=== PATIENT | male | born 1955 | race Caucasian/White ===

== ENCOUNTER 2016-07-21 07:51 | Emergency (ER) | payer MEDICARE, OTHER ==
[~2016-07-21] VITALS: Ht 175.3 cm; Wt 80.0 kg
[~2016-07-21 07:51] MED LIST: AMBI10TA PO; ATIV2INJ2 IV PUSH; ATOR20TA15 PO; BACL10TA PO; CIPR-9 PO; DEPA500T3 PO; DICL75TA PO; GLIM2TAB PO; IBUP800T23 PO; KEPP10002 PO; LEVE500 PO; LEVO100T5 PO; LYRI200C PO; METF1000 PO; TOPA25TA8 PO; ZITH250T PO
[2016-07-21] MEDS: LORazepam 2 MG/ML VIAL IV PUSH ONE (08:00)
[2016-07-21 08:03] VITALS: BP 183/89; PULSE 81; TEMP 98.6
--- NOTE | 2016-07-21 08:06 | PD ---
HPI Chief Complaint: seizure Time Seen by Provider: 07:59 Travel History International Travel<30 days: No Contact w/Intl Traveler<30days: No Traveled to known affect area: No History of Present Illness HPI 61-year-old male was brought in by EMS for seizure. Patient has history of seizure. Patient was admitted in May and patient was on Keppra and Depakote at that time. EMS reported patient is on Keppra and Topamax now. Patient is on Ativan as needed for seizure breakthrough. Patient had the seizure episode this morning. EMS was called. Patient was postictal. Patient was transported to ED for evaluation. Patient denies any headache. Patient denies any chest pain or shortness of breath. Patient denies abdominal pain. Patient denies any focal weakness or numbness of extremity. Patient also has history of diabetes, COPD, dyslipidemia, CHF, CAD, hypothyroidism. Patient's states the patient has been taking medications as directed. Patient's states that last breakthrough seizure was in May 2016. Patient has been seen a neurologist Dr. Ly. 10:04 AM. I spoke with patient's . Patient supposed to take Keppra 1000 mg 3 times a day however he has been taking it twice a day. Patient also supposed to take Topamax 25 mg 3 times a day. Patient has appointment with Dr. Ly, his neurologist tomorrow. PFSH Past Medical History Arthritis: Yes Asthma: Yes Heart Rhythm Problems: Yes Cardiac Catheterization: Yes (STENT PLACED ) Cardiovascular Problems: Yes (STENT PLACEMENT) Chest Pain: Yes Congestive Heart Failure: Yes COPD: Yes Cerebrovascular Accident: Yes (2005) Diabetes: Yes Diminished Hearing: No Gastrointestinal Disorders: Yes GERD: Yes Genitourinary: No Hypertension: Yes Musculoskeletal: Yes Neurologic: Yes Respiratory: Yes Myocardial Infarction: Yes (2004) Seizures: Yes Sleep Apnea: Yes Past Surgical History Cholecystectomy: Yes Other Surgery: Yes (KNEE, SHOULDER AND NECK ) Social History Alcohol Use: No Tobacco Use: No Substance Use: No Allergies-Medications (Allergen,Severity, Reaction): Coded Allergies: Levofloxacin (Verified Allergy, Severe, Anaphylaxis, 05/22/16) Nucynta (Verified Allergy, Intermediate, Nausea/Vomiting, 05/22/16) Reported Meds & Prescriptions Reported Meds & Active Scripts Active Ativan Inj (Lorazepam) 2 Mg/Ml Inj 1 Mg IV PUSH Q15M PRN Reported Topiramate 25 Mg Tab 25 Mg PO TID Aspirin 81 Mg Chew 81 Mg CHEW DAILY Omeprazole 20 Mg Tab 20 Mg PO DAILY Diclofenac Sodium DR (Diclofenac Sodium) 75 Mg Tabdr 75 Mg PO BID Baclofen 10 Mg Tab 10 Mg PO TID PRN Metformin (Metformin HCl) 1,000 Mg Tab 1,000 Mg PO BIDPC With meals Ambien (Zolpidem Tartrate) 10 Mg Tab 10 Mg PO HS PRN Lyrica (Pregabalin) 200 Mg Cap 200 Mg PO BID Levothyroxine (Levothyroxine Sodium) 100 Mcg Tab 175 Mcg PO DAILY Keppra (Levetiracetam) 1,000 Mg Tab 1,000 Mg PO BID Glimepiride 2 Mg Tab 2 Mg PO DAILY Take with breakfast or first main meal Atorvastatin (Atorvastatin Calcium) 20 Mg Tab 20 Mg PO DAILY 30 Days Review of Systems General / Constitutional: No: Fever Eyes: No: Visual changes HENT: No: Headaches Cardiovascular: No: Chest Pain or Discomfort Respiratory: No: Shortness of Breath Gastrointestinal: No: Abdominal Pain Genitourinary: No: Dysuria Musculoskeletal: No: Pain Skin: No Rash Neurologic: No: Weakness Psychiatric: No: Depression Endocrine: No: Polydipsia Hematologic/Lymphatic: No: Easy Bruising Physical Exam Narrative GENERAL: Well-nourished, well-developed patient. SKIN: Warm and dry. HEAD: Normocephalic. EYES: No scleral icterus. No injection or drainage. NECK: Supple, trachea midline. No JVD or lymphadenopathy. CARDIOVASCULAR: Regular rate and rhythm without murmurs, gallops, or rubs. RESPIRATORY: Breath sounds equal bilaterally. No accessory muscle use. GASTROINTESTINAL: Abdomen soft, non-tender, nondistended. MUSCULOSKELETAL: No cyanosis, or edema. BACK: Nontender without obvious deformity. No CVA tenderness. Neurologic exam: Patient's lethargic. Patient nonverbal at this point. Patient moves all extremities well. No obvious focal neurological deficit. Data Data Last Documented VS Vital Signs Date Time Temp Pulse Resp B/P Pulse Ox O2 Delivery O2 Flow Rate FiO2 07/21/16 09:31 64 12 122/75 95 Nasal Cannula 2 07/21/16 08:03 98.6 Orders Complete Blood Count With Diff (07/21/16 07:59) Comprehensive Metabolic Panel (07/21/16 07:59) Prothrombin Time / Inr (Pt) (07/21/16 07:59) Act Partial Throm Time (Ptt) (07/21/16 07:59) Iv Access Insert/Monitor (07/21/16 07:59) Ecg Monitoring (07/21/16 07:59) Oximetry (07/21/16 07:59) Lorazepam Inj (Ativan Inj) (07/21/16 08:00) Lorazepam Inj (Ativan Inj) (07/21/16 08:01) Thyroid Stimulating Hormone (07/21/16 08:06) Valproic Acid (Depakene) (07/21/16 08:09) Labs Laboratory Tests Test 07/21/16 08:05 White Blood Count 5.3 TH/MM3 Red Blood Count 4.48 MIL/MM3 Hemoglobin 13.2 GM/DL Hematocrit 39.8 % Mean Corpuscular Volume 88.8 FL Mean Corpuscular Hemoglobin 29.5 PG Mean Corpuscular Hemoglobin 33.2 % Concent Red Cell Distribution Width 14.1 % Platelet Count 149 TH/MM3 Mean Platelet Volume 9.5 FL Neutrophils (%) (Auto) 40.7 % Lymphocytes (%) (Auto) 49.2 % Monocytes (%) (Auto) 6.5 % Eosinophils (%) (Auto) 3.1 % Basophils (%) (Auto) 0.5 % Neutrophils # (Auto) 2.1 TH/MM3 Lymphocytes # (Auto) 2.6 TH/MM3 Monocytes # (Auto) 0.3 TH/MM3 Eosinophils # (Auto) 0.2 TH/MM3 Basophils # (Auto) 0.0 TH/MM3 CBC Comment DIFF FINAL Differential Comment Prothrombin Time 11.6 SEC Prothromb Time International 1.0 RATIO Ratio Activated Partial 25.2 SEC Thromboplast Time Sodium Level 141 MEQ/L Potassium Level 3.9 MEQ/L Chloride Level 107 MEQ/L Carbon Dioxide Level 26.4 MEQ/L Anion Gap 8 MEQ/L Blood Urea Nitrogen 12 MG/DL Creatinine 1.09 MG/DL Estimat Glomerular Filtration 69 ML/MIN Rate Random Glucose 175 MG/DL Calcium Level 8.9 MG/DL Total Bilirubin 0.7 MG/DL Aspartate Amino Transf 76 U/L (AST/SGOT) Alanine Aminotransferase 111 U/L (ALT/SGPT) Alkaline Phosphatase 78 U/L Total Protein 7.7 GM/DL Albumin 4.0 GM/DL MDM Medical Decision Making Medical Screen Exam Complete: Yes Emergency Medical Condition: Yes Interpretation(s) 9:44 AM. CBC within normal limit. CMP within normal limit. Differential Diagnosis Differential diagnosis including breakthrough seizure, electrolyte abnormality. Narrative Course 61-year-old male was brought in by EMS for seizure. History of seizure. Ativan 2 mg IV given. I spoke with Dr. Ly. Advised patient to take Keppra 1000 g 3 times a day. Advised patient to take Topamax 25 g 3 times a day. Advised patient to follow with him in the office tomorrow morning. Diagnosis Primary Impression: Breakthrough seizure Patient Instructions: General Instructions Additional Instructions: Advised patient to take Keppra and Topamax as directed. Follow-up with neurologist in a.m. Med/Other Pt SpecificInfo: Prescription(s) given, Existing Med Changed Scripts Topiramate 25 Mg Tab25 Mg PO TID #90 TAB Ref 0 Prov:Tyrone Mantilla MD 07/21/16 Levetiracetam (Keppra)1,000 Mg Tab1,000 Mg PO TID #90 TAB Ref 0 Prov:Tyrone Mantilla MD 07/21/16 Disposition: 01 DISCHARGE HOME Condition: Stable Tyrone Mantilla MD Jul 21, 2016 08:06
[2016-07-21 08:20] LABS: AUTOMATED NEUTROPHIL # 2.1 TH/MM3 (1.8-7.7); BASOPHIL % 0.5 % (0.0-2.0); EOSINOPHIL # 0.2 TH/MM3 (0-0.4); EOSINOPHIL % 3.1 % (0.0-4.0); HEMATOCRIT 39.8 % (39.0-51.0); HEMO FLAGS DIFF FINAL; LYMPH % 49.2 % (9.0-44.0); LYMPHOCYTE # 2.6 TH/MM3 (1.0-4.8); MEAN CELL VOLUME 88.8 FL (80.0-100.0); MEAN CORPUSCULAR HEMOGLOBIN 29.5 PG (27.0-34.0); MEAN CORPUSCULAR HGB CONC 33.2 % (32.0-36.0); MONO % 6.5 % (0.0-8.0); NEUT % 40.7 % (16.0-70.0); PLATELET COUNT 149 TH/MM3 (150-450); RED BLOOD COUNT 4.48 MIL/MM3 (4.50-5.90); RED CELL DISTRIBUTION WIDTH 14.1 % (11.6-17.2); WHITE BLOOD COUNT 5.3 TH/MM3 (4.0-11.0)
[2016-07-21 08:28] LABS: APTT (PATIENT) 25.2 SEC (24.3-30.1); PROTHROMBIN TIME - PATIENT 11.6 SEC (9.8-11.6)
[2016-07-21 08:35] LABS: ANION GAP 8 MEQ/L (5-15); AST (GOT) 76 U/L (15-37); BICARBONATE 26.4 MEQ/L (21.0-32.0); BLOOD UREA NITROGEN 12 MG/DL (7-18); CHLORIDE 107 MEQ/L (98-107); GLOMERULAR FILTRATION RATE 69 ML/MIN (>89); POTASSIUM 3.9 MEQ/L (3.5-5.1); SODIUM (NA) 141 MEQ/L (136-145)
[2016-07-21 08:38] LABS: ALKALINE PHOSPHATASE 78 U/L (45-117); ALT (GPT) 111 U/L (12-78); TOTAL BILIRUBIN ADULT 0.7 MG/DL (0.2-1.0)
[2016-07-21] MEDS ORDERED: TOPI1TAB97 PO ×2 (09:17→10:08)
[2016-07-21] MEDS ORDERED: OMEP20TA PO (09:17)
[2016-07-21] MEDS ORDERED: ASPI81CH CHEW (09:17)
[2016-07-21 09:31] VITALS: BP 122/75; PULSE 64; RESP 12; O2SAT 95
[2016-07-21] MEDS ORDERED: KEPP10002 PO (10:08)
[2016-07-21] MEDS: LORazepam 2 MG/ML VIAL ONE ×2 (11:15→11:18)
[2016-07-21 12:56] VITALS: BP 119/75; PULSE 69; RESP 16; TEMP 97.6; O2SAT 96
[2016-07-21 14:13] VITALS: O2SAT 96
--- NOTE | 2016-07-21 14:16 | EKG ---
Date Performed: 07/21/2016 Time Performed: 08:42:36 PTAGE: 61 years EKG: Sinus rhythm NORMAL ECG PREVIOUS TRACING : 05/22/2016 16.57 DOCTOR: Antoine Nolen Interpretating Date/Time 07/21/2016 14:13:21
== END 2016-07-21 13:40 | disposition home or self-care (01) ==
LOC: NEPC 07:51
DX: G40.89 Other seizures (principal); E11.9 Type 2 diabetes mellitus without complications; I10 Essential (primary) hypertension; I25.10 Atherosclerotic heart disease of native coronary artery without angina pectoris; E03.9 Hypothyroidism, unspecified; E78.5 Hyperlipidemia, unspecified; G47.30 Sleep apnea, unspecified; Z79.84 Long term (current) use of oral hypoglycemic drugs; Z86.79 Personal history of other diseases of the circulatory system; Z87.09 Personal history of other diseases of the respiratory system; Z87.39 Personal history of other diseases of the musculoskeletal system and connective tissue; Z86.73 Personal history of transient ischemic attack (TIA), and cerebral infarction without residual deficits; Z87.19 Personal history of other diseases of the digestive system; Z86.69 Personal history of other diseases of the nervous system and sense organs
CPT/HCPCS: 80053; 80164; 84443; 85025; 85610; 85730; 93005; 99284; J2060

== ENCOUNTER 2016-09-25 11:48 | Emergency (ER) | payer OTHER ==
[~2016-09-25 11:48] MED LIST changes: +ASPI81CH CHEW; -CIPR-9 PO; -DEPA500T3 PO; -IBUP800T23 PO; -LEVE500 PO; +OMEP20TA PO; -TOPA25TA8 PO; +TOPI1TAB97 PO; -ZITH250T PO
[2016-09-25 12:00] VITALS: BP 149/90; PULSE 72; RESP 20; TEMP 97.8; O2SAT 96
[2016-09-25] MEDS ORDERED: ACETAMINOPHEN/HYDROcodone 325 MG/10 MG TAB PO ONE (14:45)
[2016-09-25] MEDS ORDERED: DEXAMETHASONE SOD PHOS 20 MG/5 ML VIAL IV PUSH ONE (14:45)
--- NOTE | 2016-09-25 14:50 | PD ---
HPI Chief Complaint: Fall Time Seen by Provider: 14:34 Travel History International Travel<30 days: No Contact w/Intl Traveler<30days: No Traveled to known affect area: No History of Present Illness HPI 61-year-old male brought in by EMS status post fall this morning with reported hitting of head and LOC according to his . Patient has chronic low back pain with spinal stenosis currently being treated with hydrocodone 10 3 times a day as well as Invokana 100 mg twice a day which was started yesterday. His states he was walking with his legs gave out which is common for him, and he full forward hitting the anterior right forehead. She states she lost consciousness for several seconds. He has mild headache of 2/ 10. He has no obvious signs of trauma or laceration or abrasion. He has no other acute complaints, other than he has chronic back pain which is typical for him. Patient is allergic to levofloxacin and Nucynta. PFSH Past Medical History Hx Anticoagulant Therapy: No Arthritis: Yes Asthma: Yes Heart Rhythm Problems: Yes Cardiac Catheterization: Yes (STENT PLACED ) Cardiovascular Problems: Yes High Cholesterol: Yes Chest Pain: Yes Congestive Heart Failure: Yes (ECHO PERFORMED EARLIER THIS YEAR) COPD: Yes Cerebrovascular Accident: Yes Diabetes: Yes Patient Takes Glucophage: Yes (METFORMIN ) Diminished Hearing: No Gastrointestinal Disorders: Yes GERD: Yes Genitourinary: No Hypertension: Yes Musculoskeletal: Yes Neurologic: Yes Respiratory: Yes Myocardial Infarction: Yes Seizures: Yes Sleep Apnea: Yes Past Surgical History Cholecystectomy: Yes Coronary Stent: Yes Neurologic Surgery: Yes (insertion of ventricular neuro stimulator for seizure) Other Surgery: Yes (KNEE, SHOULDER AND NECK ) Social History Alcohol Use: No Tobacco Use: No Substance Use: No Allergies-Medications (Allergen,Severity, Reaction): Coded Allergies: Levofloxacin (Verified Allergy, Severe, Anaphylaxis, 09/25/16) Nucynta (Verified Allergy, Intermediate, Nausea/Vomiting, 09/25/16) Reported Meds & Prescriptions Reported Meds & Active Scripts Active Topiramate 25 Mg Tab 25 Mg PO TID Keppra (Levetiracetam) 1,000 Mg Tab 1,000 Mg PO TID Ativan Inj (Lorazepam) 2 Mg/Ml Inj 1 Mg IV PUSH Q15M PRN Reported Topiramate 25 Mg Tab 25 Mg PO TID Aspirin 81 Mg Chew 81 Mg CHEW DAILY Omeprazole 20 Mg Tab 20 Mg PO DAILY Diclofenac Sodium DR (Diclofenac Sodium) 75 Mg Tabdr 75 Mg PO BID Baclofen 10 Mg Tab 10 Mg PO TID PRN Metformin (Metformin HCl) 1,000 Mg Tab 1,000 Mg PO BIDPC With meals Ambien (Zolpidem Tartrate) 10 Mg Tab 10 Mg PO HS PRN Lyrica (Pregabalin) 200 Mg Cap 200 Mg PO BID Levothyroxine (Levothyroxine Sodium) 100 Mcg Tab 175 Mcg PO DAILY Keppra (Levetiracetam) 1,000 Mg Tab 1,000 Mg PO BID Glimepiride 2 Mg Tab 2 Mg PO DAILY Take with breakfast or first main meal Atorvastatin (Atorvastatin Calcium) 20 Mg Tab 20 Mg PO DAILY 30 Days Review of Systems Except as stated in HPI: all other systems reviewed are Neg General / Constitutional: No: Fever Eyes: No: Visual changes HENT: No: Headaches Cardiovascular: No: Chest Pain or Discomfort Respiratory: No: Shortness of Breath Gastrointestinal: No: Abdominal Pain Genitourinary: No: Dysuria Musculoskeletal: No: Pain Skin: No Rash Neurologic: No: Weakness Psychiatric: No: Depression Endocrine: No: Polydipsia Hematologic/Lymphatic: No: Easy Bruising Physical Exam Narrative GENERAL: Patient resting comfortably on the exam bed. SKIN: Warm and dry. Normal color. Normal turgor. No obvious signs of trauma. HEAD: Atraumatic. Normocephalic. Mild tenderness over the right forehead. No significant goose egg or bony tenderness. EYES: Pupils equal and round. No scleral icterus. No injection or drainage. ENT: No nasal bleeding or discharge. Mucous membranes pink and moist. No dental injury. Pharynx is clear. Airway is patent. NECK: Trachea midline. No bony tenderness. Range of motion is full and nontender. CARDIOVASCULAR: Regular rate and rhythm. RESPIRATORY: No accessory muscle use. Clear to auscultation. Breath sounds equal bilaterally. GASTROINTESTINAL: Abdomen soft, non-tender, nondistended. Hepatic and splenic margins not palpable. MUSCULOSKELETAL: Extremities without clubbing, cyanosis, or edema. No obvious deformities. Patient has normal plantar flexion and dorsiflexion bilaterally. Patient has 2+ patellar reflexes. No straight leg raise pain at this time. NEUROLOGICAL: Awake and alert. No obvious cranial nerve deficits. Motor grossly within normal limits. Five out of 5 muscle strength in the arms and legs. Normal speech. PSYCHIATRIC: Appropriate mood and affect; insight and judgment normal. Data Data Last Documented VS Vital Signs Date Time Temp Pulse Resp B/P Pulse Ox O2 Delivery O2 Flow Rate FiO2 09/25/16 13:25 96 Room Air 09/25/16 12:00 97.8 72 20 149/[address] Brain W/O Iv Contrast(Rout) (09/25/16 14:32) Acetamin-Hydrocod 325-10 Mg ([place] 10-32 (09/25/16 14:45) Dexamethasone Inj (Decadron Inj) (09/25/16 14:45) MDM Medical Decision Making Medical Screen Exam Complete: Yes Emergency Medical Condition: Yes Medical Record Reviewed: Yes Differential Diagnosis Fall. Chronic back pain. Spinal stenosis. Lower extremity weakness. Head injury. Loss of consciousness. Narrative Course Patient is medically stable at time of exam. CT of the head is ordered. Patient is given his regular dose of Lortab 10/325 by mouth. Patient is given Decadron [address] the head is negative for acute process per radiologist. Patient states stable for discharge home and continuation of his current meds at home. Patient should call pain management for rescheduling of his injections. Patient is to continue physical therapy as previously. Patient follow with his primary care physician as needed. Diagnosis Primary Impression: Fall Qualified Code: W19.XXXA - Fall, initial encounter Additional Impression: Head injury, acute, with loss of consciousness Qualified Code: S06.9X1A - Head injury, acute, with loss of consciousness, with LOC of 30 min or less, initial encounter Referrals: Pain Management Primary Care Physician Patient Instructions: Fall Prevention (ED), General Instructions, Head Injury ( ED) Additional Instructions: Patient is given his regular dose of Lortab 10/325 by mouth. Patient is given Decadron [address] the head is negative for acute process per radiologist. Patient states stable for discharge home and continuation of his current meds at home. Patient should call pain management for rescheduling of his injections. Patient is to continue physical therapy as previously. Patient follow with his primary care physician as needed. Med/Other Pt SpecificInfo: No Change to Meds Disposition: DISCHARGE HOME Condition: Stable Raimundo Tanner Sep 25, 2016 14:50
--- NOTE | 2016-09-25 15:33 | RADRPT ---
EXAM DATE/TIME: 09/25/2016 15:15 [facility] COMPARISON: CT BRAIN W/O CONTRAST, May 22, 2016, 18:20. INDICATIONS : Fall with injury to right frontal head. RADIATION DOSE: 44.75 CTDIvol (mGy) MEDICAL HISTORY : Cardiovascular disease. Seizures. Hypertension.CVA. SURGICAL HISTORY : Fusion, cervical. Ventricular neurostimulator. ENCOUNTER: Initial ACUITY: 1 day PAIN SCALE: 7/10 LOCATION: Right frontal head. TECHNIQUE: Multiple contiguous axial images were obtained of the head. Using automated exposure control and adj ustment of the mA and/or kV according to patient size, radiation dose was kept as low as reasonably a chievable to obtain optimal diagnostic quality images. FINDINGS: CEREBRUM: The ventricles are normal for age. No evidence of midline shift, mass lesion, hemorrhage or acute in farction. No extra-axial fluid collections are seen. POSTERIOR FOSSA: The cerebellum and brainstem are intact. The 4th ventricle is midline. The cerebellopontine angle i s unremarkable. EXTRACRANIAL: The visualized portion of the orbits is intact. SKULL: The calvaria is intact. No evidence of skull fracture. CONCLUSION: Negative exam. Neo Frye MD on September 25, 2016 at 15:29 Board Certified Radiologist. This report was verified electronically.
--- NOTE | 2016-09-25 18:28 | EKG ---
Date Performed: 09/25/2016 Time Performed: 14:10:52 PTAGE: 61 years EKG: Sinus rhythm NONSPECIFIC T-WAVE ABNORMALITY BORDERLINE ECG NO SIGNIFICANT CHANGE FROM PRIOR ELECTROCARDIOGRAM. PREVIOUS TRACING : 07/21/2016 08.42 DOCTOR: Jovani Andre Interpretating Date/Time 09/25/2016 18:27:56
== END 2016-09-25 16:42 | disposition home or self-care (01) ==
LOC: NEPC 11:48
DX: S06.9X1A Unspecified intracranial injury with loss of consciousness of 30 minutes or less, initial encounter (principal); I10 Essential (primary) hypertension; W19.XXXA Unspecified fall, initial encounter; Y93.01 Activity, walking, marching and hiking
CPT/HCPCS: 70450; 93005; 96374; 99284; J1100

== ENCOUNTER 2016-12-10 04:32 | Emergency (ER) | payer OTHER ==
[~2016-12-10] VITALS: Ht 177.8 cm; Wt 85.0 kg
[2016-12-10 04:33] VITALS: BP 139/80; PULSE 74; RESP 16; TEMP 98.6; O2SAT 95
[2016-12-10] MEDS ORDERED: LORA-392 PO (04:54)
[2016-12-10] MEDS ORDERED: IBUP800T23 PO (04:54)
[2016-12-10] MEDS ORDERED: NITR0.4S SL (04:56)
[2016-12-10] MEDS ORDERED: MORPHINE SULFATE 4 MG/ML INJ IV PUSH ONE (05:15)
[2016-12-10] MEDS ORDERED: ONDANSETRON HCL 4 MG/2 ML VIAL IV PUSH ONE (05:15)
[2016-12-10] MEDS ORDERED: MORPHINE SULFATE 8 MG/ML INJ ONE (05:32)
--- NOTE | 2016-12-10 05:38 | PD ---
HPI Chief Complaint: Skin Problem Time Seen by Provider: 05:33 Travel History International Travel<30 days: No Contact w/Intl Traveler<30days: No Traveled to known affect area: No History of Present Illness HPI 61-year-old white male presents to emergency department for evaluation of a painful lump to his left shoulder over the past week. The patient states that he is concerned that this is an infection from shoulder. He has had a history of a skin infection to his chest in the past. This has required incision and drainage by his orthopedist. In addition he has had some subjective nausea without vomiting. Subjective fever and chills and general malaise. Patient has chronic weakness in his left arm from prior rotator cuff injury with failed surgery. PFSH Past Medical History Hx Anticoagulant Therapy: No Arthritis: Yes Asthma: Yes Heart Rhythm Problems: Yes Cardiac Catheterization: Yes (STENT PLACED ) Cardiovascular Problems: Yes High Cholesterol: Yes Chest Pain: Yes Congestive Heart Failure: Yes (ECHO PERFORMED EARLIER THIS YEAR) COPD: Yes Cerebrovascular Accident: Yes (CVA-LEFT SIDED WEAKNESS) Diabetes: Yes Patient Takes Glucophage: Yes Diminished Hearing: No Gastrointestinal Disorders: Yes GERD: Yes Genitourinary: No Hypertension: Yes Musculoskeletal: Yes Neurologic: Yes Respiratory: Yes Myocardial Infarction: Yes Seizures: Yes Sleep Apnea: Yes Past Surgical History Cholecystectomy: Yes Coronary Stent: Yes Neurologic Surgery: Yes (insertion of ventricular neuro stimulator for seizure) Other Surgery: Yes (KNEE, SHOULDER AND NECK ) Social History Alcohol Use: No Tobacco Use: No Substance Use: No Allergies-Medications (Allergen,Severity, Reaction): Coded Allergies: Levofloxacin (Verified Allergy, Severe, Anaphylaxis, 12/10/16) Nucynta (Verified Allergy, Intermediate, Nausea/Vomiting, 12/10/16) Blueberry (Verified Allergy, Mild, Rash, 12/10/16) Reported Meds & Prescriptions Reported Meds & Active Scripts Active Lortab (Hydrocodone-Acetaminophen) 5-325 Mg Tab 1 Tab PO Q6H PRN Keppra (Levetiracetam) 1,000 Mg Tab 1,000 Mg PO TID Reported Nitrostat SL (Nitroglycerin) 0.4 Mg Subl 0.4 Mg SL DIRECTED PRN 1 tablet under the tongue as needed for chest pain. Repeat every 5 minutes for a total of 3 DOSES or call 911 if NO relief. Ativan (Lorazepam) 0.5 Mg Tab 0.5 Mg PO BID Ibuprofen 800 Mg Tab 800 Mg PO TID PRN Topiramate 25 Mg Tab 25 Mg PO BID Aspirin 81 Mg Chew 81 Mg CHEW DAILY Omeprazole 20 Mg Tab 20 Mg PO DAILY Metformin (Metformin HCl) 1,000 Mg Tab 1,000 Mg PO BIDPC With meals Ambien (Zolpidem Tartrate) 10 Mg Tab 10 Mg PO HS PRN Lyrica (Pregabalin) 200 Mg Cap 200 Mg PO BID Levothyroxine (Levothyroxine Sodium) 100 Mcg Tab 175 Mcg PO DAILY Glimepiride 2 Mg Tab 2 Mg PO DAILY Take with breakfast or first main meal Atorvastatin (Atorvastatin Calcium) 20 Mg Tab 20 Mg PO DAILY 30 Days Review of Systems Except as stated in HPI: all other systems reviewed are Neg Physical Exam Narrative GENERAL: Well-developed, well-nourished in no apparent distress. Nontoxic appearing. HEAD: Normocephalic, atraumatic. EYES: Pupils equal round and reactive. Extraocular motions intact. No scleral icterus. No injection or drainage. ENT: Nose clear. Throat without erythema, tonsillar hypertrophy or exudate. Uvula midline. Airway patent. NECK: Trachea midline. Supple, nontender, moves head freely. No central bony tenderness or spasm. CARDIOVASCULAR: Regular rate and rhythm without murmurs, gallops, or rubs. RESPIRATORY: Clear to auscultation. Breath sounds equal bilaterally. No wheezes , rales, or rhonchi. GASTROINTESTINAL: Abdomen soft, non-tender, nondistended. No hepato-splenomegaly , or palpable masses. No guarding. EXTREMITIES: No clubbing, cyanosis, or edema. Tenderness to the anterior left shoulder. There is a 2 x 2 centimeter mobile tender soft tissue lesion area this is at the superior aspect of the incision line. 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 There is no erythema, warmth. The skin is intact. Right upper extremity as well as the lower extremities are without localizing bony tenderness or deformity. BACK: Nontender without deformity. No flank tenderness. NEUROLOGICAL: Awake, alert and oriented x 3 .Cranial nerves grossly intact. Motor and sensory grossly within normal limits. Normal speech. Data Data Last Documented VS Vital Signs Date Time Temp Pulse Resp B/P Pulse Ox O2 Delivery O2 Flow Rate FiO2 12/10/16 04:33 98.6 74 16 139/80 95 Room Air Orders Complete Blood Count With Diff (12/10/16 05:13) Comprehensive Metabolic Panel (12/10/16 05:13) C-Reactive Protein (Crp) (12/10/16 05:13) Westergren Sedimentation Rate (12/10/16 05:13) Iv Access Insert/Monitor (12/10/16 05:13) Shoulder, Limited(2vws) (12/10/16 05:13) Ondansetron Inj (Zofran Inj) (12/10/16 05:15) Morphine Inj (Morphine Inj) (12/10/16 05:15) Morphine Inj (Morphine Inj) (12/10/16 05:32) Labs Laboratory Tests Test 12/10/16 05:27 White Blood Count 7.0 TH/MM3 Red Blood Count 4.80 MIL/MM3 Hemoglobin 14.2 GM/DL Hematocrit 42.6 % Mean Corpuscular Volume 88.7 FL Mean Corpuscular Hemoglobin 29.6 PG Mean Corpuscular Hemoglobin 33.4 % Concent Red Cell Distribution Width 14.3 % Platelet Count 170 TH/MM3 Mean Platelet Volume 9.2 FL Neutrophils (%) (Auto) 62.2 % Lymphocytes (%) (Auto) 30.8 % Monocytes (%) (Auto) 4.8 % Eosinophils (%) (Auto) 1.7 % Basophils (%) (Auto) 0.5 % Neutrophils # (Auto) 4.4 TH/MM3 Lymphocytes # (Auto) 2.2 TH/MM3 Monocytes # (Auto) 0.3 TH/MM3 Eosinophils # (Auto) 0.1 TH/MM3 Basophils # (Auto) 0.0 TH/MM3 CBC Comment DIFF FINAL Differential Comment Erythrocyte Sedimentation Rate 6 mm/hr Sodium Level 140 MEQ/L Potassium Level 3.8 MEQ/L Chloride Level 106 MEQ/L Carbon Dioxide Level 25.2 MEQ/L Anion Gap 9 MEQ/L Blood Urea Nitrogen 17 MG/DL Creatinine 0.88 MG/DL Estimat Glomerular Filtration 89 ML/MIN Rate Random Glucose 193 MG/DL Calcium Level 9.0 MG/DL Total Bilirubin 0.5 MG/DL Aspartate Amino Transf 36 U/L (AST/SGOT) Alanine Aminotransferase 78 U/L (ALT/SGPT) Alkaline Phosphatase 74 U/L C-Reactive Protein LESS THAN 0.29 MG/DL Total Protein 7.6 GM/DL Albumin 4.0 GM/DL MDM Medical Decision Making Medical Screen Exam Complete: Yes Emergency Medical Condition: Yes Medical Record Reviewed: Yes Interpretation(s) Laboratory Tests Test 12/10/16 05:27 White Blood Count 7.0 TH/MM3 Red Blood Count 4.80 MIL/MM3 Hemoglobin 14.2 GM/DL Hematocrit 42.6 % Mean Corpuscular Volume 88.7 FL Mean Corpuscular Hemoglobin 29.6 PG Mean Corpuscular Hemoglobin 33.4 % Concent Red Cell Distribution Width 14.3 % Platelet Count 170 TH/MM3 Mean Platelet Volume 9.2 FL Neutrophils (%) (Auto) 62.2 % Lymphocytes (%) (Auto) 30.8 % Monocytes (%) (Auto) 4.8 % Eosinophils (%) (Auto) 1.7 % Basophils (%) (Auto) 0.5 % Neutrophils # (Auto) 4.4 TH/MM3 Lymphocytes # (Auto) 2.2 TH/MM3 Monocytes # (Auto) 0.3 TH/MM3 Eosinophils # (Auto) 0.1 TH/MM3 Basophils # (Auto) 0.0 TH/MM3 CBC Comment DIFF FINAL Differential Comment Erythrocyte Sedimentation Rate 6 mm/hr Sodium Level 140 MEQ/L Potassium Level 3.8 MEQ/L Chloride Level 106 MEQ/L Carbon Dioxide Level 25.2 MEQ/L Anion Gap 9 MEQ/L Blood Urea Nitrogen 17 MG/DL Creatinine 0.88 MG/DL Estimat Glomerular Filtration 89 ML/MIN Rate Random Glucose 193 MG/DL Calcium Level 9.0 MG/DL Total Bilirubin 0.5 MG/DL Aspartate Amino Transf 36 U/L (AST/SGOT) Alanine Aminotransferase 78 U/L (ALT/SGPT) Alkaline Phosphatase 74 U/L C-Reactive Protein LESS THAN 0.29 MG/DL Total Protein 7.6 GM/DL Albumin 4.0 GM/DL Last 24 hours Impressions Shoulder X-Ray 12/10/16 0513 Signed Impressions: Service Date/Time: Saturday, December 10, 2016 05:37 - CONCLUSION: Left shoulder arthroplasty as above. Suspected loosening of the humeral component. No fracture. Thomas Hewitt MD Differential Diagnosis MDM: High Differential diagnoses: Abscess, folliculitis, cellulitis, lymphangitis, abrasion, contact dermatitis, hardware problem Narrative Course IV access is obtained. Patient's given 4 mg of Zofran IV and 4 mg of morphine IV. Routine laboratory testing several analysis including CBC, chemistry and left shoulder x-ray Patient's CBC, chemistry, sedimentation rate and CRP are negative. X-ray shows loosening of his hardware. I suspect this is the etiology of his pain. Patient is given a prescription for Lortab. He is advised to follow-up with his orthopedist. Family states that they have seen Dr. Warner in the past and they will call him in the morning. This is left shoulder pain, loosening hardware Diagnosis Primary Impression: Left shoulder pain Qualified Code: M25.512 - Acute pain of left shoulder Additional Impression: loosening hardware left shoulder Patient Instructions: General Instructions, Narcotic given in the ED Additional Instructions: Rest. Lortab for pain. Follow-up with your orthopedist in the next 3-7 days. Return to the ER if any problems. Med/Other Pt SpecificInfo: Prescription(s) given Scripts Hydrocodone-Acetaminophen (Lortab)5-325 Mg Tab1 Tab PO Q6H PRN (PAIN) #20 TAB Prov:Brian Flores MD 12/10/16 Disposition: 01 DISCHARGE HOME Condition: Stable Lino Esposito Dec 10, 2016 05:38
[2016-12-10 05:46] LABS: AUTOMATED NEUTROPHIL # 4.4 TH/MM3 (1.8-7.7); BASOPHIL % 0.5 % (0.0-2.0); EOSINOPHIL # 0.1 TH/MM3 (0-0.4); EOSINOPHIL % 1.7 % (0.0-4.0); HEMATOCRIT 42.6 % (39.0-51.0); HEMO FLAGS DIFF FINAL; LYMPH % 30.8 % (9.0-44.0); LYMPHOCYTE # 2.2 TH/MM3 (1.0-4.8); MEAN CELL VOLUME 88.7 FL (80.0-100.0); MEAN CORPUSCULAR HEMOGLOBIN 29.6 PG (27.0-34.0); MEAN CORPUSCULAR HGB CONC 33.4 % (32.0-36.0); MONO % 4.8 % (0.0-8.0); NEUT % 62.2 % (16.0-70.0); PLATELET COUNT 170 TH/MM3 (150-450); RED CELL DISTRIBUTION WIDTH 14.3 % (11.6-17.2)
--- NOTE | 2016-12-10 05:53 | RADRPT ---
EXAM DATE/TIME: 12/10/2016 05:37 [facility] COMPARISON: No previous studies available for comparison. INDICATIONS : Inflammation to left shoulder. MEDICAL HISTORY : Myocardial infarction. Stroke. Epilepsy. SURGICAL HISTORY : Left shoulder replacement. ENCOUNTER: Initial ACUITY: 1 day PAIN SCORE: 0/10 LOCATION: Left shoulder FINDINGS: Patient has a reversed configuration left glenohumeral joint arthroplasty. No dislocation. No fractur e demonstrated. There is lucency/bone resorption fairly diffusely around the humeral component. Radiographic appearance of the soft tissues within normal limits. CONCLUSION: Left shoulder arthroplasty as above. Suspected loosening of the humeral component. No fracture. Thomas Hewitt MD on December 10, 2016 at 5:49 Board Certified Radiologist. This report was verified electronically.
[2016-12-10 06:07] LABS: ALT (GPT) 78 U/L (12-78); ANION GAP 9 MEQ/L (5-15); AST (GOT) 36 U/L (15-37); BICARBONATE 25.2 MEQ/L (21.0-32.0); BLOOD UREA NITROGEN 17 MG/DL (7-18); CHLORIDE 106 MEQ/L (98-107); GLOMERULAR FILTRATION RATE 89 ML/MIN (>89); POTASSIUM 3.8 MEQ/L (3.5-5.1); SODIUM (NA) 140 MEQ/L (136-145)
[2016-12-10 06:09] LABS: ALKALINE PHOSPHATASE 74 U/L (45-117); TOTAL BILIRUBIN ADULT 0.5 MG/DL (0.2-1.0)
[2016-12-10] MEDS ORDERED: HYDR-3533 PO (06:49)
[2016-12-10 07:13] VITALS: BP 132/75
== END 2016-12-10 07:22 | disposition home or self-care (01) ==
LOC: NEPD 04:32
DX: M25.512 Pain in left shoulder (principal); E78.00 Pure hypercholesterolemia, unspecified; I50.9 Heart failure, unspecified; J44.9 Chronic obstructive pulmonary disease, unspecified; E11.9 Type 2 diabetes mellitus without complications; M13.80 Other specified arthritis, unspecified site; I69.954 Hemiplegia and hemiparesis following unspecified cerebrovascular disease affecting left non-dominant side; K21.9 Gastro-esophageal reflux disease without esophagitis; I10 Essential (primary) hypertension
CPT/HCPCS: 73030; 80053; 85025; 85652; 86140; 96374; 96375; 99284; J2270; J2405

== ENCOUNTER 2016-12-18 13:49 | Emergency (ER) | payer OTHER ==
[~2016-12-18] VITALS: Ht 177.8 cm; Wt 86.3 kg
[~2016-12-18 13:49] MED LIST changes: -ATIV2INJ2 IV PUSH; -BACL10TA PO; -DICL75TA PO; +HYDR-3533 PO; +IBUP800T23 PO; +LORA-392 PO; +NITR0.4S SL
[2016-12-18 13:56] VITALS: BP 140/83; PULSE 72; RESP 16; TEMP 98.1; O2SAT 98
[2016-12-18] MEDS ORDERED: SODIUM CHLOR 0.9% 1000 ML INJ 1,000 ML IV ONE (14:01)
[2016-12-18] MEDS ORDERED: SODIUM CHLORIDE 0.9% FLUSH 10 ML FLUSH IVF PRN (14:15)
[2016-12-18 14:26] LABS: AUTOMATED NEUTROPHIL # 3.1 TH/MM3 (1.8-7.7); BASOPHIL % 0.5 % (0.0-2.0); EOSINOPHIL # 0.1 TH/MM3 (0-0.4); EOSINOPHIL % 1.5 % (0.0-4.0); HEMATOCRIT 40.8 % (39.0-51.0); HEMO FLAGS DIFF FINAL; LYMPH % 34.2 % (9.0-44.0); LYMPHOCYTE # 1.8 TH/MM3 (1.0-4.8); MEAN CELL VOLUME 89.9 FL (80.0-100.0); MEAN CORPUSCULAR HEMOGLOBIN 29.7 PG (27.0-34.0); MEAN CORPUSCULAR HGB CONC 33.1 % (32.0-36.0); MONO % 5.3 % (0.0-8.0); NEUT % 58.5 % (16.0-70.0); PLATELET COUNT 130 TH/MM3 (150-450); RED BLOOD COUNT 4.54 MIL/MM3 (4.50-5.90); RED CELL DISTRIBUTION WIDTH 14.5 % (11.6-17.2); WHITE BLOOD COUNT 5.3 TH/MM3 (4.0-11.0)
--- NOTE | 2016-12-18 14:45 | PD ---
HPI Chief Complaint: Seizure Time Seen by Provider: 14:03 Travel History International Travel<30 days: No Contact w/Intl Traveler<30days: No Traveled to known affect area: No History of Present Illness HPI 61-year-old male presents after he had report of 2 seizures. He states that he has been taking his medications like he should for his seizure disorder. He states he has a neurologist but is not sure of their name. He confirms that he is on Topamax and Keppra for his seizures. He does not recall seizure episodes so history on this is limited. He states he did hit his head. He denies any specific other complaints other than pain to his left shoulder which he gets a lot. PFSH Past Medical History Hx Anticoagulant Therapy: No Arthritis: Yes Asthma: Yes Heart Rhythm Problems: Yes Cardiac Catheterization: Yes (STENT PLACED ) Cardiovascular Problems: Yes High Cholesterol: Yes Chest Pain: Yes Congestive Heart Failure: Yes (ECHO PERFORMED EARLIER THIS YEAR) COPD: Yes Cerebrovascular Accident: Yes (CVA-LEFT SIDED WEAKNESS) Diabetes: Yes Patient Takes Glucophage: Yes Diminished Hearing: No Gastrointestinal Disorders: Yes GERD: Yes Genitourinary: No Hypertension: Yes Musculoskeletal: Yes Neurologic: Yes Respiratory: Yes Myocardial Infarction: Yes Seizures: Yes Sleep Apnea: Yes Past Surgical History Cholecystectomy: Yes Coronary Stent: Yes Neurologic Surgery: Yes (insertion of ventricular neuro stimulator for seizure) Other Surgery: Yes (KNEE, SHOULDER AND NECK ) Social History Alcohol Use: No Tobacco Use: No Substance Use: No Allergies-Medications (Allergen,Severity, Reaction): Coded Allergies: Levofloxacin (Verified Allergy, Severe, Anaphylaxis, 12/10/16) Nucynta (Verified Allergy, Intermediate, Nausea/Vomiting, 12/10/16) Blueberry (Verified Allergy, Mild, Rash, 12/10/16) Reported Meds & Prescriptions Reported Meds & Active Scripts Active Topiramate 25 Mg Tab 25 Mg PO TID 30 Days Lortab (Hydrocodone-Acetaminophen) 5-325 Mg Tab 1 Tab PO Q6H PRN Keppra (Levetiracetam) 1,000 Mg Tab 1,000 Mg PO TID Reported Nitrostat SL (Nitroglycerin) 0.4 Mg Subl 0.4 Mg SL DIRECTED PRN 1 tablet under the tongue as needed for chest pain. Repeat every 5 minutes for a total of 3 DOSES or call 911 if NO relief. Ativan (Lorazepam) 0.5 Mg Tab 0.5 Mg PO BID Aspirin 81 Mg Chew 81 Mg CHEW DAILY Omeprazole 20 Mg Tab 20 Mg PO DAILY Metformin (Metformin HCl) 1,000 Mg Tab 1,000 Mg PO BIDPC With meals Ambien (Zolpidem Tartrate) 10 Mg Tab 10 Mg PO HS PRN Lyrica (Pregabalin) 200 Mg Cap 200 Mg PO BID Levothyroxine (Levothyroxine Sodium) 100 Mcg Tab 175 Mcg PO DAILY Glimepiride 2 Mg Tab 2 Mg PO DAILY Take with breakfast or first main meal Atorvastatin (Atorvastatin Calcium) 20 Mg Tab 20 Mg PO DAILY 30 Days Review of Systems Except as stated in HPI: all other systems reviewed are Neg Physical Exam Narrative GENERAL: Well-nourished, well-developed patient. SKIN: Warm and dry. HEAD: Normocephalic and atraumatic. EYES: No injection or drainage. Pupils equal ENT: No nasal drainage noted. NECK: Supple, trachea midline. No pain with range of motion CARDIOVASCULAR: Regular rate and rhythm RESPIRATORY: Breath sounds equal bilaterally. No accessory muscle use. GASTROINTESTINAL: Abdomen soft, non-tender, nondistended. NEUROLOGICAL: Awake and alert. Moves all extremities. Normal speech. Data Data Last Documented VS Vital Signs Date Time Temp Pulse Resp B/P Pulse Ox O2 Delivery O2 Flow Rate FiO2 12/18/16 13:56 98.1 72 16 140/83 98 Orders Electrocardiogram (12/18/16 13:58) Complete Blood Count With Diff (12/18/16 14:01) Alcohol (Ethanol) (12/18/16 14:01) Drug Screen, Random Urine (12/18/16 14:01) Electrocardiogram (12/18/16 ) Blood Glucose (12/18/16 14:01) Ecg Monitoring (12/18/16 14:01) Iv Access Insert/Monitor (12/18/16 14:01) Oximetry (12/18/16 14:01) Comprehensive Metabolic Panel (12/18/16 14:01) Sodium Chlor 0.9% 1000 Ml Inj (Ns 1000 M (12/18/16 14:01) Sodium Chloride 0.9% Flush (Ns Flush) (12/18/16 14:15) Urinalysis - C+S If Indicated (12/18/16 14:01) Topiramate (Topamax) (12/18/16 14:01) Levetiracetam (12/18/16 14:01) Shoulder, Complete (>2vws) (12/18/16 ) Ct Brain W/O Iv Contrast(Rout) (12/18/16 ) Labs Laboratory Tests Test 12/18/16 12/18/16 14:08 15:05 White Blood Count 5.3 TH/MM3 Red Blood Count 4.54 MIL/MM3 Hemoglobin 13.5 GM/DL Hematocrit 40.8 % Mean Corpuscular Volume 89.9 FL Mean Corpuscular Hemoglobin 29.7 PG Mean Corpuscular Hemoglobin 33.1 % Concent Red Cell Distribution Width 14.5 % Platelet Count 130 TH/MM3 Mean Platelet Volume 9.1 FL Neutrophils (%) (Auto) 58.5 % Lymphocytes (%) (Auto) 34.2 % Monocytes (%) (Auto) 5.3 % Eosinophils (%) (Auto) 1.5 % Basophils (%) (Auto) 0.5 % Neutrophils # (Auto) 3.1 TH/MM3 Lymphocytes # (Auto) 1.8 TH/MM3 Monocytes # (Auto) 0.3 TH/MM3 Eosinophils # (Auto) 0.1 TH/MM3 Basophils # (Auto) 0.0 TH/MM3 CBC Comment DIFF FINAL Differential Comment Sodium Level 139 MEQ/L Potassium Level 4.0 MEQ/L Chloride Level 105 MEQ/L Carbon Dioxide Level 21.5 MEQ/L Anion Gap 13 MEQ/L Blood Urea Nitrogen 14 MG/DL Creatinine 0.94 MG/DL Estimat Glomerular Filtration 82 ML/MIN Rate Random Glucose 371 MG/DL Calcium Level 9.0 MG/DL Total Bilirubin 0.5 MG/DL Aspartate Amino Transf 42 U/L (AST/SGOT) Alanine Aminotransferase 88 U/L (ALT/SGPT) Alkaline Phosphatase 76 U/L Total Protein 7.1 GM/DL Albumin 3.8 GM/DL Ethyl Alcohol Level LESS THAN 3 MG/DL Urine Color YELLOW Urine Turbidity CLEAR Urine pH 7.5 Urine Specific Omer 1.033 Urine Protein NEG mg/dL Urine Glucose (UA) 1000 mg/dL Urine Ketones NEG mg/dL Urine Occult Blood NEG Urine Nitrite NEG Urine Bilirubin NEG Urine Urobilinogen LESS THAN 2.0 MG/DL Urine Leukocyte Esterase NEG Urine RBC LESS THAN 1 /hpf Urine WBC 1 /hpf Microscopic Urinalysis Comment CULT NOT INDICATED Urine Opiates Screen NEG Urine Barbiturates Screen NEG Urine Amphetamines Screen NEG Urine Benzodiazepines Screen NEG Urine Cocaine Screen NEG Urine Cannabinoids Screen NEG MDM Medical Decision Making Medical Screen Exam Complete: Yes Emergency Medical Condition: Yes Medical Record Reviewed: Yes (past history confirmed) Interpretation(s) EKG shows NSR, no ST elevation or depression, and no arrhythmias. No significant T-wave inversions. CBC & BMP Diagram 12/18/16 14:08 Last [address] 12/18/16 0000 Signed Impressions: Service Date/Time: , December 18, 2016 14:41 - CONCLUSION: Normal examination. Brian Holt MD Differential Diagnosis Electrolyte abnormality, intracranial, subtherapeutic seizure level Narrative Course Will check blood work, urinalysis, left shoulder x-ray, CT brain and follow. Patient already received 2 mg of Ativan Patient seizure free here, his has arrived and states he takes Keppra thousand milligrams 3 times a day, Topamax 25 mg twice a day and 2 weeks ago they put him back on Ativan a half a milligram twice a day. His neurologist is Dr. Ly, will discuss with him Patient denies any new complaints, all questions answered. Patient knows that follow up is incumbent on them and to return to the emergency room immediately if new or worsening symptoms develop. Patient given strict return precautions, vitals reviewed and are normal, agrees to further workup as an outpatient. Physician Communication Physician Communication dr Ly states to increase Topamax to 3 times a day Diagnosis Primary Impression: Breakthrough seizure Patient Instructions: General Instructions Additional Instructions: Follow with Dr. Ly as scheduled on January 04, return as needed, take seizure medication as directed and increase Topamax to 3 times a day, Tylenol as needed for pain Med/Other Pt SpecificInfo: Prescription(s) given, Existing Med Changed ( increase topamax to three times a day) Scripts Topiramate 25 Mg Tab25 Mg PO TID 30 Days Ref 0 Prov:Shira Nicholas MD 12/18/16 Disposition: 01 DISCHARGE HOME Condition: Stable Shira Nicholas MD Dec 18, 2016 14:45
[2016-12-18 14:51] LABS: ANION GAP 13 MEQ/L (5-15); AST (GOT) 42 U/L (15-37); BICARBONATE 21.5 MEQ/L (21.0-32.0); BLOOD UREA NITROGEN 14 MG/DL (7-18); CHLORIDE 105 MEQ/L (98-107); GLOMERULAR FILTRATION RATE 82 ML/MIN (>89); SODIUM (NA) 139 MEQ/L (136-145)
--- NOTE | 2016-12-18 14:51 | RADRPT ---
EXAM DATE/TIME: 12/18/2016 14:41 [facility] COMPARISON: CT BRAIN W/O CONTRAST, September 25, 2016, 15:15. INDICATIONS : Seizures RADIATION DOSE: 38.73 CTDIvol (mGy) MEDICAL HISTORY : Hypertension. Diabetes mellitus type 1. SURGICAL HISTORY : Cholecystectomy. ventricular neuro stimulator ENCOUNTER: Initial ACUITY: 1 day PAIN SCALE: 0/10 LOCATION: cranial TECHNIQUE: Multiple contiguous axial images were obtained of the head. Using automated exposure control and adj ustment of the mA and/or kV according to patient size, radiation dose was kept as low as reasonably a chievable to obtain optimal diagnostic quality images. DICOM format image data is available electro nically for review and comparison. FINDINGS: CEREBRUM: The ventricles are normal for age. No evidence of midline shift, mass lesion, hemorrhage or acute in farction. No extra-axial fluid collections are seen. POSTERIOR FOSSA: The cerebellum and brainstem are intact. The 4th ventricle is midline. The cerebellopontine angle i s unremarkable. EXTRACRANIAL: The visualized portion of the orbits is intact. SKULL: The calvaria is intact. No evidence of skull fracture. CONCLUSION: Normal examination. Brian Holt MD on December 18, 2016 at 14:49 Board Certified Radiologist. This report was verified electronically.
[2016-12-18 14:53] LABS: ALT (GPT) 88 U/L (12-78)
[2016-12-18 14:54] LABS: ALKALINE PHOSPHATASE 76 U/L (45-117); TOTAL BILIRUBIN ADULT 0.5 MG/DL (0.2-1.0)
--- NOTE | 2016-12-18 15:43 | RADRPT ---
EXAM DATE/TIME: 12/18/2016 15:04 [facility] COMPARISON: No previous studies available for comparison. INDICATIONS : Trauma MEDICAL HISTORY : Hypertension. Diabetes mellitus type 1. SURGICAL HISTORY : Cholecystectomy. Ventricular neuro stimulator. Left shoulder arthroplasty ENCOUNTER: Initial ACUITY: 3 days PAIN SCORE: 10/10 LOCATION: Left Shoulder FINDINGS: Four view left shoulder demonstrates patient has had a left shoulder arthroplasty. No fracture is id entified. There is no complication. Joint is preserved. There is left-sided pacemaker or nerve sti mulator in place. Visualized ribs are intact. CONCLUSION: Left shoulder arthroplasty without complication. Brian Holt MD on December 18, 2016 at 15:39 Board Certified Radiologist. This report was verified electronically.
[2016-12-18 16:00] LABS: BLOOD, URINE NEG (NEG); GLUCOSE,URINE 1000 mg/dL (NEG); KETONE, URINE NEG (NEG); NITRITE,URINE NEG (NEG); PH, URINE 7.5 (5.0-8.5); URINE COLOR YELLOW (YELLW/STRAW)
[2016-12-18 16:05] LABS: COMMENT (UR) CULT NOT INDICATED; CULTURE IF INDICATED CULT NOT INDICATED
[2016-12-18 16:09] LABS: AMPHETAMINE, URINE NEG (NEG); BARBITURATES, URINE NEG (NEG); COCAINE, URINE NEG (NEG)
[2016-12-18] MEDS ORDERED: TOPI1TAB97 PO (16:25)
[2016-12-19] MEDS ORDERED: PERC5TAB12 PO (00:18)
--- NOTE | 2016-12-19 14:56 | EKG ---
Date Performed: 12/18/2016 Time Performed: 14:03:52 PTAGE: 61 years EKG: Sinus rhythm NORMAL ECG PREVIOUS TRACING : 09/25/2016 14.10 Compared to prior tracing no significant change DOCTOR: Xander Haas Interpretating Date/Time 12/19/2016 14:53:25
[2016-12-20 16:34] LABS: LEVETIRACETAM 24.9 mcg/mL (12.0 - 46.0)
--- NOTE | 2016-12-21 18:15 | EKG ---
Date Performed: 12/18/2016 Time Performed: 23:48:38 PTAGE: 61 years EKG: Sinus rhythm NONSPECIFIC T-WAVE ABNORMALITY BORDERLINE ECG PREVIOUS TRACING : 12/18/2016 14.03 Compared to prior tracing no significant change DOCTOR: Evan Estrada Interpretating Date/Time 12/21/2016 18:12:28
== END 2016-12-18 17:59 | disposition home or self-care (01) ==
LOC: NEPE 13:49
DX: G40.909 Epilepsy, unspecified, not intractable, without status epilepticus (principal); I10 Essential (primary) hypertension
CPT/HCPCS: 70450; 73030; 80053; 80177; 80201; 80307; 81001; 85025; 93005; 99285; J7030

== ENCOUNTER 2016-12-18 23:28 | Emergency (ER) | payer OTHER ==
[~2016-12-18] VITALS: Ht 177.8 cm; Wt 85.0 kg
[2016-12-18 23:42] VITALS: BP 138/86; PULSE 76; RESP 18; TEMP 98.1; O2SAT 97
--- NOTE | 2016-12-18 23:51 | PD ---
HPI Chief Complaint: Psychiatric Symptoms Time Seen by Provider: 23:46 Travel History International Travel<30 days: No Contact w/Intl Traveler<30days: No Traveled to known affect area: No History of Present Illness HPI 61-year-old male with history of diabetes, seizure disorder, hypertension, brought in under [employer] act after an intentional drug overdose. The patient took twenty 40mg Protonix as well as three 25 mg Benadryl in an attempt to go to sleep. Patient denies wanting to harm himself. 911 called by the patient's . Patient denies suicidal or homicidal ideation. He denies any other toxic ingestions. He denies alcohol or illicit drug use. PFSH Past Medical History Hx Anticoagulant Therapy: Yes (ASPIRIN ) Arthritis: Yes Asthma: Yes Heart Rhythm Problems: Yes Cardiac Catheterization: Yes (STENT PLACED ) Cardiovascular Problems: Yes High Cholesterol: Yes Chest Pain: Yes Congestive Heart Failure: Yes (ECHO PERFORMED EARLIER THIS YEAR) COPD: Yes Cerebrovascular Accident: Yes (CVA-LEFT SIDED WEAKNESS) Diabetes: Yes Patient Takes Glucophage: Yes Diminished Hearing: No Gastrointestinal Disorders: Yes GERD: Yes Genitourinary: No Hypertension: Yes Musculoskeletal: Yes Neurologic: Yes Respiratory: Yes Myocardial Infarction: Yes Seizures: Yes Sleep Apnea: Yes Influenza Vaccination: No Past Surgical History Cholecystectomy: Yes Coronary Stent: Yes Neurologic Surgery: Yes (insertion of ventricular neuro stimulator for seizure) Other Surgery: Yes (KNEE, SHOULDER AND NECK ) Social History Alcohol Use: No Tobacco Use: No Substance Use: No Allergies-Medications (Allergen,Severity, Reaction): Coded Allergies: Levofloxacin (Verified Allergy, Severe, Anaphylaxis, 12/18/16) Nucynta (Verified Allergy, Intermediate, Nausea/Vomiting, 12/18/16) Blueberry (Verified Allergy, Mild, Rash, 12/18/16) Reported Meds & Prescriptions Reported Meds & Active Scripts Active Topiramate 25 Mg Tab 25 Mg PO TID 30 Days Keppra (Levetiracetam) 1,000 Mg Tab 1,000 Mg PO TID Reported Percocet (Oxycodone-Acetaminophen) 5-325 mg Tab 1 Tab PO Q4H PRN Nitrostat SL (Nitroglycerin) 0.4 Mg Subl 0.4 Mg SL DIRECTED PRN 1 tablet under the tongue as needed for chest pain. Repeat every 5 minutes for a total of 3 DOSES or call 911 if NO relief. Ativan (Lorazepam) 0.5 Mg Tab 0.5 Mg PO BID Aspirin 81 Mg Chew 81 Mg CHEW DAILY Omeprazole 20 Mg Tab 20 Mg PO DAILY Metformin (Metformin HCl) 1,000 Mg Tab 1,000 Mg PO BIDPC With meals Ambien (Zolpidem Tartrate) 10 Mg Tab 10 Mg PO HS PRN Lyrica (Pregabalin) 200 Mg Cap 200 Mg PO BID Levothyroxine (Levothyroxine Sodium) 100 Mcg Tab 175 Mcg PO DAILY Glimepiride 2 Mg Tab 2 Mg PO DAILY Take with breakfast or first main meal Atorvastatin (Atorvastatin Calcium) 20 Mg Tab 20 Mg PO DAILY 30 Days Review of Systems Except as stated in HPI: all other systems reviewed are Neg Physical Exam Narrative GENERAL: Well-developed, well-nourished, comfortable, no apparent distress. SKIN: Focused skin assessment warm/dry. No rash. HEAD: Atraumatic. Normocephalic. EYES: Pupils equal and round. No scleral icterus. No injection or drainage. ENT: Mucous membranes pink and moist. NECK: Trachea midline. No JVD. CARDIOVASCULAR: Regular rate and rhythm. No murmur appreciated. RESPIRATORY: No accessory muscle use. Clear to auscultation. Breath sounds equal bilaterally. GASTROINTESTINAL: Abdomen soft, non-tender, nondistended. MUSCULOSKELETAL: No obvious deformities. No clubbing. No cyanosis. No edema. NEUROLOGICAL: Awake and alert. No obvious cranial nerve deficits. Motor grossly within normal limits. Normal speech. PSYCHIATRIC: Flat affect. Poor eye contact. Data Data Last Documented VS Vital Signs Date Time Temp Pulse Resp B/P Pulse Ox O2 Delivery O2 Flow Rate FiO2 12/18/16 23:42 98.1 76 18 138/86 97 Orders Complete Blood Count With Diff (12/18/16 23:47) Comprehensive Metabolic Panel (12/18/16 23:47) Psych Screen (12/18/16 23:47) Drug Screen, Random Urine (12/18/16 23:47) Alcohol (Ethanol) (12/18/16 23:47) Salicylates (Aspirin) (12/18/16 23:47) Tylenol (Acetaminophen) (12/18/16 23:47) Labs Laboratory Tests Test 12/18/16 23:50 White Blood Count 6.6 TH/MM3 Red Blood Count 4.89 MIL/MM3 Hemoglobin 14.5 GM/DL Hematocrit 44.5 % Mean Corpuscular Volume 90.8 FL Mean Corpuscular Hemoglobin 29.7 PG Mean Corpuscular Hemoglobin 32.7 % Concent Red Cell Distribution Width 14.3 % Platelet Count 137 TH/MM3 Mean Platelet Volume 8.8 FL Neutrophils (%) (Auto) 57.8 % Lymphocytes (%) (Auto) 35.9 % Monocytes (%) (Auto) 4.8 % Eosinophils (%) (Auto) 1.0 % Basophils (%) (Auto) 0.5 % Neutrophils # (Auto) 3.8 TH/MM3 Lymphocytes # (Auto) 2.4 TH/MM3 Monocytes # (Auto) 0.3 TH/MM3 Eosinophils # (Auto) 0.1 TH/MM3 Basophils # (Auto) 0.0 TH/MM3 CBC Comment DIFF FINAL Differential Comment Sodium Level 140 MEQ/L Potassium Level 3.9 MEQ/L Chloride Level 107 MEQ/L Carbon Dioxide Level 21.8 MEQ/L Anion Gap 11 MEQ/L Blood Urea Nitrogen 11 MG/DL Creatinine 1.00 MG/DL Estimat Glomerular Filtration 76 ML/MIN Rate Random Glucose 275 MG/DL Calcium Level 9.2 MG/DL Total Bilirubin 0.6 MG/DL Aspartate Amino Transf 50 U/L (AST/SGOT) Alanine Aminotransferase 104 U/L (ALT/SGPT) Alkaline Phosphatase 78 U/L Total Protein 7.8 GM/DL Albumin 4.2 GM/DL Salicylates Level LESS THAN 1.7 MG/DL Acetaminophen Level LESS THAN 2.0 MCG/ML Ethyl Alcohol Level LESS THAN 3 MG/DL MDM Medical Decision Making Medical Screen Exam Complete: Yes Emergency Medical Condition: Yes Interpretation(s) EKG: Sinus, rate 75, normal axis, normal intervals, nonspecific T-wave abnormality. Differential Diagnosis Intentional overdose, depression, suicidal ideation, metabolic abnormality Narrative Course Vital signs show heart rate 76, blood pressure 138/86, pulse ox 97% on room air , oral temp of 98.1F. CBC is unremarkable. CMP is remarkable for random glucose 275, AST 50, ALT 104 Tylenol, alcohol, and salicylate levels are negative. Poisoning show contacted by my nurse. Patient is medically cleared for psychiatric evaluation and disposition by them. Diagnosis Primary Impression: Overdose Qualified Code: T50.904A - Overdose, undetermined intent, initial encounter Gamal Travis MD Dec 18, 2016 23:51
[2016-12-19] MEDS ORDERED: PERC5TAB12 PO (00:18)
[2016-12-19 00:21] LABS: AUTOMATED NEUTROPHIL # 3.8 TH/MM3 (1.8-7.7); BASOPHIL % 0.5 % (0.0-2.0); EOSINOPHIL # 0.1 TH/MM3 (0-0.4); HEMATOCRIT 44.5 % (39.0-51.0); HEMO FLAGS DIFF FINAL; LYMPH % 35.9 % (9.0-44.0); LYMPHOCYTE # 2.4 TH/MM3 (1.0-4.8); MEAN CELL VOLUME 90.8 FL (80.0-100.0); MEAN CORPUSCULAR HEMOGLOBIN 29.7 PG (27.0-34.0); MEAN CORPUSCULAR HGB CONC 32.7 % (32.0-36.0); MONO % 4.8 % (0.0-8.0); NEUT % 57.8 % (16.0-70.0); PLATELET COUNT 137 TH/MM3 (150-450); RED BLOOD COUNT 4.89 MIL/MM3 (4.50-5.90); RED CELL DISTRIBUTION WIDTH 14.3 % (11.6-17.2); WHITE BLOOD COUNT 6.6 TH/MM3 (4.0-11.0)
[2016-12-19 00:35] LABS: ANION GAP 11 MEQ/L (5-15); AST (GOT) 50 U/L (15-37); BICARBONATE 21.8 MEQ/L (21.0-32.0); BLOOD UREA NITROGEN 11 MG/DL (7-18); CHLORIDE 107 MEQ/L (98-107); GLOMERULAR FILTRATION RATE 76 ML/MIN (>89); POTASSIUM 3.9 MEQ/L (3.5-5.1); SODIUM (NA) 140 MEQ/L (136-145)
[2016-12-19 00:36] LABS: ALT (GPT) 104 U/L (12-78)
[2016-12-19 00:38] LABS: ALKALINE PHOSPHATASE 78 U/L (45-117); TOTAL BILIRUBIN ADULT 0.6 MG/DL (0.2-1.0)
[2016-12-19 00:40] LABS: ACETAMINOPHEN LESS THAN 2.0 MCG/ML (10.0-30.0)
[2016-12-19 02:01] LABS: AMPHETAMINE, URINE NEG (NEG); BARBITURATES, URINE NEG (NEG); COCAINE, URINE NEG (NEG)
[2016-12-19 02:30] VITALS: BP 127/78; PULSE 66; RESP 16; O2SAT 98
[2016-12-19 05:54] VITALS: BP 137/81; PULSE 66; RESP 18; O2SAT 99
[2016-12-19 07:26] VITALS: BP 128/77; PULSE 75; RESP 20; O2SAT 97
--- NOTE | 2016-12-19 12:44 | PD.PSY.CON ---
Provisional Diagnosis Admission Date [place] I. Adjustment disorder with depressed mood [place] II. Deferred [place] III. Diabetes mellitus, seizures, history of strokes History of Present Illness Service Psychiatry Consult Requested By Primary Care Physician DO DANYA Delacruz The patient is a 61-year-old man, domicile with his in [place], unemployed, supported by [facility], without any previous psychiatric history, no previous suicidal attempts, no previous psychiatric hospitalizations, with history of diabetes, seizure disorder, hypertension, brought in under [email or web address] act after an intentional drug overdose. The patient took twenty 40 mg Protonix as well as three 25 mg Benadryl in an attempt to go to sleep. Patient denies wanting to harm himself. 911 called by the patient's . On psychiatric evaluation today patient says that he didn't take the medication what that was documented in the [place] act. He says that he took some medication in order to manipulate his after an argument. But, he never had any suicidal ideation or intent. At this moment the patient denies depressive symptoms, he denies anxiety, he denies psychosis. He denies suicidal and homicidal ideation, he denies visual and auditory hallucinations. Patient denies the use of alcohol and illicit drugs. Review of Systems Constitutional: DENIES: Diaphoretic episodes, Fatigue, Fever, Weight gain, Weight loss, Chills, Dizziness, Change in appetite, Night Sweats Endocrine: DENIES: Heat/cold intolerance, Polydipsia, Polyuria, Polyphagia Eyes: DENIES: Blurred vision, Diplopia, Eye inflammation, Eye pain, Vision loss , Photosensitivity, Double Vision Ears, nose, mouth, throat: DENIES: Tinnitus, Hearing loss, Vertigo, Nasal discharge, Oral lesions, Throat pain, Hoarseness, Ear Pain, Running Nose, Epistaxis, Sinus Pain, Toothache, Odynophagia Respiratory: DENIES: Apneas, Cough, Snoring, Wheezing, Hemoptysis, Sputum production, Shortness of breath Cardiovascular: DENIES: Chest pain, Palpitations, Syncope, Dyspnea on Exertion , PND, Lower Extremity Edema, Orthopnea, Claudication Gastrointestinal: DENIES: Abdominal pain, Black stools, Bloody stools, Constipation, Diarrhea, Nausea, Vomiting, Difficulty Swallowing, Anorexia Musculoskeletal: DENIES: Joint pain, Muscle aches, Stiffness, Joint Swelling, Back pain, Neck pain Integumentary: DENIES: Abnormal pigmentation, Nail changes, Pruritus, Rash Hematologic/lymphatic: DENIES: Bruising, Lymphadenopathy Immunologic/allergic: DENIES: Eczema, Urticaria Neurologic: DENIES: Abnormal gait, Headache, Localized weakness, Paresthesias, Seizures, Speech Problems, Tremor, Poor Balance Psychiatric: DENIES: Anxiety, Confusion, Mood changes, Depression, Hallucinations, Agitation, Suicidal Ideation, Homicidal Ideation, Delusions Past Family Social History Coded Allergies: Levofloxacin (Verified Allergy, Severe, Anaphylaxis, 12/18/16) Nucynta (Verified Allergy, Intermediate, Nausea/Vomiting, 12/18/16) Blueberry (Verified Allergy, Mild, Rash, 12/18/16) Active Scripts Topiramate 25 Mg Tab25 Mg PO TID 30 Days Ref 0 Prov:Shira Nicholas MD 12/18/16 Levetiracetam (Keppra)1,000 Mg Tab1,000 Mg PO TID #90 TAB Ref 0 Prov:Tyrone Mantilla MD 07/21/16 Reported Medications Oxycodone-Acetaminophen (Percocet)5-325 mg Tab1 Tab PO Q4H PRN (PAIN) Ref 0 12/19/16 Nitroglycerin SL (Nitrostat SL)0.4 Mg Subl0.4 Mg SL DIRECTED PRN (CHEST PAIN ) #100 TAB.SL Ref 0 1 tablet under the tongue as needed for chest pain. Repeat every 5 minutes for a total of 3 DOSES or call 911 if NO relief. 12/10/16 Lorazepam (Ativan)0.5 Mg Tab0.5 Mg PO BID Ref 0 12/10/16 Aspirin 81 Mg Chew81 Mg CHEW DAILY Ref 0 07/21/16 Omeprazole 20 Mg Tab20 Mg PO DAILY #30 TAB Ref 0 07/21/16 Metformin 1,000 Mg Tab1,000 Mg PO BIDPC #0 TAB Ref 0 With meals 05/22/16 Zolpidem (Ambien)10 Mg Tab10 Mg PO HS PRN (INSOMNIA) Ref 0 05/07/16 Pregabalin (Lyrica)200 Mg [id number] Mg PO BID #60 CAP Ref 0 05/07/16 Levothyroxine 100 Mcg [id number] Mcg PO DAILY #30 TAB Ref 0 05/07/16 Glimepiride 2 Mg Tab2 Mg PO DAILY #30 TAB Ref 0 Take with breakfast or first main meal 05/07/16 Atorvastatin 20 Mg Tab20 Mg PO DAILY 30 Days 03/28/16 Discontinued Reported Medications Ibuprofen 800 Mg [id number] Mg PO TID PRN (pain) Ref 0 12/10/16 Topiramate 25 Mg Tab25 Mg PO BID #60 TAB Ref 0 07/21/16 Discontinued Scripts Hydrocodone-Acetaminophen (Lortab)5-325 Mg Tab1 Tab PO Q6H PRN (PAIN) #20 TAB Prov:Brian Flores MD 12/10/16 Family History he denies family psychiatric history Social History Patient was born and raised in [place], he lives in [place] his , he is unemployed, on SSI, highest level of education is 11th grade Physical Exam Vital Signs Vital Signs Date Time Temp Pulse Resp B/P Pulse Ox O2 Delivery O2 Flow Rate FiO2 12/19/16 07:26 75 20 128/77 97 Room Air 12/18/16 23:42 98.1 Lab Results Labs Laboratory Tests Test 12/18/16 23:50 White Blood Count 6.6 TH/MM3 Red Blood Count 4.89 MIL/MM3 Hemoglobin 14.5 GM/DL Hematocrit 44.5 % Mean Corpuscular Volume 90.8 FL Mean Corpuscular Hemoglobin 29.7 PG Mean Corpuscular Hemoglobin 32.7 % Concent Red Cell Distribution Width 14.3 % Platelet Count 137 TH/MM3 Mean Platelet Volume 8.8 FL Neutrophils (%) (Auto) 57.8 % Lymphocytes (%) (Auto) 35.9 % Monocytes (%) (Auto) 4.8 % Eosinophils (%) (Auto) 1.0 % Basophils (%) (Auto) 0.5 % Neutrophils # (Auto) 3.8 TH/MM3 Lymphocytes # (Auto) 2.4 TH/MM3 Monocytes # (Auto) 0.3 TH/MM3 Eosinophils # (Auto) 0.1 TH/MM3 Basophils # (Auto) 0.0 TH/MM3 CBC Comment DIFF FINAL Differential Comment Sodium Level 140 MEQ/L Potassium Level 3.9 MEQ/L Chloride Level 107 MEQ/L Carbon Dioxide Level 21.8 MEQ/L Anion Gap 11 MEQ/L Blood Urea Nitrogen 11 MG/DL Creatinine 1.00 MG/DL Estimat Glomerular Filtration 76 ML/MIN Rate Random Glucose 275 MG/DL Calcium Level 9.2 MG/DL Total Bilirubin 0.6 MG/DL Aspartate Amino Transf 50 U/L (AST/SGOT) Alanine Aminotransferase 104 U/L (ALT/SGPT) Alkaline Phosphatase 78 U/L Total Protein 7.8 GM/DL Albumin 4.2 GM/DL Salicylates Level LESS THAN 1.7 MG/DL Acetaminophen Level LESS THAN 2.0 MCG/ML Ethyl Alcohol Level LESS THAN 3 MG/DL Mental Status Examination Appearance man, age appearing, calm and cooperative Speech: Unremarkable Orientation: x3 Memory: Unremarkable Thought Process: Logical Thought Content: Depersonal Hallucination Type: None Attention and Concentration: Good Suicidal Ideation: No Previous Suicide Attempts: No Homicidal Ideation: No Previous Homicide Attempts: No Insight: Good Affect: Good Mood: Appropriate Motor Activity: Normal gait Assessment & Plan Problem List: (1) Adjustment disorder with depressed mood Assessment & Plan: At the moment of this evaluation the patient denies depressive symptoms, denies anxiety, denies anam or psychosis. Patient denies suicidal and homicidal ideation, he denies visual and auditory hallucinations. He is calm, cooperative and pleasant. Recent overdose with medications situated related with frustration was done with manipulative intentions rather than suicidal. Patient does not meet criteria for psychotic admission at this moment. [employer] act will be lifted. ICD Code: F43.21 Assessment & Plan Estimated LOS: Taj Nash MD Dec 19, 2016 12:44
== END 2016-12-19 11:25 | disposition home or self-care (01) ==
LOC: NEPD 23:28
DX: T47.1X4A Poisoning by other antacids and anti-gastric-secretion drugs, undetermined, initial encounter (principal); Y92.009 Unspecified place in unspecified non-institutional (private) residence as the place of occurrence of the external cause
CPT/HCPCS: 80053; 80307; 85025; 99284

== ENCOUNTER 2017-01-09 11:24 | Emergency (ER) | payer OTHER ==
[~2017-01-09] VITALS: Ht 177.8 cm; Wt 82.0 kg
[~2017-01-09 11:24] MED LIST changes: -HYDR-3533 PO; -IBUP800T23 PO; +PERC5TAB12 PO
[2017-01-09 11:30] VITALS: BP 157/90; PULSE 71; RESP 18; TEMP 98; O2SAT 95
[2017-01-09] MEDS ORDERED: ACETAMINOPHEN 325 MG TAB PO ONE (11:45)
--- NOTE | 2017-01-09 11:46 | PD ---
HPI Chief Complaint: Seizure Time Seen by Provider: 11:38 Travel History International Travel<30 days: No Contact w/Intl Traveler<30days: No Traveled to known affect area: No History of Present Illness HPI 61- year old male brought to the ED by [facility] complaining of head pain. He rates his head pain as a 8/10 currently, and that it is a cramping pain. Per Nurse, the patient has focal seizures and had a seizure prior to arrival which was witnessed by the patient's family. The patient reports that he did hit his head during his seizure. He states he takes Keppra, with his last dose being this morning. En route the patient received Ativan. The patient is unsure of who his neurologist is. The patient reports he check his blood sugar last night and it was in the 400s, however, en route to the ED it was 228. He is also complaining of RUQ abdominal pain. He reports he had a cholecystectomy, but is unsure when. He denies any smoking, alcohol, or drugs recently, but reports he quit all of those things 4 years ago. PFSH Past Medical History Hx Anticoagulant Therapy: Yes (ASPIRIN ) Arthritis: Yes Asthma: Yes Heart Rhythm Problems: Yes Cardiac Catheterization: Yes (STENT PLACED ) Cardiovascular Problems: Yes (x2 stents, X3 RI) High Cholesterol: Yes Chest Pain: Yes Congestive Heart Failure: Yes (ECHO PERFORMED EARLIER THIS YEAR) COPD: Yes Cerebrovascular Accident: Yes Diabetes: Yes Diminished Hearing: No Gastrointestinal Disorders: Yes GERD: Yes Genitourinary: No Hypertension: Yes Musculoskeletal: Yes Neurologic: Yes Respiratory: Yes (COPD) Myocardial Infarction: Yes Seizures: Yes Sleep Apnea: Yes Past Surgical History Cholecystectomy: Yes Coronary Stent: Yes Neurologic Surgery: Yes (insertion of ventricular neuro stimulator for seizure) Other Surgery: Yes (KNEE, SHOULDER AND NECK ) Social History Alcohol Use: No Tobacco Use: No Substance Use: No Allergies-Medications (Allergen,Severity, Reaction): Coded Allergies: Levofloxacin (Verified Allergy, Severe, Anaphylaxis, 01/09/17) Nucynta (Verified Allergy, Intermediate, Nausea/Vomiting, 01/09/17) Blueberry (Verified Allergy, Mild, Rash, 01/09/17) Reported Meds & Prescriptions Reported Meds & Active Scripts Active Topiramate 25 Mg Tab 25 Mg PO TID 30 Days Keppra (Levetiracetam) 1,000 Mg Tab 1,000 Mg PO TID Reported Percocet (Oxycodone-Acetaminophen) 7.5-325 mg Tab 1 Tab PO Q12HR PRN Levothyroxine (Levothyroxine Sodium) 175 Mcg Tab 175 Mcg PO DAILY Nitrostat SL (Nitroglycerin) 0.4 Mg Subl 0.4 Mg SL DIRECTED PRN 1 tablet under the tongue as needed for chest pain. Repeat every 5 minutes for a total of 3 DOSES or call 911 if NO relief. Ativan (Lorazepam) 0.5 Mg Tab 0.5 Mg PO BID Aspirin 81 Mg Chew 81 Mg CHEW DAILY Omeprazole 20 Mg Tab 20 Mg PO DAILY Metformin (Metformin HCl) 1,000 Mg Tab 1,000 Mg PO BIDPC With meals Ambien (Zolpidem Tartrate) 10 Mg Tab 10 Mg PO HS PRN Lyrica (Pregabalin) 200 Mg Cap 200 Mg PO BID Glimepiride 2 Mg Tab 2 Mg PO DAILY Take with breakfast or first main meal Atorvastatin (Atorvastatin Calcium) 20 Mg Tab 20 Mg PO DAILY 30 Days Review of Systems General / Constitutional: No: Fever, Chills, Weight Gain, Weight Loss, Other Eyes: No: Diploplia, Blurred Vision, Photophobia, Drainage, Redness, Foreign Body Sensation, Pain, Tearing, Blind Spots, Visual changes, Blindness, Other HENT: Positive: Headaches, No: Vertigo, Lightheadedness, Sore Throat, Rhinitis , Rhinorrhea, Congestion, Nosebleed, Neck Stiffness, Neck Pain, Masses, Gingival Bleeding, Dental Difficulties, Ear Discharge, Earache, Other Cardiovascular: No: Chest Pain or Discomfort, Palpitations, Irregular Rhythm, Tachycardia, Diaphoresis, Syncope, Dyspnea on exertion, Varicosities, Edema, Cyanosis, Varicosities, Phlebitis, Claudication, Other Respiratory: No: Cough, Shortness of Breath, Wheezing, Sneezing, Orthopnea, Hemoptysis, Stridor, Night Sweats, Pleuritic Pain, Other Gastrointestinal: Positive: Abdominal Pain (RUQ ), No: Nausea, Vomiting, Diarrhea, Hematemesis, Hematochezia, Constipation, Changes in Bowel Habits, Indigestion, Dysphagia, Loss of Appetite, Other Genitourinary: No: Urgency, Frequency, Dysuria, Nocturia, Hematuria, Decreased Urinary Output, Oliguria, Hesitancy, Dribbling, Incontinence, Pelvic Pain, Flank Pain, Dyspareunia, Discharge, Dysmenorrhea, Menorrhagia, Metorrhagia, Vaginal Bleeding, Other Musculoskeletal: No: Myalgias, Arthralgias, Limited ROM, Weakness, Cramping, Edema, Pain, Atrophy, Other Skin: No Rash, No Itching, No Dryness, No Lumps, No Hives, No Change in Pigmentation, No Change in nails, No Alopecia, No Lesions, No Breast Lumps, No Breast Tenderness, No Breast Swelling, No Other Neurologic: No: Weakness, Dizziness, Syncope, Focal Abnormalities, Coordination Problem, Tremor, Ataxia, Headache, Change in Mentation, Slurred Speech, Paresthesia, Incontinence, Seizures, Sensory Disturbance, Other Psychiatric: No: Anxiety, Depression, Suicidal Ideations, Disorder of Thought, Mood Disorder, Substance Abuse, Homicidal Ideation, Other Endocrine: No: Heat Intolerance, Cold Intolerance, Polyuria, Polydipsia, Other Hematologic/Lymphatic: No: Easy Bruising, Lymph Node Enlargement, Other Physical Exam Narrative GENERAL: Post ictal SKIN: Mildly diaphoretic, warm. HEAD: Atraumatic. Normocephalic. EYES: Pupils equal and round. No scleral icterus. No injection or drainage. ENT: No nasal bleeding or discharge. Mucous membranes pink and moist. Tongue is midline. No uvula deviation. NECK: Trachea midline. No JVD. CARDIOVASCULAR: Regular rate and rhythm. RESPIRATORY: No accessory muscle use. Clear to auscultation. Breath sounds equal bilaterally. GASTROINTESTINAL: Tender to palpation in RUQ. Abdomen soft, nondistended. Hepatic and splenic margins not palpable. MUSCULOSKELETAL: Extremities without clubbing, cyanosis, or edema. No obvious deformities. Full range of motion of the upper and lower extremities bilaterally. No lumbar, thoracic, cervical spine tenderness to palpation. Some pain a producible with touch in the occipital scalp but no obvious bruise or deformity noted. NEUROLOGICAL: Awake and alert. No obvious cranial nerve deficits. Motor grossly within normal limits. Five out of 5 muscle strength in the arms and legs. Normal speech. PSYCHIATRIC: Appropriate mood and affect; insight and judgment normal. Data Data Last Documented VS Vital Signs Date Time Temp Pulse Resp B/P Pulse Ox O2 Delivery O2 Flow Rate FiO2 01/09/17 11:38 73 18 95 Room Air 01/09/17 11:30 98.0 157/90 Orders Complete Blood Count With Diff (01/09/17 11:34) Iv Access Insert/Monitor (01/09/17 11:34) Drug Screen, Random Urine (01/09/17 11:34) Levetiracetam (01/09/17 11:34) Ct Brain W/O Iv Contrast(Rout) (01/09/17 ) Ct Cerv Spine W/O Contrast (01/09/17 ) Comprehensive Metabolic Panel (01/09/17 11:36) Lipase (01/09/17 11:36) Electrocardiogram (01/09/17 ) Urinalysis - C+S If Indicated (01/09/17 11:43) Acetaminophen (Tylenol) (01/09/17 11:45) Alcohol (Ethanol) (01/09/17 11:36) Magnesium (Mg) (01/09/17 11:36) Morphine Inj (Morphine Inj) (01/09/17 12:15) Ondansetron Inj (Zofran Inj) (01/09/17 12:15) Topiramate (Topamax) (01/09/17 13:45) Labs Laboratory Tests Test 01/09/17 01/09/17 11:58 12:07 White Blood Count 5.5 TH/MM3 Red Blood Count 4.52 MIL/MM3 Hemoglobin 13.6 GM/DL Hematocrit 40.5 % Mean Corpuscular Volume 89.5 FL Mean Corpuscular Hemoglobin 30.0 PG Mean Corpuscular Hemoglobin 33.6 % Concent Red Cell Distribution Width 14.5 % Platelet Count 126 TH/MM3 Mean Platelet Volume 9.9 FL Neutrophils (%) (Auto) 58.9 % Lymphocytes (%) (Auto) 35.0 % Monocytes (%) (Auto) 5.0 % Eosinophils (%) (Auto) 0.6 % Basophils (%) (Auto) 0.5 % Neutrophils # (Auto) 3.3 TH/MM3 Lymphocytes # (Auto) 1.9 TH/MM3 Monocytes # (Auto) 0.3 TH/MM3 Eosinophils # (Auto) 0.0 TH/MM3 Basophils # (Auto) 0.0 TH/MM3 CBC Comment DIFF FINAL Differential Comment Sodium Level 137 MEQ/L Potassium Level 4.0 MEQ/L Chloride Level 105 MEQ/L Carbon Dioxide Level 23.9 MEQ/L Anion Gap 8 MEQ/L Blood Urea Nitrogen 12 MG/DL Creatinine 0.87 MG/DL Estimat Glomerular Filtration 90 ML/MIN Rate Random Glucose 277 MG/DL Calcium Level 8.4 MG/DL Magnesium Level 1.6 MG/DL Total Bilirubin 0.4 MG/DL Aspartate Amino Transf 31 U/L (AST/SGOT) Alanine Aminotransferase 59 U/L (ALT/SGPT) Alkaline Phosphatase 62 U/L Total Protein 6.6 GM/DL Albumin 3.4 GM/DL Lipase 259 U/L Ethyl Alcohol Level LESS THAN 3 MG/DL Urine Color YELLOW Urine Turbidity CLEAR Urine pH 5.5 Urine Specific [place] 1.030 Urine Protein NEG mg/dL Urine Glucose (UA) 1000 mg/dL Urine Ketones NEG mg/dL Urine Occult Blood NEG Urine Nitrite NEG Urine Bilirubin NEG Urine Urobilinogen 2.0 MG/DL Urine Leukocyte Esterase NEG Urine RBC 4 /hpf Urine WBC 2 /hpf Urine Bacteria OCC /hpf Urine Mucus FEW /lpf Microscopic Urinalysis Comment CULT NOT INDICATED Urine Opiates Screen NEG Urine Barbiturates Screen NEG Urine Amphetamines Screen NEG Urine Benzodiazepines Screen NEG Urine Cocaine Screen NEG Urine Cannabinoids Screen NEG MDM Medical Decision Making Medical Screen Exam Complete: Yes Emergency Medical Condition: Yes Medical Record Reviewed: Yes Interpretation(s) CBC & BMP Diagram 01/09/17 11:58 LFTs WNL UA negative tox negative Last Impressions Head CT 01/09/17 0000 Signed Impressions: Service Date/Time: Monday, January 09, 2017 12:14 - CONCLUSION: Negative exam. No change from prior. Ron Alvarez MD Cervical Spine CT 01/09/17 0000 Signed Impressions: Service Date/Time: Monday, January 09, 2017 12:14 - CONCLUSION: No acute bony injury. Thomas Lipscomb MD Differential Diagnosis Seizures vs headache vs chronic pain vs head injury vs breakthrough seizure Narrative Course 61-year-old male that presents to the ED for evaluation of possible seizure. Patient has a history of seizures. Patient apparently had a seizure at home where he hit his head. Patient had and possibly another seizure on the way here where he had a focal seizure. Patient was given Ativan by equipment maint tech. Labs and imaging were ordered. Patient here appears to be in acute distress. He does complain of head pain. Labs and imaging were ordered. Labs and imaging were essentially unremarkable. Case discussed in my attending who recommends consult with neurology on-call for the patient's neurologist as patient follows with Dr. Holland. Case was discussed with Dr. Ly over the phone who recommends that we check the levels and see if patient has any contributing factors. Otherwise he does not want to change his medications. Close follow- up outpatient. Case was discussed with Dr. Nicholas who spoke with the patient who is in agreement with plan. Close follow-up with PCP. See ED for any worsening symptoms. Diagnosis Primary Impression: Breakthrough seizure Patient Instructions: General Instructions, Narcotic given in the ED Additional Instructions: Take medications as prescribed by your doctor. Follow with Dr. Ly. See ED for worsening symptoms. Follow with PCP. Med/Other Pt SpecificInfo: Prescription(s) given Disposition: 01 DISCHARGE HOME Condition: Stable Mandeep Castillo Jan 09, 2017 11:46
[2017-01-09] MEDS ORDERED: LEVO175T2 PO (11:57)
[2017-01-09] MEDS ORDERED: PERC7.5T13 PO (11:57)
[2017-01-09 12:13] LABS: AUTOMATED NEUTROPHIL # 3.3 TH/MM3 (1.8-7.7); BASOPHIL % 0.5 % (0.0-2.0); EOSINOPHIL % 0.6 % (0.0-4.0); HEMATOCRIT 40.5 % (39.0-51.0); HEMO FLAGS DIFF FINAL; LYMPHOCYTE # 1.9 TH/MM3 (1.0-4.8); MEAN CELL VOLUME 89.5 FL (80.0-100.0); MEAN CORPUSCULAR HGB CONC 33.6 % (32.0-36.0); NEUT % 58.9 % (16.0-70.0); PLATELET COUNT 126 TH/MM3 (150-450); RED BLOOD COUNT 4.52 MIL/MM3 (4.50-5.90); RED CELL DISTRIBUTION WIDTH 14.5 % (11.6-17.2); WHITE BLOOD COUNT 5.5 TH/MM3 (4.0-11.0)
[2017-01-09] MEDS ORDERED: MORPHINE SULFATE 4 MG/ML INJ IV PUSH ONE (12:15)
[2017-01-09] MEDS ORDERED: ONDANSETRON HCL 4 MG/2 ML VIAL IV PUSH ONE (12:15)
[2017-01-09 12:17] LABS: BACTERIA, URINE OCC /hpf; BLOOD, URINE NEG (NEG); COMMENT (UR) CULT NOT INDICATED; CULTURE IF INDICATED CULT NOT INDICATED; GLUCOSE,URINE 1000 mg/dL (NEG); KETONE, URINE NEG (NEG); MUCUS URINE FEW /lpf (OCC); NITRITE,URINE NEG (NEG); PH, URINE 5.5 (5.0-8.5); URINE COLOR YELLOW (YELLW/STRAW)
[2017-01-09 12:48] LABS: ALT (GPT) 59 U/L (12-78)
--- NOTE | 2017-01-09 12:49 | RADRPT ---
EXAM DATE/TIME: 01/09/2017 12:14 [facility] COMPARISON: CT BRAIN W/O CONTRAST, December 18, 2016, 14:41. INDICATIONS : Seizure. Head pain. RADIATION DOSE: 38.53 CTDIvol (mGy) MEDICAL HISTORY : Seizures. Cardiovascular disease Hypertension.Diabetes SURGICAL HISTORY : Cholecystectomy. Cardiac stent placements ENCOUNTER: Initial ACUITY: 1 day PAIN SCALE: 3/10 LOCATION: cranial TECHNIQUE: Multiple contiguous axial images were obtained of the head. Using automated exposure control and adj ustment of the mA and/or kV according to patient size, radiation dose was kept as low as reasonably a chievable to obtain optimal diagnostic quality images. DICOM format image data is available electro nically for review and comparison. FINDINGS: CEREBRUM: The ventricles are normal for age. No evidence of midline shift, mass lesion, hemorrhage or acute in farction. No extra-axial fluid collections are seen. POSTERIOR FOSSA: The cerebellum and brainstem are intact. The 4th ventricle is midline. The cerebellopontine angle i s unremarkable. EXTRACRANIAL: The visualized portion of the orbits is intact. SKULL: The calvaria is intact. No evidence of skull fracture. CONCLUSION: Negative exam. No change from prior. Ron Alvarez MD on January 09, 2017 at 12:46 Board Certified Radiologist. This report was verified electronically.
[2017-01-09 12:50] LABS: ALKALINE PHOSPHATASE 62 U/L (45-117); TOTAL BILIRUBIN ADULT 0.4 MG/DL (0.2-1.0)
--- NOTE | 2017-01-09 12:54 | RADRPT ---
EXAM DATE/TIME: 01/09/2017 12:14 [facility] COMPARISON: No previous studies available for comparison. INDICATIONS : Seizure, neck pain. RADIATION DOSE: 23.79 CTDIvol (mGy) MEDICAL HISTORY : Seizures. Cardiovascular disease Chronic obstructive pulmonary disease.Hypertension SURGICAL HISTORY : Cholecystectomy. Cardiac stent placements ENCOUNTER: Initial ACUITY: 1 day PAIN SCALE: 3/10 LOCATION: neck TECHNIQUE: Volumetric scanning of the cervical spine was performed. Multiplanar reconstructions in the sagittal, coronal and oblique axial planes were performed. Using automated exposure control and adjustment o f the mA and/or kV according to patient size, radiation dose was kept as low as reasonably achievable to obtain optimal diagnostic quality images. DICOM format image data is available electronically f or review and comparison. FINDINGS: There is been extensive previous cervical fusion with posterior hardware fixation from C3-C7 bilatera lly. There is wide posterior decompression of the canal throughout the region of fusion with laminect omies. The alignment is satisfactory with slight reversal of normal cervical lordosis. No evidence of spondylolisthesis. There is no evidence of canal or foraminal compromise. There is no evidence of fr acture. No paraspinal hematoma is present. CONCLUSION: No acute bony injury. Thomas Lipscomb MD on January 09, 2017 at 12:50 Board Certified Radiologist. This report was verified electronically.
[2017-01-09 12:55] LABS: ANION GAP 8 MEQ/L (5-15); AST (GOT) 31 U/L (15-37); BICARBONATE 23.9 MEQ/L (21.0-32.0); BLOOD UREA NITROGEN 12 MG/DL (7-18); CHLORIDE 105 MEQ/L (98-107); GLOMERULAR FILTRATION RATE 90 ML/MIN (>89); MAGNESIUM 1.6 MG/DL (1.5-2.5); SODIUM (NA) 137 MEQ/L (136-145)
[2017-01-09 13:00] LABS: ALCOHOL LESS THAN 3 MG/DL (0-5)
--- NOTE | 2017-01-10 18:02 | EKG ---
Date Performed: 01/09/2017 Time Performed: 11:51:55 PTAGE: 61 years EKG: Sinus rhythm LOW QRS VOLTAGE IN PRECORDIAL LEADS POSSIBLE ANTERIOR MYOCARDIAL INFARCTION Loss of R waves in the a nterior precordium compared to prior Clinical correlation is strongly recommended BORDERLINE ECG WARN ING: DATA QUALITY MAY AFFECT INTERPRETATION PREVIOUS TRACING : 12/18/2016 23.48 DOCTOR: Oumar Williamson Interpretating Date/Time 01/10/2017 18:00:51
== END 2017-01-09 18:09 | disposition home or self-care (01) ==
LOC: NEPE 11:24
DX: R56.9 Unspecified convulsions (principal); R51 Headache; R10.11 Right upper quadrant pain; E11.9 Type 2 diabetes mellitus without complications; I10 Essential (primary) hypertension; J44.9 Chronic obstructive pulmonary disease, unspecified; I50.9 Heart failure, unspecified; K21.9 Gastro-esophageal reflux disease without esophagitis; Z86.73 Personal history of transient ischemic attack (TIA), and cerebral infarction without residual deficits
CPT/HCPCS: 70450; 72125; 80053; 80177; 80201; 80307; 81001; 83690; 83735; 85025; 93005; 96374; 96375; 99285; J2270; J2405

== ENCOUNTER 2017-02-11 03:04 | Inpatient (IN) | payer OTHER, MEDICARE ==
[2017-02-11] VITALS (7 sets, daily range): BP systolic 126–134; BP diastolic 62–87; PULSE 59–83; RESP 16–19; TEMP 96.3–97.9; O2SAT 95–97
[~2017-02-11] VITALS: Ht 177.8 cm; Wt 81.1 kg
[~2017-02-11 03:04] MED LIST changes: -LEVO100T5 PO; +LEVO175T2 PO; -PERC5TAB12 PO; +PERC7.5T13 PO
[2017-02-11] MEDS ORDERED: SODIUM CHLOR 0.9% 1000 ML INJ 1,000 ML IV SCH (03:53)
[2017-02-11] MEDS ORDERED: SODIUM CHLORIDE 0.9% FLUSH 5 ML FLUSH IV FLUSH PRN (04:00)
--- NOTE | 2017-02-11 04:23 | RADRPT ---
EXAM DATE/TIME: 02/11/2017 04:08 [facility] COMPARISON: CHEST SINGLE AP, May 23, 2016, 19:21. INDICATIONS : Shortness of breath. MEDICAL HISTORY : Myocardial infarction. Stroke. SURGICAL HISTORY : Pacemaker. Stent. ENCOUNTER: Initial ACUITY: 1 day PAIN SCORE: 0/10 LOCATION: Bilateral chest FINDINGS: A single view of the chest demonstrates cardiomegaly. Minimal basilar atelectasis. No effusion. No pn eumothorax. Previous left shoulder joint replacement. Fusion cervical spine. CONCLUSION: 1. Cardiomegaly with minimal basilar atelectasis. Lino Hooker MD on February 11, 2017 at 4:19 Board Certified Radiologist. This report was verified electronically.
[2017-02-11] MEDS ORDERED: IOHEXOL 350 MG/ML 10 ML VIAL (for RAD DIAG) IVCONTRAST ONE (05:46)
--- NOTE | 2017-02-11 05:56 | RADRPT ---
EXAM DATE/TIME: 02/11/2017 05:41 [facility] COMPARISON: CT BRAIN W/O CONTRAST, January 09, 2017, 12:14. INDICATIONS : Altered mental status. RADIATION DOSE: 52.56 CTDIvol (mGy) ; Tabletop CT Head MEDICAL HISTORY : Seizures. Myocardial infarction. Chronic obstructive pulmonary disease.Congestive heart failure. GERD . Diabetes. Hypertension. CVA. SURGICAL HISTORY : Cholecystectomy. Coronary stent. Ventricular neuro stimulator. ENCOUNTER: Initial ACUITY: 1 day PAIN SCALE: 0/10 LOCATION: cranial TECHNIQUE: Multiple contiguous axial images were obtained of the head. Using automated exposure control and adj ustment of the mA and/or kV according to patient size, radiation dose was kept as low as reasonably a chievable to obtain optimal diagnostic quality images. DICOM format image data is available electro nically for review and comparison. FINDINGS: CEREBRUM: The ventricles are normal for age. No evidence of midline shift, mass lesion, hemorrhage or acute in farction. No extra-axial fluid collections are seen. POSTERIOR FOSSA: The cerebellum and brainstem are intact. The 4th ventricle is midline. The cerebellopontine angle i s unremarkable. EXTRACRANIAL: The visualized portion of the orbits is intact. SKULL: The calvaria is intact. No evidence of skull fracture. CONCLUSION: Normal examination for a patient of this age. Lino Hooker MD on February 11, 2017 at 5:54 Board Certified Radiologist. This report was verified electronically.
--- NOTE | 2017-02-11 06:00 | RADRPT ---
EXAM DATE/TIME: 02/11/2017 05:45 [facility] COMPARISON: No previous studies available for comparison. INDICATIONS : Abdominal pain and general weakness. IV CONTRAST: 95 cc Omnipaque 350 (iohexol) IV ORAL CONTRAST: No oral contrast ingested. RADIATION DOSE: 14.60 CTDIvol (mGy) MEDICAL HISTORY : Chronic obstructive pulmonary disease. Seizures. Myocardial infarction.CVA. GERD. Diabetes. Hypertens ion. Congestive heart failure. SURGICAL HISTORY : Cholecystectomy. Coronary stent. Ventricular neuro stimulator. ENCOUNTER: Initial ACUITY: 1 day PAIN SCALE: 5/10 LOCATION: Bilateral abdomen TECHNIQUE: Volumetric scanning of the abdomen and pelvis was performed. Using automated exposure control and ad justment of the mA and/or kV according to patient size, radiation dose was kept as low as reasonably achievable to obtain optimal diagnostic quality images. DICOM format image data is available electro nically for review and comparison. FINDINGS: LOWER LUNGS: The visualized lower lungs are clear. LIVER: Homogeneous decreased density without lesion. There is no dilation of the biliary tree. Cholecystect parvez. SPLEEN: Normal size without lesion. PANCREAS: Within normal limits. KIDNEYS: Normal in size and shape. There is no mass, stone or hydronephrosis. ADRENAL GLANDS: Within normal limits. VASCULAR: There is no aortic aneurysm. BOWEL/MESENTERY: The stomach, small bowel, and colon demonstrate no acute abnormality. There is no free intraperitone al air or fluid. ABDOMINAL WALL: Within normal limits. RETROPERITONEUM: There is no lymphadenopathy. BLADDER: No wall thickening or mass. REPRODUCTIVE: Within normal limits. INGUINAL: There is no lymphadenopathy or hernia. MUSCULOSKELETAL: Within normal limits for patient age. CONCLUSION: 1. No acute findings on CT abdomen and pelvis. Mild prostatic enlargement. Fatty liver. Previous chol ecystectomy. Lino Hooker MD on February 11, 2017 at 5:55 Board Certified Radiologist. This report was verified electronically.
[2017-02-11 06:17] LABS: AUTOMATED NEUTROPHIL # 2.7 TH/MM3 (1.8-7.7); BASOPHIL % 0.6 % (0.0-2.0); EOSINOPHIL # 0.1 TH/MM3 (0-0.4); EOSINOPHIL % 1.8 % (0.0-4.0); HEMATOCRIT 38.8 % (39.0-51.0); HEMO FLAGS DIFF FINAL; LYMPH % 37.4 % (9.0-44.0); LYMPHOCYTE # 1.9 TH/MM3 (1.0-4.8); MEAN CELL VOLUME 90.3 FL (80.0-100.0); MEAN CORPUSCULAR HEMOGLOBIN 30.1 PG (27.0-34.0); MEAN CORPUSCULAR HGB CONC 33.3 % (32.0-36.0); MONO % 5.9 % (0.0-8.0); NEUT % 54.3 % (16.0-70.0); PLATELET COUNT 137 TH/MM3 (150-450); RED CELL DISTRIBUTION WIDTH 14.5 % (11.6-17.2)
[2017-02-11 06:24] LABS: APTT (PATIENT) 25.3 SEC (24.3-30.1); PROTHROMBIN TIME - PATIENT 11.6 SEC (9.8-11.6)
[2017-02-11 06:52] LABS: ACETAMINOPHEN LESS THAN 2.0 MCG/ML (10.0-30.0); ANION GAP 8 MEQ/L (5-15); BICARBONATE 23.2 MEQ/L (21.0-32.0); BLOOD UREA NITROGEN 15 MG/DL (7-18); CHLORIDE 112 MEQ/L (98-107); GLOMERULAR FILTRATION RATE 91 ML/MIN (>89); POTASSIUM 3.7 MEQ/L (3.5-5.1); SODIUM (NA) 143 MEQ/L (136-145)
[2017-02-11 06:53] LABS: ALCOHOL LESS THAN 3 MG/DL (0-5)
--- NOTE | 2017-02-11 07:46 | PD ---
HPI Chief Complaint: Altered Mental Status Time Seen by Provider: 03:53 Travel History International Travel<30 days: No Contact w/Intl Traveler<30days: No Traveled to known affect area: No History of Present Illness HPI The patient is a 61 year old male who presents to the [facility] emergency department with a history of seizure activity 3 this evening. Initially, the patient reports that at 2 AM he awoke and felt as if he would fall, however he denies feeling lightheaded. He reports that throughout the day yesterday he had generalized weakness. The patient reports that he does have a history of seizure disorder. He is followed by Dr. Ly. The patient reports that he recently had his Keppra increased to 1 g 3 times a day and Topamax 50 mg by mouth twice a day. He reports that he has been compliant with his medication regimen. He reports that in the past he has not tolerated well other antiepileptic medications including higher doses of these medications therefore he is reticent to any changes in his regimen. The patient incidentally on review of systems also reports having chest pain and shortness of breath that began this morning. He reports that he does have a history of coronary artery disease with 3 prior MIs and 2 stents placed previously. He denies taking aspirin on a regular basis. He reports that he occasionally takes a baby aspirin. He did not take it today. Family and review of systems, the patient reports that he's had a 2-3 month history of abdominal pain. The patient reports that the pain is in the lower quadrants of the abdomen worse on the right compared to the left. He reports that he has discussed this with his primary care physician, Dr. Sandy. He reports that he was instructed that he would be referred to a straddle bug operator for upper and lower endoscopy. On review of systems otherwise, the patient denies any recent known fevers, cough, congestion, neck pain,vomiting, diarrhea, urinary symptoms, or other neurologic symptoms. [facility] Past Medical History Narrative Medical The patient's past medical history is significant for coronary artery disease, history of cerebrovascular accident, history of COPD, hyperlipidemia, hypertension, chronic back pain, arthritis, diabetes mellitus. He is in PT 2 times a week for chronic back pain and gait disturbances. Hx Anticoagulant Therapy: Yes (ASPIRIN ) Arthritis: Yes Asthma: Yes Heart Rhythm Problems: Yes Cardiac Catheterization: Yes (STENT PLACED x2 2004) Cardiovascular Problems: Yes (x2 stents, X3 LA) High Cholesterol: Yes Chest Pain: Yes Congestive Heart Failure: Yes (ECHO 2016) COPD: Yes Cerebrovascular Accident: Yes Diabetes: Yes Patient Takes Glucophage: Yes Diminished Hearing: No Gastrointestinal Disorders: Yes GERD: Yes Genitourinary: No Hypertension: Yes Musculoskeletal: Yes Neurologic: Yes Respiratory: Yes (COPD) Myocardial Infarction: Yes Seizures: Yes Sleep Apnea: Yes Tetanus Vaccination: < 5 Years Influenza Vaccination: Yes Past Surgical History Narrative Surgical The patient's past surgical history is significant for cholecystectomy, cardiac cath with stent, insertion of ventricular neuro stimulator for seizure, multiple orthopedic surgeries Cholecystectomy: Yes Coronary Stent: Yes Neurologic Surgery: Yes (insertion of ventricular neuro stimulator for seizure) Other Surgery: Yes (KNEE, SHOULDER AND NECK ) Social History Alcohol Use: No Tobacco Use: No (quit 2 years ago) Substance Use: No Allergies-Medications (Allergen,Severity, Reaction): Coded Allergies: levofloxacin (Unverified Allergy, Severe, Anaphylaxis, 01/13/17) tapentadol (Unverified Allergy, Intermediate, Nausea/Vomiting, 01/13/17) blueberry (Unverified Allergy, Mild, Rash, 01/13/17) Reported Meds & Prescriptions Reported Meds & Active Scripts Active Topiramate 25 Mg Tab 25 Mg PO TID 30 Days Keppra (Levetiracetam) 1,000 Mg Tab 1,000 Mg PO TID Reported Percocet (Oxycodone-Acetaminophen) 7.5-325 mg Tab 1 Tab PO Q12HR PRN Levothyroxine (Levothyroxine Sodium) 175 Mcg Tab 175 Mcg PO DAILY Nitrostat SL (Nitroglycerin) 0.4 Mg Subl 0.4 Mg SL DIRECTED PRN 1 tablet under the tongue as needed for chest pain. Repeat every 5 minutes for a total of 3 DOSES or call 911 if NO relief. Ativan (Lorazepam) 0.5 Mg Tab 0.5 Mg PO BID Aspirin 81 Mg Chew 81 Mg CHEW DAILY Omeprazole 20 Mg Tab 20 Mg PO DAILY Metformin (Metformin HCl) 1,000 Mg Tab 1,000 Mg PO BIDPC With meals Ambien (Zolpidem Tartrate) 10 Mg Tab 10 Mg PO HS PRN Lyrica (Pregabalin) 200 Mg Cap 200 Mg PO BID Glimepiride 2 Mg Tab 2 Mg PO DAILY Take with breakfast or first main meal Atorvastatin (Atorvastatin Calcium) 20 Mg Tab 20 Mg PO DAILY 30 Days Review of Systems Except as stated in HPI: all other systems reviewed are Neg General / Constitutional: No: Fever Eyes: No: Visual changes HENT: No: Headaches Cardiovascular: Positive: Chest Pain or Discomfort, Dyspnea on exertion Respiratory: Positive: Shortness of Breath Gastrointestinal: Positive: Abdominal Pain, No: Nausea, Vomiting, Diarrhea, Changes in Bowel Habits Genitourinary: No: Dysuria Musculoskeletal: No: Pain Skin: No Rash Neurologic: Positive: Weakness (generalized weakness), Change in Mentation, Seizures, No: Focal Abnormalities, Slurred Speech, Sensory Disturbance Psychiatric: No: Depression Endocrine: No: Polydipsia Hematologic/Lymphatic: No: Easy Bruising Physical Exam Narrative General: The patient is a well-developed well-nourished male in no acute distress. Head and Neck exam: Head is normocephalic atraumatic. Eyes: EOMI, pupils are equal round and reactive to light. Nose: Midline septum with pink mucous membranes Mouth: Dentition unremarkable. Moist mucus membranes. Posterior oropharynx is not erythematous. No tonsillar hypertrophy. Uvula midline. Airway patent. Neck: No palpable lymphadenopathy. No nuchal rigidity. No thyromegaly. Cardiovascular: Regular rate and rhythm without murmurs, gallops, or rubs. Lungs: Clear to auscultation bilaterally. No wheezes, rhonchi, or rales. Abdomen: Soft, with tenderness on palpation of bilateral lower quadrants of the abdomen worse on the right compared to the left. No point tenderness specifically over McBurney's point. Negative Rosas's sign. No guarding, rebound, or rigidity. Normal bowel sounds are audible. Extremities: No clubbing, cyanosis, or edema. 2+ pulses in all 4 extremities. No calf tenderness on palpation. Back: No spinous process tenderness to palpation. No costovertebral angle tenderness to palpation. Neurologic Exam: Grossly nonfocal. Skin Exam: No rash noted. Intact skin that is warm and dry. Data Data Last Documented VS Vital Signs Date Time Temp Pulse Resp B/P (MAP) Pulse Ox O2 Delivery O2 Flow Rate FiO2 02/11/17 07:34 73 18 126/70 (88) 97 Room Air 02/11/17 03:07 97.9 Orders Orders Electrocardiogram (02/11/17 03:53) Ammonia (02/11/17 03:53) Complete Blood Count With Diff (02/11/17 03:53) Comprehensive Metabolic Panel (02/11/17 03:53) Creatine Kinase (Cpk) (02/11/17 03:53) Prothrombin Time / Inr (Pt) (02/11/17 03:53) Act Partial Throm Time (Ptt) (02/11/17 03:53) Troponin I (02/11/17 03:53) Thyroid Stimulating Hormone (02/11/17 03:53) Urinalysis - C+S If Indicated (02/11/17 03:53) Chest, Single Ap (02/11/17 03:53) Ct Brain W/O Iv Contrast(Rout) (02/11/17 03:53) Blood Glucose (02/11/17 03:53) Ecg Monitoring (02/11/17 03:53) Iv Access Insert/Monitor (02/11/17 03:53) Oximetry (02/11/17 03:53) Sodium Chloride 0.9% Flush (Ns Flush) (02/11/17 04:00) Sodium Chlor 0.9% 1000 Ml Inj (Ns 1000 M (02/11/17 03:53) Drug Screen, Random Urine (02/11/17 03:53) Alcohol (Ethanol) (02/11/17 03:53) Tylenol (Acetaminophen) (02/11/17 03:53) Salicylates (Aspirin) (02/11/17 03:53) Ct Abd/Pel W Iv Contrast(Rout) (02/11/17 03:53) B-Type Natriuretic Peptide (02/11/17 03:53) Iohexol 350 Inj (Omnipaque 350 Inj) (02/11/17 05:46) Basic Metabolic Panel (Bmp) (02/11/17 05:49) Complete Blood Count With Diff (02/11/17 05:49) Coag Profile (02/11/17 05:49) Ammonia (02/11/17 05:49) B-Type Natriuretic Peptide (02/11/17 05:49) Troponin I (02/11/17 05:49) Alcohol (Ethanol) (02/11/17 05:49) Tylenol (Acetaminophen) (02/11/17 05:49) Salicylates (Aspirin) (02/11/17 05:49) Hepatic Functional Panel (02/11/17 07:52) Admit Order (Ed Use Only) (02/11/17 09:09) Labs Laboratory Tests Test 02/11/17 04:25 02/11/17 04:45 02/11/17 05:00 02/11/17 06:00 White Blood Count TH/MM3 5.0 TH/MM3 Red Blood Count MIL/MM3 4.30 MIL/MM3 Hemoglobin GM/DL 12.9 GM/DL Hematocrit % 38.8 % Mean Corpuscular Volume FL 90.3 FL Mean Corpuscular Hemoglobin PG 30.1 PG Mean Corpuscular Hemoglobin Concent % 33.3 % Red Cell Distribution Width % 14.5 % Platelet Count TH/MM3 137 TH/MM3 Mean Platelet Volume FL 8.5 FL Neutrophils (%) (Auto) % 54.3 % Lymphocytes (%) (Auto) % 37.4 % Monocytes (%) (Auto) % 5.9 % Eosinophils (%) (Auto) % 1.8 % Basophils (%) (Auto) % 0.6 % Neutrophils # (Auto) TH/MM3 2.7 TH/MM3 Lymphocytes # (Auto) TH/MM3 1.9 TH/MM3 Monocytes # (Auto) TH/MM3 0.3 TH/MM3 Eosinophils # (Auto) TH/MM3 0.1 TH/MM3 Basophils # (Auto) TH/MM3 0.0 TH/MM3 CBC Comment DIFF FINAL Differential Comment Prothrombin Time SEC 11.6 SEC Prothromb Time International Ratio RATIO 1.0 RATIO Activated Partial Thromboplast Time SEC 25.3 SEC Blood Urea Nitrogen MG/DL 15 MG/DL Creatinine MG/DL 0.86 MG/DL Random Glucose MG/DL 131 MG/DL Total Protein GM/DL Albumin GM/DL Calcium Level MG/DL 7.9 MG/DL Alkaline Phosphatase U/L Aspartate Amino Transf (AST/SGOT) U/L Alanine Aminotransferase (ALT/SGPT) U/L Total Bilirubin MG/DL Sodium Level MEQ/L 143 MEQ/L Potassium Level MEQ/L 3.7 MEQ/L Chloride Level MEQ/L 112 MEQ/L Carbon Dioxide Level MEQ/L 23.2 MEQ/L Anion Gap MEQ/L 8 MEQ/L Estimat Glomerular Filtration Rate ML/MIN 91 ML/MIN Total Creatine Kinase U/L Troponin I NG/ML LESS THAN 0.02 NG/ML B-Type Natriuretic Peptide PG/ML 11 PG/ML Thyroid Stimulating Hormone 3rd Gen uIU/ML Acetaminophen Level MCG/ML LESS THAN 2.0 MCG/ML Ethyl Alcohol Level MG/DL LESS THAN 3 MG/DL Salicylates Level MG/DL LESS THAN 1.7 MG/DL Ammonia MCMOL/L 36 MCMOL/L Test 02/11/17 08:13 Total Bilirubin 0.3 MG/DL Direct Bilirubin 0.1 MG/DL Indirect Bilirubin 0.2 MG/DL Aspartate Amino Transf (AST/SGOT) 33 U/L Alanine Aminotransferase (ALT/SGPT) 62 U/L Alkaline Phosphatase 62 U/L Total Protein 6.5 GM/DL Albumin 3.5 GM/DL [facility] Medical Decision Making Medical Screen Exam Complete: Yes Emergency Medical Condition: Yes Medical Record Reviewed: Yes Interpretation(s) Last Impressions Head CT 02/11/17352 Signed Impressions: Service Date/Time: Saturday, February 11, 2017 05:41 - CONCLUSION: Normal examination for a patient of this age. Lino Hooker MD Chest X-Ray 02/11/17352 Signed Impressions: Service Date/Time: Saturday, February 11, 2017 04:08 - CONCLUSION: 1. Cardiomegaly with minimal basilar atelectasis. Lino Hooker MD Abdomen/Pelvis CT 02/11/17352 Signed Impressions: Service Date/Time: Saturday, February 11, 2017 05:45 - CONCLUSION: 1. No acute findings on CT abdomen and pelvis. Mild prostatic enlargement. Fatty liver. Previous cholecystectomy. Lino Hooker MD Differential Diagnosis Medication noncompliance, versus electrolyte abnormality, versus lowered seizure threshold related to intracranial abnormality Narrative Course During the course of the patients emergency department visit, the patients history, examination, and differential diagnosis were reviewed with the patient. The patient had IV access obtained and blood work sent for analysis. The patient was placed on a cardiac cath tech with oximetry and blood pressure monitoring. An ECG was done on arrival. The patient's ECG reveals sinus rhythm heart rate of 76, no acute ST segment changes. The patient was initially provided normal saline 1 L IV fluid bolus, aspirin 162 mg by mouth 1. I did listen 1 inch to the chest wall. The patients laboratory studies were reviewed and remarkable for a white count of 5, hemoglobin 12.9, platelets 137 with a normal differential, basic metabolic profile is remarkable for chloride of 112, glucose 131, calcium 7.9, troponin less than 0.02, ammonia level XXXVI, LFTs within normal limits, BNP is 11, PT PTT within normal limits, acetaminophen less than 2, alcohol less than 3 , salicylate less than 1.7 Radiology studies were reviewed and remarkable for a chest x-ray that shows cardiomegaly with minimal basilar atelectasis, CT scan of the abdomen and pelvis shows no acute findings, mild prostatic enlargement, fatty liver, previous cholecystectomy. CT scan of the brain shows no acute abnormality. The patients results were discussed with the patient, including the plan of care. I explained that further testing and/ or monitoring is indicated based on the patients history, examination, and/ or laboratory findings. Therefore, I recommended admission for additional evaluation. The patient expressed understanding and was agreeable with this plan. The patient was admitted to the hospital in stable condition and [facility] Physician Communication Physician Communication The patient's case was discussed with Dr. Stoll who did agree to admit the patient for further evaluation and treatment at this time. Diagnosis Primary Impression: Altered mental status Qualified Codes: R41.82 - Altered mental status, unspecified Additional Impressions: Recurrent seizures Chest pain, rule out acute myocardial infarction Keira Samaniego MD Feb 11, 2017 07:46
[2017-02-11] MEDS ORDERED: NITROGLYCERIN 2% OINT 1 GM PACKET TOPICAL ONE (09:15)
[2017-02-11] MEDS ORDERED: LORazepam 2 MG/ML VIAL IV PRN (09:15)
[2017-02-11] MEDS ORDERED: ZOLPIDEM TARTRATE 10 MG TAB PO PRN (09:15)
[2017-02-11] MEDS ORDERED: ASPIRIN 81 MG CHEW TAB CHEW ONE (09:15)
[2017-02-11] MEDS ORDERED: SODIUM CHLORIDE 0.9% FLUSH 10 ML FLUSH IV FLUSH PRN (09:15)
[2017-02-11] MEDS ORDERED: NITROGLYCERIN 0.4 MG SL 25 TABS/BTL SL PRN (09:15)
[2017-02-11 09:24] LABS: INDIRECT BILIRUBIN 0.2 MG/DL (0.0-0.8); TOTAL BILIRUBIN ADULT 0.3 MG/DL (0.2-1.0)
[2017-02-11] MEDS: TOPIRAMATE 25 MG TAB PO SCH ×2 (14:23→17:39)
[2017-02-11] MEDS: levETIRAcetam 500 MG TAB PO SCH ×2 (14:23→17:39)
[2017-02-11] MEDS ORDERED: ACETAMINOPHEN/HYDROcodone 325 MG/5 MG TAB PO PRN (16:15)
[2017-02-11] MEDS: oxyCODONE/ACETAMINOPHEN 7.5 MG/325 MG TAB PO PRN (17:39)
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
[2017-02-11] MEDS: LORazepam 0.5 MG TAB PO SCH (21:00)
[2017-02-11] MEDS: PREGABALIN 100 MG CAP PO SCH (21:13)
[2017-02-11] MEDS: SODIUM CHLORIDE 0.9% FLUSH 10 ML FLUSH IV FLUSH SCH (21:14)
--- NOTE | 2017-02-11 21:16 | EKG ---
Date Performed: 02/11/2017 Time Performed: 03:31:04 PTAGE: 61 years EKG: Sinus rhythm NORMAL ECG Compared to prior tracing no significant change DOCTOR: Zeynep Terrell Interpretating Date/Time 02/11/2017 21:16:16
[2017-02-12] VITALS: BP 108/71; PULSE 65; RESP 16; TEMP 97.3; O2SAT 97
[2017-02-12 04:00] VITALS: BP 121/69; PULSE 57; RESP 15; TEMP 96.7; O2SAT 95
[2017-02-12] MEDS: oxyCODONE/ACETAMINOPHEN 7.5 MG/325 MG TAB PO PRN ×2 (04:25→09:28)
[2017-02-12 05:07] LABS: AUTOMATED NEUTROPHIL # 3.2 TH/MM3 (1.8-7.7); BASOPHIL % 0.4 % (0.0-2.0); EOSINOPHIL # 0.1 TH/MM3 (0-0.4); EOSINOPHIL % 1.2 % (0.0-4.0); HEMATOCRIT 40.2 % (39.0-51.0); HEMO FLAGS DIFF FINAL; LYMPH % 36.3 % (9.0-44.0); MEAN CELL VOLUME 90.2 FL (80.0-100.0); MEAN CORPUSCULAR HGB CONC 33.3 % (32.0-36.0); MONO % 4.2 % (0.0-8.0); NEUT % 57.9 % (16.0-70.0); PLATELET COUNT 130 TH/MM3 (150-450); RED BLOOD COUNT 4.45 MIL/MM3 (4.50-5.90); RED CELL DISTRIBUTION WIDTH 14.6 % (11.6-17.2); WHITE BLOOD COUNT 5.6 TH/MM3 (4.0-11.0)
[2017-02-12 05:26] LABS: ALKALINE PHOSPHATASE 66 U/L (45-117); ALT (GPT) 66 U/L (12-78); ANION GAP 5 MEQ/L (5-15); AST (GOT) 41 U/L (15-37); BICARBONATE 25.6 MEQ/L (21.0-32.0); BLOOD UREA NITROGEN 11 MG/DL (7-18); CHLORIDE 110 MEQ/L (98-107); GLOMERULAR FILTRATION RATE 98 ML/MIN (>89); POTASSIUM 4.1 MEQ/L (3.5-5.1); SODIUM (NA) 141 MEQ/L (136-145); TOTAL BILIRUBIN ADULT 0.5 MG/DL (0.2-1.0)
[2017-02-12] MEDS ORDERED: LEVOTHYROXINE SODIUM 100 MCG TAB PO SCH (06:00)
[2017-02-12] MEDS ORDERED: LEVOTHYROXINE SODIUM 75 MCG TAB PO SCH (06:00)
[2017-02-12] MEDS: TOPIRAMATE 25 MG TAB PO SCH ×2 (07:51→13:19)
[2017-02-12] MEDS: PREGABALIN 100 MG CAP PO SCH (07:51)
[2017-02-12] MEDS: levETIRAcetam 500 MG TAB PO SCH ×2 (07:51→13:19)
[2017-02-12] MEDS: LORazepam 0.5 MG TAB PO SCH (07:51)
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
[2017-02-12] MEDS ORDERED: ASPIRIN 81 MG CHEW TAB CHEW SCH (09:00)
[2017-02-12] MEDS: SODIUM CHLORIDE 0.9% FLUSH 10 ML FLUSH IV FLUSH SCH (09:00)
[2017-02-12] MEDS ORDERED: PANTOPRAZOLE SOD 20 MG DELAYED RELEASE TAB PO SCH (09:00)
[2017-02-12] MEDS ORDERED: ATORVASTATIN 20 MG TAB PO SCH (09:00)
[2017-02-12 09:28] VITALS: BP 105/66; PULSE 56; RESP 16; TEMP 96.1; O2SAT 100
[2017-02-12 12:45] VITALS: BP 109/68; PULSE 57; RESP 16; TEMP 96.5; O2SAT 97
--- NOTE | 2017-02-12 13:21 | HHI.DCPOC ---
Discharge Care Plan Diagnosis: (1) Breakthrough seizure (2) Chronic back pain (3) DM (diabetes mellitus) (4) Hypothyroidism Goals to Promote Your Health * To prevent worsening of your condition and complications * To maintain your health at the optimal level Directions to Meet Your Goals Take your medications as prescribed Follow your dietary instruction Follow activity as directed Keep your appointments as scheduled Take your immunizations and boosters as scheduled If your symptoms worsen call your PCP, if no PCP go to Urgent Care Center or Emergency Room Smoking is Dangerous to Your Health. Avoid second hand smoke Call the 24-hour hour crisis hotline for domestic abuse at Terence Stoll MD Feb 12, 2017 13:21
== END 2017-02-12 14:35 | disposition home or self-care (01) | DRG 897 ==
LOC: NEPC 03:04 → NEDA 09:12 → HOCB 11:38
PROVIDERS: ADMIT Family Medicine; ATTEND Family Medicine
DX: F15.93 Other stimulant use, unspecified with withdrawal (principal); G40.919 Epilepsy, unspecified, intractable, without status epilepticus; I11.0 Hypertensive heart disease with heart failure; I50.9 Heart failure, unspecified; E11.9 Type 2 diabetes mellitus without complications; E78.5 Hyperlipidemia, unspecified; G89.29 Other chronic pain; I25.2 Old myocardial infarction; I25.10 Atherosclerotic heart disease of native coronary artery without angina pectoris; Z95.5 Presence of coronary angioplasty implant and graft; Z86.73 Personal history of transient ischemic attack (TIA), and cerebral infarction without residual deficits; M54.9 Dorsalgia, unspecified; M19.90 Unspecified osteoarthritis, unspecified site; E78.00 Pure hypercholesterolemia, unspecified; K21.9 Gastro-esophageal reflux disease without esophagitis; G47.30 Sleep apnea, unspecified; E03.9 Hypothyroidism, unspecified
CPT/HCPCS: 70450; 71010; 74177; 80048; 80053; 80076; 80307; 82140; 82550; 82948; 83880; 84443; 84484; 85025; 85610; 85730; 93005; 96360; J7030; Q9967

== ENCOUNTER 2017-03-26 14:28 | Observation (INO) | payer MEDICARE, OTHER ==
[~2017-03-26] VITALS: Ht 177.8 cm; Wt 84.0 kg
[2017-03-26] VITALS (9 sets, daily range): BP systolic 112–141; BP diastolic 67–76; PULSE 60–73; RESP 14–18; TEMP 98–98.3; O2SAT 94–97
[2017-03-26] MEDS ORDERED: SODIUM CHLORIDE 0.9% FLUSH 10 ML FLUSH IVF PRN (15:00)
[2017-03-26] MEDS ORDERED: ASPIRIN 81 MG CHEW TAB CHEW ONE (15:00)
[2017-03-26 15:10] LABS: AUTOMATED NEUTROPHIL # 3.4 TH/MM3 (1.8-7.7); BASOPHIL % 0.7 % (0.0-2.0); EOSINOPHIL # 0.2 TH/MM3 (0-0.4); EOSINOPHIL % 2.6 % (0.0-4.0); HEMATOCRIT 41.4 % (39.0-51.0); HEMOGLOBIN 13.7 GM/DL (13.0-17.0); LYMPH % 31.6 % (9.0-44.0); LYMPHOCYTE # 1.9 TH/MM3 (1.0-4.8); MEAN CELL VOLUME 91.6 FL (80.0-100.0); MEAN CORPUSCULAR HEMOGLOBIN 30.3 PG (27.0-34.0); MEAN CORPUSCULAR HGB CONC 33.1 % (32.0-36.0); MEAN PLATELET VOLUME 9.6 FL (7.0-11.0); MONO % 6.6 % (0.0-8.0); MONOCYTE # 0.4 TH/MM3 (0-0.9); NEUT % 58.5 % (16.0-70.0); PLATELET COUNT 175 TH/MM3 (150-450); RED BLOOD COUNT 4.52 MIL/MM3 (4.50-5.90); RED CELL DISTRIBUTION WIDTH 14.3 % (11.6-17.2); WHITE BLOOD COUNT 5.9 TH/MM3 (4.0-11.0)
[2017-03-26 15:35] LABS: BICARBONATE 22.5 MEQ/L (21.0-32.0); BLOOD UREA NITROGEN 11 MG/DL (7-18); CHLORIDE 109 MEQ/L (98-107); CREATININE 0.88 MG/DL (0.60-1.30); GLOMERULAR FILTRATION RATE 89 ML/MIN (>89); GLUCOSE,RANDOM 238 MG/DL (74-106); MAGNESIUM 1.8 MG/DL (1.5-2.5); SODIUM (NA) 141 MEQ/L (136-145); TROPONIN I LESS THAN 0.02 NG/ML (0.02-0.05)
[2017-03-26 15:50] LABS: PROTHROMBIN TIME - PATIENT 11.1 SEC (9.8-11.6)
--- NOTE | 2017-03-26 15:52 | PD ---
HPI Chief Complaint: Chest Pain Time Seen by Provider: 14:47 Travel History International Travel<30 days: No Contact w/Intl Traveler<30days: No Traveled to known affect area: No History of Present Illness HPI This is a 61-year-old male with a history of seizure disorder, presents today with complaints of chest tightness and pressure. The patient states it comes and goes. He does have a history of coronary artery disease. He states his last workup was greater than one year ago. He denies any nausea or diaphoresis. He does report shortness of breath associated with the discomfort. There is no reported fevers, chills. There are no other complaints time my examination. PFSH Past Medical History Hx Anticoagulant Therapy: Yes (ASPIRIN ) Arthritis: Yes Asthma: Yes Anxiety: No Depression: Yes Heart Rhythm Problems: Yes Cancer: No Cardiac Catheterization: Yes (STENT PLACED x2 2004) Cardiovascular Problems: Yes High Cholesterol: Yes Chest Pain: Yes Congestive Heart Failure: Yes (ECHO 2015) COPD: Yes Cerebrovascular Accident: Yes (2004) Diabetes: Yes Patient Takes Glucophage: Yes Diminished Hearing: No Gastrointestinal Disorders: Yes GERD: Yes Genitourinary: No Hypertension: Yes Musculoskeletal: Yes Neurologic: Yes Psychiatric: Yes (depression) Respiratory: Yes (COPD) Myocardial Infarction: Yes Seizures: Yes Sleep Apnea: Yes Past Surgical History Cholecystectomy: Yes Coronary Stent: Yes Neurologic Surgery: Yes (insertion of ventricular neuro stimulator for seizure) Other Surgery: Yes (KNEE, SHOULDER AND NECK ) Social History Alcohol Use: No Tobacco Use: No (quit 2 years ago) Substance Use: No Allergies-Medications (Allergen,Severity, Reaction): Coded Allergies: levofloxacin (Unverified Allergy, Severe, Anaphylaxis, 03/26/17) tapentadol (Unverified Allergy, Intermediate, Nausea/Vomiting, 03/26/17) blueberry (Unverified Allergy, Mild, Rash, 03/26/17) Reported Meds & Prescriptions Reported Meds & Active Scripts Active Topiramate 25 Mg Tab 25 Mg PO TID 30 Days Keppra (Levetiracetam) 1,000 Mg Tab 1,000 Mg PO TID Reported Percocet (Oxycodone-Acetaminophen) 7.5-325 mg Tab 1 Tab PO Q12HR PRN Levothyroxine (Levothyroxine Sodium) 175 Mcg Tab 175 Mcg PO DAILY Nitrostat SL (Nitroglycerin) 0.4 Mg Subl 0.4 Mg SL DIRECTED PRN 1 tablet under the tongue as needed for chest pain. Repeat every 5 minutes for a total of 3 DOSES or call 911 if NO relief. Ativan (Lorazepam) 0.5 Mg Tab 0.5 Mg PO BID Aspirin 81 Mg Chew 81 Mg CHEW DAILY Omeprazole 20 Mg Tab 20 Mg PO DAILY Metformin (Metformin HCl) 1,000 Mg Tab 1,000 Mg PO BIDPC With meals Ambien (Zolpidem Tartrate) 10 Mg Tab 10 Mg PO HS PRN Lyrica (Pregabalin) 200 Mg Cap 200 Mg PO BID Glimepiride 2 Mg Tab 2 Mg PO DAILY Take with breakfast or first main meal Atorvastatin (Atorvastatin Calcium) 20 Mg Tab 20 Mg PO DAILY 30 Days Review of Systems Except as stated in HPI: all other systems reviewed are Neg General / Constitutional: No: Fever, Chills HENT: Positive: Headaches (mild. Patient had a myelogram 2 days ago and feels is related to that.), No: Neck Pain Cardiovascular: Positive: Chest Pain or Discomfort, No: Palpitations, Irregular Rhythm Respiratory: Positive: Shortness of Breath, No: Cough Gastrointestinal: No: Nausea (with chest pain), Vomiting, Abdominal Pain Musculoskeletal: No: Weakness, Pain Neurologic: Positive: Headache (mild), No: Weakness, Dizziness, Incontinence, Sensory Disturbance Physical Exam Narrative GENERAL: Well-nourished, well-developed patient, in no acute rest her distress. SKIN: Focused skin assessment warm/dry. HEAD: Normocephalic/atraumatic. EYES: No scleral icterus. No injection or drainage. NECK: Supple, trachea midline. No JVD or lymphadenopathy. CARDIOVASCULAR: Regular rate and rhythm without murmurs, gallops, or rubs. RESPIRATORY: Breath sounds equal bilaterally. No accessory muscle use. GASTROINTESTINAL: Abdomen soft, non-tender, nondistended. MUSCULOSKELETAL: No cyanosis, or edema. NEUROLOGICAL: Awake and alert. Cranial nerves II through XII intact. Motor grossly within normal limits. Five out of 5 muscle strength in all muscle groups. Normal speech. Data Data Last Documented VS Vital Signs Date Time Temp Pulse Resp B/P (MAP) Pulse Ox O2 Delivery O2 Flow Rate FiO2 03/26/17 17:44 63 18 112/67 (82) 94 Room Air 03/26/17 14:32 98.0 Orders Orders Electrocardiogram (03/26/17 14:47) Basic Metabolic Panel (Bmp) (03/26/17 14:47) Ckmb (Isoenzyme) Profile (03/26/17 14:47) Complete Blood Count With Diff (03/26/17 14:47) Magnesium (Mg) (03/26/17 14:47) Prothrombin Time / Inr (Pt) (03/26/17 14:47) Act Partial Throm Time (Ptt) (03/26/17 14:47) Troponin I (03/26/17 14:47) Chest, Single Ap (03/26/17 14:47) Ecg Monitoring (03/26/17 14:47) Bilateral Bp Monitoring (03/26/17 14:47) Iv Access Insert/Monitor (03/26/17 14:47) Oximetry (03/26/17 14:47) Oxygen Administration (03/26/17 14:47) Sodium Chloride 0.9% Flush (Ns Flush) (03/26/17 15:00) Aspirin Chew (Aspirin Chew) (03/26/17 15:00) Diet 1999 Ada Cons Carb (03/26/17 Dinner) Place In Observation (03/26/17 17:57) Activity Bed Rest With Brp (03/26/17 17:57) Vital Signs (Adult) Q4H (03/26/17 17:57) Cardiac Rhythm .As Directed (03/26/17 17:57) Notify Dr: Other .PRN (03/26/17 17:57) Notify Dr. Parameters (03/26/17 17:57) Resp Oxygen Nasal Cannula (03/26/17 ) Diet Npo (03/26/17 Breakfast) Ckmb (Isoenzyme) Profile (03/26/17 17:57) Ckmb (Isoenzyme) Profile (03/26/17 20:57) Troponin I (03/26/17 17:57) Troponin I (03/26/17 20:57) Electrocardiogram (03/26/17 17:57) Electrocardiogram (03/26/17 20:57) ^ Obtain (03/26/17 17:57) Sodium Chloride 0.9% Flush (Ns Flush) (03/26/17 18:00) Sodium Chloride 0.9% Flush (Ns Flush) (03/26/17 21:00) Full Stack Net Developer / Telemetry [email or web address] (03/26/17 17:57) Admit Order (Ed Use Only) (03/26/17 17:57) Labs Laboratory Tests Test 03/26/17 14:55 White Blood Count 5.9 TH/MM3 Red Blood Count 4.52 MIL/MM3 Hemoglobin 13.7 GM/DL Hematocrit 41.4 % Mean Corpuscular Volume 91.6 FL Mean Corpuscular Hemoglobin 30.3 PG Mean Corpuscular Hemoglobin Concent 33.1 % Red Cell Distribution Width 14.3 % Platelet Count 175 TH/MM3 Mean Platelet Volume 9.6 FL Neutrophils (%) (Auto) 58.5 % Lymphocytes (%) (Auto) 31.6 % Monocytes (%) (Auto) 6.6 % Eosinophils (%) (Auto) 2.6 % Basophils (%) (Auto) 0.7 % Neutrophils # (Auto) 3.4 TH/MM3 Lymphocytes # (Auto) 1.9 TH/MM3 Monocytes # (Auto) 0.4 TH/MM3 Eosinophils # (Auto) 0.2 TH/MM3 Basophils # (Auto) 0.0 TH/MM3 CBC Comment DIFF FINAL Differential Comment Prothrombin Time 11.1 SEC Prothromb Time International Ratio 1.0 RATIO Activated Partial Thromboplast Time 21.9 SEC Blood Urea Nitrogen 11 MG/DL Creatinine 0.88 MG/DL Random Glucose 238 MG/DL Calcium Level 9.0 MG/DL Magnesium Level 1.8 MG/DL Sodium Level 141 MEQ/L Potassium Level 5.0 MEQ/L Chloride Level 109 MEQ/L Carbon Dioxide Level 22.5 MEQ/L Anion Gap 10 MEQ/L Estimat Glomerular Filtration Rate 89 ML/MIN Total Creatine Kinase 89 U/L Troponin I LESS THAN 0.02 NG/ML MDM Medical Decision Making Medical Screen Exam Complete: Yes Emergency Medical Condition: Yes Differential Diagnosis ACS versus muscle skeletal pain versus bronchitis Narrative Course 61-year-old male presents with complaints of chest pain intermittent. The patient has history of coronary artery disease. He states he took his nitroglycerin previously. He reports his pain is nearly gone. He did not take an aspirin and was given aspirin here. Cardiac enzymes are within normal limits. EKG shows no acute process. Given his history, he'll be admitted to the chest pain center for rule out protocol. Diagnosis Primary Impression: Chest pain Additional Impressions: DM (diabetes mellitus) COPD (chronic obstructive pulmonary disease) seizure disorder Admitting Information Admitting Physician Requests: Observation Adams Earl MD Mar 26, 2017 15:52
--- NOTE | 2017-03-26 16:12 | RADRPT ---
EXAM DATE/TIME: 03/26/2017 15:11 [facility] COMPARISON: CHEST SINGLE AP, February 11, 2017, 4:08. INDICATIONS : Chest pain. MEDICAL HISTORY : Chronic obstructive pulmonary disease. Seizures. Myocardial infarction.CVA. GERD. Diabetes. Hypertens ion. Congestive heart failure. SURGICAL HISTORY : Cholecystectomy. Coronary stent. Ventricular neuro stimulator. ENCOUNTER: Initial ACUITY: 1 day PAIN SCORE: 8/10 LOCATION: Bilateral chest FINDINGS: The heart is normal in size. The lungs are clear. There is a spinal stimulator in place. The exam is stable compared to previous. CONCLUSION: 1. No acute cardiopulmonary findings. Issac Melo MD on March 26, 2017 at 16:09 Board Certified Radiologist. This report was verified electronically.
[2017-03-26] MEDS ORDERED: SODIUM CHLORIDE 0.9% FLUSH 10 ML FLUSH IV FLUSH PRN (18:00)
[2017-03-26 19:37] LABS: TROPONIN I LESS THAN 0.02 NG/ML (0.02-0.05)
[2017-03-26] MEDS: SODIUM CHLORIDE 0.9% FLUSH 10 ML FLUSH IV FLUSH SCH (21:08)
[2017-03-26 21:59] LABS: TROPONIN I LESS THAN 0.02 NG/ML (0.02-0.05)
--- NOTE | 2017-03-26 23:02 | EKG ---
Date Performed: 03/26/2017 Time Performed: 18:48:03 PTAGE: 61 years EKG: Sinus rhythm NONSPECIFIC T-WAVE ABNORMALITY BORDERLINE ECG PREVIOUS TRACING : 03/26/2017 15.15 Compared to prior tracing no significant change DOCTOR: Mike Espinal Interpretating Date/Time 03/26/2017 23:01:47
--- NOTE | 2017-03-26 23:20 | EKG ---
Date Performed: 03/26/2017 Time Performed: 15:15:08 PTAGE: 61 years EKG: Sinus rhythm NONSPECIFIC T-WAVE ABNORMALITY BORDERLINE ECG PREVIOUS TRACING : 02/11/2017 03.31 Compared to prior tracing no significant change DOCTOR: Mike Espinal Interpretating Date/Time 03/26/2017 23:18:41
[2017-03-27] VITALS (7 sets, daily range): BP systolic 109–130; BP diastolic 62–77; PULSE 62–73; RESP 18–24; TEMP 97.6–98.3; O2SAT 92–98
[2017-03-27] MEDS ORDERED: LORazepam 0.5 MG TAB PO PRN (08:45)
[2017-03-27] MEDS: levETIRAcetam 500 MG TAB PO SCH ×2 (09:00→15:03)
[2017-03-27] MEDS ORDERED: LEVOTHYROXINE SODIUM 150 MCG TAB PO SCH (09:00)
[2017-03-27] MEDS ORDERED: ASPIRIN 81 MG CHEW TAB PO ONE (09:00)
[2017-03-27] MEDS: SODIUM CHLORIDE 0.9% FLUSH 10 ML FLUSH IV FLUSH SCH (09:00)
[2017-03-27] MEDS: TOPIRAMATE 25 MG TAB PO SCH ×2 (09:00→15:03)
[2017-03-27] MEDS ORDERED: ATORVASTATIN 20 MG TAB PO SCH (09:00)
[2017-03-27] MEDS ORDERED: PREGABALIN 100 MG CAP PO SCH (09:00)
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
[2017-03-27] MEDS ORDERED: GLIMEPIRIDE 2 MG TAB PO SCH (10:00)
[2017-03-27] MEDS ORDERED: REGADENOSON INJ 0.4 MG/5 ML SYR ONE (13:31)
--- NOTE | 2017-03-27 14:38 | RADRPT ---
EXAM DATE/TIME: 03/27/2017 12:44 [facility] COMPARISON: No previous studies available for comparison. INDICATIONS : Chest pain with dyspnea. Angina. DOSE: 27.3 mCi Tc99m Myoview at stress. 8.5 mCi Tc99m Myoview at rest. 0.4 mg Lexiscan STRESS SYMPTOMS: Weird feeling. EJECTION FRACTION: 68% MEDICAL HISTORY : Myocardial infarction. Chronic obstructive pulmonary disease. Hypertension. Stroke. SURGICAL HISTORY : Cholecystectomy. ENCOUNTER: Initial ACUITY: 1 day PAIN SCALE: 5/10 LOCATION: chest TECHNIQUE: The patient underwent pharmacologic stress with infusion of prescribed dose. Continuous ECG tracing was monitored during stress. Gated SPECT imaging was performed after stress and conventional SPECT i maging was performed at rest. The examination was performed on a SPECT/CT scanner, both attenuation and non-corrected datasets were reviewed. FINDINGS: DISTRIBUTION: The maximum perfused segment at stress is in the septal wall. The scans are performed with the patie nt's arm down and there is differential attenuation due to the left humerus between the stress and re st study; this is appropriately compensated for by the attenuation correction from the CT. PERFUSION STUDY: The pattern of perfusion at stress is within normal limits with regional variations in perfusion with in 25%. No evidence of redistribution. GATED STUDY: There is intact wall motion and thickening without hypokinetic or dyskinetic segments. CONCLUSION: 1. No evidence of stress-induced ischemia. 2. Intact wall motion with 60% ejection fraction. RISK CATEGORY: Low (<1% Annual Mortality Rate) Clyde Knox MD on March 27, 2017 at 14:35 Board Certified Radiologist. This report was verified electronically.
--- NOTE | 2017-03-27 14:55 | HHI.DS ---
Discharge Summary Admission Date Mar 26, 2017 at 18:01 Admitting Diagnosis chest pain, hx of seizure disorder, diabetes mellitus CBC/BMP: 03/26/17 1455 03/26/17 1455 Significant Findings Laboratory Tests Test 03/26/17 14:55 03/26/17 18:45 03/26/17 21:00 Activated Partial Thromboplast Time 21.9 SEC (24.3-30.1) Random Glucose 238 MG/DL (74-106) Chloride Level 109 MEQ/L (98-107) Troponin I LESS THAN 0.02 NG/ML LESS THAN 0.02 NG/ML LESS THAN 0.02 NG/ML Pt Condition on Discharge: Good Discharge Disposition: Discharge Home Discharge Instructions DIET: Follow Instructions for: As Tolerated, No Restrictions, Heart Healthy Diet Activities you can perform: Regular-No Restrictions Abebe Gonzalez MD Mar 27, 2017 14:55
--- NOTE | 2017-03-28 12:53 | EKG ---
Date Performed: 03/26/2017 Time Performed: 21:29:33 PTAGE: 61 years EKG: Sinus rhythm NONSPECIFIC T-WAVE ABNORMALITY BORDERLINE ECG NO CHANGE PREVIOUS TRACING : 03/26/2017 18.48 DOCTOR: Oumar Williamson Interpretating Date/Time 03/28/2017 12:52:22
--- NOTE | 2017-03-28 15:36 | TR ---
Date Performed: 03/27/2017 Time Performed: 13:31:47 DOCTOR: Oumar Williamson DRUG LIST: CLINICAL HISTORY: REASON FOR TEST: REASON FOR ENDING: OBSERVATION: CONCLUSION: Lexiscan stress test was performed under standard four minute protocol. Radionuclide was injected one minute prior to ending the test. No electrocardiographic abormalities were present to suggest ischemia. Nuclear imaging and interpretation are pending. COMMENTS:
== END 2017-03-27 15:52 | disposition home or self-care (01) ==
LOC: NEPE 14:28 → NEDA 18:01 → NEPHCDU 19:43
PROVIDERS: ADMIT Internal Medicine Cardiovascular Disease; ATTEND Internal Medicine Cardiovascular Disease
DX: R07.9 Chest pain, unspecified (principal); G40.909 Epilepsy, unspecified, not intractable, without status epilepticus; I25.10 Atherosclerotic heart disease of native coronary artery without angina pectoris; M19.90 Unspecified osteoarthritis, unspecified site; E78.00 Pure hypercholesterolemia, unspecified; I50.9 Heart failure, unspecified; I11.0 Hypertensive heart disease with heart failure; J44.9 Chronic obstructive pulmonary disease, unspecified; Z86.73 Personal history of transient ischemic attack (TIA), and cerebral infarction without residual deficits; E11.9 Type 2 diabetes mellitus without complications; K21.9 Gastro-esophageal reflux disease without esophagitis; F32.9 Major depressive disorder, single episode, unspecified; I21.9 Acute myocardial infarction, unspecified; G47.30 Sleep apnea, unspecified; Z79.899 Other long term (current) drug therapy; Z79.84 Long term (current) use of oral hypoglycemic drugs; Z87.891 Personal history of nicotine dependence; R94.31 Abnormal electrocardiogram [ECG] [EKG]
CPT/HCPCS: 71010; 78452; 80048; 82550; 82552; 82948; 83735; 84484; 85025; 85610; 85730; 93005; 93017; 99285; A9502; G0378; J2785

== ENCOUNTER 2017-06-09 14:33 | Emergency (ER) | payer OTHER ==
[~2017-06-09 14:33] MED LIST changes: +ASPI-516 CHEW; -ASPI81CH CHEW; -OMEP20TA PO; +OMEP20TA93 PO; -TOPI1TAB97 PO; +TOPI25TA7 PO
[2017-06-09 14:34] VITALS: BP 152/80; PULSE 88; RESP 18; TEMP 97.7; O2SAT 98
--- NOTE | 2017-06-09 16:03 | RADRPT ---
EXAM DATE/TIME: 06/09/2017 15:42 [facility] COMPARISON: No previous studies available for comparison. INDICATIONS : Short of breath. MEDICAL HISTORY : Myocardial infarction. Stroke. Chronic obstructive pulmonary disease. hypertension SURGICAL HISTORY : Cholecystectomy. defibrillator ENCOUNTER: Initial ACUITY: 1 day PAIN SCORE: 2/10 LOCATION: Bilateral chest FINDINGS: PA and lateral views of the chest demonstrate the lungs to be symmetrically aerated without evidence of mass, infiltrate or effusion. The cardiomediastinal contours are unremarkable. Osseous structure s are intact. The patient is status post left shoulder arthroplasty. CONCLUSION: No acute disease. Neo Frye MD on June 09, 2017 at 15:59 Board Certified Radiologist. This report was verified electronically.
[2017-06-09 16:25] LABS: BASOPHIL % 0.4 % (0.0-2.0); HEMATOCRIT 41.5 % (39.0-51.0); HEMOGLOBIN 13.6 GM/DL (13.0-17.0); LYMPH % 19.2 % (9.0-44.0); LYMPHOCYTE # 1.5 TH/MM3 (1.0-4.8); MEAN CELL VOLUME 90.7 FL (80.0-100.0); MEAN CORPUSCULAR HEMOGLOBIN 29.8 PG (27.0-34.0); MEAN CORPUSCULAR HGB CONC 32.9 % (32.0-36.0); MEAN PLATELET VOLUME 10.2 FL (7.0-11.0); MONO % 5.3 % (0.0-8.0); MONOCYTE # 0.4 TH/MM3 (0-0.9); NEUT % 75.1 % (16.0-70.0); PLATELET COUNT 139 TH/MM3 (150-450); RED BLOOD COUNT 4.57 MIL/MM3 (4.50-5.90); RED CELL DISTRIBUTION WIDTH 14.3 % (11.6-17.2); WHITE BLOOD COUNT 8.1 TH/MM3 (4.0-11.0)
[2017-06-09 16:58] LABS: ALKALINE PHOSPHATASE 84 U/L (45-117); ALT (GPT) 99 U/L (12-78); AST (GOT) 80 U/L (15-37); BICARBONATE 18.3 MEQ/L (21.0-32.0); BLOOD UREA NITROGEN 11 MG/DL (7-18); CALCIUM 9.3 MG/DL (8.5-10.1); CHLORIDE 104 MEQ/L (98-107); CREATININE 1.15 MG/DL (0.60-1.30); GLOMERULAR FILTRATION RATE 65 ML/MIN (>89); GLUCOSE,RANDOM 336 MG/DL (74-106); MAGNESIUM 1.7 MG/DL (1.5-2.5); SODIUM (NA) 137 MEQ/L (136-145); TOTAL BILIRUBIN ADULT 0.6 MG/DL (0.2-1.0); TOTAL PROTEIN 8.4 GM/DL (6.4-8.2); TROPONIN I LESS THAN 0.02 NG/ML (0.02-0.05)
--- NOTE | 2017-06-09 17:42 | PD ---
HPI Chief Complaint: Respiratory Symptoms Time Seen by Provider: 15:11 Travel History International Travel<30 days: No Contact w/Intl Traveler<30days: No Traveled to known affect area: No History of Present Illness HPI Patient is a 62-year-old male presented to the emergency department for evaluation of shortness of breath. Symptoms started at 1300. Patient states he took a Percocet 7.5 mg tablet prior to arrival. Patient sitting in triage drowsy, he is arousable and answers questions appropriately. He is presenting with his , he does not appear to be in any acute distress. He also reports epigastric abdominal pain that occurs when he eats, he denies any vomiting, fever or chills. Symptoms started suddenly. PFSH Past Medical History Hx Anticoagulant Therapy: Yes (ASPIRIN ) Arthritis: Yes Asthma: Yes Anxiety: No Depression: Yes Heart Rhythm Problems: Yes Cancer: No Cardiac Catheterization: Yes Cardiovascular Problems: Yes High Cholesterol: Yes Chest Pain: Yes Congestive Heart Failure: No COPD: Yes Cerebrovascular Accident: Yes (2004) Diabetes: Yes Diminished Hearing: No Gastrointestinal Disorders: Yes GERD: Yes Genitourinary: No Hypertension: Yes Musculoskeletal: Yes Neurologic: Yes Psychiatric: Yes (depression) Respiratory: Yes (COPD) Myocardial Infarction: Yes Seizures: Yes Sleep Apnea: Yes Past Surgical History Cholecystectomy: Yes Coronary Stent: Yes Neurologic Surgery: Yes (insertion of ventricular neuro stimulator for seizure) Other Surgery: Yes (KNEE, SHOULDER AND NECK ) Social History Alcohol Use: No Tobacco Use: No (quit 2 years ago) Substance Use: No Allergies-Medications (Allergen,Severity, Reaction): Coded Allergies: levofloxacin (Unverified Allergy, Severe, Anaphylaxis, 03/26/17) tapentadol (Unverified Allergy, Intermediate, Nausea/Vomiting, 03/26/17) blueberry (Unverified Allergy, Mild, Rash, 03/26/17) Reported Meds & Prescriptions Reported Meds & Active Scripts Active Topiramate 25 Mg Tab 25 Mg PO TID 30 Days Keppra (Levetiracetam) 1,000 Mg Tab 1,000 Mg PO TID Reported Percocet (Oxycodone-Acetaminophen) 7.5-325 mg Tab 1 Tab PO Q12HR PRN Levothyroxine (Levothyroxine Sodium) 175 Mcg Tab 175 Mcg PO DAILY Nitrostat SL (Nitroglycerin) 0.4 Mg Subl 0.4 Mg SL DIRECTED PRN 1 tablet under the tongue as needed for chest pain. Repeat every 5 minutes for a total of 3 DOSES or call 911 if NO relief. Ativan (Lorazepam) 0.5 Mg Tab 0.5 Mg PO BID Aspirin 81 Mg Chew 81 Mg CHEW DAILY Omeprazole 20 Mg Tab 20 Mg PO DAILY Metformin (Metformin HCl) 1,000 Mg Tab 1,000 Mg PO BIDPC With meals Ambien (Zolpidem Tartrate) 10 Mg Tab 10 Mg PO HS PRN Lyrica (Pregabalin) 200 Mg Cap 200 Mg PO BID Glimepiride 2 Mg Tab 2 Mg PO DAILY Take with breakfast or first main meal Atorvastatin (Atorvastatin Calcium) 20 Mg Tab 20 Mg PO DAILY 30 Days Review of Systems Except as stated in HPI: all other systems reviewed are Neg Respiratory: Positive: Shortness of Breath Gastrointestinal: Positive: Nausea, Vomiting, Abdominal Pain Physical Exam Narrative GENERAL: Well-developed, well-nourished, drowsy male. SKIN: Warm and dry. HEAD: Normocephalic. EYES: No scleral icterus. No injection or drainage. NECK: Supple, trachea midline. No JVD or lymphadenopathy. CARDIOVASCULAR: Regular rate RESPIRATORY: No accessory muscle use. Data Data Last Documented VS Vital Signs Date Time Temp Pulse Resp B/P (MAP) Pulse Ox O2 Delivery O2 Flow Rate FiO2 06/09/17 14:34 97.7 88 18 152/80 (104) 98 Orders Orders Complete Blood Count With Diff (06/09/17 15:15) Comprehensive Metabolic Panel (06/09/17 15:15) B-Type Natriuretic Peptide (06/09/17 15:15) Magnesium (Mg) (06/09/17 15:15) Ckmb (Isoenzyme) Profile (06/09/17 15:15) Troponin I (06/09/17 15:15) Chest, Pa & Lat (06/09/17 15:15) CKMB (06/09/17 15:45) CKMB% (06/09/17 15:45) Labs Laboratory Tests Test 06/09/17 15:45 White Blood Count 8.1 TH/MM3 Red Blood Count 4.57 MIL/MM3 Hemoglobin 13.6 GM/DL Hematocrit 41.5 % Mean Corpuscular Volume 90.7 FL Mean Corpuscular Hemoglobin 29.8 PG Mean Corpuscular Hemoglobin Concent 32.9 % Red Cell Distribution Width 14.3 % Platelet Count 139 TH/MM3 Mean Platelet Volume 10.2 FL Neutrophils (%) (Auto) 75.1 % Lymphocytes (%) (Auto) 19.2 % Monocytes (%) (Auto) 5.3 % Eosinophils (%) (Auto) 0.0 % Basophils (%) (Auto) 0.4 % Neutrophils # (Auto) 6.0 TH/MM3 Lymphocytes # (Auto) 1.5 TH/MM3 Monocytes # (Auto) 0.4 TH/MM3 Eosinophils # (Auto) 0.0 TH/MM3 Basophils # (Auto) 0.0 TH/MM3 CBC Comment DIFF FINAL Differential Comment Blood Urea Nitrogen 11 MG/DL Creatinine 1.15 MG/DL Random Glucose 336 MG/DL Total Protein 8.4 GM/DL Albumin 4.0 GM/DL Calcium Level 9.3 MG/DL Magnesium Level 1.7 MG/DL Alkaline Phosphatase 84 U/L Aspartate Amino Transf (AST/SGOT) 80 U/L Alanine Aminotransferase (ALT/SGPT) 99 U/L Total Bilirubin 0.6 MG/DL Sodium Level 137 MEQ/L Potassium Level 5.7 MEQ/L Chloride Level 104 MEQ/L Carbon Dioxide Level 18.3 MEQ/L Anion Gap 15 MEQ/L Estimat Glomerular Filtration Rate 65 ML/MIN Total Creatine Kinase 198 U/L Creatine Kinase MB 2.1 NG/ML Troponin I LESS THAN 0.02 NG/ML B-Type Natriuretic Peptide 29 PG/ML MDM Medical Decision Making Medical Screen Exam Complete: Yes Emergency Medical Condition: Yes Interpretation(s) Vital Signs Date Time Temp Pulse Resp B/P (MAP) Pulse Ox O2 Delivery O2 Flow Rate FiO2 06/09/17 14:34 97.7 88 18 152/80 (104) 98 Differential Diagnosis Bronchitis versus pneumonia versus medication side effects versus gastritis versus other Narrative Course Patient is a 62-year-old male that presented to emergency department for evaluation of shortness of breath and abdominal pain. Patient took Percocet prior to arrival, he is drowsy in triage. His vital signs are stable and he is well oxygenated on room air. Protocol initiated in triage. Patient presented to the triage desk after waiting in the emergency department for several hours, he was alert, ambulatory and reported feeling better. He stated that he wanted to home. Patient was encouraged to stay to be evaluated, he further decline treatment. Patient left AMA. AMA: The risks of leaving against medical advice without further evaluation treatment were discussed with the patient. These risks include cardiac dysfunction, cardiac dysrhythmia, possible heart attack, possible stroke or . The patient indicated understanding of these risks and appeared to have the capacity to make this decision. Diagnosis Primary Impression: Left against medical advice Naye Osorio Jun 09, 2017 17:42
== END 2017-06-09 17:42 | disposition left against medical advice (07) ==
LOC: NED 14:33
DX: R06.02 Shortness of breath (principal); J44.9 Chronic obstructive pulmonary disease, unspecified; I10 Essential (primary) hypertension; I25.2 Old myocardial infarction; E78.00 Pure hypercholesterolemia, unspecified; E11.9 Type 2 diabetes mellitus without complications; Z79.84 Long term (current) use of oral hypoglycemic drugs; Z79.899 Other long term (current) drug therapy; Z87.891 Personal history of nicotine dependence
CPT/HCPCS: 71046; 80053; 82550; 82552; 83735; 83880; 84484; 85025; 99283

== ENCOUNTER 2017-06-25 20:00 | Observation (INO) | payer OTHER ==
[~2017-06-25] VITALS: Ht 177.8 cm; Wt 85.0 kg
[2017-06-25 20:21] VITALS: BP 134/81; PULSE 73; RESP 16; TEMP 97.9; O2SAT 98
[2017-06-25] MEDS ORDERED: OMEP40CA2 PO (20:37)
[2017-06-25] MEDS ORDERED: ASPIRIN 81 MG CHEW TAB PO ONE (20:45)
[2017-06-25] MEDS ORDERED: ONDANSETRON HCL 4 MG/2 ML VIAL IV PUSH ONE (20:45)
[2017-06-25] MEDS ORDERED: PANTOPRAZOLE SODIUM 40 MG VIAL IV PUSH ONE (20:45)
[2017-06-25] MEDS ORDERED: SODIUM CHLORIDE 0.9% FLUSH 10 ML FLUSH IVF PRN (20:45)
[2017-06-25] MEDS ORDERED: NITROGLYCERIN 0.4 MG SL 25 TABS/BTL SL SCH (20:45)
[2017-06-25] MEDS ORDERED: MORPHINE SULFATE 2 MG/ML INJ IV PUSH ONE (20:45)
[2017-06-25] MEDS ORDERED: SODIUM CHLORID 0.9% 500 ML INJ 500 ML IV ONE (20:45)
[2017-06-25 21:00] VITALS: BP 133/72; PULSE 64; RESP 14; O2SAT 98
--- NOTE | 2017-06-25 21:01 | RADRPT ---
EXAM DATE/TIME: 06/25/2017 20:34 [facility] COMPARISON: CHEST PA & LAT, June 09, 2017, 15:42. INDICATIONS : Chest pain MEDICAL HISTORY : Myocardial infarction. Stroke. Chronic obstructive pulmonary disease. hypertension SURGICAL HISTORY : Coronary artery stent. Cholecystectomy. defibrillator ENCOUNTER: Initial ACUITY: 1 day PAIN SCORE: 5/10 LOCATION: Bilateral chest FINDINGS: A single view of the chest demonstrates the lungs to be symmetrically aerated without evidence of mas s, infiltrate or effusion. The cardiomediastinal contours are unremarkable. Osseous structures are intact. CONCLUSION: No evidence of acute cardiopulmonary disease. Thomas Hewitt MD on June 25, 2017 at 20:58 Board Certified Radiologist. This report was verified electronically.
--- NOTE | 2017-06-25 21:02 | PD ---
HPI Chief Complaint: Chest Pain Time Seen by Provider: 20:28 Travel History International Travel<30 days: No Contact w/Intl Traveler<30days: No Traveled to known affect area: No History of Present Illness HPI Patient is a 62-year-old male presenting to the emergency department for evaluation of chest pain. Patient states it started this morning suddenly and spontaneously lasted for approximately 2 hours and resolved on its own with rest. He states it started again suddenly approximately an hour and half prior to arrival, the pain is midsternal and radiates to the right upper quadrant of his abdomen. There is no correlation between food and the pain. He states he feels nauseated but denies any vomiting. He reports occasional shortness of breath, mild lightheadedness, cough, a dull headache. Patient reports a history of the same headaches. He states the pain is alleviated by Percocet which she takes 2-3 times a day anyway for his chronic pain. Symptoms are exacerbated with activity, he reports his pain as an 8 out of 10 and states it is shooting and aching. Patient's past medical history is significant for CVA, [place], coronary artery disease with stent placement, seizures, type 2 diabetes, COPD. states that he took a nitroglycerin at home prior to calling 911. Per E fax report patient was given 2 baby aspirin in route and a total of 3 sublingual nitroglycerin. Patient states that this did not alleviate his pain. PFSH Past Medical History Hx Anticoagulant Therapy: Yes (ASPIRIN ) Arthritis: Yes Asthma: Yes Depression: Yes Heart Rhythm Problems: Yes Cardiac Catheterization: Yes Cardiovascular Problems: Yes High Cholesterol: Yes Chest Pain: Yes COPD: Yes Cerebrovascular Accident: Yes (2004) Diabetes: Yes Patient Takes Glucophage: Yes Gastrointestinal Disorders: Yes GERD: Yes Hypertension: Yes Musculoskeletal: Yes Neurologic: Yes Psychiatric: Yes (depression) Respiratory: Yes (COPD) Myocardial Infarction: Yes Seizures: Yes Sleep Apnea: Yes Past Surgical History Cholecystectomy: Yes Coronary Stent: Yes Neurologic Surgery: Yes (insertion of ventricular neuro stimulator for seizure) Other Surgery: Yes (KNEE, SHOULDER AND NECK ) Family History Family Myocardial Infarction: Yes Social History Alcohol Use: No Tobacco Use: No (quit 2 years ago) Substance Use: No Allergies-Medications (Allergen,Severity, Reaction): Coded Allergies: levofloxacin (Unverified Allergy, Severe, Anaphylaxis, 06/25/17) tapentadol (Unverified Allergy, Intermediate, Nausea/Vomiting, 06/25/17) blueberry (Unverified Allergy, Mild, Rash, 06/25/17) Reported Meds & Prescriptions Reported Meds & Active Scripts Active Keppra (Levetiracetam) 1,000 Mg Tab 1,000 Mg PO TID Reported Omeprazole 40 Mg Cap 40 Mg PO DAILY Percocet (Oxycodone-Acetaminophen) 7.5-325 mg Tab 1 Tab PO Q12HR PRN Levothyroxine (Levothyroxine Sodium) 175 Mcg Tab 175 Mcg PO DAILY Nitrostat SL (Nitroglycerin) 0.4 Mg Subl 0.4 Mg SL DIRECTED PRN 1 tablet under the tongue as needed for chest pain. Repeat every 5 minutes for a total of 3 DOSES or call 911 if NO relief. Aspirin 81 Mg Chew 81 Mg CHEW DAILY Metformin (Metformin HCl) 1,000 Mg Tab 1,000 Mg PO BIDPC With meals Ambien (Zolpidem Tartrate) 10 Mg Tab 10 Mg PO HS PRN Lyrica (Pregabalin) 200 Mg Cap 200 Mg PO BID Glimepiride 2 Mg Tab 2 Mg PO DAILY Take with breakfast or first main meal Atorvastatin (Atorvastatin Calcium) 20 Mg Tab 20 Mg PO DAILY 30 Days Review of Systems Except as stated in HPI: all other systems reviewed are Neg HENT: Positive: Headaches Cardiovascular: Positive: Chest Pain or Discomfort Respiratory: Positive: Shortness of Breath Gastrointestinal: Positive: Nausea, No: Vomiting, Diarrhea Musculoskeletal: No: Myalgias Neurologic: No: Weakness, Dizziness, Syncope, Focal Abnormalities Physical Exam Narrative GENERAL: Well L, well-nourished, alert male. Resting comfortably in no acute distress. SKIN: Warm and dry. HEAD: Atraumatic. Normocephalic. EYES: Pupils equal and round. No scleral icterus. No injection or drainage. ENT: No nasal bleeding or discharge. Mucous membranes pink and moist. NECK: Trachea midline. No JVD. CARDIOVASCULAR: Regular rate and rhythm. RESPIRATORY: No accessory muscle use. Clear to auscultation. Breath sounds equal bilaterally. GASTROINTESTINAL: Abdomen soft, non-tender, nondistended. Hepatic and splenic margins not palpable. MUSCULOSKELETAL: Extremities without clubbing, cyanosis, or edema. No obvious deformities. NEUROLOGICAL: Awake and alert. No obvious cranial nerve deficits. Motor grossly within normal limits. Five out of 5 muscle strength in the arms and legs. Normal speech. PSYCHIATRIC: Appropriate mood and affect; insight and judgment normal. Data Data Last Documented VS Vital Signs Date Time Temp Pulse Resp B/P (MAP) Pulse Ox O2 Delivery O2 Flow Rate FiO2 06/25/17 20:27 16 97 Nasal Cannula 2.00 06/25/17 20:21 97.9 73 134/81 (98) Orders Orders Electrocardiogram (06/25/17 20:31) Ckmb (Isoenzyme) Profile (06/25/17 20:31) Complete Blood Count With Diff (06/25/17 20:31) Comprehensive Metabolic Panel (06/25/17 20:31) Magnesium (Mg) (06/25/17 20:31) Prothrombin Time / Inr (Pt) (06/25/17 20:31) Act Partial Throm Time (Ptt) (06/25/17 20:31) Troponin I (06/25/17 20:31) Lipase (06/25/17 20:31) Chest, Single Ap (06/25/17 20:31) Ecg Monitoring (06/25/17 20:31) Bilateral Bp Monitoring (06/25/17 20:31) Iv Access Insert/Monitor (06/25/17 20:31) Oximetry (06/25/17 20:31) Oxygen Administration (06/25/17 20:31) Aspirin Chew (Aspirin Chew) (06/25/17 20:45) Sodium Chloride 0.9% Flush (Ns Flush) (06/25/17 20:45) Sodium Chlorid 0.9% 500 Ml Inj (Ns 500 M (06/25/17 20:45) Morphine Inj (Morphine Inj) (06/25/17 20:45) Ondansetron Inj (Zofran Inj) (06/25/17 20:45) Pantoprazole Inj (Protonix Inj) (06/25/17 20:45) Admit Order (Ed Use Only) (06/25/17 21:40) Labs Laboratory Tests Test 06/25/17 20:40 White Blood Count 4.6 TH/MM3 Red Blood Count 3.65 MIL/MM3 Hemoglobin 10.8 GM/DL Hematocrit 32.4 % Mean Corpuscular Volume 88.9 FL Mean Corpuscular Hemoglobin 29.5 PG Mean Corpuscular Hemoglobin Concent 33.2 % Red Cell Distribution Width 14.2 % Platelet Count 101 TH/MM3 Mean Platelet Volume 9.6 FL Neutrophils (%) (Auto) 59.1 % Lymphocytes (%) (Auto) 31.1 % Monocytes (%) (Auto) 6.0 % Eosinophils (%) (Auto) 3.1 % Basophils (%) (Auto) 0.7 % Neutrophils # (Auto) 2.7 TH/MM3 Lymphocytes # (Auto) 1.4 TH/MM3 Monocytes # (Auto) 0.3 TH/MM3 Eosinophils # (Auto) 0.1 TH/MM3 Basophils # (Auto) 0.0 TH/MM3 CBC Comment DIFF FINAL Differential Comment Prothrombin Time 11.1 SEC Prothromb Time International Ratio 1.1 RATIO Activated Partial Thromboplast Time 20.2 SEC Blood Urea Nitrogen 6 MG/DL Creatinine 0.86 MG/DL Random Glucose 326 MG/DL Total Protein 7.3 GM/DL Albumin 3.7 GM/DL Calcium Level 9.0 MG/DL Magnesium Level 1.7 MG/DL Alkaline Phosphatase 90 U/L Aspartate Amino Transf (AST/SGOT) 97 U/L Alanine Aminotransferase (ALT/SGPT) 85 U/L Total Bilirubin 1.0 MG/DL Sodium Level 138 MEQ/L Potassium Level 4.1 MEQ/L Chloride Level 104 MEQ/L Carbon Dioxide Level 23.0 MEQ/L Anion Gap 11 MEQ/L Estimat Glomerular Filtration Rate 91 ML/MIN Total Creatine Kinase 74 U/L Troponin I LESS THAN 0.02 NG/ML Lipase 220 U/L MDM Medical Decision Making Medical Screen Exam Complete: Yes Emergency Medical Condition: Yes Medical Record Reviewed: Yes Interpretation(s) Last Impressions Chest X-Ray 06/25/172030 Signed Impressions: Service Date/Time: June 20:34 - CONCLUSION: No evidence of acute cardiopulmonary disease. Thomas Hewitt MD Laboratory Tests Test 06/25/17 20:40 White Blood Count 4.6 TH/MM3 Red Blood Count 3.65 MIL/MM3 Hemoglobin 10.8 GM/DL Hematocrit 32.4 % Mean Corpuscular Volume 88.9 FL Mean Corpuscular Hemoglobin 29.5 PG Mean Corpuscular Hemoglobin Concent 33.2 % Red Cell Distribution Width 14.2 % Platelet Count 101 TH/MM3 Mean Platelet Volume 9.6 FL Neutrophils (%) (Auto) 59.1 % Lymphocytes (%) (Auto) 31.1 % Monocytes (%) (Auto) 6.0 % Eosinophils (%) (Auto) 3.1 % Basophils (%) (Auto) 0.7 % Neutrophils # (Auto) 2.7 TH/MM3 Lymphocytes # (Auto) 1.4 TH/MM3 Monocytes # (Auto) 0.3 TH/MM3 Eosinophils # (Auto) 0.1 TH/MM3 Basophils # (Auto) 0.0 TH/MM3 CBC Comment DIFF FINAL Differential Comment Prothrombin Time 11.1 SEC Prothromb Time International Ratio 1.1 RATIO Activated Partial Thromboplast Time 20.2 SEC Blood Urea Nitrogen 6 MG/DL Creatinine 0.86 MG/DL Random Glucose 326 MG/DL Total Protein 7.3 GM/DL Albumin 3.7 GM/DL Calcium Level 9.0 MG/DL Magnesium Level 1.7 MG/DL Alkaline Phosphatase 90 U/L Aspartate Amino Transf (AST/SGOT) 97 U/L Alanine Aminotransferase (ALT/SGPT) 85 U/L Total Bilirubin 1.0 MG/DL Sodium Level 138 MEQ/L Potassium Level 4.1 MEQ/L Chloride Level 104 MEQ/L Carbon Dioxide Level 23.0 MEQ/L Anion Gap 11 MEQ/L Estimat Glomerular Filtration Rate 91 ML/MIN Total Creatine Kinase 74 U/L Troponin I LESS THAN 0.02 NG/ML Lipase 220 U/L Vital Signs Date Time Temp Pulse Resp B/P (MAP) Pulse Ox O2 Delivery O2 Flow Rate FiO2 06/25/17 20:27 16 97 Nasal Cannula 2.00 06/25/17 20:21 97.9 73 16 134/81 (98) 98 Differential Diagnosis ACS versus GERD versus NSTEMI versus metabolic abnormality versus COPD exacerbation versus other Narrative Course Patient is a 8-year-old male that presented to emergency for evaluation of chest pain. Patient's vital signs are stable, patient with unrelieved with nitroglycerin. Single dose of morphine was ordered. Labs and imaging ordered and pending. IV access established, patient placed on hospital monitor and continuous pulse oximetry. Chest x-ray shows no acute disease. CBC and chemistry are without acute findings. Cardiac enzymes are negative 1 set. Patient has mild transaminitis is stable when compared to prior. Lipase is 220 Due to patient's significant past medical history and presenting complaint he will be placed in the chest pain center for further observation. Admit orders place. Plan of care discussed with my attending physician. Diagnosis Primary Impression: Chest pain Qualified Codes: R07.9 - Chest pain, unspecified Admitting Information Admitting Physician Requests: Observation Condition: Stable Naye Osorio Jun 25, 2017 21:02
[2017-06-25 21:05] LABS: AUTOMATED NEUTROPHIL # 2.7 TH/MM3 (1.8-7.7); BASOPHIL % 0.7 % (0.0-2.0); EOSINOPHIL # 0.1 TH/MM3 (0-0.4); EOSINOPHIL % 3.1 % (0.0-4.0); HEMATOCRIT 32.4 % (39.0-51.0); HEMOGLOBIN 10.8 GM/DL (13.0-17.0); LYMPH % 31.1 % (9.0-44.0); LYMPHOCYTE # 1.4 TH/MM3 (1.0-4.8); MEAN CELL VOLUME 88.9 FL (80.0-100.0); MEAN CORPUSCULAR HEMOGLOBIN 29.5 PG (27.0-34.0); MEAN CORPUSCULAR HGB CONC 33.2 % (32.0-36.0); MEAN PLATELET VOLUME 9.6 FL (7.0-11.0); MONOCYTE # 0.3 TH/MM3 (0-0.9); NEUT % 59.1 % (16.0-70.0); PLATELET COUNT 101 TH/MM3 (150-450); RED BLOOD COUNT 3.65 MIL/MM3 (4.50-5.90); RED CELL DISTRIBUTION WIDTH 14.2 % (11.6-17.2); WHITE BLOOD COUNT 4.6 TH/MM3 (4.0-11.0)
[2017-06-25 21:11] LABS: ALT (GPT) 85 U/L (12-78)
[2017-06-25 21:21] LABS: INTERNATIONAL NORMALIZED RATIO 1.1 RATIO; PROTHROMBIN TIME - PATIENT 11.1 SEC (9.8-11.6)
[2017-06-25 21:30] VITALS: BP 146/71; PULSE 80; RESP 20; O2SAT 98
[2017-06-25 21:30] LABS: ALBUMIN 3.7 GM/DL (3.4-5.0); ALKALINE PHOSPHATASE 90 U/L (45-117); AST (GOT) 97 U/L (15-37); BLOOD UREA NITROGEN 6 MG/DL (7-18); CHLORIDE 104 MEQ/L (98-107); CREATININE 0.86 MG/DL (0.60-1.30); GLOMERULAR FILTRATION RATE 91 ML/MIN (>89); GLUCOSE,RANDOM 326 MG/DL (74-106); LIPASE 220 U/L (73-393); MAGNESIUM 1.7 MG/DL (1.5-2.5); SODIUM (NA) 138 MEQ/L (136-145); TOTAL PROTEIN 7.3 GM/DL (6.4-8.2); TROPONIN I LESS THAN 0.02 NG/ML (0.02-0.05)
[2017-06-25] MEDS ORDERED: MORPHINE SULFATE 4 MG/ML INJ IV PUSH PRN (21:45)
[2017-06-25] MEDS ORDERED: ONDANSETRON HCL 4 MG/2 ML VIAL IV PUSH PRN (21:45)
[2017-06-25] MEDS ORDERED: ACETAMINOPHEN 500 MG CPLT PO PRN (21:45)
[2017-06-25] MEDS ORDERED: SODIUM CHLORIDE 0.9% FLUSH 10 ML FLUSH IV FLUSH PRN (21:45)
[2017-06-25 22:00] VITALS: BP 116/68; PULSE 58; RESP 16; O2SAT 97; O2SAT 98
[2017-06-25 22:30] VITALS: BP 136/71; PULSE 58; RESP 16; O2SAT 95
[2017-06-26] VITALS (7 sets, daily range): BP systolic 120–141; BP diastolic 73–76; PULSE 62–67; RESP 17–20; TEMP 97.1–98; O2SAT 95–98
[2017-06-26 01:46] LABS: TROPONIN I LESS THAN 0.02 NG/ML (0.02-0.05)
[2017-06-26 04:43] LABS: TROPONIN I LESS THAN 0.02 NG/ML (0.02-0.05)
[2017-06-26] MEDS ORDERED: NITROGLYCERIN 0.4 MG SL 25 TABS/BTL SL PRN (07:30)
--- NOTE | 2017-06-26 08:29 | HHI.HP ---
HPI Primary Care Physician Shashank Sandy DO Chief Complaint Chest pain History of Present Illness 62-year-old male with known coronary artery disease, x2 cardiac stents, and type 2 diabetes presents to ER for further evaluation of x2 chest pain episodes. First episode occurred 1030 am. Location epigastric. Characterized as stabbing. Discomfort came on quickly. No radiation of pain. Severity mild. Duration 30-45 minutes. No associated symptoms. Precipitating factors he relates to straining during BM. No known relieving factors. Second episode occurred around 7pm immediately after straining with BM. Location epigastric. Characterized as knife, stabbing pain. Radiation to right lower ribs. Severity 8 -9/10. Duration 2-2.5 hours. Associated symptoms nausea and diaphoresis. Denied vomiting or shortness of breath. Did not hurt to take a deep breath. No particular movement makes pain better or worse. Relieving factors morphine after 20-25 minutes after administration. Took nitroglycerin SL prior, to EMS arriving to home, without relief. As remained chest pain free overnight. Denies pain being similar to past cardiac discomfort. Review of Systems General: No fatigue,weakness, fever, chills, recent illness, or change in appetite. Has been in his general state of health. HEENT: No BOLTON, no vision changes, no nasal congestion or drainage, no dysphasia CV: As stated above. No current chest pain. No palpations. RESP: No SOB, cough, wheeze, hemoptysis, or recent URI. History of COPD and "code blue due to my COPD 3 years ago." GI: No nausea, vomiting, bowel changes, diarrhea, pain, distention, melena, or blood in the stool. No change in appetite, no unintentional weight gain or weight loss. History of constipation. Currently his PCP is in process of referring him for an EGD and colonoscopy. : No dysuria, urgency, frequency EXT: No lower leg edema MS: Chronic low back pain. Chronic bilateral lower leg neuropathy, reportedly due to back pain. No change in ROM NEURO: History of seizure disorder. Last seizure 4 months ago. No change in memory, LOC, motor/sensory deficits PSYCH: No anxiety, depression. SKIN: No rashes, no concerning lesions Past Family Social History Allergies: Coded Allergies: levofloxacin (Unverified Allergy, Severe, Anaphylaxis, 06/25/17) tapentadol (Unverified Allergy, Intermediate, Nausea/Vomiting, 06/25/17) blueberry (Unverified Allergy, Mild, Rash, 06/25/17) Past Medical History Coronary artery disease, 3 MIs, 2 cardiac stents, seizure disorder, type 2 diabetes, peripheral neuropathy, chronic back pain, former smoker Past Surgical History Cholecystectomy, orthopedic surgery Left shoulder x4, cervical, and knee, Insertion of ventricular neuro stimulator Reported Medications Reported Meds & Active Scripts Active Keppra (Levetiracetam) 1,000 Mg Tab 1,000 Mg PO TID Reported Omeprazole 40 Mg Cap 40 Mg PO DAILY Percocet (Oxycodone-Acetaminophen) 7.5-325 mg Tab 1 Tab PO Q12HR PRN Levothyroxine (Levothyroxine Sodium) 175 Mcg Tab 175 Mcg PO DAILY Nitrostat SL (Nitroglycerin) 0.4 Mg Subl 0.4 Mg SL DIRECTED PRN 1 tablet under the tongue as needed for chest pain. Repeat every 5 minutes for a total of 3 DOSES or call 911 if NO relief. Aspirin 81 Mg Chew 81 Mg CHEW DAILY Metformin (Metformin HCl) 1,000 Mg Tab 1,000 Mg PO BIDPC With meals Ambien (Zolpidem Tartrate) 10 Mg Tab 10 Mg PO HS PRN Lyrica (Pregabalin) 200 Mg Cap 200 Mg PO BID Glimepiride 2 Mg Tab 2 Mg PO DAILY Take with breakfast or first main meal Atorvastatin (Atorvastatin Calcium) 20 Mg Tab 20 Mg PO DAILY 30 Days Active Ordered Medications Current Medications Medications (Trade) Dose Ordered Sig/Carol Route Start Time Stop Time Status Last Admin (NS Flush) 2 ml UNSCH PRN IV FLUSH 06/25/17 21:45 (NS Flush) 2 ml BID IV FLUSH 06/26/17 09:00 (Tylenol) 500 mg Q4H PRN PO 06/25/17 21:45 (Morphine Inj) 2 mg Q4H PRN IV PUSH 06/25/17 21:45 (Zofran Inj) 4 mg Q6H PRN IV PUSH 06/25/17 21:45 (Nitrostat Sl) 0.4 mg Q5M PRN SL 06/26/17 07:30 (Aspirin) 325 mg DAILY PO 06/26/17 09:00 Family History Mother cardiac issues in early 20s, age 51 [place]. Social History Known coronary artery disease, type 2 diabetes, and hyperlipidemia. Hypertension. Former smoker, quit 3 years ago. 100 pack year history. Denies any alcohol or illegal drug. Endorses a sedentary lifestyle due to chronic back pain. . Disabled. Past cardiac testing 03/27/2018 Lexiscan 1. No evidence of stress-induced ischemia. 2. Intact wall motion with 60% ejection fraction. 2004 ([facility]) x2 cardiac stents, apparently he was a STEMI alert and "nearly ." Follows with Dr. Bryan weapons mechanic. Last cardiac catheterization 4 years ago reportedly unremarkable. Physical Exam Vital Signs Vital Signs Date Time Temp Pulse Resp B/P (MAP) Pulse Ox O2 Delivery O2 Flow Rate FiO2 06/26/17 07:54 97.1 63 17 141/74 (96) 95 06/26/17 07:27 66 06/26/17 04:10 62 06/26/17 04:00 98.0 64 20 120/76 (91) 98 06/26/17 02:00 62 06/26/17 00:00 97.7 67 20 123/73 (90) 98 06/25/17 23:01 06/25/17 22:30 58 16 136/71 (92) 95 Nasal Cannula 06/25/17 22:00 97 Nasal Cannula 2.00 06/25/17 22:00 58 16 116/68 (84) 98 Nasal Cannula 2.00 06/25/17 21:42 16 06/25/17 21:30 80 20 146/71 (96) 98 Nasal Cannula 2.00 06/25/17 21:00 64 14 133/72 (92) 98 Nasal Cannula 2.00 06/25/17 20:45 98 Nasal Cannula 2.00 06/25/17 20:27 16 97 Nasal Cannula 2.00 06/25/17 20:21 97.9 73 16 134/81 (98) 98 Physical Exam GENERAL: Alert WN, WD, NAD, pleasant, male who appears older than stated age HEAD: NC, AT EYES: Sclera clear, conjunctiva without injection, pupils equal and round ENT: Mucous membranes pink and moist NECK: Supple, no masses, trachea midline CV: RRR, without murmur, rub, gallop, no JVD, S1-S2 no S3-S4. No carotid bruits. Chest wall nontender with palpation. RESP: Clear lungs throughout bilateral, no crackles, wheeze, rhonchi, symmetrical chest rise, nonlabored, able to speak in full sentences ABD: Soft, NT, ND, no masses, positive bowel tones EXT: Pulses +14, no dependent edema MS: Normal tone 4 extremities, no obvious deformities, full range of motion NEURO: CN II through CN XII grossly intact, motor strength 5/5 PSYCH: A+O 3, pleasant affect, appropriate speech, mood, insight and judgment SKIN: Normal turgor, normal texture, no lesions, no rashes, sluggish cap refill , posterior cervical surgical scar, tattoos Laboratory Laboratory Tests Test 06/25/17 20:40 06/26/17 00:05 06/26/17 03:10 White Blood Count 4.6 Red Blood Count 3.65 Hemoglobin 10.8 Hematocrit 32.4 Mean Corpuscular Volume 88.9 Mean Corpuscular Hemoglobin 29.5 Mean Corpuscular Hemoglobin Concent 33.2 Red Cell Distribution Width 14.2 Platelet Count 101 Mean Platelet Volume 9.6 Neutrophils (%) (Auto) 59.1 Lymphocytes (%) (Auto) 31.1 Monocytes (%) (Auto) 6.0 Eosinophils (%) (Auto) 3.1 Basophils (%) (Auto) 0.7 Neutrophils # (Auto) 2.7 Lymphocytes # (Auto) 1.4 Monocytes # (Auto) 0.3 Eosinophils # (Auto) 0.1 Basophils # (Auto) 0.0 CBC Comment DIFF FINAL Differential Comment Prothrombin Time 11.1 Prothromb Time International Ratio 1.1 Activated Partial Thromboplast Time 20.2 Blood Urea Nitrogen 6 Creatinine 0.86 Random Glucose 326 Total Protein 7.3 Albumin 3.7 Calcium Level 9.0 Magnesium Level 1.7 Alkaline Phosphatase 90 Aspartate Amino Transf (AST/SGOT) 97 Alanine Aminotransferase (ALT/SGPT) 85 Total Bilirubin 1.0 Sodium Level 138 Potassium Level 4.1 Chloride Level 104 Carbon Dioxide Level 23.0 Anion Gap 11 Estimat Glomerular Filtration Rate 91 Total Creatine Kinase 74 84 73 Troponin I LESS THAN 0.02 LESS THAN 0.02 LESS THAN 0.02 Lipase 220 Result Diagram: 06/25/17203906/25/172039 Imaging Last 48 hours Impressions Chest X-Ray 06/25/172030 Signed Impressions: Service Date/Time: June 20:34 - CONCLUSION: No evidence of acute cardiopulmonary disease. Thomas Hewitt MD Course EKG NSR, normal axis, no st t segment changes Caprini VTE Risk Assessment Caprini VTE Risk Assessment: No/Low Risk (score <= 1) Caprini Risk Assessment Model Point Value = 1 Point Value = 2 Point Value = 3 Point Value = 5 Age 41-60 Minor surgery BMI > 25 kg/m2 Swollen legs Varicose veins or History of unexplained or recurrent spontaneous Oral contraceptives or hormone replacement Sepsis (< 1 month) Serious lung disease, including pneumonia (< 1 month) Abnormal pulmonary function Acute myocardial infarction Congestive heart failure (< 1 month) History of inflammatory bowel disease Medical patient at bed rest Age 61-74 Arthroscopic surgery Major open surgery (> 45 min) Laparoscopic surgery (> 45 min) Malignancy Confined to bed (> 72 hours) Immobilizing plaster cast Central venous access Age >= 75 History of VTE Family history of VTE Factor V Leiden Prothrombin [id number] Lupus anticoagulant Anticardiolipin antibodies Elevated serum homocysteine Heparin-induced thrombocytopenia Other congenital or acquired thrombophilia Stroke (< 1 month) Elective arthroplasty Hip, pelvis, or leg fracture Acute spinal cord injury (< 1 month) Prophylaxis Regimen Total Risk Factor Score Risk Level Prophylaxis Regimen 0-1 Low Early ambulation 2 Moderate Order ONE of the following: *Sequential Compression Device (SCD) *Heparin 5000 units SQ BID 3-4 Higher Order ONE of the following medications: *Heparin 5000 units SQ TID *Enoxaparin/Lovenox 40 mg SQ daily (WT < 150 kg, CrCl > 30 mL/min) *Enoxaparin/Lovenox 30 mg SQ daily (WT < 150 kg, CrCl > 10-29 mL/min) *Enoxaparin/Lovenox 30 mg SQ BID (WT < 150 kg, CrCl > 30 mL/min) AND/OR *Sequential Compression Device (SCD) 5 or more Highest Order ONE of the following medications: *Heparin 5000 units SQ TID (Preferred with Epidurals) *Enoxaparin/Lovenox 40 mg SQ daily (WT < 150 kg, CrCl > 30 mL/min) *Enoxaparin/Lovenox 30 mg SQ daily (WT < 150 kg, CrCl > 10-29 mL/min) *Enoxaparin/Lovenox 30 mg SQ BID (WT < 150 kg, CrCl > 30 mL/min) AND *Sequential Compression Device (SCD) Assessment and Plan Assessment and Plan #1 Chest pain-admitted to chest pain center. Chest pain as resolved. Ruled out with 3 sets of EKGs, cardiac enzymes, and monitored on telemetry overnight. Will be seen and evaluated by Dr. Praful Lacey. Discussed likely no further cardiac testing will be required due to recent normal Lexiscan and symptoms appear more GI related than cardiac in nature. #2 Anemia-3 point decrease Hgb/hct from ER visit on 06/09/2017. Recollect Hgb/Hct , discussed with RN. No obvious bleeding sources identified. Suspect recollect will be within normal limits and his baseline. #3 History of CAD-continue aspirin, atorvastatin. Patient denies ever being started on a beta jalen. Follow up with his weapons mechanic. #4 Type II diabetes-continue Metformin and Glimepiride, discussed importance of tight blood glucose control, encouraged him to discuss starting on SHARA inhibitor with his PCP. #5 History of seizure disorder-continue Keppra #6 Constipation-encouraged use of stool softener daily taken with pain medications. Discussed Miralax as a possible OTC medication to assist with constipation. Encouraged use of drinking plenty of fluids, increasing fiber intake, and daily activity level as able. Patient and patient's verbalized understanding. 1040 H/H recollect unremarkable. Nasrin Gaines Jun 26, 2017 08:29
[2017-06-26] MEDS ORDERED: PREGABALIN 100 MG CAP PO SCH (09:00)
[2017-06-26] MEDS ORDERED: metFORMIN HCL 500 MG TAB PO SCH (09:00)
[2017-06-26] MEDS ORDERED: ASPIRIN 325 MG TAB PO SCH (09:00)
[2017-06-26] MEDS ORDERED: PANTOPRAZOLE SOD 40 MG DELAYED RELEASE TAB PO SCH (09:00)
[2017-06-26] MEDS ORDERED: SODIUM CHLORIDE 0.9% FLUSH 10 ML FLUSH IV FLUSH SCH (09:00)
[2017-06-26] MEDS ORDERED: levETIRAcetam 500 MG TAB PO SCH (09:00)
[2017-06-26] MEDS ORDERED: LEVOTHYROXINE SODIUM 100 MCG TAB PO SCH (09:00)
[2017-06-26] MEDS ORDERED: LEVOTHYROXINE SODIUM 75 MCG TAB PO SCH (09:00)
[2017-06-26] MEDS ORDERED: GLIMEPIRIDE 2 MG TAB PO SCH (09:00)
[2017-06-26 10:26] LABS: HEMATOCRIT 40.5 % (39.0-51.0); HEMOGLOBIN 13.4 GM/DL (13.0-17.0)
--- NOTE | 2017-06-26 10:42 | HHI.DCPOC ---
Discharge Care Plan Diagnosis: (1) Atypical chest pain (2) Hx of coronary artery disease Goals to Promote Your Health * To prevent worsening of your condition and complications * To maintain your health at the optimal level Directions to Meet Your Goals Take your medications as prescribed Follow your dietary instruction Follow activity as directed Keep your appointments as scheduled Take your immunizations and boosters as scheduled If your symptoms worsen call your PCP, if no PCP go to Urgent Care Center or Emergency Room Smoking is Dangerous to Your Health. Avoid second hand smoke Call the 24-hour hour crisis hotline for domestic abuse at Nasrin Gaines Jun 26, 2017 10:42
--- NOTE | 2017-06-26 13:38 | EKG ---
Date Performed: 06/26/2017 Time Performed: 01:45:26 PTAGE: 62 years EKG: SINUS BRADYCARDIA BORDERLINE ECG Since PREVIOUS TRACING , no significant change noted DOCTOR: Praful Lacey Interpretating Date/Time 06/26/2017 13:38:23
--- NOTE | 2017-06-26 13:38 | EKG ---
Date Performed: 06/26/2017 Time Performed: 04:04:00 PTAGE: 62 years EKG: Sinus rhythm NORMAL ECG INTERPRETATION BASED ON A DEFAULT AGE OF 40 YEARS Since PREVIOUS TRACING , no significant change noted DOCTOR: Praful Lacey Interpretating Date/Time 06/26/2017 13:37:32
--- NOTE | 2017-06-26 13:43 | EKG ---
Date Performed: 06/25/2017 Time Performed: 20:22:07 PTAGE: 62 years EKG: Sinus rhythm NORMAL ECG PREVIOUS TRACING : 03/26/2017 21.29 Since previous tracing, no significant change noted DOCTOR: Praful Lacey Interpretating Date/Time 06/26/2017 13:41:14
== END 2017-06-26 11:24 | disposition home or self-care (01) ==
LOC: NEPC 20:00 → NEDA 21:43 → NEPFCDU 22:51
DX: R07.89 Other chest pain (principal); I25.10 Atherosclerotic heart disease of native coronary artery without angina pectoris; I10 Essential (primary) hypertension; R94.31 Abnormal electrocardiogram [ECG] [EKG]; E78.5 Hyperlipidemia, unspecified; E78.00 Pure hypercholesterolemia, unspecified; I25.2 Old myocardial infarction; D64.9 Anemia, unspecified; E11.9 Type 2 diabetes mellitus without complications; G40.909 Epilepsy, unspecified, not intractable, without status epilepticus; J44.9 Chronic obstructive pulmonary disease, unspecified; K21.9 Gastro-esophageal reflux disease without esophagitis; G47.30 Sleep apnea, unspecified; G89.29 Other chronic pain; Z86.73 Personal history of transient ischemic attack (TIA), and cerebral infarction without residual deficits; Z87.891 Personal history of nicotine dependence; Z95.5 Presence of coronary angioplasty implant and graft; Z79.84 Long term (current) use of oral hypoglycemic drugs; Z79.82 Long term (current) use of aspirin
CPT/HCPCS: 71045; 80053; 82550; 83690; 83735; 84484; 85014; 85018; 85025; 85610; 85730; 93005; 96361; 96374; 96375; 99285; C9113; G0378; J2270; J2405; J7040

== ENCOUNTER 2017-09-29 09:29 | Inpatient (IN) | payer OTHER, MEDICARE ==
[~2017-09-29] VITALS: Ht 177.8 cm; Wt 81.2 kg
[~2017-09-29 09:29] MED LIST changes: -ASPI-516 CHEW; -LORA-392 PO; -OMEP20TA93 PO; +OMEP40CA2 PO; -TOPI25TA7 PO
[2017-09-29] MEDS ORDERED: VANCOMYCIN 1 GM/200 ML PREMIX IV SCH (10:00)
[2017-09-29] MEDS ORDERED: CHLORHEXIDINE GLUCONATE 4% SOLN 120 ML BTL TOPICAL SCH (10:00)
[2017-09-29] MEDS ORDERED: LACTATED RINGER'S 1000 ML IV PRN (10:00)
[2017-09-29] MEDS ORDERED: METOPROLOL TARTRATE 25 MG TAB PO PRN (10:00)
[2017-09-29] MEDS ORDERED: POVIDONE IODINE 5% (ANTISEPSIS KIT) 4 APPLICATIONS EACH NARE PRN (10:00)
[2017-09-29] MEDS ORDERED: INSULIN HUMAN REGULAR 1,000 UNITS/10 ML VIAL SQ PRN (10:00)
[2017-09-29] MEDS ORDERED: ceFAZolin 2 GM PREMIX 50 ML IV SCH (10:00)
[2017-09-29] MEDS ORDERED: CHLORHEXIDINE GLUCONATE 2 % 1 PACK (2 CLOTHS) TOPICAL PRN (10:00)
[2017-09-29] MEDS ORDERED: SODIUM CHLORID 0.9% 500 ML IV PRN (10:00)
[2017-09-29] MEDS ORDERED: DULA10IN SQ (10:34)
[2017-09-29] MEDS ORDERED: PHENYLEPH/NS 1000 MCG/10 ML SYR IV ONE (12:00)
[2017-09-29] MEDS ORDERED: PROPOFOL 200 MG/20 ML AMP IV ONE (12:00)
[2017-09-29] MEDS ORDERED: ONDANSETRON HCL 4 MG/2 ML VIAL IV ONE (12:00)
[2017-09-29] MEDS ORDERED: ceFAZolin INJ 1,000 MG VIAL IV ONE (12:00)
[2017-09-29] MEDS ORDERED: LIDOCAINE HCL 1% PF 5 ML SYRINGE OTHER ONE (12:00)
[2017-09-29] MEDS ORDERED: NEOSTIGMINE 5 MG/5 ML SYRINGE IV PUSH ONE (12:00)
[2017-09-29] MEDS ORDERED: ePHEDrine/NS 25 MG/5 ML SYRINGE IV ONE (12:00)
[2017-09-29] MEDS ORDERED: DEXAMETHASONE SOD PHOS 4 MG/ML VIAL IV ONE (12:00)
[2017-09-29] MEDS ORDERED: GLYCOPYRROLATE 1 MG/5 ML SYRINGE IV PUSH ONE (12:00)
[2017-09-29] MEDS ORDERED: LACTATED RINGER'S 1000 ML INJ 2,000 ML IV ONE (12:00)
[2017-09-29] MEDS ORDERED: ROCURONIUM INJ 50 MG/5 ML SYRINGE IV PUSH ONE (12:00)
[2017-09-29] MEDS ORDERED: ACETAMINOPHEN 1000 MG/100 ML 100 ML IV ONE (12:06)
[2017-09-29] MEDS ORDERED: HYDROmorphone HCL PF 2 MG/ML VIAL ONE (12:28)
[2017-09-29] MEDS ORDERED: ARTIFICIAL TEARS OPTH OINT 3.5 APPLIC/3.5 GM TUBO ONE (12:28)
[2017-09-29] MEDS ORDERED: KETAMINE HCL 500 MG/10 ML VIAL ONE (12:43)
[2017-09-29] MEDS ORDERED: BETAMETHASONE SOD PHOS/ACETATE SUSP 30 MG/5 ML VIAL ONE (13:00)
[2017-09-29] MEDS ORDERED: GENTAMICIN SULFATE 80 MG/2 ML VIAL ONE (13:01)
[2017-09-29] MEDS ORDERED: GELFOAM SIZE 100 ONE (13:01)
[2017-09-29] MEDS ORDERED: GELATIN 12 MM/7 MM FOAM ONE (13:03)
[2017-09-29] MEDS ORDERED: VANCOMYCIN HCL 1000 MG VIAL ONE (16:55)
[2017-09-29] MEDS ORDERED: NITROGLYCERIN 0.4 MG SL 25 TABS/BTL SL PRN (17:30)
[2017-09-29] MEDS ORDERED: DEXTROSE 50% IN WATER 50 ML VIAL(D50) IV PUSH PRN (17:30)
[2017-09-29] MEDS ORDERED: Post-op Orders (for Pharmacy) XX ONE (17:30)
[2017-09-29] MEDS ORDERED: ALUMINUM/MAGNESIUM/SIMETH 30 ML CUP PO PRN (17:30)
[2017-09-29] MEDS ORDERED: ONDANSETRON HCL 4 MG/2 ML VIAL IV PUSH PRN (17:30)
[2017-09-29] MEDS ORDERED: BISACODYL 10 MG SUPP RECTAL PRN (17:30)
[2017-09-29] MEDS ORDERED: GLUCAGON 1 MG/ML VIAL OTHER PRN (17:30)
[2017-09-29] MEDS ORDERED: SOD PHOSPHATE/SOD BIPHOSPHATE (ADULT) ENEMA 133ML PR PRN (17:30)
[2017-09-29] MEDS ORDERED: NALOXONE HCL 0.4 MG/ML AMP IV PUSH PRN (17:30)
[2017-09-29] MEDS ORDERED: ZOLPIDEM TARTRATE 10 MG TAB PO PRN (17:30)
[2017-09-29] MEDS ORDERED: MORPHINE SULFATE 8 MG/ML INJ IV PUSH PRN (17:30)
[2017-09-29] MEDS ORDERED: MORPHINE SULFATE 30 MG/30 ML PCA IV SCH (17:30)
--- NOTE | 2017-09-29 17:42 | PD.OP ---
cc: Tray Braxton. Operative Report Date of Surgery: September 29, 2017 Preoperative Diagnosis: Lumbar spinal stenosis L4-5 and L5-S1. Left greater than right foraminal stenosis L4-5 and L5-S1. Bilateral lumbosacral radiculopathy Postoperative Diagnosis: Same Procedure: Bilateral lumbar laminectomy from the right L4, L5 with right subtotal facet resection and foraminal decompression Bilateral lumbar laminectomy from the right L5-S1 with right subtotal facet resection and foraminal decompression. Posterior spinal fusion, lateral transverse process technique L4-S1. Posterior lateral interbody fusion, L4-5 and L5-S1. Placement of interbody cage L4-5 and L5-S1. Posterior spinal segmental instrumentation L4-S1. Major bone grafting of the lumbar spine Surgeon: Tray Braxton First Press Operator(s): SHIVAM Santiago Operation and Findings: EBL: 100 cc NOTE: Dai Santiago PA-C was present for the entire surgical procedure as my assistant cook. In my medical opinion her skill and care was necessary for proper management of this patient INDICATIONS: This patient is a 62-year-old male who is having great difficulty with ambulation. He is now on a walker because of significant back leg pain and weakness. Investigative studies show advanced degenerative disease at L4-5 with spinal stenosis L4-5 and L5-S1. There is substantial foraminal stenosis especially to the right side at both levels. The patient needs a decompression of both levels but will become progressively unstable because of the foraminal decompression. Therefore, a surgical fusion will be necessary at the time of his treatment. INSTRUMENTATION: Manolo Rose Mary screws. Spine wave staxx cages PROCEDURE: The patient brought to the operating room and anesthetized the supine position. The patient positioned prone on the Aden frame on the Harlan table. All pressure points are protected. The back was scrubbed with alcohol followed by Hibiclens followed by ChloraPrep and draped sterilely and antibiotics were given within a routine time window. A timeout was done. Lateral radiographic images used to identify the proper level for the procedure. Compared care for the preoperative studies. Skin markings were made anticipating surgical treatment. A right paramedian incision was made. The lamina and facet joint was exposed over the L4-5 lamina and facet joint. We used a dilating retractor which was positioned over this region. The microscope was rolled into the field for visualization. A high-speed bur was used to take the lamina down and doing a subtotal facet resection. A bilateral laminectomy was accomplished having bilateral lateral recess decompression. The exiting and crossing nerve roots were completely decompressed. A total discectomy was accomplished. The disc space was prepared. All cartilaginous material from the disc space was removed. A combination of demineralized bone matrix and Nucel stem cells were mixed together on the back table.. These were injected into the disc space. The cage was then placed according to macaroni press operator's recommendation and deployed. Position was satisfactory. Additional bone graft was placed into the disc space. We moved to the L5-S1 level. A separate fascial incision was made. A dilating system was placed down to the interlaminar space and held provisionally to the side of the table. The microscope was brought back into the field. A high- speed bur under the microscope was used to perform a bilateral laminectomy from that side. A lateral recess decompression bilaterally was accomplished using straight and angled Kerrison punches. A partial medial facetectomy was accomplished. A subtotal facet resection was accomplished allowing decompression of the exiting L5 nerve root. The crossing and exiting nerve roots were completely decompressed. The outer edge of the facet joint was identified and prepared. Under fluoroscopic images, a bur was used to gain entrance into the pedicle followed by placement of a blunt probe, an awl and placement of proper length screws. Screws were placed to the right-sided L4, L5 and S1 each screw was charged with electric current there are no abnormal potentials registered in either lower extremity. A proper length amelia was fitted and attached and tightened according to macaroni press operator's recommendation. The wound was irrigated copiously. Bone grafting was placed along the lateral gutter in the region of the transverse process across this level. This was closed in layers with #1 Vicryl, 2-0 Vicryl and running intradermal 3-0 Vicryl followed by Steri-Strips and benzoin. On the contralateral side a separate exposure was made. A percutaneous technique was utilized. The outer edge of the facet joints were identified. A bur was used to gain entrance into the pedicle followed by placement of a probe and proper length screws. Each screw was charged with electric current and no abnormal potentials registered in either lower extremity. The wound was irrigated copiously. Bone graft placed along the transverse process across this level. It was closed in layers using #1 Vicryl, 2-0 Vicryl and running intradermal 3-0 Vicryl followed by Steri-Strips and benzoin. Intraoperative radiographs were obtained. No complication was appreciated. The patient had a sterile dressing applied. The patient was awakened and taken to recovery room in satisfactory condition. FINDINGS: There was evidence of high-grade spinal stenosis at both levels. The foraminal decompression was very satisfactory. Cage placement was satisfactory. There was no complication that was appreciated. Tray Braxton MD September 29, 2017 17:41
[2017-09-29] MEDS ORDERED: OXYC-395 PO (17:43)
[2017-09-29] MEDS: metFORMIN HCL 500 MG TAB PO SCH (18:00)
[2017-09-29] MEDS ORDERED: DO NOT ADM ANY ANTICOAGULANT DRUGS PRN (18:29)
--- NOTE | 2017-09-29 18:34 | RADRPT ---
EXAM DATE/TIME: 09/29/2017 17:19 [facility] COMPARISON: No previous studies available for comparison. INDICATIONS : L4-S1 Posterior lumbar fusion. MEDICAL HISTORY : Hypertension. Myocardial infarction. Diabetes mellitus type II. Stroke. Asthma. Chronic obstructi ve pulmonary disease. SURGICAL HISTORY : Coronary artery stent. Cholecystectomy. ENCOUNTER: Initial ACUITY: 1 day PAIN SCORE: Non-responsive. LOCATION: [facility]. FINDINGS: There is pedicle screw and amelia fixation across L4-5-S1 with spacer present. Normal alignment. No comp lications identified. CONCLUSION: 1. Lumbar fusion as above. Lino Hooker MD on September 29, 2017 at 18:31 Board Certified Radiologist. This report was verified electronically.
[2017-09-29] MEDS: LACTATED RINGER'S 1000 ML INJ 1,000 ML IV SCH (18:40)
[2017-09-29] MEDS ORDERED: *morphine SULFATE 4 MG/ML PERIprocedure ONLY ONE ×2 (19:12→19:36)
[2017-09-29] MEDS ORDERED: INSULIN HUMAN REGULAR 1,000 UNITS/10 ML VIAL IV PUSH ONE ×3 (19:30→22:30)
[2017-09-29] MEDS ORDERED: *HYDROmorphone PF 0.5 MG/0.5 ML PERIprocedure ONLY ONE (19:47)
[2017-09-29] MEDS ORDERED: INSULIN NovoLIN REGULAR SUPPLEMENTAL SCALE ONE (20:26)
[2017-09-29 20:56] VITALS: BP 150/83; PULSE 97; RESP 18; TEMP 97.9; O2SAT 93
[2017-09-29] MEDS: PREGABALIN 100 MG CAP PO SCH (21:00)
[2017-09-29] MEDS ORDERED: ZOLPIDEM TARTRATE 5 MG TAB PO PRN (21:00)
[2017-09-29] MEDS ORDERED: RESP: ALBUTEROL 2.5 MG/3 ML NEB (PRN) NEB (21:45)
[2017-09-29] MEDS ORDERED: LORazepam 2 MG/ML VIAL IV PUSH PRN (21:45)
[2017-09-29] MEDS: PCA - TOTAL MG MORPHINE DELIVERED PER SHIFT SCH (22:00)
[2017-09-29] MEDS ORDERED: DULAGLUTIDE 0.75 MG SQ SCH (22:00)
[2017-09-29 22:37] VITALS: BP 114/65; PULSE 97; RESP 18; TEMP 98.3; O2SAT 94
[2017-09-29 22:42] VITALS: PULSE 85
[2017-09-29] MEDS: levETIRAcetam 500 MG TAB PO SCH (22:49)
--- NOTE | 2017-09-29 23:15 | HHI.HP ---
HPI Service [facility] Primary Care Physician Shashank Sandy, DO Admission Diagnosis Spinal stenosis with radiculopathy . Diagnoses: (1) Spinal stenosis of lumbar region with radiculopathy Chief Complaint: chronic back pain Travel History International Travel<30 Days: No Contact w/Intl Traveler <30 Da: No Traveled to Known Affected Are: No History of Present Illness Mr. House is a 62 year-old male with a history of spinal stenosis, DDD with herniated discs, CVA with mild left sided residual, seizures, left leg DVT 5 years ago s/p tx with coumadin, GERD, MS x 3 s/p stent placement x 2, hyperlipidemia, hypertension, COPD/asthma, AIDAN, T2DM, and osteoarthritis who presented to [facility] for L4 - S1 laminectomy/fusion/interbody cage placement by Dr. Tray Braxton on 09/29/17 and is admitted to the hospitalist service for medical management. The patient is seen in his hospital room. 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 He says he's had back pain for the past 4 - 5 years that has progressively worsened over time. He reports chronically diminished sensation in bilateral feet that has been dx as neuropathy by his PCP and remains unchanged post-operatively. He has brisk peripheral pulses, capillary refill and movement. Review of Systems Except as stated in HPI: all other systems reviewed are Neg Past Family Social History Past Medical History spinal stenosis, DDD with herniated discs, CVA with mild left sided residual, seizures, left leg DVT 5 years ago s/p tx with coumadin, GERD, MS x 3 s/p stent placement x 2, T2DM, depression, hyperlipidemia, hypertension, COPD/asthma, AIDAN , and osteoarthritis . Past Surgical History Ventricular neurostimulator for seizures Cholecystectomy 2015 Left TKR Left shoulder rotator cuff repair . Reported Medications Reported Meds & Active Scripts Active Oxycodone (Oxycodone HCl) 10 Mg Tab 10 Mg PO Q4H PRN Keppra (Levetiracetam) 1,000 Mg Tab 1,000 Mg PO TID Reported Trulicity Inj (Dulaglutide Inj) 0.75 Mg/0.5 Ml Pen 0.75 Mg SQ Q7D Omeprazole 40 Mg Cap 40 Mg PO DAILY Percocet (Oxycodone-Acetaminophen) 7.5-325 mg Tab 1 Tab PO Q12HR PRN Levothyroxine (Levothyroxine Sodium) 175 Mcg Tab 175 Mcg PO DAILY Nitrostat SL (Nitroglycerin) 0.4 Mg Subl 0.4 Mg SL DIRECTED PRN 1 tablet under the tongue as needed for chest pain. Repeat every 5 minutes for a total of 3 DOSES or call 911 if NO relief. Metformin (Metformin HCl) 1,000 Mg Tab 1,000 Mg PO BIDPC With meals Ambien (Zolpidem Tartrate) 10 Mg Tab 10 Mg PO HS PRN Lyrica (Pregabalin) 200 Mg Cap 200 Mg PO BID Glimepiride 2 Mg Tab 2 Mg PO DAILY Take with breakfast or first main meal Atorvastatin (Atorvastatin Calcium) 20 Mg Tab 20 Mg PO DAILY 30 Days . Allergies: Coded Allergies: levofloxacin (Unverified Allergy, Severe, Anaphylaxis, 09/29/17) tapentadol (Unverified Allergy, Intermediate, Nausea/Vomiting, 09/29/17) blueberry (Unverified Allergy, Mild, Rash, 09/29/17) Family History Heart disease Diabetes mellitus . Social History Tobacco: quit smoking 3 years ago; smoked 2-3 PPD x 40 years ETOH: denies Illicit Drugs: denies . Physical Exam Vital Signs Vital Signs Date Time Temp Pulse Resp B/P (MAP) Pulse Ox O2 Delivery O2 Flow Rate FiO2 09/29/17 22:00 16 09/29/17 20:56 97.9 97 18 150/83 (105) 93 09/29/17 20:35 103 16 158/78 (104) 96 Nasal Cannula 3 09/29/17 20:17 16 09/29/17 20:15 106 16 161/78 (105) 96 Nasal Cannula 3 09/29/17 20:00 105 16 165/79 (107) 95 Nasal Cannula 3 09/29/17 19:45 100 16 157/77 (103) 95 Nasal Cannula 3 09/29/17 19:42 16 09/29/17 19:41 16 09/29/17 19:30 97 16 164/86 (112) 94 Nasal Cannula 3 09/29/17 19:17 16 09/29/17 19:15 95 16 166/85 (112) 96 Nasal Cannula 3 09/29/17 19:00 98 16 159/79 (105) 95 Nasal Cannula 3 09/29/17 18:45 99 16 169/78 (108) 94 Nasal Cannula 3 09/29/17 18:30 105 16 168/99 (122) 94 Nasal Cannula 3 09/29/17 18:22 98.8 113 16 162/96 (118) 95 Nasal Cannula 3 09/29/17 10:51 98.4 70 20 135/83 (100) 98 Physical Exam CONSTITUTIONAL: This is an older male patient, well-nourished, well-developed patient, in no apparent distress. INTEGUMENTARY: No rashes or lesions. Cool and dry. HEAD: Atraumatic. Normocephalic. No temporal or scalp tenderness. EYES: No scleral icterus. No injection or drainage. ENT: Nose without bleeding, purulent drainage. Airway patent. NECK: Trachea midline. No JVD. CARDIOVASCULAR: Regular rate and rhythm without murmurs, gallops, or rubs. RESPIRATORY: Clear to auscultation. Breath sounds equal bilaterally. No wheezes , rales, or rhonchi. GASTROINTESTINAL: Abdomen soft, non-tender, nondistended. No guarding. MUSCULOSKELETAL: Extremities without clubbing, cyanosis, or edema. He reports chronically diminished sensation in bilateral feet that has been dx as neuropathy by his PCP and remains unchanged post-operatively. He has brisk peripheral pulses, capillary refill and movement. NEUROLOGICAL: Awake and alert. Normal speech. Imaging Last Impressions Lumbar Spine X-Ray 09/29/17 0000 Signed Impressions: Service Date/Time: Friday, September 29, 2017 17:19 - CONCLUSION: 1. Lumbar fusion as above. Lino Hooker MD Caprini VTE Risk Assessment Caprini VTE Risk Assessment: Mod/High Risk (score >= 2) Caprini Risk Assessment Model Point Value = 1 Point Value = 2 Point Value = 3 Point Value = 5 Age 41-60 Minor surgery BMI > 25 kg/m2 Swollen legs Varicose veins or History of unexplained or recurrent spontaneous Oral contraceptives or hormone replacement Sepsis (< 1 month) Serious lung disease, including pneumonia (< 1 month) Abnormal pulmonary function Acute myocardial infarction Congestive heart failure (< 1 month) History of inflammatory bowel disease Medical patient at bed rest Age 61-74 Arthroscopic surgery Major open surgery (> 45 min) Laparoscopic surgery (> 45 min) Malignancy Confined to bed (> 72 hours) Immobilizing plaster cast Central venous access Age >= 75 History of VTE Family history of VTE Factor V Leiden Prothrombin [id number] Lupus anticoagulant Anticardiolipin antibodies Elevated serum homocysteine Heparin-induced thrombocytopenia Other congenital or acquired thrombophilia Stroke (< 1 month) Elective arthroplasty Hip, pelvis, or leg fracture Acute spinal cord injury (< 1 month) Prophylaxis Regimen Total Risk Factor Score Risk Level Prophylaxis Regimen 0-1 Low Early ambulation 2 Moderate Order ONE of the following: *Sequential Compression Device (SCD) *Heparin 5000 units SQ BID 3-4 Higher Order ONE of the following medications: *Heparin 5000 units SQ TID *Enoxaparin/Lovenox 40 mg SQ daily (WT < 150 kg, CrCl > 30 mL/min) *Enoxaparin/Lovenox 30 mg SQ daily (WT < 150 kg, CrCl > 10-29 mL/min) *Enoxaparin/Lovenox 30 mg SQ BID (WT < 150 kg, CrCl > 30 mL/min) AND/OR *Sequential Compression Device (SCD) 5 or more Highest Order ONE of the following medications: *Heparin 5000 units SQ TID (Preferred with Epidurals) *Enoxaparin/Lovenox 40 mg SQ daily (WT < 150 kg, CrCl > 30 mL/min) *Enoxaparin/Lovenox 30 mg SQ daily (WT < 150 kg, CrCl > 10-29 mL/min) *Enoxaparin/Lovenox 30 mg SQ BID (WT < 150 kg, CrCl > 30 mL/min) AND *Sequential Compression Device (SCD) Assessment and Plan Problem List: (1) Spinal stenosis of lumbar region with radiculopathy ICD Code: M48.061 - Spinal stenosis, lumbar region without neurogenic claudication; M54.16 - Radiculopathy, lumbar region Assessment and Plan Mr. House is a 62 year-old male with a history of spinal stenosis, DDD with herniated discs, CVA with mild left sided residual, seizures, left leg DVT 5 years ago s/p tx with coumadin, GERD, MS x 3 s/p stent placement x 2, hyperlipidemia, hypertension, COPD/asthma, AIDAN, T2DM, and osteoarthritis who presented to [facility] for L4 - S1 laminectomy/fusion/interbody cage placement by Dr. Tray Braxton on 09/29/17 and is admitted to the hospitalist service for medical management. Spinal stenosis status post L4 through S1 laminectomy/fusion/interbody cage placement by Dr. 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 Type 2 Diabetes Mellitus, poorly controlled - Blood glucose in the 300s despite multiple attempts at blood sugar reduction - continue to monitor and adjust as indicated - Accu-Cheks before meals and at bedtime with low-dose NovoLog sliding scale coverage - Hypoglycemia protocol - Continue home metformin and glimepiride History of coronary artery disease status post stent placement 2 -Continue home atorvastatin, nitroglycerin -Continuous cardiac telemetry to monitor for arrhythmias Seizure disorder -Continue home Keppra -Seizure precautions -IV Ativan as needed for seizure activity up to 2 doses Hypothyroidism -10 units home Synthroid -Supplemental oxygen titrated to maintain oxygen saturation greater than 92% COPD/Asthma -Albuterol nebulizers every 4 hours as needed for shortness of breath/wheezing DVT prophylaxis -SCDs/teds; chemoprophylaxis per surgeon . Discussed Condition With patient, RN, and Dr. Rondon . Physician Certification 2 Midnight Certification Type: Admission for Inpatient Services Order for Inpatient Services The services are ordered in accordance with Medicare regulations or non- Medicare payer requirements, as applicable. In the case of services not specified as inpatient-only, they are appropriately provided as inpatient services in accordance with the 2-midnight benchmark. Estimated LOS (days): 3 days is the estimated time the patient will need to remain in the hospital, assuming treatment plan goals are met and no additional complications. Post-Hospital Plan: Not yet determined Erin Blanchard September 29, 2017 23:15
[2017-09-30] VITALS (9 sets, daily range): BP systolic 111–147; BP diastolic 55–69; PULSE 62–95; RESP 16–18; TEMP 97.6–98.3; O2SAT 93–96
[2017-09-30] MEDS ORDERED: INSULIN ASPART 1,000 UNITS/10 ML VIAL SQ ONE ×2 (00:30→05:15)
[2017-09-30 04:08] LABS: HEMATOCRIT 36.1 % (39.0-51.0)
[2017-09-30] MEDS ORDERED: INSULIN HUMAN REGULAR 1,000 UNITS/10 ML VIAL IV PUSH ONE (04:30)
[2017-09-30] MEDS: LEVOTHYROXINE SODIUM 100 MCG TAB PO SCH (05:22)
[2017-09-30] MEDS: LACTATED RINGER'S 1000 ML INJ 1,000 ML IV SCH (05:22)
[2017-09-30] MEDS: LEVOTHYROXINE SODIUM 75 MCG TAB PO SCH (05:22)
[2017-09-30] MEDS: PCA - TOTAL MG MORPHINE DELIVERED PER SHIFT SCH (05:34)
[2017-09-30 07:23] LABS: BICARBONATE 27.3 MEQ/L (21.0-32.0); CREATININE 1.05 MG/DL (0.60-1.30)
[2017-09-30] MEDS: levETIRAcetam 500 MG TAB PO SCH ×3 (07:51→17:50)
[2017-09-30] MEDS: ATORVASTATIN 20 MG TAB PO SCH (07:52)
[2017-09-30] MEDS: PREGABALIN 100 MG CAP PO SCH ×2 (07:52→21:24)
[2017-09-30] MEDS: PANTOPRAZOLE SOD 40 MG DELAYED RELEASE TAB PO SCH (07:52)
[2017-09-30] MEDS ORDERED: WALKER WHEELS/F1 MIS (08:38)
[2017-09-30] MEDS ORDERED: COMMODE 3-IN-11 MIS (08:39)
--- NOTE | 2017-09-30 08:39 | HHI.DCPOC ---
Discharge Care Plan Diagnosis: (1) Lumbar spine instability (2) Spinal stenosis of lumbar region with radiculopathy Your Health Problems Are: Difficulty with ADL Incision/Drains Swelling Urinary Difficulties Additional Problems Chronic seizure disorder Goals to Promote Your Health * To prevent worsening of your condition and complications * To maintain your health at the optimal level Directions to Meet Your Goals Take your medications as prescribed Follow your dietary instruction Follow activity as directed Keep your appointments as scheduled Take your immunizations and boosters as scheduled If your symptoms worsen call your PCP, if no PCP go to Urgent Care Center or Emergency Room Smoking is Dangerous to Your Health. Avoid second hand smoke Call the 24-hour hour crisis hotline for domestic abuse at Estrella Nolasco September 30, 2017 08:39
--- NOTE | 2017-09-30 08:43 | HHI.FF ---
Face to Face Verification Diagnosis: (1) Lumbar spine instability (2) Spinal stenosis of lumbar region with radiculopathy Physical Therapy Gait training, Safety evaluation, Transfer training, bed to chair S/P Spinal Fusion: Gait training with walker, Weight bearing as tolerated, No twisting of torso, No bending Additional Instructions PT 2days/wk for 1 week. WBAT. Out of bed with brace six sigma project manager for 10-12 weeks. Avoid bending/lifting/twisting. Nursing RN Days per Week: 2 x Week(s): 1 Nursing: Dressing changes Dressing Changes: Do not change dressing Additional Instructions Vitals assessment. Dressing assessment - do not change unless saturated or erythema. Keep dressing sealed and dry. I have seen patient Bakari House on 09/30/17. My clinical findings support the need for the requested home health care services because: Limited ability to care for self High risk of falls I certify that my clinical findings support that this patient is homebound because: Post-op weakness Unsteady gait/balance Estrella Nolasco September 30, 2017 08:43
[2017-09-30] MEDS ORDERED: GLUCAGON 1 MG/ML VIAL OTHER PRN (09:00)
[2017-09-30] MEDS ORDERED: DEXTROSE 50% IN WATER 50 ML VIAL(D50) IV PUSH PRN (09:00)
[2017-09-30] MEDS ORDERED: NON-FORMULARY DRUG (Levothyroxine 175 MCG) PO SCH (09:00)
[2017-09-30] MEDS ORDERED: NON-FORMULARY DRUG (Omeprazole 40 MG) PO SCH (09:00)
[2017-09-30] MEDS: oxyCODONE/ACETAMINOPHEN 10 MG/325 MG TAB PO PRN ×3 (09:31→21:24)
--- NOTE | 2017-09-30 09:59 | HHI.PR ---
Subjective Remarks Patient sitting in bed eating breakfast. States he has some pain 6/10, but waiting for another hour for his Percocet. He does not want the INSTRUCTOR FLYING morphine. He is questioning whether or not his VNS implant can be checked in the hospital. Discussed with patient about contacting his insurance company to find a neurologist in the area to follow. He is anxious to work with PT today. Denies any chest pain. Objective Vitals Vital Signs Date Time Temp Pulse Resp B/P (MAP) Pulse Ox O2 Delivery O2 Flow Rate FiO2 09/30/17 08:52 18 09/30/17 08:00 98.3 72 16 111/55 (73) 93 09/30/17 05:34 17 09/30/17 04:48 98.1 79 18 133/68 (89) 95 09/30/17 03:56 73 09/30/17 00:00 95 09/29/17 23:47 Nasal Cannula 3.00 09/29/17 22:42 85 09/29/17 22:37 98.3 97 18 114/65 (81) 94 09/29/17 22:00 16 09/29/17 20:56 97.9 97 18 150/83 (105) 93 09/29/17 20:35 103 16 158/78 (104) 96 Nasal Cannula 3 09/29/17 20:17 16 09/29/17 20:15 106 16 161/78 (105) 96 Nasal Cannula 3 09/29/17 20:00 105 16 165/79 (107) 95 Nasal Cannula 3 09/29/17 19:45 100 16 157/77 (103) 95 Nasal Cannula 3 09/29/17 19:42 16 09/29/17 19:41 16 09/29/17 19:30 97 16 164/86 (112) 94 Nasal Cannula 3 09/29/17 19:17 16 09/29/17 19:15 95 16 166/85 (112) 96 Nasal Cannula 3 09/29/17 19:00 98 16 159/79 (105) 95 Nasal Cannula 3 09/29/17 18:45 99 16 169/78 (108) 94 Nasal Cannula 3 09/29/17 18:30 105 16 168/99 (122) 94 Nasal Cannula 3 09/29/17 18:22 98.8 113 16 162/96 (118) 95 Nasal Cannula 3 09/29/17 10:51 98.4 70 20 135/83 (100) 98 I/O 09/29/17 09/29/17 09/29/17 09/30/17 09/30/17 09/30/17 07:00 15:00 23:00 07:00 15:00 23:00 Intake Total 2100 ml 1680 ml Output Total 300 ml 1500 ml 350 ml Balance 1800 ml 180 ml -350 ml Intake Oral 100 ml 480 ml IV Total 1200 ml Other 2000 ml Output Urine Total 200 ml 1500 ml 350 ml Estimated Blood Loss 100 ml # Bowel Movements 0 Result Diagram: 09/30/17 0356 09/30/17 0642 Objective Remarks CARDIOVASCULAR: Regular rate and rhythm. RESPIRATORY: No accessory muscle use. Clear to auscultation. Breath sounds equal bilaterally. MUSCULOSKELETAL: Extremities without clubbing, cyanosis, or edema. No obvious deformities. No numbness or tingling NEUROLOGICAL: Awake and alert. No obvious cranial nerve deficits. Motor grossly within normal limits. . Normal speech. Urinary Catheter: No Vascular Central Line Catheter: No A/P Problem List: (1) Spinal stenosis of lumbar region with radiculopathy ICD Code: M48.061 - Spinal stenosis, lumbar region without neurogenic claudication; M54.16 - Radiculopathy, lumbar region Assessment and Plan Mr. House is a 62 year-old male with a history of spinal stenosis, DDD with herniated discs, CVA with mild left sided residual, seizures, left leg DVT 5 years ago s/p tx with coumadin, GERD, [place] x 3 s/p stent placement x 2, hyperlipidemia, hypertension, COPD/asthma, AIDAN, T2DM, and osteoarthritis who presented to [facility] for L4 - S1 laminectomy/fusion/interbody cage placement by Dr. Tray Braxton on 09/29/17 and is admitted to the hospitalist service for medical management. Spinal stenosis status post L4 through S1 laminectomy/fusion/interbody cage placement by Dr. Tray Braxton -09/30 Changed Pain management with PO Percocet Type 2 Diabetes Mellitus, poorly controlled - Blood glucose in the 300s despite multiple attempts at blood sugar reduction -continue to monitor and adjust as indicated - Accu-Cheks before meals and at bedtime with low-dose NovoLog sliding scale coverage - Continue home metformin and glimepiride History of coronary artery disease status post stent placement 2 -Continue home atorvastatin, nitroglycerin -Continuous cardiac telemetry to monitor for arrhythmias Seizure disorder, stable -Continue home Keppra -Seizure precautions -IV Ativan as needed for seizure activity up to 2 doses -09/30 Patient will need to follow up outpatient follow up for VNS, instructed to call insurance to find who takes his insurance Hypothyroidism -Continue home Synthroid COPD/Asthma -Albuterol nebulizers every 4 hours as needed for shortness of breath/ wheezing -Supplemental oxygen titrated to maintain oxygen saturation greater than 92% Insomnia -Cont home Ambien DVT prophylaxis -SCDs/teds; chemoprophylaxis per surgeon Discharge Planning Per Teressa Lal September 30, 2017 09:58
[2017-09-30] MEDS: INSULIN ASPART SUPPLEMENTAL SCALE SQ SCH ×3 (11:15→21:00)
--- NOTE | 2017-09-30 12:57 | PD.ORT.PN ---
Subjective Subjective Remarks He is with 2 family members. Very optimistic. "legs feel good". He states his back is painful but ok otherwise. No new complaints. Appetite is very good. He has not urinated since cullen dc'd this morning. No new CP or SOB. Objective Vitals Vital Signs Date Time Temp Pulse Resp B/P (MAP) Pulse Ox O2 Delivery O2 Flow Rate FiO2 09/30/17 10:31 18 09/30/17 08:52 18 09/30/17 08:00 93 Nasal Cannula 3.00 09/30/17 08:00 62 09/30/17 08:00 98.3 72 16 111/55 (73) 93 09/30/17 05:34 17 09/30/17 04:48 98.1 79 18 133/68 (89) 95 09/30/17 03:56 73 09/30/17 00:00 95 09/29/17 23:47 Nasal Cannula 3.00 09/29/17 22:42 85 09/29/17 22:37 98.3 97 18 114/65 (81) 94 09/29/17 22:00 16 09/29/17 20:56 97.9 97 18 150/83 (105) 93 09/29/17 20:35 103 16 158/78 (104) 96 Nasal Cannula 3 09/29/17 20:17 16 09/29/17 20:15 106 16 161/78 (105) 96 Nasal Cannula 3 09/29/17 20:00 105 16 165/79 (107) 95 Nasal Cannula 3 09/29/17 19:45 100 16 157/77 (103) 95 Nasal Cannula 3 09/29/17 19:42 16 09/29/17 19:41 16 09/29/17 19:30 97 16 164/86 (112) 94 Nasal Cannula 3 09/29/17 19:17 16 09/29/17 19:15 95 16 166/85 (112) 96 Nasal Cannula 3 09/29/17 19:00 98 16 159/79 (105) 95 Nasal Cannula 3 09/29/17 18:45 99 16 169/78 (108) 94 Nasal Cannula 3 09/29/17 18:30 105 16 168/99 (122) 94 Nasal Cannula 3 09/29/17 18:22 98.8 113 16 162/96 (118) 95 Nasal Cannula 3 I/O 09/29/17 09/29/17 09/29/17 09/30/17 09/30/17 09/30/17 07:00 15:00 23:00 07:00 15:00 23:00 Intake Total 2100 ml 1680 ml Output Total 300 ml 1500 ml 350 ml Balance 1800 ml 180 ml -350 ml Intake Oral 100 ml 480 ml IV Total 1200 ml Other 2000 ml Output Urine Total 200 ml 1500 ml 350 ml Estimated Blood Loss 100 ml # Bowel Movements 0 Result Diagram: 09/30/17 0356 09/30/17 0642 Objective Remarks Sitting up in bed eating lunch NAD With family members VSS L/S Dressing c/d/i, mild drainage, no erythema, mild spasm +motor at/ehl bilat, +sens, +nvi Neg homans Assessment & Plan Ortho Post Op Day #: 1 Problem List: Assessment and Plan pod#1 s/p Lami/Fusion L45 L5S1 Ortho stable. Pain moderately controlled. He was on chronic pain medication prior to surgery. PO pain meds as needed. PT - WBAT w walker. Out of bed with brace. His family member brought their brace with them yesterday and somehow it got lost before being taken to the floor. Staff called earlier today and fit with new weave lumbar brace. I can confirm the patient had the brace with him in hold yesterday morning. Hold dressing changes unless saturated. Flomax 0.4mg to begin now. Bladder scan if needed in next 1-2 hours. He may need straight cath. D/C planning, C vs rehab. Likely HHC or thu. DME written. Estrella Nolasco September 30, 2017 12:57
[2017-09-30] MEDS: TAMSULOSIN HCL 0.4 MG CAP PO SCH (13:12)
[2017-09-30] MEDS: metFORMIN HCL 500 MG TAB PO SCH (18:04)
[2017-09-30] MEDS: DOCUSATE SODIUM 100 MG CAP PO SCH (21:24)
[2017-10-01] VITALS (8 sets, daily range): BP systolic 117–153; BP diastolic 57–78; PULSE 74–92; RESP 16–18; TEMP 98.4–99.2; O2SAT 92–98
[2017-10-01] MEDS: LEVOTHYROXINE SODIUM 100 MCG TAB PO SCH (06:00)
[2017-10-01] MEDS: LEVOTHYROXINE SODIUM 75 MCG TAB PO SCH (06:00)
--- NOTE | 2017-10-01 06:48 | HHI.PR ---
Addendum to Inpatient Note Addendum Reason: Additional Documentation Additional Information HALICAT Note: S: Medical team application programmer analyst paged for HALICAT at approximately 0630. Per nursing report patient was found unresponsive with concern for possible seizure. Per report, patient has a history of seizures and is currently on Keppra. O: Vitals: 182/102, heart rate 101, afebrile per staff, respiratory rate 19 with oxygen saturation of 97% GENERAL: Well-nourished, well-developed male lying in bed in no acute distress. SKIN: Warm and dry. No rash. EYES: No scleral icterus. No injection or drainage. PERRLA. EOMI. HENT: Normocephalic. Atraumatic. MMM. NECK: No visible JVD or lymphadenopathy. CARDIOVASCULAR: Warm and well perfused. RESPIRATORY: Normal respiratory effort. GASTROINTESTINAL: Abdomen nondistended. MUSCULOSKELETAL: Strength grossly WNL. Moving all extremities spontaneously NEURO/PSYCH: Afocal. Awake, alert, and oriented x3, but slightly drowsy. A/P: Mr. House is a 62 y/o M admitted for lumbar fusion who is s/p seizure. 1. Seizure disorder -Ativan 2 mg given IV push with resolution of symptoms -Patient currently in postictal state with stable vital signs -Attending physician notified and will resume care at this time Percy Nolasco MD R2 October 01, 2017 06:48
[2017-10-01] MEDS: PREGABALIN 100 MG CAP PO SCH ×2 (08:24→20:48)
[2017-10-01] MEDS: PANTOPRAZOLE SOD 40 MG DELAYED RELEASE TAB PO SCH (08:24)
[2017-10-01] MEDS: TAMSULOSIN HCL 0.4 MG CAP PO SCH (08:25)
[2017-10-01] MEDS: ATORVASTATIN 20 MG TAB PO SCH (08:25)
[2017-10-01] MEDS: DOCUSATE SODIUM 100 MG CAP PO SCH ×2 (08:25→20:48)
[2017-10-01] MEDS: levETIRAcetam 500 MG TAB PO SCH ×3 (08:25→17:09)
[2017-10-01] MEDS: GLIMEPIRIDE 2 MG TAB PO SCH (08:25)
[2017-10-01] MEDS: metFORMIN HCL 500 MG TAB PO SCH ×2 (08:25→17:09)
--- NOTE | 2017-10-01 08:27 | PD.ORT.PN ---
Subjective Subjective Remarks Stable this morning. Apparently he had a seizure last night with no secondary side effects. He has a known history of seizures. "Legs still feel real good". No other complaints. Able to ambulate several times yesterday. Appetite is very good. Urinating better. No new CP or SOB. Objective Vitals Vital Signs Date Time Temp Pulse Resp B/P (MAP) Pulse Ox O2 Delivery O2 Flow Rate FiO2 10/01/17 06:30 98 3.00 10/01/17 04:00 89 10/01/17 00:01 98.5 83 17 117/59 (78) 94 10/01/17 00:00 74 09/30/17 23:02 18 09/30/17 23:02 18 09/30/17 22:16 Room Air 09/30/17 19:46 73 09/30/17 19:41 97.8 88 16 147/65 (92) 95 09/30/17 16:00 98.0 72 16 135/69 (91) 96 09/30/17 15:06 18 09/30/17 12:15 87 09/30/17 12:00 97.6 65 16 120/68 (85) 93 I/O 09/30/17 09/30/17 09/30/17 10/01/17 10/01/17 10/01/17 06:59 14:59 22:59 06:59 14:59 22:59 Intake Total 1680 ml 720 ml 240 ml Output Total 1500 ml 350 ml 1550 ml Balance 180 ml 370 ml -1550 ml 240 ml Intake Oral 480 ml 720 ml 240 ml IV Total 1200 ml Output Urine Total 1500 ml 350 ml 1550 ml # Voids 3 2 # Bowel Movements 0 Result Diagram: 09/30/17 0356 09/30/17 0642 Objective Remarks Sitting up in bed NAD VSS L/S Dressing c/d/i, no new drainage, no erythema, mild spasm +motor at/ehl bilat, +sens, +nvi Neg homans Assessment & Plan Ortho Post Op Day #: 2 Problem List: Assessment and Plan pod#2 s/p Lami/Fusion L45 L5S1 Ortho stable. Pain still fairly well controlled. PO pain meds as needed. Small seizure last night. Stable today. Hx of chronic seizures. PT - WBAT w walker. Out of bed with brace. Hold dressing changes unless saturated. Flomax 0.4mg today then d/c. His ability to urinate has improved. D/C planning, likely HHC today after PT. . DME written. Estrella Nolasco October 01, 2017 08:27
--- NOTE | 2017-10-01 08:30 | HHI.DS ---
Discharge Summary Admission Date September 29, 2017 at 09:29 Discharge Date: October 02, 2017 Admitting Diagnosis see below Diagnosis: (1) Lumbar spine instability Diagnosis: Principal ICD Codes: M53.2X6 - Spinal instabilities, lumbar region (2) Spinal stenosis of lumbar region with radiculopathy Diagnosis: Principal ICD Codes: M48.061 - Spinal stenosis, lumbar region without neurogenic claudication; M54.16 - Radiculopathy, lumbar region (3) Seizure Diagnosis: Secondary ICD Codes: R56.9 - Unspecified convulsions Status: Acute Procedures Laminectomy L45, L5S1, Posterior lumbar fusion L4-S1 Brief History This is a 62 year old male patient with a long history of chronic low back pain. He has been under pain management's supervision and taking norco for quite some time. Approximately 1-1/2 years ago he began having increasing leg pain, right greater than left. He was treated conservatively with physical therapy and a Medrol Dosepak. Imaging studies were performed. He was found to have increasing stenosis L4-5 and L5-S1. His pain medication was increased to percocet 7.5mg. He went for epidural steroid injections and was able to gain temporary relief but unfortunately his pain returned. Eventually surgical treatment was recommended in the form of laminectomy L4-5 and L5-S1 with posterior lumbar fusion L4-S1. The patient agreed and now presents for the above. CBC/BMP: 09/30/17 0356 09/30/17 0642 Significant Findings Laboratory Tests Test 09/30/17 03:56 09/30/17 06:42 Hemoglobin 12.0 GM/DL (13.0-17.0) Hematocrit 36.1 % (39.0-51.0) Random Glucose 295 MG/DL (74-106) Calcium Level 8.0 MG/DL (8.5-10.1) Estimat Glomerular Filtration Rate 72 ML/MIN (>89) PE at Discharge Sitting up in bed NAD VSS L/S Dressing c/d/i, no new drainage, no erythema, mild spasm +motor at/ehl bilat, +sens, +nvi Neg [facility] Course pod#2 oxycodone. Was on flomax for 2 days to assist with urination. Small seizure juice scaleman pod#2. Evaluated by Dr. Velasquez neurology. Cleared. F/U w neurologist in [place]. Pt Condition on Discharge: Stable Discharge Disposition: Disch w/ Home Health Serv Discharge Instructions Diet Instructions: Diabetic Diet, High Fiber Diet Activities You Can Perform: Weight Bearing as Nikky, See Additionl Instruction Activities to Avoid: Strenuous Activity Additional Activity Instruc.: Brace full-time when out of bed New Medications: Commode 3-in-1 (Commode 3-in-1) 1 Mis Mis EA .XX DIRECTED, #1 0 Refills Oxycodone (Oxycodone) 10 Mg Tab 10 MG PO Q4H PRN for PAIN, #42 TAB 0 Refills Walker with Front Wheels (Walker with Front Wheels) 1 Mis Mis EA .XX DIRECTED, #1 0 Refills Continued Medications: Atorvastatin (Atorvastatin) 20 Mg Tab 20 MG PO DAILY for 30 Days, TAB Dulaglutide Inj (Trulicity Inj) 0.75 Mg/0.5 Ml Pen 0.75 MG SQ Q7D for Blood Sugar Management, #4 PEN 0 Refills Glimepiride (Glimepiride) 2 Mg Tab 2 MG PO DAILY for Blood Sugar Management, #30 TAB 0 Refills Take with breakfast or first main meal Levetiracetam (Keppra) 1,000 Mg Tab 1000 MG PO TID for Control Seizures, #90 TAB 0 Refills Levothyroxine (Levothyroxine) 175 Mcg Tab 175 MCG PO DAILY for Thyroid, #30 TAB 0 Refills Metformin (Metformin) 1,000 Mg Tab 1000 MG PO BIDPC for Blood Sugar Management, #0 TAB 0 Refills With meals Nitroglycerin SL (Nitrostat SL) 0.4 Mg Subl 0.4 MG SL DIRECTED PRN for CHEST PAIN, #100 TAB.SL 0 Refills 1 tablet under the tongue as needed for chest pain. Repeat every 5 minutes for a total of 3 DOSES or call 911 if NO relief. Omeprazole (Omeprazole) 40 Mg Cap 40 MG PO DAILY, #30 CAP 0 Refills Oxycodone-Acetaminophen (Percocet) 7.5-325 mg Tab 1 TAB PO Q12HR PRN for PAIN, TAB 0 Refills Pregabalin (Lyrica) 200 Mg Cap 200 MG PO BID, #60 CAP 0 Refills Zolpidem (Ambien) 10 Mg Tab 10 MG PO HS PRN for INSOMNIA, TAB 0 Refills Estrella Nolasco October 01, 2017 08:29
[2017-10-01] MEDS: INSULIN ASPART SUPPLEMENTAL SCALE SQ SCH ×4 (08:32→20:48)
--- NOTE | 2017-10-01 09:55 | HHI.PR ---
Subjective Remarks Follow up back surgery. Patient had a seizure at 6am this morning. Patient assessed and appears agitated this morning states he is going home, he is semi confused, thinks people are shooting up cocaine around him. He states he found a neurologist to check his VNS, states this is not the case, they have not found a neurologist to follow. Patient denies any chest pain, sob, fever or chills. Objective Vitals Vital Signs Date Time Temp Pulse Resp B/P (MAP) Pulse Ox O2 Delivery O2 Flow Rate FiO2 10/01/17 08:36 Nasal Cannula 2.00 10/01/17 08:00 99.1 92 16 153/74 (100) 96 10/01/17 06:30 98 3.00 10/01/17 04:00 89 10/01/17 00:01 98.5 83 17 117/59 (78) 94 10/01/17 00:00 74 09/30/17 23:02 18 09/30/17 23:02 18 09/30/17 22:16 Room Air 09/30/17 19:46 73 09/30/17 19:41 97.8 88 16 147/65 (92) 95 09/30/17 16:00 98.0 72 16 135/69 (91) 96 09/30/17 15:06 18 09/30/17 12:15 87 09/30/17 12:00 97.6 65 16 120/68 (85) 93 I/O 09/30/17 09/30/17 09/30/17 10/01/17 10/01/17 10/01/17 07:00 15:00 23:00 07:00 15:00 23:00 Intake Total 1680 ml 720 ml 240 ml Output Total 1500 ml 350 ml 1550 ml Balance 180 ml 370 ml -1550 ml 240 ml Intake Oral 480 ml 720 ml 240 ml IV Total 1200 ml Output Urine Total 1500 ml 350 ml 1550 ml # Voids 3 2 # Bowel Movements 0 Result Diagram: 09/30/17 0356 09/30/17 0642 Objective Remarks CARDIOVASCULAR: Regular rate and rhythm. RESPIRATORY: No accessory muscle use. Clear to auscultation. Breath sounds equal bilaterally. MUSCULOSKELETAL: Extremities without clubbing, cyanosis, or edema. No obvious deformities. No numbness or tingling NEUROLOGICAL: confused and agitated. No obvious cranial nerve deficits. Motor grossly within normal limits. . Normal speech. Urinary Catheter: No Vascular Central Line Catheter: No A/P Problem List: (1) Spinal stenosis of lumbar region with radiculopathy ICD Code: M48.061 - Spinal stenosis, lumbar region without neurogenic claudication; M54.16 - Radiculopathy, lumbar region Assessment and Plan Mr. House is a 62 year-old male with a history of spinal stenosis, DDD with herniated discs, CVA with mild left sided residual, seizures, left leg DVT 5 years ago s/p tx with coumadin, GERD, [place] x 3 s/p stent placement x 2, hyperlipidemia, hypertension, COPD/asthma, AIDAN, T2DM, and osteoarthritis who presented to [facility] for L4 - S1 laminectomy/fusion/interbody cage placement by Dr. Tray Braxton on 09/29/17 and is admitted to the hospitalist service for medical management. Spinal stenosis status post L4 through S1 laminectomy/fusion/interbody cage placement by Dr. Tray Braxton -09/30 Changed Pain management with PO Percocet Type 2 Diabetes Mellitus, poorly controlled - Blood glucose in the 300s despite multiple attempts at blood sugar reduction -continue to monitor and adjust as indicated - Accu-Cheks before meals and at bedtime with low-dose NovoLog sliding scale coverage - Continue home metformin and glimepiride History of coronary artery disease status post stent placement 2 -Continue home atorvastatin, nitroglycerin -Continuous cardiac telemetry to monitor for arrhythmias Seizure disorder, stable -Continue home Keppra -Seizure precautions -IV Ativan as needed for seizure activity up to 2 doses -09/30 Patient will need to follow up outpatient follow up for VNS, instructed to call insurance to find who takes his insurance -10/01 due to seizure will check keppra level, consult neurology Hypothyroidism -Continue home Synthroid COPD/Asthma -Albuterol nebulizers every 4 hours as needed for shortness of breath/ wheezing -Supplemental oxygen titrated to maintain oxygen saturation greater than 92% Insomnia -Cont home Ambien DVT prophylaxis -SCDs/teds; chemoprophylaxis per surgeon Discharge Planning Per ortho and once medically stable Teressa Howe October 01, 2017 09:55
[2017-10-01 10:08] LABS: AUTOMATED NEUTROPHIL # 5.5 TH/MM3 (1.8-7.7); BASOPHIL % 0.2 % (0.0-2.0); EOSINOPHIL % 0.4 % (0.0-4.0); HEMATOCRIT 34.3 % (39.0-51.0); HEMOGLOBIN 11.5 GM/DL (13.0-17.0); LYMPH % 25.1 % (9.0-44.0); MEAN CELL VOLUME 85.6 FL (80.0-100.0); MEAN CORPUSCULAR HEMOGLOBIN 28.7 PG (27.0-34.0); MEAN CORPUSCULAR HGB CONC 33.5 % (32.0-36.0); MEAN PLATELET VOLUME 8.9 FL (7.0-11.0); MONO % 6.7 % (0.0-8.0); MONOCYTE # 0.6 TH/MM3 (0-0.9); NEUT % 67.6 % (16.0-70.0); PLATELET COUNT 132 TH/MM3 (150-450); WHITE BLOOD COUNT 8.2 TH/MM3 (4.0-11.0)
[2017-10-01 10:25] LABS: BICARBONATE 28.1 MEQ/L (21.0-32.0); CALCIUM 8.8 MG/DL (8.5-10.1); CREATININE 0.85 MG/DL (0.60-1.30); MAGNESIUM 1.9 MG/DL (1.5-2.5)
[2017-10-01] MEDS ORDERED: POTASSIUM CHLORIDE 10 MEQ CONTROLLED RELEASE TAB PO ONE (11:00)
[2017-10-01] MEDS: oxyCODONE/ACETAMINOPHEN 10 MG/325 MG TAB PO PRN ×2 (11:43→17:09)
--- NOTE | 2017-10-01 20:05 | MB ---
cc: Rashard Velasquez MD, PhD DATE: 10/01/2017 REASON FOR CONSULTATION: Seizure. HISTORY OF PRESENT ILLNESS: Mr. House is a 62-year-old man who has a history of previous stroke with residual left-sided weakness as well as seizure disorder, which he described as having grand mal seizures as well as brief staring episodes. He currently takes Lyrica as well as Keppra. He has a vagus nerve stimulator in place at [facility]. He states it has not been interrogated for 2 years. Overall, feels he does well. His last seizure was 8 months ago. He underwent surgery 2 days ago. Yesterday, he had a very brief seizure where he states he had a brief staring episode, lasting only a few seconds. He did feel the VNS activate and it terminated the seizure. CURRENT MEDICATIONS: 1. He takes Keppra 1000 mg t.i.d. 2. He is on Lyrica 200 mg b.i.d. 3. He is on Ativan p.r.n. 4. Ambien at night. 5. Metformin 6. Oxycodone as needed for pain. 7. Nitroglycerin as needed. 8. Lipitor 20 mg daily. 9. Amaryl. 10. Protonix. 11. Synthroid. 12. Flomax. 13. Colace. NEUROLOGIC EXAMINATION: VITAL SIGNS: Blood pressure 131/75, pulse 90, respiratory rate is 18, temperature 99 degrees. HIGHER FUNCTIONS: Normal. CRANIAL NERVES: Intact. MOTOR EXAM: He has got mild weakness in the left arm at 4+/5 proximal and distal, as well as the left leg, which he states is residual from his previous stroke. He is normal in the right side in strength. Reflexes are 2+ symmetric with no Babinski. IMPRESSION AND RECOMMENDATIONS: Seizure disorder, which appears to be overall fairly well controlled with his current medications. The breakthrough seizure could have been related to stress of recent surgery. At the present time, I would not recommend changing his anticonvulsants. I did suggest to the patient that following discharge, he make an appointment with his neurologist in [place] to have his vagal nerve stimulator interrogated and adjusted if needed. Rashard Velaqsuez MD, PhD COTY/MARRY , 07:51 PM , 08:03 PM
[2017-10-02 00:01] VITALS: BP 135/79; PULSE 101; RESP 18; TEMP 98.4; O2SAT 93
[2017-10-02 04:00] VITALS: BP 147/82; PULSE 90; RESP 18; TEMP 99.4; O2SAT 95
[2017-10-02] MEDS: LEVOTHYROXINE SODIUM 100 MCG TAB PO SCH (05:22)
[2017-10-02] MEDS: LEVOTHYROXINE SODIUM 75 MCG TAB PO SCH (05:22)
[2017-10-02] MEDS: oxyCODONE/ACETAMINOPHEN 10 MG/325 MG TAB PO PRN ×2 (05:30→14:36)
[2017-10-02 07:15] LABS: AUTOMATED NEUTROPHIL # 5.1 TH/MM3 (1.8-7.7); BASOPHIL % 0.4 % (0.0-2.0); EOSINOPHIL # 0.1 TH/MM3 (0-0.4); HEMATOCRIT 33.9 % (39.0-51.0); HEMOGLOBIN 11.6 GM/DL (13.0-17.0); LYMPH % 22.6 % (9.0-44.0); LYMPHOCYTE # 1.7 TH/MM3 (1.0-4.8); MEAN CELL VOLUME 85.8 FL (80.0-100.0); MEAN CORPUSCULAR HEMOGLOBIN 29.3 PG (27.0-34.0); MEAN CORPUSCULAR HGB CONC 34.2 % (32.0-36.0); MEAN PLATELET VOLUME 9.9 FL (7.0-11.0); MONO % 6.6 % (0.0-8.0); MONOCYTE # 0.5 TH/MM3 (0-0.9); NEUT % 69.4 % (16.0-70.0); PLATELET COUNT 149 TH/MM3 (150-450); RED BLOOD COUNT 3.95 MIL/MM3 (4.50-5.90); RED CELL DISTRIBUTION WIDTH 14.9 % (11.6-17.2); WHITE BLOOD COUNT 7.4 TH/MM3 (4.0-11.0)
[2017-10-02 07:18] LABS: BICARBONATE 27.1 MEQ/L (21.0-32.0); CALCIUM 9.1 MG/DL (8.5-10.1); CREATININE 0.67 MG/DL (0.60-1.30)
[2017-10-02 08:00] VITALS: BP 144/79; PULSE 88; RESP 15; TEMP 99.2; O2SAT 96
--- NOTE | 2017-10-02 08:16 | PD.ORT.PN ---
Subjective Subjective Remarks Somewhat tired and somnelent but able to answer questions. AAOx3. No new pain. No headaches. No episodes overnight. He continues to urinate well. He is ready for discharge 'when the neurologist is'. Objective Vitals Vital Signs Date Time Temp Pulse Resp B/P (MAP) Pulse Ox O2 Delivery O2 Flow Rate FiO2 10/02/17 07:26 Nasal Cannula 2.00 10/02/17 04:00 99.4 90 18 147/82 (103) 95 10/02/17 00:01 98.4 101 18 135/79 (97) 93 10/01/17 20:00 98.8 90 17 139/78 (98) 94 10/01/17 15:20 99.2 90 18 131/75 (93) 92 10/01/17 12:00 98.4 82 16 117/57 (77) 94 10/01/17 08:36 Nasal Cannula 2.00 I/O 10/01/17 10/01/17 10/01/17 10/02/17 10/02/17 10/02/17 07:00 15:00 23:00 07:00 15:00 23:00 Intake Total 240 ml 240 ml 360 ml Output Total 1100 ml Balance 240 ml 240 ml -740 ml Intake Oral 240 ml 240 ml 360 ml Output Urine Total 1100 ml # Voids 2 3 # Bowel Movements 0 0 Result Diagram: 10/02/17 0354 10/02/17 0354 Procedures Laminectomy L45, L5S1, Posterior lumbar fusion L4-S1 Objective Remarks Laying in bed NAD VSS L/S Dressing c/d/i, no new drainage, no erythema, mild spasm +motor at/ehl bilat, +sens, +nvi Neg homans Assessment & Plan Ortho Post Op Day #: 3 Problem List: (1) Lumbar spine instability ICD Codes: M53.2X6 - Spinal instabilities, lumbar region (2) Spinal stenosis of lumbar region with radiculopathy ICD Codes: M48.061 - Spinal stenosis, lumbar region without neurogenic claudication; M54.16 - Radiculopathy, lumbar region (3) Seizure ICD Codes: R56.9 - Unspecified convulsions Status: Acute Assessment and Plan pod#2 s/p Lami/Fusion L45 L5S1 Ortho stable. Pain still fairly well controlled. PO pain meds as needed. Seen by Dr. Velasquez neurology last night. Pt stable today. Hx of chronic seizures. PT - WBAT w walker. Out of bed with brace. Hold dressing changes unless saturated. Flomax 0.4mg but does not need to continue outpatient. Ok to d/c home today. F/U in 2 weeks as scheduled. Pt encouraged to follow up with neurology in [place] outpatient. DME written. Estrella Nolasco October 02, 2017 08:16
[2017-10-02] MEDS: PANTOPRAZOLE SOD 40 MG DELAYED RELEASE TAB PO SCH (09:52)
[2017-10-02] MEDS: DOCUSATE SODIUM 100 MG CAP PO SCH (09:52)
[2017-10-02] MEDS: metFORMIN HCL 500 MG TAB PO SCH (09:53)
[2017-10-02] MEDS: levETIRAcetam 500 MG TAB PO SCH ×2 (09:53→11:07)
[2017-10-02] MEDS: GLIMEPIRIDE 2 MG TAB PO SCH (09:54)
[2017-10-02] MEDS: TAMSULOSIN HCL 0.4 MG CAP PO SCH (09:54)
[2017-10-02] MEDS: PREGABALIN 100 MG CAP PO SCH (09:54)
[2017-10-02] MEDS: ATORVASTATIN 20 MG TAB PO SCH (09:54)
[2017-10-02] MEDS: INSULIN ASPART SUPPLEMENTAL SCALE SQ SCH ×2 (10:16→12:22)
[2017-10-02 11:05] VITALS: BP 147/86; PULSE 80; RESP 15; TEMP 98.7; O2SAT 94
--- NOTE | 2017-10-02 14:24 | HHI.PR ---
Subjective Remarks Denies any further seizure episodes. Denies cp/sob Afebrile Objective Vitals Vital Signs Date Time Temp Pulse Resp B/P (MAP) Pulse Ox O2 Delivery O2 Flow Rate FiO2 10/02/17 11:05 98.7 80 15 147/86 (106) 94 10/02/17 10:17 Room Air 10/02/17 08:00 99.2 88 15 144/79 (100) 96 10/02/17 07:26 Nasal Cannula 2.00 10/02/17 04:00 99.4 90 18 147/82 (103) 95 10/02/17 00:01 98.4 101 18 135/79 (97) 93 10/01/17 20:00 98.8 90 17 139/78 (98) 94 10/01/17 15:20 99.2 90 18 131/75 (93) 92 I/O 10/01/17 10/01/17 10/01/17 10/02/17 10/02/17 10/02/17 07:00 15:00 23:00 07:00 15:00 23:00 Intake Total 240 ml 240 ml 360 ml Output Total 1100 ml Balance 240 ml 240 ml -740 ml Intake Oral 240 ml 240 ml 360 ml Output Urine Total 1100 ml # Voids 2 3 # Bowel Movements 0 0 1 Result Diagram: 10/02/17 0354 10/02/17 0354 Imaging Last Impressions Lumbar Spine X-Ray 09/29/17 0000 Signed Impressions: Service Date/Time: Friday, September 29, 2017 17:19 - CONCLUSION: 1. Lumbar fusion as above. Lino Hooker MD Objective Remarks AAOx3 NAD Clear lungs BL S1S2 RRR, no MRG CN II through XII grossly intact. Motor grossly intact. A/P Problem List: (1) Spinal stenosis of lumbar region with radiculopathy ICD Code: M48.061 - Spinal stenosis, lumbar region without neurogenic claudication; M54.16 - Radiculopathy, lumbar region Assessment and Plan Mr. House is a 62 year-old male with a history of spinal stenosis, DDD with herniated discs, CVA with mild left sided residual, seizures, left leg DVT 5 years ago s/p tx with coumadin, GERD, [place] x 3 s/p stent placement x 2, hyperlipidemia, hypertension, COPD/asthma, AIDAN, T2DM, and osteoarthritis who presented to [facility] for L4 - S1 laminectomy/fusion/interbody cage placement by Dr. Tray Braxton on 09/29/17 and is admitted to the hospitalist service for medical management. Spinal stenosis status post L4 through S1 laminectomy/fusion/interbody cage placement by Dr. Tray Braxton -10/02 Pain controlled on oral percocet. Type 2 Diabetes Mellitus, poorly controlled - Blood glucose in the 300s despite multiple attempts at blood sugar reduction -continue to monitor and adjust as indicated - Accu-Cheks before meals and at bedtime with low-dose NovoLog sliding scale coverage - Continue home metformin and glimepiride 10/02 Blood sugar with better control in the 200's range. Continue to Dulaglutide, Glymepiride, metfromin upon DC. History of coronary artery disease status post stent placement 2 -Continue home atorvastatin, nitroglycerin -Continuous cardiac telemetry to monitor for arrhythmias Seizure disorder, stable -Continue home Keppra -Seizure precautions -IV Ativan as needed for seizure activity up to 2 doses -09/30 Patient will need to follow up outpatient follow up for VNS, instructed to call insurance to find who takes his insurance -10/01 due to seizure will check keppra level, consult neurology -10/02 continue Keppra. Appreciate neurology recommendations. No change in anticonvulsant therapy recommended. Hypothyroidism -Continue home Synthroid -Stable COPD/Asthma -Albuterol nebulizers every 4 hours as needed for shortness of breath/ wheezing -Supplemental oxygen titrated to maintain oxygen saturation greater than 92% Insomnia -On Ambien. DVT prophylaxis -SCDs/teds; chemoprophylaxis per surgeon Discharge Planning The patient is medically cleared to be discharged by primary. Mariano Rocha MD October 02, 2017 14:24
== END 2017-10-02 16:12 | disposition home health service (06) | DRG 454 ==
LOC: HSDI 09:29 → N06A 20:44
PROVIDERS: ADMIT Orthopaedic Surgery Orthopaedic Surgery of the Spine; ATTEND Orthopaedic Surgery Orthopaedic Surgery of the Spine
PROC: 0SG0071 Fusion of Lumbar Vertebral Joint with Autologous Tissue Substitute, Posterior Approach, Posterior Column, Open Approach (ICD-10-PCS; 2017-09-29)
PROC: 0SG30AJ Fusion of Lumbosacral Joint with Interbody Fusion Device, Posterior Approach, Anterior Column, Open Approach (ICD-10-PCS; 2017-09-29)
PROC: 0ST20ZZ Resection of Lumbar Vertebral Disc, Open Approach (ICD-10-PCS; 2017-09-29)
PROC: 0SG3071 Fusion of Lumbosacral Joint with Autologous Tissue Substitute, Posterior Approach, Posterior Column, Open Approach (ICD-10-PCS; 2017-09-29)
PROC: 0SG00AJ Fusion of Lumbar Vertebral Joint with Interbody Fusion Device, Posterior Approach, Anterior Column, Open Approach (ICD-10-PCS; principal; 2017-09-29 13:29)
DX: M48.061 Spinal stenosis, lumbar region without neurogenic claudication (principal); I69.354 Hemiplegia and hemiparesis following cerebral infarction affecting left non-dominant side; E11.42 Type 2 diabetes mellitus with diabetic polyneuropathy; E11.65 Type 2 diabetes mellitus with hyperglycemia; I10 Essential (primary) hypertension; M48.07 Spinal stenosis, lumbosacral region; G40.409 Other generalized epilepsy and epileptic syndromes, not intractable, without status epilepticus; Z79.84 Long term (current) use of oral hypoglycemic drugs; Z83.3 Family history of diabetes mellitus; G89.29 Other chronic pain; Z86.718 Personal history of other venous thrombosis and embolism; M19.90 Unspecified osteoarthritis, unspecified site; K21.9 Gastro-esophageal reflux disease without esophagitis; J44.9 Chronic obstructive pulmonary disease, unspecified; I25.2 Old myocardial infarction; G47.33 Obstructive sleep apnea (adult) (pediatric); E78.5 Hyperlipidemia, unspecified; M51.36 Other intervertebral disc degeneration, lumbar region; I25.10 Atherosclerotic heart disease of native coronary artery without angina pectoris; Z95.5 Presence of coronary angioplasty implant and graft; Z87.891 Personal history of nicotine dependence; E03.9 Hypothyroidism, unspecified; G47.00 Insomnia, unspecified; M53.2X6 Spinal instabilities, lumbar region; M54.17 Radiculopathy, lumbosacral region
CPT/HCPCS: 72100; 76000; 80048; 80177; 82948; 83735; 85014; 85018; 85025; 86850; 86900; 86901; 94150; C1713; J0131; J0690; J0702; J1100; J1170; J1580; J1815; J2060; J2270; J2370; J2405; J2710; J3370; J7120

== ENCOUNTER 2018-02-20 09:51 | Observation (INO) ==
[2018-02-20] MEDS ORDERED: Sod Chloride 0.9% Inj 1,000 ML IV.CONT SCH (10:30)
--- NOTE | 2018-02-20 10:39 | ED ---
HPI General Chief Complaint: Seizure Stated Complaint: poss seizure Time Seen by Provider: 02/20/18 10:15 Source: patient History of Present Illness HPI Narrative: 62-year-old male with history of seizure, diabetes, chronic back pain, was brought to the emergency room by ambulance after she had witnessed seizure episode she is breath lasted for 3 minutes as per his . Patient still confused, postictal, poor historian. Complaining about generalized back pain,leg pain. As per ambulance patient did not fall, no obvious injury noted. 1055. The arrived to the emergency room. She said that patient was complaining about generalized weakness for few days. 3 days ago she fell in the kitchen and hit his head. No obvious loss of consciousness reported. Patient complaining about generalized weakness only. Patient also fell early in the morning, just sat on the floor as per . MD complaint: seizure Witnessed: yes - by other () Seizure History: known seizure disorder Place: home Possible Precipitating Event: none Related Data Home Medications Medication Instructions Recorded Confirmed aspirin 81 mg PO DAILY 02/20/18 02/20/18 atorvastatin 20 mg PO DAILY 02/20/18 02/20/18 glimepiride 2 mg PO QAM 02/20/18 02/20/18 hydrocodone-acetaminophen 1 tab PO TID PRN 02/20/18 02/20/18 hydroxyzine HCl 25 mg PO TID PRN 02/20/18 02/20/18 levetiracetam 1,000 mg PO Q12H 02/20/18 02/20/18 metformin 1,000 mg PO BID 02/20/18 02/20/18 nitroglycerin [Nitrostat] 0.4 mg SUBLINGUAL Q5-15M PRN 02/20/18 02/20/18 omeprazole 40 mg PO DAILY 02/20/18 02/20/18 pregabalin [Lyrica] 200 mg PO BID 02/20/18 02/20/18 tizanidine 2 mg PO TID PRN 02/20/18 02/20/18 zolpidem [Ambien] 10 mg PO HS 02/20/18 02/20/18 Allergies Allergy/AdvReac Type Severity Reaction Status Date / Time levofloxacin Allergy Severe Anaphylaxis Verified 02/20/18 10:08 tapentadol Allergy Intermediate Nausea/Vomi Verified 02/20/18 10:08 ting blueberry Allergy Mild Rash Verified 02/20/18 10:08 Review of Systems ROS: all other systems reviewed are negative Neurologic Reports seizure-like activity [facility] Social History Social History Substance History: No History of Abuse Smoking Status: Former smoker How Often Do You Have a Drink Containing Alcohol: Never Recent Travel in [facility] within the Last 8 Weeks: No Recent Out of Country Travel within the Last 8 Weeks: No Immunization History Tetanus Immunization: Unsure Hx Influenza Vaccine This Season: Unable to Assess Exam Narrative Exam Narrative: GENERAL: Normal-looking 62 years old male SKIN: Focused skin assessment warm/dry. HEAD: Atraumatic. Normocephalic. EYES: Pupils equal and round. No scleral icterus. No injection or drainage. ENT: No nasal bleeding or discharge. Mucous membranes pink and moist. NECK: Trachea midline. No JVD. CARDIOVASCULAR: Regular rate and rhythm. No murmur appreciated. RESPIRATORY: No accessory muscle use. Clear to auscultation. Breath sounds equal bilaterally. GASTROINTESTINAL: Abdomen soft, non-tender, nondistended. Hepatic and splenic margins not palpable. MUSCULOSKELETAL: No obvious deformities. No clubbing. No cyanosis. No edema. NEUROLOGICAL: Awake and alert. No obvious cranial nerve deficits. Motor grossly within normal limits. Normal speech. Patient still confused PSYCHIATRIC: Appropriate mood and affect; insight and judgment normal. Course Initial Documented Vital Signs Temperature 98.4 F 02/20/18 10:08 Pulse Rate 69 02/20/18 10:08 Respiratory Rate 16 02/20/18 10:08 Blood Pressure 92/54 L 02/20/18 10:08 Pulse Oximetry 95 02/20/18 10:08 Last Documented Vital Signs Temperature 98.4 F 02/20/18 10:08 Pulse Rate 62 02/20/18 12:30 Respiratory Rate 12 02/20/18 12:30 Blood Pressure 100/63 02/20/18 12:30 Pulse Oximetry 97 02/20/18 12:48 Medical Decision Making [facility] Narrative Medical decision making narrative: Patient is 62 years old with history of diabetes and seizure, presented to emergency room after seizure activity lasted for 3 minutes, blood pressure is 92/62, denies cough, diarrhea, constipation, dysuria, no fever. 1315 Labs noted, urinalysis still pending. BP 100/86, Pt is AAOx3, denies any complaints. No neurologic deficit, will be placed on observation for hypotention. Case discussed with Dr. Kendall who agreed to accept the patient for admission to observation due to borderline blood pressure. Renal analysis still pending. Medical Screen Exam Complete: Yes Emergency Medical Condition: Yes Differential Diagnosis Differential Diagnosis: Status post seizure activity. Rule out pneumonia. Rule out UTI. Lab Data Result diagrams: 02/20/18 10:31 02/20/18 10:31 Lab Results 02/20/18 02/20/18 02/20/18 Range/Units 10:31 10:31 10:35 WBC 4.3 (4.0-11.0) th/mm3 RBC 3.87 L (4.50-5.90) mil/mm3 Hgb 11.0 L (13.0-17.0) gm/dL Hct 33.8 L (39.0-51.0) % MCV 87.2 (80.0-100.0) fL MCH 28.4 (27.0-34.0) pg MCHC 32.5 (32.0-36.0) % RDW 16.7 (11.6-17.2) % Plt Count 116 L (150-450) th/mm3 MPV 9.2 (7.0-11.0) fL Neut % (Auto) 50.7 (16.0-70.0) % Lymph % (Auto) 36.8 (9.0-44.0) % Kidder % (Auto) 7.6 (0.0-8.0) % Eos % (Auto) 4.4 H (0.0-4.0) % Baso % (Auto) 0.5 (0.0-2.0) % Neut # (Auto) 2.2 (1.8-7.7) th/mm3 Lymph # (Auto) 1.6 (1.0-4.8) th/mm3 Kidder # (Auto) 0.3 (0.0-0.9) th/mm3 Eos # (Auto) 0.2 (0.0-0.4) th/mm3 Baso # (Auto) 0.0 (0.0-0.2) th/mm3 WBC Differential . Differential Comment Auto diff final Sodium 144 (136-145) meq/L Potassium 4.0 (3.5-5.1) meq/L Chloride 111 H (98-107) meq/L Carbon Dioxide 23.6 (21.0-32.0) meq/L Anion Gap 9 (5-15) meq/L BUN 8 (7-18) mg/dL Creatinine 0.88 (0.60-1.30) mg/dL Estimated GFR 88 L (>89) mL/min Random Glucose 238 H (74-106) mg/dL Lactic Acid 3.1 H (0.4-2.0) mmol/L Calcium 8.3 L (8.5-10.1) mg/dL Magnesium 1.5 (1.5-2.5) mg/dL Imaging Data Radiologist's impression: Chest X-Ray 02/20/18 10:27 CONCLUSION: Compensated cardiomegaly without overt congestive failure. Head CT 02/20/18 10:56 CONCLUSION: 1. Negative for an acute process . Discharge Plan Discharge Disposition Patient Disposition: 30 Still Patient Discharge Condition Condition: Fair Discharge Order Discharge Orders: Discharge Order (Routine); Ordered 02/20/18 Ordered By: Jose Shore Discharge Details Diagnosis: Hypotension, Epileptic seizure, Chronic back pain, Medication side effect Physicians Team ED Provider: Jose Shore Primary Care Provider: Shashank Sandy Attending Provider: Neo Nayak Other Providers: Eldon Shelton Rxs /Orders / Referrals /Forms Prescriptions: No Action atorvastatin 20 mg Tablet 20 mg PO DAILY RF: 0 tizanidine 2 mg Tablet 2 mg PO TID PRN (Reason: Pain) RF: 0 omeprazole 40 mg Capsule,Delayed Release(Dr/Ec) 40 mg PO DAILY RF: 0 glimepiride 2 mg Tablet 2 mg PO QAM RF: 0 hydrocodone-acetaminophen 7.5-325 mg Tablet 1 tab PO TID PRN (Reason: Pain) RF: 0 metformin 1,000 mg Tablet 1,000 mg PO BID RF: 0 nitroglycerin [Nitrostat] 0.4 mg Tablet, Sublingual 0.4 mg SUBLINGUAL Q5-15M PRN (Reason: Chest Pain) RF: 0 aspirin 81 mg Tablet,Chewable 81 mg PO DAILY RF: 0 hydroxyzine HCl 25 mg Tablet 25 mg PO TID PRN (Reason: Itching) RF: 0 zolpidem [Ambien] 10 mg Tablet 10 mg PO HS RF: 0 pregabalin [Lyrica] 200 mg Capsule 200 mg PO BID RF: 0 levetiracetam 1,000 mg Tablet 1,000 mg PO Q12H RF: 0 Discharge Interventions Interventions: Vital Signs Last Done: 02/20/18 12:30 Status ED Status: Admitted Observation Patient
[2018-02-20 10:50] LABS: Baso % (Auto) 0.5 % (0.0-2.0); Eos # (Auto) 0.2 th/mm3 (0.0-0.4); Eos % (Auto) 4.4 % (0.0-4.0); Hematocrit 33.8 % (39.0-51.0); Lymph # (Auto) 1.6 th/mm3 (1.0-4.8); Lymph % (Auto) 36.8 % (9.0-44.0); Mean Corpuscular HGB Conc 32.5 % (32.0-36.0); Mean Corpuscular Hemoglobin 28.4 pg (27.0-34.0); Mean Corpuscular Volume 87.2 fL (80.0-100.0); Mean Platelet Volume 9.2 fL (7.0-11.0); Mono # (Auto) 0.3 th/mm3 (0.0-0.9); Mono % (Auto) 7.6 % (0.0-8.0); Neut # (Auto) 2.2 th/mm3 (1.8-7.7); Neut % (Auto) 50.7 % (16.0-70.0); Platelet Count 116 th/mm3 (150-450); Red Blood Count 3.87 mil/mm3 (4.50-5.90); Red Cell Distribution Width 16.7 % (11.6-17.2); White Blood Count 4.3 th/mm3 (4.0-11.0)
[2018-02-20 11:09] LABS: Calcium 8.3 mg/dL (8.5-10.1); Carbon Dioxide 23.6 meq/L (21.0-32.0); Magnesium 1.5 mg/dL (1.5-2.5)
--- NOTE | 2018-02-20 11:11 | XR ---
EXAM DATE: 02/20/2018 11:03 AM EDT AGE/SEX: 62 years / Male INDICATIONS: Shortness of breath. CLINICAL DATA: This is the patient's initial encounter. Patient reports that signs and symptoms have been present for 1 day and indicates a pain score of 8/10. MEDICAL/SURGICAL HISTORY: . Seizure, pain, shortness of breath, COPD, diabetes, pacemaker place ment one year ago. . Pacemaker COMPARISON: [facility] [place], 06/25/2017. . FINDINGS: . Vagus nerve stimulator on the left. The heart is enlarged. There is no evidence consolidation, pleural effusion or pneumothorax. Total shoulder arthroplasty on the left. CONCLUSION: Compensated cardiomegaly without overt congestive failure. Electronically signed by: Mike Melo MD 02/20/2018 11:10 AM EDT
[2018-02-20] MEDS ORDERED: [UNRECOGNIZED DRUG - OTHER] ONE (11:13)
--- NOTE | 2018-02-20 11:57 | CT ---
EXAM DATE: 02/20/2018 11:40 AM EDT AGE/SEX: 62 years / Male INDICATIONS: Seizure. CLINICAL DATA: This is the patient's initial encounter. Patient reports that signs and symptoms have been present for 1 day and indicates a pain score of 0/10. MEDICAL/SURGICAL HISTORY: Hypertension. Cardiovascular disease. Fusion, cervical. Fusion, lumbar. RADIATION DOSE: 56.35 CTDI (mGy) [place] [facility] [place]. . TECHNIQUE: CT of the head without contrast. Using automated exposure control and adjustment of the mA and/or kV according to patient size, radiation dose was kept as low as reasonably achievable to ob tain optimal diagnostic quality images. DICOM format image data is available electronically for revi ew and comparison. FINDINGS: Cerebrum: The ventricles are normal for age. No evidence of midline shift, mass lesion, hemorrhage or acute infarction. No extraaxial fluid collections are seen. Posterior Fossa: The cerebellum and brainstem are intact. The 4th ventricle is midline. The cerebe llopontine angle is unremarkable. Extracranial: The visualized portion of the orbits is intact. Skull: The calvaria is intact. No evidence of skull fracture. CONCLUSION: 1. Negative for an acute process . Electronically signed by: Mike Melo MD 02/20/2018 11:56 AM EDT
[2018-02-20] MEDS ORDERED: Magnesium Sulfate Inj 2 GM in Sodium Chlor 0.9% Inj 96 ML IV.SIG ONE (13:18)
[2018-02-20] MEDS ORDERED: Dextrose 50% in Water 50 ML Vial IV.PUSH PRN (13:20)
[2018-02-20] MEDS ORDERED: Acetaminophen 325 MG Tablet PO PRN (13:21)
[2018-02-20] MEDS: Sodium Chloride 0.45 % Inj 1,000 ML IV.CONT SCH ×2 (14:00→20:35)
--- NOTE | 2018-02-20 16:29 | P.HPIM ---
History of Present Illness Primary Care Physician: Shashank Sandy Chief Complaint: Seizure History of Present Illness: The patient is a 62-year-old male with past medical history of seizure disorder who is presenting to the hospital after sustaining another seizure. The patient says that he went to the bathroom today and all of a sudden everything went black. He is not sure how long he was unconscious for. He says he hit his head. He says that he always hits his head whenever he has a seizure. He says he last had a seizure around last September. He says he generally has a seizure every 3-4 months. He says his seizures are typically grand mals. He says he follows with a neurologist in [place] and he recently had his Keppra increased. Apparently the patient has been having weakness for the past few days. He denies any fevers. His blood pressure was initially low but improved following fluid administration. His lactic acid level was slightly elevated as well. The patient is eager to go home. He was having an EEG done. Review of Systems All other systems reviewed negative except as stated in HPI [facility] - History History Provided By: Patient - Medical History Medical History: Medical History (Last Updated 02/20/18 @ 16:26 by Neo Nayak DO) CAD (coronary artery disease) CVA (cerebral vascular accident) Chronic back pain DDD (degenerative disc disease) Diabetes 1.5, managed as type 1 GERD (gastroesophageal reflux disease) HTN (hypertension) High cholesterol AIDAN (obstructive sleep apnea) Seizure disorder Spinal stenosis Type II diabetes mellitus - Surgical History Surgical History: Surgical History (Last Reviewed 02/20/18 @ 10:16 by Jossue Mccarty) H/O cervical spine surgery History of lumbar surgery History of total left knee replacement Hx of cardiac cath - Family History Family History: Family History (Last Updated 02/20/18 @ 16:37 by Neo Nayak DO) Other Patient denies significant medical history - Social History I have reviewed the patient's Social History: Yes - Tobacco History Second Hand Smoke Exposure: No Tobacco Use In Past 30 Days: No Smoking Status: Former smoker - Alcohol History How Often Do You Have a Drink Containing Alcohol: Never - Substance Use History Substance History: No History of Abuse - Travel History Recent Travel in the [facility] Within the Last 8 Weeks: No Recent Travel Out of the Country Within the Last 8 Weeks: No - Immunization History Tetanus Immunization: Unsure Hx Influenza Vaccine This Season: Unable to Assess Medications and Allergies Active Medications: Active Medications Acetaminophen (Tylenol) 650 mg PO Q4H PRN PRN Reason: Temp > 100.4 Hydrocodone Bitart/Acetaminophen ([place] 7.5/325) 1 tab PO Q4H PRN PRN Reason: pain 3-10 Aspirin (Aspirin Chew) 81 mg PO DAILY [facility] Atorvastatin Calcium (Lipitor) 20 mg PO DAILY [facility] Dextrose (D50w Vial) 50 ml IV.PUSH UNSCH PRN PRN Reason: PER HYPOGLYCEMIA PROTOCOL Glucagon (Glucagon Inj) 1 mg OTHER PRN PRN PRN Reason: for Hypoglycemia Protocol Hydroxyzine HCl (Atarax) 25 mg PO TID PRN PRN Reason: Itching Sodium Chloride (1/2 Normal Saline Inj) 1,000 mls @ 125 mls/hr IV.CONT .Q8H [facility] Last Admin: 02/20/18 14:00 Dose: 125 mls/hr Insulin Aspart (Novolog Insulin Correctional Sugar Inj) 0 unit SQ ACHS KIM; Protocol Levetiracetam (Keppra) 1,000 mg PO Q12H KIM Lorazepam (Ativan Inj) 1 mg IV.PUSH Q15M PRN PRN Reason: SEIZURES Miscellaneous (Pill Splitter) 1 each OTHER DAILY [facility] Pantoprazole Sodium (Protonix) 40 mg PO DAILY [facility] Pregabalin (Lyrica) 200 mg PO BID [facility] Senna/Docusate Sodium (Kay-Colace) 1 tab PO BID [facility] Sodium Chloride (Ns Flush) 2 ml IV.FLUSH PRN PRN PRN Reason: FLUSH AFTER USING IV ACCESS Tizanidine HCl (Zanaflex) 2 mg PO TID PRN PRN Reason: SPASM Zolpidem Tartrate (Ambien) 10 mg PO [facility] Allergies Allergy/AdvReac Type Severity Reaction Status Date / Time levofloxacin Allergy Severe Anaphylaxis Verified 02/20/18 10:08 tapentadol Allergy Intermediate Nausea/Vomi Verified 02/20/18 10:08 ting blueberry Allergy Mild Rash Verified 02/20/18 10:08 Home Medications Medication Instructions Recorded Confirmed Type aspirin 81 mg PO DAILY 02/20/18 02/20/18 History atorvastatin 20 mg PO DAILY 02/20/18 02/20/18 History glimepiride 2 mg PO QAM 02/20/18 02/20/18 History hydrocodone-acetaminophen 1 tab PO TID PRN 02/20/18 02/20/18 History hydroxyzine HCl 25 mg PO TID PRN 02/20/18 02/20/18 History levetiracetam 1,000 mg PO Q12H 02/20/18 02/20/18 History metformin 1,000 mg PO BID 02/20/18 02/20/18 History nitroglycerin [Nitrostat] 0.4 mg SUBLINGUAL Q5-15M PRN 02/20/18 02/20/18 History omeprazole 40 mg PO DAILY 02/20/18 02/20/18 History pregabalin [Lyrica] 200 mg PO BID 02/20/18 02/20/18 History tizanidine 2 mg PO TID PRN 02/20/18 02/20/18 History zolpidem [Ambien] 10 mg PO HS 02/20/18 02/20/18 History Exam Vital signs: Vital Signs 02/20/18 10:08 02/20/18 10:16 02/20/18 12:30 Temperature 98.4 F Pulse Rate 69 68 62 Respiratory Rate 16 12 Blood Pressure 92/54 L 100/63 Pulse Oximetry 95 96 02/20/18 12:48 Temperature Pulse Rate Respiratory Rate Blood Pressure Pulse Oximetry 97 Intake & Output 02/19/18 02/20/18 02/20/18 18:59 06:59 18:59 Intake Total 475 / 475 Balance 475 / 475 Weight 84.368 kg Intake: IV 475 / 475 NS Inj 1,000 ML @ 125 mls/hr IV 375 / 375 .CONT .Q8H [facility] Rx#:[id number] Magnesium Sulfate Inj 2 GM In 100 / 100 NS Inj 96 ML @ 50 mls/hr IV.SIG ONCE ONE Rx#:[id number] Narrative: GENERAL: No distress. SKIN: Focused skin assessment warm/dry. HEAD: Atraumatic. Normocephalic. EYES: Pupils equal and round. No scleral icterus. No injection or drainage. ENT: No nasal bleeding or discharge. Mucous membranes pink and moist. NECK: Trachea midline. No JVD. CARDIOVASCULAR: Regular rate and rhythm. No murmur appreciated. RESPIRATORY: No accessory muscle use. Clear to auscultation. Breath sounds equal bilaterally. GASTROINTESTINAL: Abdomen soft, non-tender, nondistended. Hepatic and splenic margins not palpable. MUSCULOSKELETAL: No obvious deformities. No clubbing. No cyanosis. No edema. NEUROLOGICAL: Awake and alert. No obvious cranial nerve deficits. Motor grossly within normal limits. Normal speech. Results - Labs CBC & Chem 7: 02/20/18 10:31 02/20/18 10:31 Labs: Short CBC 02/20/18 Range/Units 10:31 WBC 4.3 (4.0-11.0) th/mm3 Hgb 11.0 L (13.0-17.0) gm/dL Hct 33.8 L (39.0-51.0) % Plt Count 116 L (150-450) th/mm3 BMP 02/20/18 10:31 Sodium 144 Potassium 4.0 Chloride 111 H Carbon Dioxide 23.6 BUN 8 Creatinine 0.88 Calcium 8.3 L - Imaging Impressions Chest X-Ray 02/20/18 10:27 CONCLUSION: Compensated cardiomegaly without overt congestive failure. Head CT 02/20/18 10:56 CONCLUSION: 1. Negative for an acute process . Caprini VTE Risk Assessment Caprini VTE Risk Assessment: Moderate/High Risk (score >= 2) Caprini Risk Assessment Model: Point Value = 1 Point Value = 2 Point Value = 3 Point Value = 5 Age 41-60 Minor surgery BMI > 25 kg/m2 Swollen legs Varicose veins or History of unexplained or recurrent spontaneous Oral contraceptives or hormone replacement Sepsis (< 1 month) Serious lung disease, including pneumonia (< 1 month) Abnormal pulmonary function Acute myocardial infarction Congestive heart failure (< 1 month) History of inflammatory bowel disease Medical patient at bed rest Age 61-74 Arthroscopic surgery Major open surgery (> 45 min) Laparoscopic surgery (> 45 min) Malignancy Confined to bed (> 72 hours) Immobilizing plaster cast Central venous access Age >= 75 History of VTE Family history of VTE Factor V Leiden Prothrombin [id number] Lupus anticoagulant Anticardiolipin antibodies Elevated serum homocysteine Heparin-induced thrombocytopenia Other congenital or acquired thrombophilia Stroke (< 1 month) Elective arthroplasty Hip, pelvis, or leg fracture Acute spinal cord injury (< 1 month) Prophylaxis Regimen: Total Risk Factor Score Risk Level Prophylaxis Regimen 0-1 Low Early ambulation 2 Moderate Order ONE of the following: *Sequential Compression Device (SCD) *Heparin 5000 units SQ BID 3-4 Higher Order ONE of the following medications: *Heparin 5000 units SQ TID *Enoxaparin/Lovenox 40 mg SQ daily (WT < 150 kg, CrCl > 30 mL/min) *Enoxaparin/Lovenox 30 mg SQ daily (WT < 150 kg, CrCl > 10-29 mL/min) *Enoxaparin/Lovenox 30 mg SQ BID (WT < 150 kg, CrCl > 30 mL/min) AND/OR *Sequential Compression Device (SCD) 5 or more Highest Order ONE of the following medications: *Heparin 5000 units SQ TID (Preferred with Epidurals) *Enoxaparin/Lovenox 40 mg SQ daily (WT < 150 kg, CrCl > 30 mL/min) *Enoxaparin/Lovenox 30 mg SQ daily (WT < 150 kg, CrCl > 10-29 mL/min) *Enoxaparin/Lovenox 30 mg SQ BID (WT < 150 kg, CrCl > 30 mL/min) AND *Sequential Compression Device (SCD) Assessment and Plan - Plan Seizure disorder The pt states that he has seizures every 3-4 months. Typically grand mals. Head CT unremarkable. Confusion seems to have resolved. -EEG pending. -neuro consult requested. -neuro checks, seizure precautions. -continue Keppra and Lyrica. -IV Ativan as needed. -check CPK level. -PT eval. Lactic acidosis S/t seizure. -IVFs. -follow lactic acid level. Hypotension Normally hypertensive. Likely s/t seizure. Improved with fluids. -continue IVFs and monitor. DM On oral meds as an outpt. -hold home regimen. -insulin sliding scale. -add Levemir if needed. Anemia Normocytic. -check B12, folate, iron studies. AIDAN Pt requests CPAP. -CPAP HS requested. CAD S/p stents. No chest pain. -continue cardiac regimen including ASA and statin. PPx: SCDs, Lovenox Code Status: Full
[2018-02-20 17:15] LABS: Iron 44 mcg/dL (65-175)
[2018-02-20 17:40] LABS: % Iron Saturation 11.4 % (20-50); Ferritin 16 ng/mL (26-388); Total Iron Binding Capacity 386 mcg/dL (250-450); Vitamin B12 282 pg/mL (193-986)
[2018-02-20] MEDS: Insulin NovoLOG Aspart Correctional Sugar Inj SQ SCH ×2 (18:34→20:34)
[2018-02-20 19:23] LABS: Bilirubin,Urine Negative (Negative); Clarity,Urine Clear (Clear); Color,Urine Yellow (Yellw/Straw); Glucose,Urine (UA) 150 mg/dL (Negative); Hyaline Casts,Urine 9 /lpf (0-3); Leukocyte Esterase,Urine Negative (Negative); Mucus,Urine Few /lpf (Occasional); Nitrite,Urine Negative (Negative); Specific Gravity,Urine 1.027 (1.002-1.035)
[2018-02-20] MEDS: levETIRAcetam 500 MG Tablet PO SCH (20:29)
[2018-02-20] MEDS: Senna/Docusate Sodium 8.6/50 MG Tablet PO SCH (20:29)
[2018-02-21] MEDS: Sodium Chloride 0.45 % Inj 1,000 ML IV.CONT SCH (05:14)
[2018-02-21 07:48] LABS: Baso % (Auto) 0.9 % (0.0-2.0); Eos # (Auto) 0.2 th/mm3 (0.0-0.4); Eos % (Auto) 4.9 % (0.0-4.0); Hematocrit 34.9 % (39.0-51.0); Hemoglobin 11.5 gm/dL (13.0-17.0); Lymph # (Auto) 1.8 th/mm3 (1.0-4.8); Lymph % (Auto) 44.6 % (9.0-44.0); Mean Corpuscular Hemoglobin 28.4 pg (27.0-34.0); Mean Corpuscular Volume 86.2 fL (80.0-100.0); Mono # (Auto) 0.3 th/mm3 (0.0-0.9); Mono % (Auto) 6.4 % (0.0-8.0); Neut # (Auto) 1.7 th/mm3 (1.8-7.7); Neut % (Auto) 43.2 % (16.0-70.0); Platelet Count 101 th/mm3 (150-450); Red Blood Count 4.05 mil/mm3 (4.50-5.90); Red Cell Distribution Width 16.6 % (11.6-17.2)
[2018-02-21 07:59] VITALS: BP 132/80; PULSE 62; RESP 16; TEMP 98.6
[2018-02-21 08:16] LABS: Alanine Aminotransferase 41 U/L (12-78); Albumin 3.2 g/dL (3.4-5.0); Anion Gap 11 meq/L (5-15); Aspartate Aminotransferase 60 U/L (15-37); Blood Urea Nitrogen 8 mg/dL (7-18); Carbon Dioxide 22.3 meq/L (21.0-32.0); Chloride 108 meq/L (98-107); Glomerular Filtration Rate Greater Than 89 mL/min (>89); Glucose,Random 150 mg/dL (74-106); Sodium 141 meq/L (136-145)
[2018-02-21 08:18] LABS: Alkaline Phosphatase 80 U/L (45-117); Creatine Kinase 115 U/L (39-308); Total Protein 6.8 g/dL (6.4-8.2)
[2018-02-21] MEDS: Senna/Docusate Sodium 8.6/50 MG Tablet PO SCH (08:18)
[2018-02-21] MEDS: levETIRAcetam 500 MG Tablet PO SCH (08:18)
[2018-02-21] MEDS: Insulin NovoLOG Aspart Correctional Sugar Inj SQ SCH ×2 (08:20→12:13)
--- NOTE | 2018-02-21 08:37 | P.CONNEU ---
History of Present Illness Service: Neurology Primary Care Provider: Shashank Sandy Chief Complaint: Seizure History of Present Illness: 62-year-old male admitted for breakthrough seizure. He has had seizures since age of 15. Is currently on Keppra also takes Lyrica twice a day. Slept well no further seizures. States he has a seizure every 5-6 months. He is on disability does not work. Denies any fever night sweats chills any focal weakness or visual loss or focal numbness. Had breakfast feels well states he is ready to go home. No aura states seizures usually just generalized tonic-clonic. States he is somewhat reactive to photic stimulation. No family history of seizures. Review of Systems All other systems reviewed negative except as stated in HPI [facility] - History History Provided By: Patient - Medical History Medical History: Medical History (Last Reviewed 02/21/18 @ 07:12 by Marina Ferro) CAD (coronary artery disease) CVA (cerebral vascular accident) Chronic back pain DDD (degenerative disc disease) Diabetes 1.5, managed as type 1 GERD (gastroesophageal reflux disease) HTN (hypertension) High cholesterol AIDAN (obstructive sleep apnea) Seizure disorder Spinal stenosis Type II diabetes mellitus - Surgical History Surgical History: Surgical History (Last Reviewed 02/21/18 @ 07:12 by Marina Ferro) H/O cervical spine surgery History of lumbar surgery History of total left knee replacement Hx of cardiac cath - Family History Family History: Family History (Last Reviewed 02/21/18 @ 07:12 by Marina Ferro) Other Patient denies significant medical history - Tobacco History Second Hand Smoke Exposure: No Tobacco Use In Past 30 Days: No Smoking Status: Former smoker Tobacco Type: Cigarettes - Alcohol History How Often Do You Have a Drink Containing Alcohol: Never - Substance Use History Substance History: No History of Abuse - Travel History Recent Travel in the [place] Within the Last 8 Weeks: No Recent Travel Out of the Country Within the Last 8 Weeks: No - Immunization History Tetanus Immunization: Unsure Hx Influenza Vaccine This Season: Unable to Assess Medications and Allergies Active Medications: Active Medications Acetaminophen (Tylenol) 650 mg PO Q4H PRN PRN Reason: Temp > 100.4 Hydrocodone Bitart/Acetaminophen ([place] 7.5/325) 1 tab PO Q4H PRN PRN Reason: pain 3-10 Last Admin: 02/20/18 17:21 Dose: 1 tab Ascorbic Acid (Vitamin C) 250 mg PO BID@1200,1700 [facility] Aspirin (Aspirin Chew) 81 mg PO DAILY [facility] Last Admin: 02/21/18 08:19 Dose: 81 mg Atorvastatin Calcium (Lipitor) 20 mg PO DAILY [facility] Last Admin: 02/21/18 08:18 Dose: 20 mg Cyanocobalamin (Vitamin B12 Inj) 1,000 mcg IM ONCE ONE Stop: 02/21/18 10:01 Dextrose (D50w Vial) 50 ml IV.PUSH UNSCH PRN PRN Reason: PER HYPOGLYCEMIA PROTOCOL Enoxaparin Sodium (Lovenox Inj) 40 mg SQ DAILY [facility] Last Admin: 02/21/18 08:19 Dose: Not Given Ferrous Sulfate (Ferosul) 325 mg PO BID@1200,1700 [facility] Glucagon (Glucagon Inj) 1 mg OTHER PRN PRN PRN Reason: for Hypoglycemia Protocol Hydroxyzine HCl (Atarax) 25 mg PO TID PRN PRN Reason: Itching Sodium Chloride (1/2 Normal Saline Inj) 1,000 mls @ 125 mls/hr IV.CONT .Q8H [facility] Last Admin: 02/21/18 05:14 Dose: 125 mls/hr Insulin Aspart (Novolog Insulin Correctional Sugar Inj) 0 unit SQ ACHS [facility]; Protocol Last Admin: 02/21/18 08:20 Dose: 1 unit Levetiracetam (Keppra) 1,000 mg PO Q12H [facility] Last Admin: 02/21/18 08:18 Dose: 1,000 mg Lorazepam (Ativan Inj) 1 mg IV.PUSH Q15M PRN PRN Reason: SEIZURES Miscellaneous (Pill Splitter) 1 each OTHER DAILY [facility] Last Admin: 02/21/18 08:31 Dose: Not Given Pantoprazole Sodium (Protonix) 40 mg PO DAILY [facility] Last Admin: 02/21/18 08:18 Dose: 40 mg Pregabalin (Lyrica) 200 mg PO BID [facility] Last Admin: 02/21/18 08:17 Dose: 200 mg Senna/Docusate Sodium (Kay-Colace) 1 tab PO BID [facility] Last Admin: 02/21/18 08:18 Dose: Not Given Sodium Chloride (Ns Flush) 2 ml IV.FLUSH PRN PRN PRN Reason: FLUSH AFTER USING IV ACCESS Tizanidine HCl (Zanaflex) 2 mg PO TID PRN PRN Reason: SPASM Zolpidem Tartrate (Ambien) 10 mg PO HS [facility] Last Admin: 02/20/18 20:29 Dose: 10 mg Allergies Allergy/AdvReac Type Severity Reaction Status Date / Time levofloxacin Allergy Severe Anaphylaxis Verified 02/20/18 10:08 tapentadol Allergy Intermediate Nausea/Vomi Verified 02/20/18 10:08 ting blueberry Allergy Mild Rash Verified 02/20/18 10:08 Home Medications Medication Instructions Recorded Confirmed Type aspirin 81 mg PO DAILY 02/20/18 02/20/18 History atorvastatin 20 mg PO DAILY 02/20/18 02/20/18 History glimepiride 2 mg PO QAM 02/20/18 02/20/18 History hydrocodone-acetaminophen 1 tab PO TID PRN 02/20/18 02/20/18 History hydroxyzine HCl 25 mg PO TID PRN 02/20/18 02/20/18 History levetiracetam 1,000 mg PO Q12H 02/20/18 02/20/18 History metformin 1,000 mg PO BID 02/20/18 02/20/18 History nitroglycerin [Nitrostat] 0.4 mg SUBLINGUAL Q5-15M PRN 02/20/18 02/20/18 History omeprazole 40 mg PO DAILY 02/20/18 02/20/18 History pregabalin [Lyrica] 200 mg PO BID 02/20/18 02/20/18 History tizanidine 2 mg PO TID PRN 02/20/18 02/20/18 History zolpidem [Ambien] 10 mg PO HS 02/20/18 02/20/18 History Exam Vital signs: Vital Signs 02/20/18 10:08 02/20/18 10:16 02/20/18 12:30 Temperature 98.4 F Pulse Rate 69 68 62 Respiratory Rate 16 12 Blood Pressure 92/54 L 100/63 Pulse Oximetry 95 96 02/20/18 12:48 02/20/18 15:00 02/20/18 15:30 Temperature Pulse Rate 58 L 60 Respiratory Rate 12 12 Blood Pressure 90/57 L 105/65 Pulse Oximetry 97 96 97 02/20/18 16:30 02/20/18 17:32 02/20/18 19:10 Temperature 97.8 F Pulse Rate 60 64 66 Respiratory Rate 14 18 Blood Pressure 115/69 131/80 Pulse Oximetry 99 02/20/18 19:23 02/20/18 20:00 02/20/18 23:59 Temperature 98.7 F Pulse Rate 62 Respiratory Rate 18 Blood Pressure 115/75 Pulse Oximetry 98 98 97 02/21/18 00:00 02/21/18 04:00 02/21/18 07:55 Temperature 97.3 F L 98.1 F 98.6 F Pulse Rate 66 70 62 Respiratory Rate 18 18 16 Blood Pressure 126/76 119/72 132/80 Pulse Oximetry 98 97 96 Intake & Output 02/20/18 02/21/18 02/21/18 18:59 06:59 18:59 Intake Total 475 / 475 2750 / 2750 Balance 475 / 475 2750 / 2750 Weight 84.368 kg Intake: IV 475 / 475 2750 / 2750 NS Inj 1,000 ML @ 125 mls/hr IV 375 / 375 750 / 750 .CONT .Q8H [facility] Rx#:[id number] 1/2 Normal Saline Inj 1,000 ML 2000 / 2000 @ 125 mls/hr IV.CONT .Q8H [facility] Rx#:[id number] Magnesium Sulfate Inj 2 GM In 100 / 100 NS Inj 96 ML @ 50 mls/hr IV.SIG ONCE ONE Rx#:[id number] Narrative: GENERAL: in NAD, SKIN: Warm and dry. HEAD: Atraumatic. Normocephalic. EYES: Pupils equal and round. No scleral icterus. ENT: No nasal bleeding or discharge. Mucous membranes pink and moist. NECK: Trachea midline. No JVD. CARDIOVASCULAR: Regular rate and rhythm. RESPIRATORY: No accessory muscle use. GASTROINTESTINAL: Abdomen soft, non-tender, nondistended. MUSCULOSKELETAL: Extremities without clubbing, cyanosis, or edema. No obvious deformities. NEUROLOGICAL: Awake and alert. No aphasia, oriented 3 fluent articulate, No facial asymmetry, OU 3-2mm, eomi, VFF, No drift, Motor grossly within normal limits. Five out of 5 muscle strength in the arms and legs. Tone normal in all 4 limbs, Sensory normal in all 4 extremities to pin, msr 1-2+ sym, no clonus, planterflexor, PSYCHIATRIC: Appropriate mood and affect; insight and judgment normal. - Constitutional no acute distress - Routine HEENT Exam Head: Present: normocephalic Eye: Present: EOMI Results - Labs CBC & Chem 7: 02/21/18 06:00 02/21/18 06:00 Labs: Laboratory Results - last 24 hr 02/20/18 02/20/18 02/20/18 10:31 10:31 10:31 WBC 4.3 RBC 3.87 L Hgb 11.0 L Hct 33.8 L MCV 87.2 MCH 28.4 MCHC 32.5 RDW 16.7 Plt Count 116 L MPV 9.2 Neut % (Auto) 50.7 Lymph % (Auto) 36.8 [place] % (Auto) 7.6 Eos % (Auto) 4.4 H Baso % (Auto) 0.5 Neut # (Auto) 2.2 Lymph # (Auto) 1.6 [place] # (Auto) 0.3 Eos # (Auto) 0.2 Baso # (Auto) 0.0 WBC Differential . Differential Comment Auto diff final Sodium 144 Potassium 4.0 Chloride 111 H Carbon Dioxide 23.6 Anion Gap 9 BUN 8 Creatinine 0.88 Estimated GFR 88 L POC Glucose Random Glucose 238 H Lactic Acid Calcium 8.3 L Magnesium 1.5 Iron 44 L TIBC 386 % Saturation 11.4 L Ferritin 16 L Total Bilirubin AST ALT Alkaline Phosphatase Total Creatine Kinase Total Protein Albumin Vitamin B12 282 Folate Greater than 20.0 H Urine Color Urine Clarity Urine pH Ur Specific Halls Urine Protein Urine Glucose (UA) Urine Ketones Urine Occult Blood Urine Nitrate Urine Bilirubin Urine Urobilinogen Ur Leukocyte Esterase Urine RBC Urine WBC Hyaline Casts Urine Mucus Ur Microscopic Review 02/20/18 02/20/18 02/20/18 10:35 16:30 18:33 WBC RBC Hgb Hct MCV MCH MCHC RDW Plt Count MPV Neut % (Auto) Lymph % (Auto) [place] % (Auto) Eos % (Auto) Baso % (Auto) Neut # (Auto) Lymph # (Auto) [place] # (Auto) Eos # (Auto) Baso # (Auto) WBC Differential Differential Comment Sodium Potassium Chloride Carbon Dioxide Anion Gap BUN Creatinine Estimated GFR POC Glucose 132 H Random Glucose Lactic Acid 3.1 H 2.3 H Calcium Magnesium Iron TIBC % Saturation Ferritin Total Bilirubin AST ALT Alkaline Phosphatase Total Creatine Kinase Total Protein Albumin Vitamin B12 Folate Urine Color Urine Clarity Urine pH Ur Specific Halls Urine Protein Urine Glucose (UA) Urine Ketones Urine Occult Blood Urine Nitrate Urine Bilirubin Urine Urobilinogen Ur Leukocyte Esterase Urine RBC Urine WBC Hyaline Casts Urine Mucus Ur Microscopic Review 02/20/18 02/20/18 02/21/18 18:50 20:32 00:33 WBC RBC Hgb Hct MCV MCH MCHC RDW Plt Count MPV Neut % (Auto) Lymph % (Auto) [place] % (Auto) Eos % (Auto) Baso % (Auto) Neut # (Auto) Lymph # (Auto) [place] # (Auto) Eos # (Auto) Baso # (Auto) WBC Differential Differential Comment Sodium Potassium Chloride Carbon Dioxide Anion Gap BUN Creatinine Estimated GFR POC Glucose 197 H 161 H Random Glucose Lactic Acid Calcium Magnesium Iron TIBC % Saturation Ferritin Total Bilirubin AST ALT Alkaline Phosphatase Total Creatine Kinase Total Protein Albumin Vitamin B12 Folate Urine Color Yellow Urine Clarity Clear Urine pH 5.0 Ur Specific Halls 1.027 Urine Protein Negative Urine Glucose (UA) 150 H Urine Ketones Negative Urine Occult Blood Negative Urine Nitrate Negative Urine Bilirubin Negative Urine Urobilinogen 2.0 H Ur Leukocyte Esterase Negative Urine RBC 1 Urine WBC 3 Hyaline Casts 9 Urine Mucus Few H Ur Microscopic Review Not Reportable 02/21/18 02/21/18 02/21/18 06:00 06:00 06:24 WBC 4.0 RBC 4.05 L Hgb 11.5 L Hct 34.9 L MCV 86.2 MCH 28.4 MCHC 33.0 RDW 16.6 Plt Count 101 L MPV 9.0 Neut % (Auto) 43.2 Lymph % (Auto) 44.6 H [place] % (Auto) 6.4 Eos % (Auto) 4.9 H Baso % (Auto) 0.9 Neut # (Auto) 1.7 L Lymph # (Auto) 1.8 [place] # (Auto) 0.3 Eos # (Auto) 0.2 Baso # (Auto) 0.0 WBC Differential . Differential Comment Auto diff final Sodium 141 Potassium 4.0 Chloride 108 H Carbon Dioxide 22.3 Anion Gap 11 BUN 8 Creatinine 0.77 Estimated GFR Greater than 89 POC Glucose 157 H Random Glucose 150 H Lactic Acid Calcium 8.0 L Magnesium Iron TIBC % Saturation Ferritin Total Bilirubin 1.0 AST 60 H ALT 41 Alkaline Phosphatase 80 Total Creatine Kinase 115 Total Protein 6.8 Albumin 3.2 L Vitamin B12 Folate Urine Color Urine Clarity Urine pH Ur Specific Halls Urine Protein Urine Glucose (UA) Urine Ketones Urine Occult Blood Urine Nitrate Urine Bilirubin Urine Urobilinogen Ur Leukocyte Esterase Urine RBC Urine WBC Hyaline Casts Urine Mucus Ur Microscopic Review - Imaging Impressions Chest X-Ray 02/20/18 10:27 CONCLUSION: Compensated cardiomegaly without overt congestive failure. Head CT 02/20/18 10:56 CONCLUSION: 1. Negative for an acute process . Review/Management - Diagnosis (1) Hypotension Code(s): I95.9 - Hypotension, unspecified Status: Acute Current Visit: Yes (2) Epileptic seizure Code(s): G40.909 - Epilepsy, unspecified, not intractable, without status epilepticus Status: Acute Current Visit: Yes (3) Chronic back pain Code(s): M54.9 - Dorsalgia, unspecified; G89.29 - Other chronic pain Status: Acute Current Visit: Yes - Review/Management Plan: Breakthrough seizure CT brain negative. Vitals stable. No leukocytosis. EEG no active seizures Recommendations Increase Keppra to 1000 3 times daily Increase Lyrica to 200 3 times daily as it can be used for seizures and pain control Can be discharged from our standpoint followed up with his outpatient primary care physician and neurologist Hydration avoid sleep deprivation No driving, operating any heavy machinery or dangerous machinery, swimming alone for at least 6 months of being seizure, spell free.
[2018-02-21] MEDS ORDERED: Enoxaparin Inj 40 MG/0.4 ML Syringe SQ SCH (09:00)
--- NOTE | 2018-02-21 10:06 | MG ---
cc: Eldon Shelton MD EEG RECORD NUMBER: [id number] [place]ta frequencies of 4-5 Hz occurring in a generalized fashion, 10-40 microvolts. Mild myogenic artifact. Good EEG variability reactivity. Limited driving with photic stimulation. Single-lead EKG showing sinus rhythm. INTERPRETATION: Mild encephalopathy. No epileptic activity. Clinical correlation. MD GERA Mai/arlette , 08:27 AM , 08:31 AM
[2018-02-21] MEDS ORDERED: Ascorbic Acid 500 MG Tablet PO SCH (12:00)
[2018-02-21] MEDS ORDERED: Ferrous Sulfate 325 MG Tablet PO SCH (12:00)
[2018-02-21] MEDS ORDERED: levETIRAcetam 500 MG Tablet PO ONE (12:00)
[2018-02-21 12:15] VITALS: O2SAT 97
--- NOTE | 2018-02-21 13:40 | P.PN ---
Subjective Interval history: Follow-up on patient with seizure. Patient seen and examined. Patient denies any complaints. States he slept well. Denies any confusion, headache, vision changes, numbness/tingling or weakness. Denies any fever or chills. Denies any chest pain or shortness of breath. Physical Exam Vital signs: Vital Signs 02/20/18 15:00 02/20/18 15:30 02/20/18 16:30 Temperature Pulse Rate 58 L 60 60 Respiratory Rate 12 12 14 Blood Pressure 90/57 L 105/65 115/69 Pulse Oximetry 96 97 02/20/18 17:32 02/20/18 19:10 02/20/18 19:23 Temperature 97.8 F 98.7 F Pulse Rate 64 66 62 Respiratory Rate 18 18 Blood Pressure 131/80 115/75 Pulse Oximetry 99 98 02/20/18 20:00 02/20/18 23:59 02/21/18 00:00 Temperature 97.3 F L Pulse Rate 66 Respiratory Rate 18 Blood Pressure 126/76 Pulse Oximetry 98 97 98 02/21/18 04:00 02/21/18 07:55 02/21/18 08:00 Temperature 98.1 F 98.6 F Pulse Rate 70 62 Respiratory Rate 18 16 Blood Pressure 119/72 132/80 Pulse Oximetry 97 96 96 02/21/18 12:14 Temperature Pulse Rate Respiratory Rate Blood Pressure Pulse Oximetry 97 Intake & Output 02/20/18 02/21/18 02/21/18 18:59 06:59 18:59 Intake Total 475 / 475 2750 / 2750 1000 / 1000 Balance 475 / 475 2750 / 2750 1000 / 1000 Weight 84.368 kg Intake: IV 475 / 475 2750 / 2750 1000 / 1000 NS Inj 1,000 ML @ 125 mls/hr IV 375 / 375 750 / 750 .CONT .Q8H KIM Rx#:[id number] 1/2 Normal Saline Inj 1,000 ML 2000 / 2000 1000 / 1000 @ 125 mls/hr IV.CONT .Q8H KIM Rx#:[id number] Magnesium Sulfate Inj 2 GM In 100 / 100 NS Inj 96 ML @ 50 mls/hr IV.SIG ONCE ONE Rx#:[id number] Narrative: GENERAL: WDWN male, awake and alert. In no acute distress. SKIN: Warm and dry. HEENT: Atraumatic. Normocephalic. Pupils equal and round. No scleral icterus. No injection or drainage. No nasal bleeding or discharge. Mucous membranes pink and moist. NECK: Trachea midline. CARDIOVASCULAR: Regular rate and rhythm. RESPIRATORY: No accessory muscle use. Clear to auscultation. Breath sounds equal bilaterally. GASTROINTESTINAL: Abdomen soft, non-tender, nondistended. BS normal. MUSCULOSKELETAL: Extremities without clubbing, cyanosis, or edema. No obvious deformities. NEUROLOGICAL: Awake and alert. No obvious cranial nerve deficits. Motor grossly within normal limits. Able to move all extremities spontaneously. Normal speech. PSYCHIATRIC: Appropriate mood and affect; insight and judgment normal. Results - Labs CBC & Chem 7: 02/21/18 06:00 02/21/18 06:00 Laboratory Results - last 24 hr 02/20/18 02/20/18 02/20/18 10:31 16:30 18:33 WBC RBC Hgb Hct MCV MCH MCHC RDW Plt Count MPV Neut % (Auto) Lymph % (Auto) [place] % (Auto) Eos % (Auto) Baso % (Auto) Neut # (Auto) Lymph # (Auto) [place] # (Auto) Eos # (Auto) Baso # (Auto) WBC Differential Differential Comment Sodium Potassium Chloride Carbon Dioxide Anion Gap BUN Creatinine Estimated GFR POC Glucose 132 H Random Glucose Lactic Acid 2.3 H Calcium Iron 44 L TIBC 386 % Saturation 11.4 L Ferritin 16 L Total Bilirubin AST ALT Alkaline Phosphatase Total Creatine Kinase Total Protein Albumin Vitamin B12 282 Folate Greater than 20.0 H Urine Color Urine Clarity Urine pH Ur Specific [place] Urine Protein Urine Glucose (UA) Urine Ketones Urine Occult Blood Urine Nitrate Urine Bilirubin Urine Urobilinogen Ur Leukocyte Esterase Urine RBC Urine WBC Hyaline Casts Urine Mucus Ur Microscopic Review 02/20/18 02/20/18 02/21/18 18:50 20:32 00:33 WBC RBC Hgb Hct MCV MCH MCHC RDW Plt Count MPV Neut % (Auto) Lymph % (Auto) [place] % (Auto) Eos % (Auto) Baso % (Auto) Neut # (Auto) Lymph # (Auto) [place] # (Auto) Eos # (Auto) Baso # (Auto) WBC Differential Differential Comment Sodium Potassium Chloride Carbon Dioxide Anion Gap BUN Creatinine Estimated GFR POC Glucose 197 H 161 H Random Glucose Lactic Acid Calcium Iron TIBC % Saturation Ferritin Total Bilirubin AST ALT Alkaline Phosphatase Total Creatine Kinase Total Protein Albumin Vitamin B12 Folate Urine Color Yellow Urine Clarity Clear Urine pH 5.0 Ur Specific [place] 1.027 Urine Protein Negative Urine Glucose (UA) 150 H Urine Ketones Negative Urine Occult Blood Negative Urine Nitrate Negative Urine Bilirubin Negative Urine Urobilinogen 2.0 H Ur Leukocyte Esterase Negative Urine RBC 1 Urine WBC 3 Hyaline Casts 9 Urine Mucus Few H Ur Microscopic Review Not Reportable 02/21/18 02/21/18 02/21/18 06:00 06:00 06:24 WBC 4.0 RBC 4.05 L Hgb 11.5 L Hct 34.9 L MCV 86.2 MCH 28.4 MCHC 33.0 RDW 16.6 Plt Count 101 L MPV 9.0 Neut % (Auto) 43.2 Lymph % (Auto) 44.6 H [place] % (Auto) 6.4 Eos % (Auto) 4.9 H Baso % (Auto) 0.9 Neut # (Auto) 1.7 L Lymph # (Auto) 1.8 [place] # (Auto) 0.3 Eos # (Auto) 0.2 Baso # (Auto) 0.0 WBC Differential . Differential Comment Auto diff final Sodium 141 Potassium 4.0 Chloride 108 H Carbon Dioxide 22.3 Anion Gap 11 BUN 8 Creatinine 0.77 Estimated GFR Greater than 89 POC Glucose 157 H Random Glucose 150 H Lactic Acid Calcium 8.0 L Iron TIBC % Saturation Ferritin Total Bilirubin 1.0 AST 60 H ALT 41 Alkaline Phosphatase 80 Total Creatine Kinase 115 Total Protein 6.8 Albumin 3.2 L Vitamin B12 Folate Urine Color Urine Clarity Urine pH Ur Specific [place] Urine Protein Urine Glucose (UA) Urine Ketones Urine Occult Blood Urine Nitrate Urine Bilirubin Urine Urobilinogen Ur Leukocyte Esterase Urine RBC Urine WBC Hyaline Casts Urine Mucus Ur Microscopic Review 02/21/18 07:54 WBC RBC Hgb Hct MCV MCH MCHC RDW Plt Count MPV Neut % (Auto) Lymph % (Auto) [place] % (Auto) Eos % (Auto) Baso % (Auto) Neut # (Auto) Lymph # (Auto) [place] # (Auto) Eos # (Auto) Baso # (Auto) WBC Differential Differential Comment Sodium Potassium Chloride Carbon Dioxide Anion Gap BUN Creatinine Estimated GFR POC Glucose 152 H Random Glucose Lactic Acid Calcium Iron TIBC % Saturation Ferritin Total Bilirubin AST ALT Alkaline Phosphatase Total Creatine Kinase Total Protein Albumin Vitamin B12 Folate Urine Color Urine Clarity Urine pH Ur Specific [place] Urine Protein Urine Glucose (UA) Urine Ketones Urine Occult Blood Urine Nitrate Urine Bilirubin Urine Urobilinogen Ur Leukocyte Esterase Urine RBC Urine WBC Hyaline Casts Urine Mucus Ur Microscopic Review - Imaging ITS Impressions Chest X-Ray 02/20/18 10:27 CONCLUSION: Compensated cardiomegaly without overt congestive failure. Head CT 02/20/18 10:56 CONCLUSION: 1. Negative for an acute process . Assessment and Plan - Plan Seizure disorder The pt states that he has seizures every 3-4 months. Typically grand mals. Head CT unremarkable. Confusion seems to have resolved. No recurrence of seizure activity -EEG neg for active seizures -Neurology following, cleared for discharge. Increase Keppra 1000mg to TID and Lyrica 200mg to TID. No driving, operating any heavy machinery or dangerous machinery, swimming alone for at least 6 months of being seizure, spell free. -Hydration, avoid sleep deprivation -evaluated by PT, no needs identified at discharge Hypotension Normally hypertensive. Likely s/t seizure. Improved with fluids. -BP now 132/80 -d/c IVF DM On oral meds as an outpt. -hold home regimen. -insulin sliding scale. Anemia Normocytic. iron 44, %sat 11.4, ferritin 16 H/H stable -iron studies reveal component of BRENT -start on po iron supplementation B12 deficiency B12 low normal -give 1000mcg IM now x 1 AIDAN Pt requests CPAP. -CPAP HS requested. CAD S/p stents. No chest pain. -continue cardiac regimen including ASA and statin. PPx: SCDs, Lovenox Discharge patient to home Condition on discharge: Stable Heart healthy diabetic Diet as tolerated Ad Aga activity except No driving, operating any heavy machinery or dangerous machinery, swimming alone for at least 6 months of being seizure, spell free. Rx written: Lyrica 200mg TID, Keppra 1000mg TID, Ativan 1mg prn seizures, Ferrous sulfate, Vitamin C Follow-up with primary care physician and neurologist Discussed Condition With: patient, nursing staff, Dr. Funez
== END 2018-02-21 12:51 | disposition home or self-care (01) ==
LOC: NEDA 09:51 → NEPC 09:51 → NEPHCDU 17:13 → UNDODISOB 02-21 10:39
PROVIDERS: ADMIT Family Medicine; ATTEND Family Medicine
DX: D64.9 Anemia, unspecified; G89.29 Other chronic pain; I25.10 Atherosclerotic heart disease of native coronary artery without angina pectoris; Z96.652 Presence of left artificial knee joint; M54.9 Dorsalgia, unspecified; I95.9 Hypotension, unspecified; Z95.5 Presence of coronary angioplasty implant and graft; I11.9 Hypertensive heart disease without heart failure; E87.2 Acidosis; K21.9 Gastro-esophageal reflux disease without esophagitis; G40.909 Epilepsy, unspecified, not intractable, without status epilepticus; E78.00 Pure hypercholesterolemia, unspecified; Z87.891 Personal history of nicotine dependence; G47.33 Obstructive sleep apnea (adult) (pediatric); Z79.84 Long term (current) use of oral hypoglycemic drugs; Z86.73 Personal history of transient ischemic attack (TIA), and cerebral infarction without residual deficits; Z79.82 Long term (current) use of aspirin; E11.9 Type 2 diabetes mellitus without complications; E53.8 Deficiency of other specified B group vitamins

== ENCOUNTER 2018-03-01 12:20 | Observation (INO) ==
--- NOTE | 2018-03-01 13:06 | ED ---
HPI General Chief complaint: Seizure Stated complaint: Seizure Time Seen by Provider: 03/01/18 12:39 Source: patient Mode of arrival: ambulatory Limitations: no limitations History of Present Illness HPI narrative: 62yo M with PMH of CAD, CVA with left sided weakness, chronic back pain, DM, HTN, HLD, seizure disorder on keppra and lyrica here with multiple complaints. Pt initially called [facility] because he has been having sob and chest pain for a while. Also has nausea, vomiting and abdominal pain. On his way here, he had a witnessed seizure by [facility] and was not given any medications. Pt is AAOx2. Denies any new focal weakness or numbness. Related Data Home Medications Medication Instructions Recorded Confirmed aspirin 81 mg PO DAILY 02/20/18 03/01/18 atorvastatin 20 mg PO DAILY 02/20/18 03/01/18 glimepiride 2 mg PO QAM 02/20/18 03/01/18 hydrocodone-acetaminophen 1 tab PO TID PRN 02/20/18 03/01/18 hydroxyzine HCl 25 mg PO TID PRN 02/20/18 03/01/18 metformin 1,000 mg PO BID 02/20/18 03/01/18 nitroglycerin [Nitrostat] 0.4 mg SUBLINGUAL Q5-15M PRN 02/20/18 03/01/18 omeprazole 40 mg PO DAILY 02/20/18 03/01/18 tizanidine 2 mg PO TID PRN 02/20/18 03/01/18 zolpidem [Ambien] 10 mg PO HS 02/20/18 03/01/18 clonazepam [Klonopin] 2 mg PO TID 03/01/18 03/01/18 levetiracetam [Keppra] 1,000 mg PO TID 03/01/18 03/01/18 Previous Rx's Medication Instructions Recorded ascorbic acid (vitamin C) [Vitamin 250 mg PO BID@1200,1700 #30 tab 02/21/18 C] ferrous sulfate [FeroSul] 325 mg PO BID@1200,1700 #60 tab 02/21/18 levetiracetam 1,000 mg PO TID #90 tab 02/21/18 lorazepam [Ativan] 1 mg PO DAILY PRN #5 tab 09/23/18 pregabalin [Lyrica] 200 mg PO TID 30 Days #90 cap 02/21/18 Allergies Allergy/AdvReac Type Severity Reaction Status Date / Time levofloxacin Allergy Severe Anaphylaxis Verified 02/20/18 10:08 tapentadol Allergy Intermediate Nausea/Vomi Verified 02/20/18 10:08 ting blueberry Allergy Mild Rash Verified 02/20/18 10:08 Review of Systems ROS: all other systems reviewed are negative [facility] Social History Social History Substance History: No History of Abuse Second Hand Smoke Exposure: No Smoking Status: Never smoker Tobacco Type: Cigarettes How Often Do You Have a Drink Containing Alcohol: Never Recent Travel in [facility] within the Last 8 Weeks: No Recent Out of Country Travel within the Last 8 Weeks: No Immunization History Tetanus Immunization: <5 Years Exam Narrative Exam Narrative: GENERAL: 62yo M in mild distress. SKIN: Focused skin assessment warm/dry. HEAD: Atraumatic. Normocephalic. EYES: Pupils equal and round at 3mm bilaterally. EOMI. ENT: No nasal bleeding or discharge. Mucous membranes pink and moist. NECK: Trachea midline. No JVD. CARDIOVASCULAR: Regular rate and rhythm. No murmur appreciated. RESPIRATORY: No accessory muscle use. Clear to auscultation. Breath sounds equal bilaterally. GASTROINTESTINAL: Abdomen soft, +TTP RUQ, RLQ and LLQ. No rebound tenderness or guarding. MUSCULOSKELETAL: No obvious deformities. No clubbing. No cyanosis. No edema. NEUROLOGICAL: Awake and alert. No obvious cranial nerve deficits. Left upper extremity and lower extremity weakness. Normal speech. PSYCHIATRIC: Appropriate mood and affect; insight and judgment normal. Course Initial Documented Vital Signs Temperature 98.6 F 03/01/18 12:30 Pulse Rate 86 03/01/18 12:30 Respiratory Rate 20 03/01/18 12:30 Blood Pressure 148/79 H 03/01/18 12:30 Pulse Oximetry 96 03/01/18 12:30 Last Documented Vital Signs Temperature 98.1 F 03/02/18 15:17 Pulse Rate 79 03/02/18 15:17 Respiratory Rate 18 03/02/18 15:17 Blood Pressure 145/81 H 03/02/18 15:17 Pulse Oximetry 96 03/02/18 15:17 Medical Decision Making [facility] Narrative Medical decision making narrative: 62yo M with multiple comorbidities here with multiple complaints. Had a witnessed seizure by [facility]. Pt had another seizure in the ED at 1:25pm, given ativan 2mg IV. I spoke with pt's neurologist Dr. Ly prior to his seizure here and he wanted me to send keppra level as well as start him on tegretol 200mg TID, and give him 400mg of tegretol now. It has been ordered but will wait until pt is able to tolerate PO. Pt's is at bedside and said he is compliant with his keppra 1000mg TID. Pt observed at bedside and is more awake now so given the tegretol. Labs reviewed , no leukocytosis. H/H 12.6/39.0. Mild thrombocytopenia at 118,000. AST mildly elevated at 58, at baseline. Lipase normal. CXR negative. Please review Dr. Iglesias's note. The patient is here with complaint of chest pain shortness breath abdominal pain nausea vomiting and while he was in route to the ED via EMS seized. He seized again here in the ED. He received 2 mg IV Ativan. He also received Tegretol. Tegretol was ordered after Dr Iglesias discussed case w Dr. Ly. Case discussed with the [facility] service, Dr Stoll. Patient reassessed at 6:20 PM and found to be resting comfortably. He at that time reported a fair amount of hunger having not eaten anything yet today. Medical Screen Exam Complete: Yes Emergency Medical Condition: Yes Differential Diagnosis Differential Diagnosis: electrolyte abnormality vs. ACS vs. pneumonia vs. status epilepticus vs. colitis Lab Data Lab results reviewed: Yes I reviewed the patient's lab results. Lab results narrative: AG 16 tn < 0.02 Result diagrams: 03/01/18 12:55 03/02/18 06:12 Lab Results 03/01/18 03/01/18 03/01/18 Range/Units 12:55 12:55 17:50 WBC 4.9 (4.0-11.0) th/mm3 RBC 4.43 L (4.50-5.90) mil/mm3 Hgb 12.6 L (13.0-17.0) gm/dL Hct 39.0 (39.0-51.0) % MCV 88.1 (80.0-100.0) fL MCH 28.5 (27.0-34.0) pg MCHC 32.4 (32.0-36.0) % RDW 17.7 H (11.6-17.2) % Plt Count 118 L (150-450) th/mm3 MPV 9.2 (7.0-11.0) fL Neut % (Auto) 53.7 (16.0-70.0) % Lymph % (Auto) 38.1 (9.0-44.0) % [place] % (Auto) 5.3 (0.0-8.0) % Eos % (Auto) 2.5 (0.0-4.0) % Baso % (Auto) 0.4 (0.0-2.0) % Neut # (Auto) 2.6 (1.8-7.7) th/mm3 Lymph # (Auto) 1.9 (1.0-4.8) th/mm3 [place] # (Auto) 0.3 (0.0-0.9) th/mm3 Eos # (Auto) 0.1 (0.0-0.4) th/mm3 Baso # (Auto) 0.0 (0.0-0.2) th/mm3 WBC Differential . Differential Comment Auto diff final ESR (0-20) mm/hr Sodium 140 (136-145) meq/L Potassium 4.2 (3.5-5.1) meq/L Chloride 105 (98-107) meq/L Carbon Dioxide 19.3 L (21.0-32.0) meq/L Anion Gap 16 H (5-15) meq/L BUN 11 (7-18) mg/dL Creatinine 1.15 (0.60-1.30) mg/dL Estimated GFR 65 L (>89) mL/min POC Glucose (68-110) mg/dl Random Glucose 148 H (74-106) mg/dL Calcium 9.0 (8.5-10.1) mg/dL Magnesium 1.5 (1.5-2.5) mg/dL Total Bilirubin 1.0 (0.2-1.0) mg/dL AST 58 H (15-37) U/L ALT 38 (12-78) U/L Alkaline Phosphatase 91 (45-117) U/L Troponin I Less than 0.02 L (0.02-0.05) ng/mL C-Reactive Protein (0.00-0.30) mg/dL Total Protein 8.1 (6.4-8.2) g/dL Albumin 3.9 (3.4-5.0) g/dL Lipase 196 (73-393) U/L Vitamin B12 (193-986) pg/mL TSH (0.358-3.740) uIU/mL Urine Color Yellow (Yellw/Straw) Urine Clarity Hazy H (Clear) Urine pH 5.0 (5.0-8.5) Ur Specific [place] 1.020 (1.002-1.035) Urine Protein Negative (Neg-Trace) mg/dL Urine Glucose (UA) 50 (Negative) mg/dL Urine Ketones Trace H (Negative) mg/dL Urine Occult Blood Negative (Negative) Urine Nitrate Negative (Negative) Urine Bilirubin Negative (Negative) Urine Urobilinogen Less than 2 (Less than 2) mg/dL Ur Leukocyte Esterase Negative (Negative) Urine RBC Less than 1 (0-3) /hpf Urine WBC 2 (0-5) /hpf Ur Squamous Epith Cells <1 (0-5) /hpf Urine Bacteria Occasional H (None) /hpf Urine Mucus Few H (Occasional) /lpf Micro UA Comment Culture not ind Ur Microscopic Review Not Reportable Urine Culture Comments Culture not ind 03/01/18 03/02/18 03/02/18 Range/Units 20:36 06:12 11:12 WBC (4.0-11.0) th/mm3 RBC (4.50-5.90) mil/mm3 Hgb (13.0-17.0) gm/dL Hct (39.0-51.0) % MCV (80.0-100.0) fL MCH (27.0-34.0) pg MCHC (32.0-36.0) % RDW (11.6-17.2) % Plt Count (150-450) th/mm3 MPV (7.0-11.0) fL Neut % (Auto) (16.0-70.0) % Lymph % (Auto) (9.0-44.0) % [place] % (Auto) (0.0-8.0) % Eos % (Auto) (0.0-4.0) % Baso % (Auto) (0.0-2.0) % Neut # (Auto) (1.8-7.7) th/mm3 Lymph # (Auto) (1.0-4.8) th/mm3 [place] # (Auto) (0.0-0.9) th/mm3 Eos # (Auto) (0.0-0.4) th/mm3 Baso # (Auto) (0.0-0.2) th/mm3 WBC Differential Differential Comment ESR 11 (0-20) mm/hr Sodium 141 (136-145) meq/L Potassium 3.5 (3.5-5.1) meq/L Chloride 106 (98-107) meq/L Carbon Dioxide 23.3 (21.0-32.0) meq/L Anion Gap 12 (5-15) meq/L BUN 9 (7-18) mg/dL Creatinine 0.78 (0.60-1.30) mg/dL Estimated GFR Greater than 89 (>89) mL/min POC Glucose 113 H (68-110) mg/dl Random Glucose 107 H (74-106) mg/dL Calcium 8.7 (8.5-10.1) mg/dL Magnesium (1.5-2.5) mg/dL Total Bilirubin (0.2-1.0) mg/dL AST (15-37) U/L ALT (12-78) U/L Alkaline Phosphatase (45-117) U/L Troponin I (0.02-0.05) ng/mL C-Reactive Protein (0.00-0.30) mg/dL Total Protein (6.4-8.2) g/dL Albumin (3.4-5.0) g/dL Lipase (73-393) U/L Vitamin B12 (193-986) pg/mL TSH (0.358-3.740) uIU/mL Urine Color (Yellw/Straw) Urine Clarity (Clear) Urine pH (5.0-8.5) Ur Specific [place] (1.002-1.035) Urine Protein (Neg-Trace) mg/dL Urine Glucose (UA) (Negative) mg/dL Urine Ketones (Negative) mg/dL Urine Occult Blood (Negative) Urine Nitrate (Negative) Urine Bilirubin (Negative) Urine Urobilinogen (Less than 2) mg/dL Ur Leukocyte Esterase (Negative) Urine RBC (0-3) /hpf Urine WBC (0-5) /hpf Ur Squamous Epith Cells (0-5) /hpf Urine Bacteria (None) /hpf Urine Mucus (Occasional) /lpf Micro UA Comment Ur Microscopic Review Urine Culture Comments 03/02/18 Range/Units 11:12 WBC (4.0-11.0) th/mm3 RBC (4.50-5.90) mil/mm3 Hgb (13.0-17.0) gm/dL Hct (39.0-51.0) % MCV (80.0-100.0) fL MCH (27.0-34.0) pg MCHC (32.0-36.0) % RDW (11.6-17.2) % Plt Count (150-450) th/mm3 MPV (7.0-11.0) fL Neut % (Auto) (16.0-70.0) % Lymph % (Auto) (9.0-44.0) % [place] % (Auto) (0.0-8.0) % Eos % (Auto) (0.0-4.0) % Baso % (Auto) (0.0-2.0) % Neut # (Auto) (1.8-7.7) th/mm3 Lymph # (Auto) (1.0-4.8) th/mm3 [place] # (Auto) (0.0-0.9) th/mm3 Eos # (Auto) (0.0-0.4) th/mm3 Baso # (Auto) (0.0-0.2) th/mm3 WBC Differential Differential Comment ESR (0-20) mm/hr Sodium (136-145) meq/L Potassium (3.5-5.1) meq/L Chloride (98-107) meq/L Carbon Dioxide (21.0-32.0) meq/L Anion Gap (5-15) meq/L BUN (7-18) mg/dL Creatinine (0.60-1.30) mg/dL Estimated GFR (>89) mL/min POC Glucose (68-110) mg/dl Random Glucose (74-106) mg/dL Calcium (8.5-10.1) mg/dL Magnesium (1.5-2.5) mg/dL Total Bilirubin (0.2-1.0) mg/dL AST (15-37) U/L ALT (12-78) U/L Alkaline Phosphatase (45-117) U/L Troponin I (0.02-0.05) ng/mL C-Reactive Protein Less than 0.29 (0.00-0.30) mg/dL Total Protein (6.4-8.2) g/dL Albumin (3.4-5.0) g/dL Lipase (73-393) U/L Vitamin B12 429 (193-986) pg/mL TSH 18.400 H (0.358-3.740) uIU/mL Urine Color (Yellw/Straw) Urine Clarity (Clear) Urine pH (5.0-8.5) Ur Specific [place] (1.002-1.035) Urine Protein (Neg-Trace) mg/dL Urine Glucose (UA) (Negative) mg/dL Urine Ketones (Negative) mg/dL Urine Occult Blood (Negative) Urine Nitrate (Negative) Urine Bilirubin (Negative) Urine Urobilinogen (Less than 2) mg/dL Ur Leukocyte Esterase (Negative) Urine RBC (0-3) /hpf Urine WBC (0-5) /hpf Ur Squamous Epith Cells (0-5) /hpf Urine Bacteria (None) /hpf Urine Mucus (Occasional) /lpf Micro UA Comment Ur Microscopic Review Urine Culture Comments Imaging Data Radiologist's impression: Abdomen/Pelvis CT 03/01/18 12:46 CONCLUSION: 1. Enlarged fatty liver. 2. Splenomegaly. 3. Varices throughout the abdomen raising the possibility of portal hypertension. Clinical correlation is recommended. 4. Enlarged prostate. Chest X-Ray 03/01/18 12:46 CONCLUSION: 1. Cardiomegaly. 2. No focal infiltrate or pulmonary vascular congestion. ECG Data EKG Prior to Arrival: No Attestation: I personally reviewed and interpreted this ECG as follows: Interpretation: NSR 79bpm. Normal axis. Mild ST depression diffusely. No significant ST elevation. Discharge Plan Discharge Disposition Patient Disposition: 30 Still Patient Physicians Team ED Provider: Lisa Iglesias Primary Care Provider: UNKNOWN, Attending Provider: Laura Elliott Other Providers: Eldon Shelton Status ED Status: Left Department Discharge Information Discharge Date/Time: 03/01/18 20:49
[2018-03-01 13:12] LABS: Baso % (Auto) 0.4 % (0.0-2.0); Eos # (Auto) 0.1 th/mm3 (0.0-0.4); Eos % (Auto) 2.5 % (0.0-4.0); Hemoglobin 12.6 gm/dL (13.0-17.0); Lymph # (Auto) 1.9 th/mm3 (1.0-4.8); Lymph % (Auto) 38.1 % (9.0-44.0); Mean Corpuscular HGB Conc 32.4 % (32.0-36.0); Mean Corpuscular Hemoglobin 28.5 pg (27.0-34.0); Mean Corpuscular Volume 88.1 fL (80.0-100.0); Mean Platelet Volume 9.2 fL (7.0-11.0); Mono # (Auto) 0.3 th/mm3 (0.0-0.9); Mono % (Auto) 5.3 % (0.0-8.0); Neut # (Auto) 2.6 th/mm3 (1.8-7.7); Neut % (Auto) 53.7 % (16.0-70.0); Platelet Count 118 th/mm3 (150-450); Red Blood Count 4.43 mil/mm3 (4.50-5.90); Red Cell Distribution Width 17.7 % (11.6-17.2); White Blood Count 4.9 th/mm3 (4.0-11.0)
[2018-03-01] MEDS ORDERED: carBAMazepine 200 MG Tablet PO ONE (13:19)
--- NOTE | 2018-03-01 13:22 | XR ---
EXAM DATE: 03/01/2018 12:46 PM EDT AGE/SEX: 62 years / Male INDICATIONS: Chest pain. CLINICAL DATA: This is the patient's initial encounter. Patient reports that signs and symptoms have been present for 1 day and indicates a pain score of 3/10. MEDICAL/SURGICAL HISTORY: . Seizure, COPD, diabetes, . Pacemaker COMPARISON: C, CHEST 1V SINGLE AP, 02/20/2018. . FINDINGS: The heart is enlarged. The pulmonary vascular pattern is normal. The lungs are clear. CONCLUSION: 1. Cardiomegaly. 2. No focal infiltrate or pulmonary vascular congestion. Electronically signed by: Bakari Zacarias MD 03/01/2018 1:20 PM EDT
[2018-03-01 13:35] LABS: Alanine Aminotransferase 38 U/L (12-78); Albumin 3.9 g/dL (3.4-5.0); Anion Gap 16 meq/L (5-15); Aspartate Aminotransferase 58 U/L (15-37); Blood Urea Nitrogen 11 mg/dL (7-18); Carbon Dioxide 19.3 meq/L (21.0-32.0); Chloride 105 meq/L (98-107); Glomerular Filtration Rate 65 mL/min (>89); Glucose,Random 148 mg/dL (74-106); Lipase 196 U/L (73-393); Magnesium 1.5 mg/dL (1.5-2.5); Potassium 4.2 meq/L (3.5-5.1); Sodium 140 meq/L (136-145)
[2018-03-01 13:38] LABS: Alkaline Phosphatase 91 U/L (45-117); Total Protein 8.1 g/dL (6.4-8.2)
--- NOTE | 2018-03-01 16:59 | CT ---
EXAM DATE: 03/01/2018 3:43 PM EDT AGE/SEX: 62 years / Male INDICATIONS: Abdomen pain. CLINICAL DATA: This is the patient's initial encounter. Patient reports that signs and symptoms have been present for 1 day and indicates a pain score of 5/10. MEDICAL/SURGICAL HISTORY: Cardiovascular disease. Hypertension. Diabetes mellitus type II. G ERD Seizures None. ORAL CONTRAST: No oral contrast ingested. RADIATION DOSE: 16.21 CTDI (mGy) COMPARISON: [facility] [place] & [place]ELVIS W [place]AST, 02/11/2017. [facility] [place] & [place]ELVIS W CONTRAST , 03/28/2016. . TECHNIQUE: Multiple contiguous axial images were obtained through the abdomen and pelvis following b olus infusion of 97 ml Omnipaque 350 (iohexol) nonionic water-soluble contrast as a single exam dos e. No oral contrast ingested. Using automated exposure control and adjustment of the mA and/or kV ac cording to patient size, radiation dose was kept as low as reasonably achievable to obtain optimal di agnostic quality images. DICOM format image data is available electronically for review and comparis on. FINDINGS: Lower Lungs: The visualized lower lungs are clear. Liver: The liver is enlarged and demonstrates mild diffuse fatty infiltration. No focal mass is noted . There is no dilation of the biliary tree. Status post cholecystectomy. Varices are noted scattered throughout the abdomen raising the possibility of portal hypertension.. Spleen: Mild splenomegaly is noted. Pancreas: Unremarkable without mass or calcification. Kidneys: Normal in size and shape. No evidence of mass or hydronephrosis. Adrenal Glands: Unremarkable. Aorta: The aorta and proximal iliac vessels are grossly unremarkable without aneurysmal dilation. Bowel/Mesentery: The bowel loops are grossly unremarkable. The cecum and sigmoid colon have a normal configuration. Abdominal Wall: Intact. Retroperitoneum: No evidence of adenopathy in the retrocrural, para-aortic, or deep pelvic regions. Bladder: Contours are smooth. Reproductive Organs: The prostate is enlarged. Inguinal: The inguinal region is unremarkable without evidence of adenopathy. Bony Structures: Unremarkable. CONCLUSION: 1. Enlarged fatty liver. 2. Splenomegaly. 3. Varices throughout the abdomen raising the possibility of portal hypertension. Clinical correlati on is recommended. 4. Enlarged prostate. Electronically signed by: Bakari Zacarias MD 03/01/2018 4:58 PM EDT
[2018-03-01 18:36] LABS: Bacteria,Urine Occasional /hpf; Bilirubin,Urine Negative (Negative); Clarity,Urine Hazy (Clear); Color,Urine Yellow (Yellw/Straw); Glucose,Urine (UA) 50 mg/dL (Negative); Leukocyte Esterase,Urine Negative (Negative); Mucus,Urine Few /lpf (Occasional); Nitrite,Urine Negative (Negative); Squamous Epithelial Cell,Urine <1 /hpf (0-5)
--- NOTE | 2018-03-01 18:40 | P.HPIM ---
History of Present Illness Service: [facility] Primary Care Physician: UNKNOWN Chief Complaint: Seizure History of Present Illness: 62-year-old male with a medical history significant for CVA with mild left- sided weakness, coronary artery disease, chronic back pain, diabetes, hypertension, seizure disorder who has been on Keppra and Lyrica presented to the hospital for seizures. EMS witnessed one of the seizures but it quickly resolved therefore he was not given any medications. He was observed to have another seizure in the emergency room by the ED physician. The patient's outpatient neurologist was called by the ED and it was advised that he be started on Tegretol 200 mg 3 times daily after a one-time dose of 400 mg now. Patient reports compliance with Keppra at home. Both the patient and his at bedside adamantly denies any alcohol intake. He reports that he has been having abdominal discomfort and nausea since he ate a pizza yesterday. Inpatient Certification: I certify that the inpatient services were ordered in accordance with Medicare regulations governing the order. This includes certification that hospital inpatient services are reasonable and necessary and in the case of services not specified as inpatient-only under 42 CFR 419.22(n), that they are appropriately provided as inpatient services in accordance to with the 2-midnight benchmark under 43 CFR 412.3(e) Review of Systems All other systems reviewed negative except as stated in HPI Gastrointestinal: Reports abdominal pain PMFSH - History History Provided By: Patient, Tailor'S Aide / EMT - Medical History Medical History: Medical History (Last Reviewed 03/01/18 @ 19:13 by Terence Stoll MD) CAD (coronary artery disease) CVA (cerebral vascular accident) Chronic back pain DDD (degenerative disc disease) Diabetes 1.5, managed as type 1 GERD (gastroesophageal reflux disease) HTN (hypertension) High cholesterol AIDAN (obstructive sleep apnea) Seizure disorder Spinal stenosis Type II diabetes mellitus - Surgical History Surgical History: Surgical History (Last Reviewed 03/01/18 @ 19:13 by Terence Stoll MD) H/O cervical spine surgery History of lumbar surgery History of total left knee replacement Hx of cardiac cath - Family History Family History: Family History (Last Reviewed 03/01/18 @ 19:13 by Terence Stoll MD) Other Patient denies significant medical history - Tobacco History Second Hand Smoke Exposure: No Smoking Status: Never smoker Tobacco Type: Cigarettes - Alcohol History How Often Do You Have a Drink Containing Alcohol: Unable to Obtain - Substance Use History Substance History: Unable to Obtain - Travel History Recent Travel in the [place] Within the Last 8 Weeks: No Recent Travel Out of the Country Within the Last 8 Weeks: No - Immunization History Tetanus Immunization: <5 Years Medications and Allergies Allergies Allergy/AdvReac Type Severity Reaction Status Date / Time levofloxacin Allergy Severe Anaphylaxis Verified 02/20/18 10:08 tapentadol Allergy Intermediate Nausea/Vomi Verified 02/20/18 10:08 ting blueberry Allergy Mild Rash Verified 02/20/18 10:08 Home Medications Medication Instructions Recorded Confirmed Type aspirin 81 mg PO DAILY 02/20/18 03/01/18 History atorvastatin 20 mg PO DAILY 02/20/18 03/01/18 History glimepiride 2 mg PO QAM 02/20/18 03/01/18 History hydrocodone-acetaminophen 1 tab PO TID PRN 02/20/18 03/01/18 History hydroxyzine HCl 25 mg PO TID PRN 02/20/18 03/01/18 History metformin 1,000 mg PO BID 02/20/18 03/01/18 History nitroglycerin [Nitrostat] 0.4 mg SUBLINGUAL Q5-15M PRN 02/20/18 03/01/18 History omeprazole 40 mg PO DAILY 02/20/18 03/01/18 History tizanidine 2 mg PO TID PRN 02/20/18 03/01/18 History zolpidem [Ambien] 10 mg PO HS 02/20/18 03/01/18 History clonazepam [Klonopin] 2 mg PO TID 03/01/18 03/01/18 History levetiracetam [Keppra] 1,000 mg PO TID 03/01/18 03/01/18 History Exam Vital signs: Vital Signs 03/01/18 12:30 Temperature 98.6 F Pulse Rate 86 Respiratory Rate 20 Blood Pressure 148/79 H Pulse Oximetry 96 Intake & Output 02/28/18 03/01/18 03/01/18 18:59 06:59 18:59 Weight 97.522 kg Narrative: GENERAL: This is a well-nourished, well-developed patient, in no apparent distress. CARDIOVASCULAR: Normal rate and regular rhythm without murmurs, gallops, or rubs. RESPIRATORY: Good respiratory efforts. Breath sounds equal and clear to auscultation bilaterally. GASTROINTESTINAL: Abdomen soft, mild tenderness to deep palpation. Normal active bowel sounds MUSCULOSKELETAL: Extremities without cyanosis, or edema. NEURO: Alert & Oriented x4 to person, place, time, situation. Moves all ext x4 PSYCH: Appropriate mood and affect. Results - Labs CBC & Chem 7: 03/01/18 12:55 03/01/18 12:55 Labs: Short CBC 03/01/18 Range/Units 12:55 WBC 4.9 (4.0-11.0) th/mm3 Hgb 12.6 L (13.0-17.0) gm/dL Hct 39.0 (39.0-51.0) % Plt Count 118 L (150-450) th/mm3 BMP 03/01/18 12:55 Sodium 140 Potassium 4.2 Chloride 105 Carbon Dioxide 19.3 L BUN 11 Creatinine 1.15 Calcium 9.0 Cardiac Enzymes 03/01/18 Range/Units 12:55 Troponin I Less than 0.02 L (0.02-0.05) ng/mL Liver Function 03/01/18 Range/Units 12:55 Total Bilirubin 1.0 (0.2-1.0) mg/dL AST 58 H (15-37) U/L ALT 38 (12-78) U/L Alkaline Phosphatase 91 (45-117) U/L Albumin 3.9 (3.4-5.0) g/dL Urine 03/01/18 Range/Units 17:50 Urine Color Yellow (Yellw/Straw) Urine Clarity Hazy H (Clear) Urine pH 5.0 (5.0-8.5) Ur Specific [place] 1.020 (1.002-1.035) Urine Protein Negative (Neg-Trace) mg/dL Urine Glucose (UA) 50 (Negative) mg/dL - Imaging Impressions Abdomen/Pelvis CT 03/01/18 12:46 CONCLUSION: 1. Enlarged fatty liver. 2. Splenomegaly. 3. Varices throughout the abdomen raising the possibility of portal hypertension. Clinical correlation is recommended. 4. Enlarged prostate. Chest X-Ray 03/01/18 12:46 CONCLUSION: 1. Cardiomegaly. 2. No focal infiltrate or pulmonary vascular congestion. Caprini VTE Risk Assessment Caprini VTE Risk Assessment: No/Low Risk (score <= 1) Caprini Risk Assessment Model: Point Value = 1 Point Value = 2 Point Value = 3 Point Value = 5 Age 41-60 Minor surgery BMI > 25 kg/m2 Swollen legs Varicose veins or History of unexplained or recurrent spontaneous Oral contraceptives or hormone replacement Sepsis (< 1 month) Serious lung disease, including pneumonia (< 1 month) Abnormal pulmonary function Acute myocardial infarction Congestive heart failure (< 1 month) History of inflammatory bowel disease Medical patient at bed rest Age 61-74 Arthroscopic surgery Major open surgery (> 45 min) Laparoscopic surgery (> 45 min) Malignancy Confined to bed (> 72 hours) Immobilizing plaster cast Central venous access Age >= 75 History of VTE Family history of VTE Factor V Leiden Prothrombin [id number] Lupus anticoagulant Anticardiolipin antibodies Elevated serum homocysteine Heparin-induced thrombocytopenia Other congenital or acquired thrombophilia Stroke (< 1 month) Elective arthroplasty Hip, pelvis, or leg fracture Acute spinal cord injury (< 1 month) Prophylaxis Regimen: Total Risk Factor Score Risk Level Prophylaxis Regimen 0-1 Low Early ambulation 2 Moderate Order ONE of the following: *Sequential Compression Device (SCD) *Heparin 5000 units SQ BID 3-4 Higher Order ONE of the following medications: *Heparin 5000 units SQ TID *Enoxaparin/Lovenox 40 mg SQ daily (WT < 150 kg, CrCl > 30 mL/min) *Enoxaparin/Lovenox 30 mg SQ daily (WT < 150 kg, CrCl > 10-29 mL/min) *Enoxaparin/Lovenox 30 mg SQ BID (WT < 150 kg, CrCl > 30 mL/min) AND/OR *Sequential Compression Device (SCD) 5 or more Highest Order ONE of the following medications: *Heparin 5000 units SQ TID (Preferred with Epidurals) *Enoxaparin/Lovenox 40 mg SQ daily (WT < 150 kg, CrCl > 30 mL/min) *Enoxaparin/Lovenox 30 mg SQ daily (WT < 150 kg, CrCl > 10-29 mL/min) *Enoxaparin/Lovenox 30 mg SQ BID (WT < 150 kg, CrCl > 30 mL/min) AND *Sequential Compression Device (SCD) Assessment and Plan - Plan 62-year-old male admitted with breakthrough seizures Seizure disorder: Admitted here for the same less than a month ago. - Continue Radha Ryana. Tegretol added per outpatient neurologist recommendation from the ED -Check Keppra level -Seizure precaution -Neurology consulted DM -Continue metformin and glimepiride Abdominal pain and nausea: - Abdominal CT revealed fatty liver, possible portal hypertension. - Likely a limited gastroenteritis from eating pizza at the night before. - Continue to monitor. Symptoms significantly improving per the patient. Continue the rest of the patient's chronic home medications. GI prophylaxis: Stool softener PRN constipation. DVT PPx: SCDs. Patient is ambulatory Discussed Condition With: ED physician, patient and family at bedside.
[2018-03-01] MEDS ORDERED: Bisacodyl 10 MG Supp RECTAL PRN (20:00)
[2018-03-01] MEDS: carBAMazepine 200 MG Tablet PO SCH (20:28)
[2018-03-01] MEDS: Glimepiride 2 MG Tablet PO SCH (21:08)
[2018-03-02 08:07] LABS: Anion Gap 12 meq/L (5-15); Blood Urea Nitrogen 9 mg/dL (7-18); Calcium 8.7 mg/dL (8.5-10.1); Carbon Dioxide 23.3 meq/L (21.0-32.0); Chloride 106 meq/L (98-107); Glomerular Filtration Rate Greater Than 89 mL/min (>89); Glucose,Random 107 mg/dL (74-106); Potassium 3.5 meq/L (3.5-5.1); Sodium 141 meq/L (136-145)
[2018-03-02] MEDS: levETIRAcetam 500 MG Tablet PO SCH ×3 (08:16→17:03)
[2018-03-02] MEDS: clonazePAM 1 MG Tablet PO SCH ×3 (08:16→17:03)
[2018-03-02] MEDS: carBAMazepine 200 MG Tablet PO SCH (08:17)
[2018-03-02] MEDS: Glimepiride 2 MG Tablet PO SCH (08:17)
--- NOTE | 2018-03-02 09:09 | P.PN ---
Subjective Interval history: Follow-up for breakthrough seizures. Patient reports feeling better today. He denies any further seizure episodes overnight. He states he was sick over the past 3 days after eating pizza, and was vomiting x3 days. He states it is possible that he was not keeping down his Keppra although he did continue to take this medication. He sees Dr. Benson as outpatient for his seizures. He believes he has had an EEG and a brain MRI within the past 6 months. He states he has been on Tegretol in the past, however he is unsure why he was taken off of this. He currently denies any headache, lightheadedness, dizziness, chest pain, shortness of breath, or abdominal complaints. Physical Exam Vital signs: Vital Signs 03/01/18 12:30 03/01/18 19:23 03/01/18 23:46 Temperature 98.6 F 97.8 F Pulse Rate 86 81 76 Respiratory Rate 20 18 18 Blood Pressure 148/79 H 138/76 127/78 Pulse Oximetry 96 97 98 03/02/18 04:00 03/02/18 07:21 Temperature 97.9 F 98.5 F Pulse Rate 67 70 Respiratory Rate 16 16 Blood Pressure 123/66 162/82 H Pulse Oximetry 98 98 Intake & Output 03/01/18 03/02/18 03/02/18 18:59 06:59 18:59 Weight 97.522 kg 97.522 kg Other: # Voids 4 Weight On Admission 97.522 kg Narrative: GENERAL: Well-nourished, well-developed pleasant middle-age male patient in [facility]. SKIN: Warm and dry. No rash. HEENT: Normocephalic. Atraumatic. Pupils equal and round. Mucous membranes pink and moist. CARDIOVASCULAR: Regular rate and rhythm. No murmur appreciated. RESPIRATORY: No accessory muscle use. Clear to auscultation. Breath sounds equal bilaterally. GASTROINTESTINAL: Abdomen soft, non-tender, nondistended. Normoactive bowel sounds x4. MUSCULOSKELETAL: No obvious deformities. Extremities without clubbing, cyanosis , or edema. NEUROLOGICAL: Awake and alert. No obvious cranial nerve deficits. Motor grossly within normal limits. Moving all extremities spontaneously. Normal speech. PSYCHIATRIC: Appropriate mood and affect; insight and judgment normal. Results - Labs CBC & Chem 7: 03/01/18 12:55 03/02/18 06:12 Laboratory Results - last 24 hr 03/01/18 03/01/18 03/01/18 12:55 12:55 17:50 WBC 4.9 RBC 4.43 L Hgb 12.6 L Hct 39.0 MCV 88.1 MCH 28.5 MCHC 32.4 RDW 17.7 H Plt Count 118 L MPV 9.2 Neut % (Auto) 53.7 Lymph % (Auto) 38.1 Bryan % (Auto) 5.3 Eos % (Auto) 2.5 Baso % (Auto) 0.4 Neut # (Auto) 2.6 Lymph # (Auto) 1.9 Bryan # (Auto) 0.3 Eos # (Auto) 0.1 Baso # (Auto) 0.0 WBC Differential . Differential Comment Auto diff final Sodium 140 Potassium 4.2 Chloride 105 Carbon Dioxide 19.3 L Anion Gap 16 H BUN 11 Creatinine 1.15 Estimated GFR 65 L POC Glucose Random Glucose 148 H Calcium 9.0 Magnesium 1.5 Total Bilirubin 1.0 AST 58 H ALT 38 Alkaline Phosphatase 91 Troponin I Less than 0.02 L Total Protein 8.1 Albumin 3.9 Lipase 196 Urine Color Yellow Urine Clarity Hazy H Urine pH 5.0 Ur Specific [place] 1.020 Urine Protein Negative Urine Glucose (UA) 50 Urine Ketones Trace H Urine Occult Blood Negative Urine Nitrate Negative Urine Bilirubin Negative Urine Urobilinogen Less than 2 Ur Leukocyte Esterase Negative Urine RBC Less than 1 Urine WBC 2 Ur Squamous Epith Cells <1 Urine Bacteria Occasional H Urine Mucus Few H Micro UA Comment Culture not ind Ur Microscopic Review Not Reportable Urine Culture Comments Culture not ind 03/01/18 03/02/18 20:36 06:12 WBC RBC Hgb Hct MCV MCH MCHC RDW Plt Count MPV Neut % (Auto) Lymph % (Auto) Bryan % (Auto) Eos % (Auto) Baso % (Auto) Neut # (Auto) Lymph # (Auto) Bryan # (Auto) Eos # (Auto) Baso # (Auto) WBC Differential Differential Comment Sodium 141 Potassium 3.5 Chloride 106 Carbon Dioxide 23.3 Anion Gap 12 BUN 9 Creatinine 0.78 Estimated GFR Greater than 89 POC Glucose 113 H Random Glucose 107 H Calcium 8.7 Magnesium Total Bilirubin AST ALT Alkaline Phosphatase Troponin I Total Protein Albumin Lipase Urine Color Urine Clarity Urine pH Ur Specific [place] Urine Protein Urine Glucose (UA) Urine Ketones Urine Occult Blood Urine Nitrate Urine Bilirubin Urine Urobilinogen Ur Leukocyte Esterase Urine RBC Urine WBC Ur Squamous Epith Cells Urine Bacteria Urine Mucus Micro UA Comment Ur Microscopic Review Urine Culture Comments - Imaging Impressions Abdomen/Pelvis CT 03/01/18 12:46 CONCLUSION: 1. Enlarged fatty liver. 2. Splenomegaly. 3. Varices throughout the abdomen raising the possibility of portal hypertension. Clinical correlation is recommended. 4. Enlarged prostate. Chest X-Ray 03/01/18 12:46 CONCLUSION: 1. Cardiomegaly. 2. No focal infiltrate or pulmonary vascular congestion. Assessment and Plan - Plan 62-year-old male with a medical history significant for CVA with mild left- sided weakness, coronary artery disease, chronic back pain, diabetes, hypertension, seizure disorder who has been on Keppra and Lyrica presented to the hospital for seizures. Breakthrough seizures with hx of seizure disorder: Admitted here for the same less than a month ago. Seizures x2 prior to arrival. -Continue patient Keppra, Lyrica. -Tegretol added per outpatient neurologist recommendation from the ED -Check Keppra level -Seizure precautions -Neurology consulted, appreciate recommendations -Brain MRI and EEG ordered DM: Chronic, stable -Continue patient's metformin and glimepiride Abdominal pain and nausea: Suspect gastroenteritis -Abdominal CT revealed fatty liver, possible portal hypertension. -Likely a limited gastroenteritis from eating pizza at the night before. -Symptoms significantly improved, tolerating oral intake Hx of CVA/CAD/HLD: chronic -continue patient's aspirin, statin -PT consulted Acute Hypothyroidism: TSH high at 18.4. Not on thyroid replacement at home. -Check free T4 -Start on levothyroxine 50mcg daily (lower initial dose recommended by [employer] with hx of CAD) -Repeat TSH/T4 as outpatient in 6 weeks Other chronic medical conditions stable, continue home medications as appropriate GI prophylaxis: Stool softener PRN constipation. DVT Prophylaxis: SCDs. Patient is ambulatory Discharge Planning: Await Brain MRI, EEG, and neurology consult. Further disposition to follow.
--- NOTE | 2018-03-02 10:07 | P.CONNEU ---
History of Present Illness Service: Neurology Primary Care Provider: UNKNOWN Chief Complaint: Seizure History of Present Illness: 62-year-old male made for breakthrough seizure. History of chronic epilepsy since age 16. Been on various seizure medications currently on Keppra. He had a vagus nerve stimulator placed [place] model #103 and 2014. Currently followed by an outpatient neurologist locally. Breakthrough seizures every several months. Uses a walker cane to ambulate with for chronic gait disorder. He has not his vagus nerve stimulator checked in quite some time. Denies any headache fever night sweats or chills feels well back to his baseline. He was on Depakote and doing well on it however he was changed over to Keppra. Seizure character; rapid blinking, confusion, generalized convulsion, agitation He is on chronic disability Review of Systems All other systems reviewed negative except as stated in HPI [facility] - History History Provided By: Patient - Medical History Medical History: Medical History (Last Reviewed 03/02/18 @ 10:28 by Salomon Robertson) CAD (coronary artery disease) CVA (cerebral vascular accident) Chronic back pain DDD (degenerative disc disease) Diabetes 1.5, managed as type 1 GERD (gastroesophageal reflux disease) HTN (hypertension) High cholesterol AIDAN (obstructive sleep apnea) Seizure disorder Spinal stenosis Type II diabetes mellitus - Surgical History Surgical History: Surgical History (Last Reviewed 03/02/18 @ 10:28 by Salomon Robertson) H/O cervical spine surgery History of lumbar surgery History of total left knee replacement Hx of cardiac cath - Family History Family History: Family History (Last Reviewed 03/01/18 @ 19:13 by Terence Stoll MD) Other Patient denies significant medical history - Tobacco History Second Hand Smoke Exposure: No Smoking Status: Never smoker Tobacco Type: Cigarettes - Alcohol History How Often Do You Have a Drink Containing Alcohol: Never - Substance Use History Substance History: No History of Abuse - Travel History Recent Travel in the [place] Within the Last 8 Weeks: No Recent Travel Out of the Country Within the Last 8 Weeks: No - Immunization History Tetanus Immunization: <5 Years Medications and Allergies Active Medications: Active Medications Hydrocodone Bitart/Acetaminophen ([place] 7.5/325) 1 tab PO TID PRN PRN Reason: PAIN SCALE 1 TO 10 Last Admin: 03/02/18 00:33 Dose: 1 tab Al Hydroxide/Mg Hydroxide (Milk Of Magnesia Liq) 30 ml PO Q12H PRN PRN Reason: Mild Constipation Ascorbic Acid (Vitamin C) 250 mg PO BID@1200,1700 [facility] Aspirin (Aspirin Chew) 81 mg PO DAILY [facility] Last Admin: 03/02/18 08:16 Dose: 81 mg Atorvastatin Calcium (Lipitor) 20 mg PO DAILY [facility] Last Admin: 03/02/18 08:16 Dose: 20 mg Bisacodyl (Dulcolax Supp) 10 mg RECTAL DAILY PRN PRN Reason: SEVERE CONSITIPATION Carbamazepine (Tegretol) 200 mg PO BID [facility] Last Admin: 03/02/18 08:17 Dose: 200 mg Clonazepam (Klonopin) 2 mg PO TID [facility] Last Admin: 03/02/18 08:16 Dose: 2 mg Ferrous Sulfate (Ferosul) 325 mg PO BID@1200,1700 [facility] Glimepiride (Amaryl) 2 mg PO DAILY [facility] Last Admin: 03/02/18 08:17 Dose: 2 mg Hydroxyzine HCl (Atarax) 25 mg PO TID PRN PRN Reason: Itching Lactulose (Lactulose Liq) 30 ml PO DAILY PRN PRN Reason: SEVERE CONSITIPATION Levetiracetam (Keppra) 1,000 mg PO TID [facility] Last Admin: 03/02/18 08:16 Dose: 1,000 mg Metformin HCl (Glucophage) 1,000 mg PO BID [facility] Last Admin: 03/02/18 08:17 Dose: 1,000 mg Pantoprazole Sodium (Protonix) 40 mg PO DAILY [facility] Last Admin: 03/02/18 08:17 Dose: 40 mg Pregabalin (Lyrica) 200 mg PO TID [facility] Last Admin: 03/02/18 08:16 Dose: 200 mg Sennosides (Senokot) 17.2 mg PO Q12H PRN PRN Reason: Moderate Constipation Allergies Allergy/AdvReac Type Severity Reaction Status Date / Time levofloxacin Allergy Severe Anaphylaxis Verified 02/20/18 10:08 tapentadol Allergy Intermediate Nausea/Vomi Verified 02/20/18 10:08 ting blueberry Allergy Mild Rash Verified 02/20/18 10:08 Home Medications Medication Instructions Recorded Confirmed Type aspirin 81 mg PO DAILY 02/20/18 03/01/18 History atorvastatin 20 mg PO DAILY 02/20/18 03/01/18 History glimepiride 2 mg PO QAM 02/20/18 03/01/18 History hydrocodone-acetaminophen 1 tab PO TID PRN 02/20/18 03/01/18 History hydroxyzine HCl 25 mg PO TID PRN 02/20/18 03/01/18 History metformin 1,000 mg PO BID 02/20/18 03/01/18 History nitroglycerin [Nitrostat] 0.4 mg SUBLINGUAL Q5-15M PRN 02/20/18 03/01/18 History omeprazole 40 mg PO DAILY 02/20/18 03/01/18 History tizanidine 2 mg PO TID PRN 02/20/18 03/01/18 History zolpidem [Ambien] 10 mg PO HS 02/20/18 03/01/18 History clonazepam [Klonopin] 2 mg PO TID 03/01/18 03/01/18 History levetiracetam [Keppra] 1,000 mg PO TID 03/01/18 03/01/18 History Exam Vital signs: Vital Signs 03/01/18 12:30 03/01/18 19:23 03/01/18 23:46 Temperature 98.6 F 97.8 F Pulse Rate 86 81 76 Respiratory Rate 20 18 18 Blood Pressure 148/79 H 138/76 127/78 Pulse Oximetry 96 97 98 03/02/18 04:00 03/02/18 07:21 Temperature 97.9 F 98.5 F Pulse Rate 67 70 Respiratory Rate 16 16 Blood Pressure 123/66 162/82 H Pulse Oximetry 98 98 Intake & Output 03/01/18 03/02/18 03/02/18 18:59 06:59 18:59 Weight 97.522 kg 97.522 kg Other: # Voids 4 Weight On Admission 97.522 kg Narrative: GENERAL: in NAD, SKIN: Warm and dry. HEAD: Atraumatic. Normocephalic. EYES: Pupils equal and round. No scleral icterus. ENT: No nasal bleeding or discharge. Mucous membranes pink and moist. NECK: Trachea midline. No JVD. CARDIOVASCULAR: Regular rate and rhythm. RESPIRATORY: No accessory muscle use. GASTROINTESTINAL: Abdomen soft, non-tender, nondistended. MUSCULOSKELETAL: Extremities without clubbing, cyanosis, or edema. No obvious deformities. NEUROLOGICAL: Awake and alert. No aphasia, disfluency, follows all 4 extremities articulate, No facial asymmetry, OU 3-2mm, eomi, VFF, No drift, Motor grossly within normal limits. Five out of 5 muscle strength in the arms and legs. Tone normal in all 4 limbs, Sensory normal in all 4 extremities to pin , msr 1-2+ sym, no clonus, planterflexor, gait not assessed secondary fall risk PSYCHIATRIC: Appropriate mood and affect; insight and judgment normal. - Constitutional no acute distress - Routine HEENT Exam Head: Present: normocephalic Eye: Present: EOMI Results - Labs CBC & Chem 7: 03/01/18 12:55 03/02/18 06:12 Labs: Laboratory Results - last 24 hr 03/01/18 03/01/18 03/01/18 12:55 12:55 17:50 WBC 4.9 RBC 4.43 L Hgb 12.6 L Hct 39.0 MCV 88.1 MCH 28.5 MCHC 32.4 RDW 17.7 H Plt Count 118 L MPV 9.2 Neut % (Auto) 53.7 Lymph % (Auto) 38.1 [place] % (Auto) 5.3 Eos % (Auto) 2.5 Baso % (Auto) 0.4 Neut # (Auto) 2.6 Lymph # (Auto) 1.9 [place] # (Auto) 0.3 Eos # (Auto) 0.1 Baso # (Auto) 0.0 WBC Differential . Differential Comment Auto diff final Sodium 140 Potassium 4.2 Chloride 105 Carbon Dioxide 19.3 L Anion Gap 16 H BUN 11 Creatinine 1.15 Estimated GFR 65 L POC Glucose Random Glucose 148 H Calcium 9.0 Magnesium 1.5 Total Bilirubin 1.0 AST 58 H ALT 38 Alkaline Phosphatase 91 Troponin I Less than 0.02 L Total Protein 8.1 Albumin 3.9 Lipase 196 Urine Color Yellow Urine Clarity Hazy H Urine pH 5.0 Ur Specific [place] 1.020 Urine Protein Negative Urine Glucose (UA) 50 Urine Ketones Trace H Urine Occult Blood Negative Urine Nitrate Negative Urine Bilirubin Negative Urine Urobilinogen Less than 2 Ur Leukocyte Esterase Negative Urine RBC Less than 1 Urine WBC 2 Ur Squamous Epith Cells <1 Urine Bacteria Occasional H Urine Mucus Few H Micro UA Comment Culture not ind Ur Microscopic Review Not Reportable Urine Culture Comments Culture not ind 03/01/18 03/02/18 20:36 06:12 WBC RBC Hgb Hct MCV MCH MCHC RDW Plt Count MPV Neut % (Auto) Lymph % (Auto) [place] % (Auto) Eos % (Auto) Baso % (Auto) Neut # (Auto) Lymph # (Auto) [place] # (Auto) Eos # (Auto) Baso # (Auto) WBC Differential Differential Comment Sodium 141 Potassium 3.5 Chloride 106 Carbon Dioxide 23.3 Anion Gap 12 BUN 9 Creatinine 0.78 Estimated GFR Greater than 89 POC Glucose 113 H Random Glucose 107 H Calcium 8.7 Magnesium Total Bilirubin AST ALT Alkaline Phosphatase Troponin I Total Protein Albumin Lipase Urine Color Urine Clarity Urine pH Ur Specific [place] Urine Protein Urine Glucose (UA) Urine Ketones Urine Occult Blood Urine Nitrate Urine Bilirubin Urine Urobilinogen Ur Leukocyte Esterase Urine RBC Urine WBC Ur Squamous Epith Cells Urine Bacteria Urine Mucus Micro UA Comment Ur Microscopic Review Urine Culture Comments - Imaging Impressions Abdomen/Pelvis CT 03/01/18 12:46 CONCLUSION: 1. Enlarged fatty liver. 2. Splenomegaly. 3. Varices throughout the abdomen raising the possibility of portal hypertension. Clinical correlation is recommended. 4. Enlarged prostate. Chest X-Ray 03/01/18 12:46 CONCLUSION: 1. Cardiomegaly. 2. No focal infiltrate or pulmonary vascular congestion. Review/Management - Diagnosis (1) Epileptic seizure Code(s): G40.909 - Epilepsy, unspecified, not intractable, without status epilepticus Status: Acute Current Visit: No (2) Chronic back pain Code(s): M54.9 - Dorsalgia, unspecified; G89.29 - Other chronic pain Status: Acute Current Visit: No - Review/Management Plan: Childhood onset epilepsy with recent breakthrough On Keppra with a vagus nerve stimulator EEG preliminary shows isolated generalized spike wave discharges occurring paroxysmally. Recommendation We will add Depakote to Keppra Try to contact vagus nerve stimulator rep adjust his device otherwise I can be done outpatient his has the phone number information which is outpatient neurologist can assist with Elevated TSH per medical Watch today discharge planning in the a.m.
[2018-03-02] MEDS: Ascorbic Acid 500 MG Tablet PO SCH ×2 (12:22→17:04)
[2018-03-02] MEDS: Ferrous Sulfate 325 MG Tablet PO SCH ×2 (12:45→17:03)
[2018-03-02 13:07] LABS: Vitamin B12 429 pg/mL (193-986)
[2018-03-02] MEDS: Divalproex 250 MG ER Tablet PO SCH ×2 (15:27→22:22)
--- NOTE | 2018-03-02 17:29 | ECG ---
Date Performed: 03/01/2018 Time Performed: 12:47:19 PTAGE: 62 years EKG: Sinus rhythm NORMAL ECG PREVIOUS TRACING 06/26/2017 @ 04.04.00 Since the previous tracing, no significant change noted DOCTOR: Shadi Marcano Interpretating Date/Time 03/02/2018 17:28:08
[2018-03-02] MEDS ORDERED: Valproate Inj 500 MG in Sodium Chlor 0.9% Inj 100 ML IV.SIG ONE (22:00)
--- NOTE | 2018-03-02 22:20 | MG ---
cc: Eldon Shelton MD EEG RECORD NUMBER: [id number] There is delta activity with spike wave discharges occurring, 20-70 microvolts. Polyspike wave EPOC 75, strong spike wave EPOC 108. EPOC 112 with high voltage. Limited driving with photic stimulation. Polyspike wave occurring EPOC 119. Single lead EKG showing sinus rhythm. INTERPRETATION: Frequent spike wave discharges occurring suggestive of a generalized epilepsy syndrome. Clinical correlation. Eldon Shelton MD MG/sj , 09:15 PM , 09:19 PM
[2018-03-02] MEDS ORDERED: LORazepam 1 MG Tablet PO ONE (23:15)
[2018-03-03] MEDS ORDERED: Levothyroxine 50 MCG Tablet PO SCH (06:00)
--- NOTE | 2018-03-03 08:14 | P.PNNEU ---
Subjective Subjective Comments: No cp, no dyspnea, no streeter, no focal weakness, no vision loss. Received Ativan IV Depakote overnight. Slept well. No seizures. Patient requested to go home Active Medications: Active Medications Hydrocodone Bitart/Acetaminophen ([place] 7.5/325) 1 tab PO TID PRN PRN Reason: PAIN SCALE 1 TO 10 Last Admin: 03/02/18 00:33 Dose: 1 tab Al Hydroxide/Mg Hydroxide (Milk Of Magnesia Liq) 30 ml PO Q12H PRN PRN Reason: Mild Constipation Ascorbic Acid (Vitamin C) 250 mg PO BID@1200,1700 [facility] Last Admin: 03/02/18 17:04 Dose: 250 mg Aspirin (Aspirin Chew) 81 mg PO DAILY [facility] Last Admin: 03/02/18 08:16 Dose: 81 mg Atorvastatin Calcium (Lipitor) 20 mg PO DAILY [facility] Last Admin: 03/02/18 08:16 Dose: 20 mg Bisacodyl (Dulcolax Supp) 10 mg RECTAL DAILY PRN PRN Reason: SEVERE CONSITIPATION Clonazepam (Klonopin) 2 mg PO TID [facility] Last Admin: 03/02/18 17:03 Dose: 2 mg Divalproex Sodium (Depakote Er) 500 mg PO BID [facility] Last Admin: 03/02/18 22:22 Dose: 500 mg Ferrous Sulfate (Ferosul) 325 mg PO BID@1200,1700 [facility] Last Admin: 03/02/18 17:03 Dose: 325 mg Glimepiride (Amaryl) 2 mg PO DAILY [facility] Last Admin: 03/02/18 08:17 Dose: 2 mg Hydroxyzine HCl (Atarax) 25 mg PO TID PRN PRN Reason: Itching Lactulose (Lactulose Liq) 30 ml PO DAILY PRN PRN Reason: SEVERE CONSITIPATION Levetiracetam (Keppra) 1,000 mg PO TID [facility] Last Admin: 03/02/18 17:03 Dose: 1,000 mg Levothyroxine Sodium (Synthroid) 50 mcg PO DAILY@0600 [facility] Last Admin: 03/03/18 05:26 Dose: 50 mcg Metformin HCl (Glucophage) 1,000 mg PO BID [facility] Last Admin: 03/02/18 22:22 Dose: 1,000 mg Pantoprazole Sodium (Protonix) 40 mg PO DAILY [facility] Last Admin: 03/02/18 08:17 Dose: 40 mg Pregabalin (Lyrica) 200 mg PO TID [facility] Last Admin: 03/02/18 17:03 Dose: 200 mg Sennosides (Senokot) 17.2 mg PO Q12H PRN PRN Reason: Moderate Constipation Allergies/Adverse Reactions: Allergies Allergy/AdvReac Type Severity Reaction Status Date / Time levofloxacin Allergy Severe Anaphylaxis Verified 02/20/18 10:08 tapentadol Allergy Intermediate Nausea/Vomi Verified 02/20/18 10:08 ting blueberry Allergy Mild Rash Verified 02/20/18 10:08 Review of Systems All other systems reviewed negative except as stated in HPI Physical Exam Vital signs: Vital Signs 03/02/18 15:17 03/02/18 19:54 03/03/18 02:31 Temperature 98.1 F 98.6 F 97.7 F Pulse Rate 79 72 63 Respiratory Rate 18 19 16 Blood Pressure 145/81 H 133/73 142/75 H Pulse Oximetry 96 96 97 03/03/18 04:00 Temperature 97.9 F Pulse Rate 62 Respiratory Rate 18 Blood Pressure 119/61 Pulse Oximetry 97 Intake & Output 03/02/18 03/03/18 03/03/18 18:59 06:59 18:59 Intake Total 500 / 500 105 / 105 Balance 500 / 500 105 / 105 Weight 97.522 kg Intake: IV 105 / 105 Depacon Inj 500 MG In NS Inj 105 / 105 100 ML @ 105 mls/hr IV.SIG NOW ONE Rx#:[id number] Oral 500 / 500 Other: # Voids 2 Narrative: GENERAL: in NAD, SKIN: Warm and dry. HEAD: Atraumatic. Normocephalic. EYES: Pupils equal and round. No scleral icterus. ENT: No nasal bleeding or discharge. Mucous membranes pink and moist. NECK: Trachea midline. No JVD. CARDIOVASCULAR: Regular rate and rhythm. RESPIRATORY: No accessory muscle use. GASTROINTESTINAL: Abdomen soft, non-tender, nondistended. MUSCULOSKELETAL: Extremities without clubbing, cyanosis, or edema. No obvious deformities. NEUROLOGICAL: Awake and alert. Oriented 2-3, recognizes me, pleasant appropriate no aphasia, , follows all 4 extremities articulate, No facial asymmetry, OU 3-2mm, eomi, VFF, No drift, Motor grossly within normal limits. Five out of 5 muscle strength in the arms and legs. Tone normal in all 4 limbs, Sensory normal in all 4 extremities to pin, msr 1-2+ sym, no clonus, planterflexor, gait not assessed secondary fall risk PSYCHIATRIC: Appropriate mood and affect; insight and judgment normal. - Constitutional no acute distress - Routine HEENT Exam Head: Present: normocephalic Objective Laboratory Results - last 24 hr 03/02/18 03/02/18 03/02/18 11:12 11:12 11:12 ESR 11 C-Reactive Protein Less than 0.29 Vitamin B12 429 TSH 18.400 H Free T4 0.72 L Review/Management - Diagnosis (1) Epileptic seizure Code(s): G40.909 - Epilepsy, unspecified, not intractable, without status epilepticus Status: Acute Current Visit: No (2) Chronic back pain Code(s): M54.9 - Dorsalgia, unspecified; G89.29 - Other chronic pain Status: Acute Current Visit: No (3) Generalized epilepsy Code(s): G40.309 - Generalized idiopathic epilepsy and epileptic syndromes, not intractable, without status epilepticus Status: Acute Current Visit: Yes - Review/Management Plan: Childhood onset epilepsy with recent breakthrough On Keppra with a vagus nerve stimulator EEG preliminary shows isolated generalized spike wave discharges occurring paroxysmally. Recommendation Continue Keppra with Depakote Contacted [employer] rep yesterday. He is in [facility]. He states he will be able to see the patient in the office or Thursday earliest. Patient would like to be discharged today he has been stable overnight contact information for the rep given to the patient they can arrange to have the setting checked in the outpatient setting at his neurologist office Follow-up with his outpatient neurologist end of this week or early next week discharge planning today No driving, operating any heavy machinery or dangerous machinery, swimming alone for at least 6 months of being seizure, spell free.
[2018-03-03 08:20] VITALS: BP 132/74; PULSE 70; RESP 16; TEMP 97.7; O2SAT 95
[2018-03-03] MEDS: Divalproex 250 MG ER Tablet PO SCH (09:17)
[2018-03-03] MEDS: clonazePAM 1 MG Tablet PO SCH (09:17)
[2018-03-03] MEDS: levETIRAcetam 500 MG Tablet PO SCH (09:18)
--- NOTE | 2018-03-03 09:48 | P.PN ---
Subjective Interval history: Follow-up for breakthrough seizures. No further seizures overnight. Patient reports feeling well today. He wants to go home. Denies any headache, lightheadedness, dizziness, or any further abdominal complaints. He is tolerating oral intake. He has been cleared for discharge by neurology. Physical Exam Vital signs: Vital Signs 03/02/18 15:17 03/02/18 19:54 03/03/18 02:31 Temperature 98.1 F 98.6 F 97.7 F Pulse Rate 79 72 63 Respiratory Rate 18 19 16 Blood Pressure 145/81 H 133/73 142/75 H Pulse Oximetry 96 96 97 03/03/18 04:00 03/03/18 08:00 Temperature 97.9 F 97.7 F Pulse Rate 62 70 Respiratory Rate 18 16 Blood Pressure 119/61 132/74 Pulse Oximetry 97 95 Intake & Output 03/02/18 03/03/18 03/03/18 18:59 06:59 18:59 Intake Total 500 / 500 105 / 105 Balance 500 / 500 105 / 105 Weight 97.522 kg Intake: IV 105 / 105 Depacon Inj 500 MG In NS Inj 105 / 105 100 ML @ 105 mls/hr IV.SIG NOW ONE Rx#:[id number] Oral 500 / 500 Other: # Voids 2 Narrative: GENERAL: Well-nourished, well-developed pleasant middle-age male patient in [facility]. SKIN: Warm and dry. No rash. HEENT: Normocephalic. Atraumatic. Pupils equal and round. Mucous membranes pink and moist. CARDIOVASCULAR: Regular rate and rhythm. No murmur appreciated. RESPIRATORY: No accessory muscle use. Clear to auscultation. Breath sounds equal bilaterally. GASTROINTESTINAL: Abdomen soft, non-tender, nondistended. Normoactive bowel sounds x4. MUSCULOSKELETAL: No obvious deformities. Extremities without clubbing, cyanosis , or edema. NEUROLOGICAL: Awake and alert. No obvious cranial nerve deficits. Motor grossly within normal limits. Moving all extremities spontaneously. Normal speech. PSYCHIATRIC: Appropriate mood and affect; insight and judgment normal. Results - Labs CBC & Chem 7: 03/01/18 12:55 03/02/18 06:12 Laboratory Results - last 24 hr 03/02/18 03/02/18 03/02/18 11:12 11:12 11:12 ESR 11 C-Reactive Protein Less than 0.29 Vitamin B12 429 TSH 18.400 H Free T4 0.72 L - Imaging Abdomen/Pelvis CT 03/01/18 12:46 CONCLUSION: 1. Enlarged fatty liver. 2. Splenomegaly. 3. Varices throughout the abdomen raising the possibility of portal hypertension. Clinical correlation is recommended. 4. Enlarged prostate. Chest X-Ray 03/01/18 12:46 CONCLUSION: 1. Cardiomegaly. 2. No focal infiltrate or pulmonary vascular congestion. Assessment and Plan - Plan 62-year-old male with a medical history significant for CVA with mild left- sided weakness, coronary artery disease, chronic back pain, diabetes, hypertension, seizure disorder who has been on Keppra and Lyrica presented to the hospital for seizures. Breakthrough seizures with hx of seizure disorder: Admitted here for the same less than a month ago. Seizures x2 prior to arrival. -Continue patient's Keppra, Lyrica. -Tegretol initially added per outpatient neurologist recommendation from the ED , now discontinued -Checking Keppra level -Seizure precautions -Neurology consulted, appreciate recommendations -EEG showed frequent spike wave discharges suggestive of generalized epilepsy syndrome -Dr. Shelton recommended starting on Depakote in addition to Keppra -No further seizures, cleared for discharge by neurology -Patient instructed to follow-up with outpatient neurologist to check vagus nerve stimulator DM: Chronic, stable -Continue patient's metformin and glimepiride Abdominal pain and nausea: Suspect gastroenteritis -Abdominal CT revealed fatty liver, possible portal hypertension. -Likely a limited gastroenteritis from eating pizza at the night before. -Symptoms significantly improved, tolerating oral intake, resolved. Hx of CVA/CAD/HLD: chronic -continue patient's aspirin, statin -PT consulted Acute Hypothyroidism: TSH high at 18.4. Not on thyroid replacement at home. -Free T4 low -Started on levothyroxine 50mcg daily (lower initial dose recommended by [employer] with hx of CAD) -Repeat TSH/T4 as outpatient in 4-6 weeks -Discussed diagnosis and plan with patient who verbalized understanding Other chronic medical conditions stable, continue home medications as appropriate GI prophylaxis: Stool softener PRN constipation. DVT Prophylaxis: SCDs. Patient is ambulatory Discharge Planning: Discharge patient to home Condition on discharge: Stable Diabetic Diet as tolerated Ad Aga activity, no driving, seizure precautions Rx written: depakote ER 500mg bid, levothyroxine 50mcg daily Follow-up with primary care physician and neurologist
== END 2018-03-03 10:41 | disposition home or self-care (01) ==
LOC: NEPD 12:20 → NEDA 18:22 → INTOOBSV 18:22 → NEPFCDU 19:43
PROVIDERS: ADMIT Hospitalist; ATTEND Hospitalist

== ENCOUNTER 2018-03-04 09:10 | Observation (INO) ==
--- NOTE | 2018-03-04 09:37 | ED ---
HPI General Chief complaint: Medical Clearance Stated complaint: Weakness Time Seen by Provider: 03/04/18 09:12 Source: patient and old records reviewed Mode of arrival: EMS Limitations: no limitations History of Present Illness MD Complaint: Reports generalized weakness Onset (ago): day(s) (Patient reports that it started yesterday after he had all the tests done for his seizure disorder) Duration: constant Location: Reports generalized Migration: Reports none Severity: moderate Quality: Reports numbness Relieving factors: none Exacerbating factors: none Context: Reports new medication (He was just started on Depakote for seizure disorder) Associated symptoms: Reports shortness of breath Related Data Home Medications Medication Instructions Recorded Confirmed aspirin 81 mg PO DAILY 02/20/18 03/04/18 atorvastatin 20 mg PO DAILY 02/20/18 03/04/18 glimepiride 2 mg PO QAM 02/20/18 03/04/18 hydrocodone-acetaminophen 1 tab PO TID PRN 02/20/18 03/04/18 hydroxyzine HCl 25 mg PO TID PRN 02/20/18 03/04/18 metformin 1,000 mg PO BID 02/20/18 03/04/18 nitroglycerin [Nitrostat] 0.4 mg SUBLINGUAL Q5-15M PRN 02/20/18 03/04/18 omeprazole 40 mg PO DAILY 02/20/18 03/04/18 tizanidine 2 mg PO TID PRN 02/20/18 03/04/18 zolpidem [Ambien] 10 mg PO HS 02/20/18 03/04/18 clonazepam [Klonopin] 2 mg PO TID 03/01/18 03/04/18 levetiracetam [Keppra] 1,000 mg PO TID 03/01/18 03/04/18 Previous Rx's Medication Instructions Recorded ascorbic acid (vitamin C) [Vitamin 250 mg PO BID@1200,1700 #30 tab 02/21/18 C] ferrous sulfate [FeroSul] 325 mg PO BID@1200,1700 #60 tab 02/21/18 lorazepam [Ativan] 1 mg PO DAILY PRN #5 tab 02/21/18 pregabalin [Lyrica] 200 mg PO TID 30 Days #90 cap 02/21/18 divalproex [Depakote ER] 500 mg PO BID 30 Days #120 tab 03/03/18 levothyroxine [Synthroid] 50 mcg PO DAILY@0600 #30 tab 03/03/18 Allergies Allergy/AdvReac Type Severity Reaction Status Date / Time levofloxacin Allergy Severe Anaphylaxis Verified 03/04/18 09:30 tapentadol Allergy Intermediate Nausea/Vomi Verified 03/04/18 09:30 ting blueberry Allergy Mild Rash Verified 03/04/18 09:30 Review of Systems ROS: all other systems reviewed are negative [facility] Medical History Medical History CAD (coronary artery disease) (Acute) CVA (cerebral vascular accident) (Acute) Chronic back pain (Acute) DDD (degenerative disc disease) (Acute) Diabetes 1.5, managed as type 1 (Acute) GERD (gastroesophageal reflux disease) (Acute) HTN (hypertension) (Acute) High cholesterol (Acute) AIDAN (obstructive sleep apnea) (Acute) Seizure disorder (Acute) Spinal stenosis (Acute) Type II diabetes mellitus (Acute) Surgical History Surgical History H/O cervical spine surgery (Acute) History of lumbar surgery (Acute) History of total left knee replacement (Acute) Hx of cardiac cath (Acute) Social History Social History Substance History: Unable to Obtain Second Hand Smoke Exposure: No Smoking Status: Current every day smoker Tobacco Type: Cigarettes How Often Do You Have a Drink Containing Alcohol: 2 to 4 times a month Immunization History Tetanus Immunization: Unable to Assess Exam Const General: cooperative, healthy appearing, comfortable, no acute distress and well developed Orientation: alert, awake and oriented x3 HENMT Head: normal to inspection, normocephalic and atraumatic Eyes Alignment and Position: alignment normal and position abnormal Conjunctivae: conjunctivae normal Sclera: sclerae normal EOM: EOM intact bilaterally Neck Neck: normal visual inspection and full ROM Chest Chest: normal inspection of the chest Resp Effort & Inspection: normal respiratory effort and able to speak in complete sentences Auscultation: clear to auscultation bilaterally Cardio Rate: regular rate Rhythm: regular rhythm GI Inspection: normal to inspection Palpation: soft and tender (Mild diffuse tenderness with no guarding or rebound) Back/Spine/Pelvis Cervical Spine: cervical ROM normal Thoracic/Lumbar Spine: thoraco-lumbar ROM normal Skin General: turgor normal and dry skin Rashes: rashes noted (He has a raised, scaly, yellowish rash on his cheeks and across his nose) Neuro General: alert, awake, oriented x3, moves all extremities and CN's II-XI intact bilaterally Extrem General: normal to inspection and full ROM Psych Appearance: grossly normal Mental Status: mental status grossly normal Speech and Movement: speech and movement normal Mood: congruent mood Affect: normal affect Attitude: cooperative Thought Process: normal Thought Content: normal Judgment: judgment good Course Reevaluation(s) Reevaluation #1: The results of his test were explained to him and his . I told him that I would give him a liter of IV fluids and some IV antibiotics and then reassess him following treatment. Time: 11:15 Reevaluation #2: The patient started having some jerking movements. The movements appear voluntary. However, he does have a history of seizures. Therefore, he was given Ativan. Time: 11:55 Reevaluation #3: I was called back into the room by his at the patient's request. The patient reports that he needs to see the doctor because something in his head is not right. He is not having any seizure activity at this time. Time: 12:13 Consultations Consultation #1: Dr. Elliott will place in OBS Time: 12:44 Initial Documented Vital Signs Temperature 98.4 F 03/04/18 09:20 Pulse Rate 85 03/04/18 09:20 Respiratory Rate 18 03/04/18 09:20 Blood Pressure 138/75 03/04/18 09:20 Pulse Oximetry 97 03/04/18 09:20 Last Documented Vital Signs Temperature 98.4 F 03/04/18 09:20 Pulse Rate 80 03/04/18 12:06 Respiratory Rate 18 03/04/18 12:06 Blood Pressure 143/80 H 03/04/18 12:06 Pulse Oximetry 98 03/04/18 12:06 Medical Decision Making MDM Narrative Medical decision making narrative: This patient presents with generalized weakness. He was discharged yesterday following an admission for breakthrough seizures. He states that he has been too weak to walk since his discharge. He believes that it all started when they did the EEG. He states that he is also too weak to roll over onto his side in order to use a urinal. [facility] was subsequently called and he was brought to the hospital for further evaluation and treatment. Following workup, the patient was found to have a urinary tract infection. This has been treated empirically in the emergency department with Rocephin. He is being admitted to observation for further evaluation and treatment. Medical Screen Exam Complete: Yes Emergency Medical Condition: Yes Differential Diagnosis Differential Diagnosis: Differential diagnosis of weakness includes but is not limited to infection, CVA, electrolyte disturbance, renal failure, hypoglycemia Medical Records Medical records reviewed: Yes I reviewed the patient's medical records. This patient was admitted recently for breakthrough seizures. He was evaluated here with an EEG etc. The EEG was positive for seizures. Depakote was added to his medications. Other seizure medicines include Keppra and Lyrica. Lab Data Result diagrams: 03/04/18 09:40 03/04/18 09:40 Lab Results 03/04/18 03/04/18 03/04/18 Range/Units 09:40 09:40 09:40 WBC 4.4 (4.0-11.0) th/mm3 RBC 4.51 (4.50-5.90) mil/mm3 Hgb 12.8 L (13.0-17.0) gm/dL Hct 40.0 (39.0-51.0) % MCV 88.6 (80.0-100.0) fL MCH 28.4 (27.0-34.0) pg MCHC 32.1 (32.0-36.0) % RDW 18.1 H (11.6-17.2) % Plt Count 103 L (150-450) th/mm3 MPV 8.9 (7.0-11.0) fL Neut % (Auto) 53.0 (16.0-70.0) % Lymph % (Auto) 33.8 (9.0-44.0) % [place] % (Auto) 8.2 H (0.0-8.0) % Eos % (Auto) 4.3 H (0.0-4.0) % Baso % (Auto) 0.7 (0.0-2.0) % Neut # (Auto) 2.3 (1.8-7.7) th/mm3 Lymph # (Auto) 1.5 (1.0-4.8) th/mm3 [place] # (Auto) 0.4 (0.0-0.9) th/mm3 Eos # (Auto) 0.2 (0.0-0.4) th/mm3 Baso # (Auto) 0.0 (0.0-0.2) th/mm3 WBC Differential . Differential Comment Auto diff final Sodium 146 H (136-145) meq/L Potassium 4.0 (3.5-5.1) meq/L Chloride 109 H (98-107) meq/L Carbon Dioxide 23.4 (21.0-32.0) meq/L Anion Gap 14 (5-15) meq/L BUN 10 (7-18) mg/dL Creatinine 1.08 (0.60-1.30) mg/dL Estimated GFR 70 L (>89) mL/min Random Glucose 116 H (74-106) mg/dL Calcium 8.9 (8.5-10.1) mg/dL Total Bilirubin 0.6 (0.2-1.0) mg/dL AST 46 H (15-37) U/L ALT 35 (12-78) U/L Alkaline Phosphatase 89 (45-117) U/L Troponin I Less than 0.02 L (0.02-0.05) ng/mL Total Protein 8.1 (6.4-8.2) g/dL Albumin 3.7 (3.4-5.0) g/dL Urine Color (Yellw/Straw) Urine Clarity (Clear) Urine pH (5.0-8.5) Ur Specific [place] (1.002-1.035) Urine Protein (Neg-Trace) mg/dL Urine Glucose (UA) (Negative) mg/dL Urine Ketones (Negative) mg/dL Urine Occult Blood (Negative) Urine Nitrate (Negative) Urine Bilirubin (Negative) Urine Urobilinogen (Less than 2) mg/dL Ur Leukocyte Esterase (Negative) Urine RBC (0-3) /hpf Urine WBC (0-5) /hpf Urine Bacteria (None) /hpf Hyaline Casts (0-3) /lpf Urine Mucus (Occasional) /lpf Micro UA Comment Ur Microscopic Review Urine Culture Comments Valproic Acid 53 (50-100) mcg/mL 03/04/18 Range/Units 10:37 WBC (4.0-11.0) th/mm3 RBC (4.50-5.90) mil/mm3 Hgb (13.0-17.0) gm/dL Hct (39.0-51.0) % MCV (80.0-100.0) fL MCH (27.0-34.0) pg MCHC (32.0-36.0) % RDW (11.6-17.2) % Plt Count (150-450) th/mm3 MPV (7.0-11.0) fL Neut % (Auto) (16.0-70.0) % Lymph % (Auto) (9.0-44.0) % [place] % (Auto) (0.0-8.0) % Eos % (Auto) (0.0-4.0) % Baso % (Auto) (0.0-2.0) % Neut # (Auto) (1.8-7.7) th/mm3 Lymph # (Auto) (1.0-4.8) th/mm3 [place] # (Auto) (0.0-0.9) th/mm3 Eos # (Auto) (0.0-0.4) th/mm3 Baso # (Auto) (0.0-0.2) th/mm3 WBC Differential Differential Comment Sodium (136-145) meq/L Potassium (3.5-5.1) meq/L Chloride (98-107) meq/L Carbon Dioxide (21.0-32.0) meq/L Anion Gap (5-15) meq/L BUN (7-18) mg/dL Creatinine (0.60-1.30) mg/dL Estimated GFR (>89) mL/min Random Glucose (74-106) mg/dL Calcium (8.5-10.1) mg/dL Total Bilirubin (0.2-1.0) mg/dL AST (15-37) U/L ALT (12-78) U/L Alkaline Phosphatase (45-117) U/L Troponin I (0.02-0.05) ng/mL Total Protein (6.4-8.2) g/dL Albumin (3.4-5.0) g/dL Urine Color Yellow (Yellw/Straw) Urine Clarity Cloudy H (Clear) Urine pH 5.0 (5.0-8.5) Ur Specific [place] 1.025 (1.002-1.035) Urine Protein 30 H (Neg-Trace) mg/dL Urine Glucose (UA) 50 (Negative) mg/dL Urine Ketones 20 (Negative) mg/dL Urine Occult Blood Small H (Negative) Urine Nitrate Positive H (Negative) Urine Bilirubin Negative (Negative) Urine Urobilinogen 2.0 H (Less than 2) mg/dL Ur Leukocyte Esterase Large H (Negative) Urine RBC 17 H (0-3) /hpf Urine WBC (0-5) /hpf Urine Bacteria Few H (None) /hpf Hyaline Casts 4 (0-3) /lpf Urine Mucus Few H (Occasional) /lpf Micro UA Comment Culture indicated Ur Microscopic Review Not Reportable Urine Culture Comments Culture indicated Valproic Acid (50-100) mcg/mL Imaging Data Attestation: I personally reviewed and interpreted this imaging study as follows : My impression: Clear lungs Radiologist's impression: Chest X-Ray 03/04/18 09:24 CONCLUSION: 1. Cardiomegaly. 2. No focal infiltrate or pulmonary vascular congestion. ECG Data EKG Prior to Arrival: No Attestation: I personally reviewed and interpreted this ECG as follows: (EKG shows normal sinus rhythm with a rate of 84. No acute STT wave changes.) Discharge Plan Discharge Disposition Patient Disposition: 30 Still Patient Discharge Details Diagnosis: Generalized epilepsy, Weakness, Acute UTI Physicians Team ED Provider: Celena Keating Primary Care Provider: UNKNOWN, Rxs /Orders / Referrals /Forms Prescriptions: No Action atorvastatin 20 mg Tablet 20 mg PO DAILY RF: 0 tizanidine 2 mg Tablet 2 mg PO TID PRN (Reason: Pain) RF: 0 omeprazole 40 mg Capsule,Delayed Release(Dr/Ec) 40 mg PO DAILY RF: 0 glimepiride 2 mg Tablet 2 mg PO QAM RF: 0 hydrocodone-acetaminophen 7.5-325 mg Tablet 1 tab PO TID PRN (Reason: Pain) RF: 0 metformin 1,000 mg Tablet 1,000 mg PO BID RF: 0 nitroglycerin [Nitrostat] 0.4 mg Tablet, Sublingual 0.4 mg SUBLINGUAL Q5-15M PRN (Reason: Chest Pain) RF: 0 aspirin 81 mg Tablet,Chewable 81 mg PO DAILY RF: 0 hydroxyzine HCl 25 mg Tablet 25 mg PO TID PRN (Reason: Itching) RF: 0 zolpidem [Ambien] 10 mg Tablet 10 mg PO HS RF: 0 ascorbic acid (vitamin C) [Vitamin C] 500 mg Tablet 250 mg PO BID@1200,1700 Qty: 30 RF: 0 ferrous sulfate [FeroSul] 325 mg (65 mg iron) Tablet 325 mg PO BID@1200,1700 Qty: 60 RF: 0 lorazepam [Ativan] 0.5 mg Tablet 1 mg PO DAILY PRN (Reason: Seizure Activity) Qty: 5 RF: 0 pregabalin [Lyrica] 200 mg Capsule 200 mg PO TID 30 Days Qty: 90 RF: 0 levetiracetam [Keppra] 1,000 mg Tablet 1,000 mg PO TID RF: 0 clonazepam [Klonopin] 2 mg Tablet 2 mg PO TID RF: 0 levothyroxine [Synthroid] 50 mcg Tablet 50 mcg PO DAILY@0600 Qty: 30 RF: 0 divalproex [Depakote ER] 250 mg Tablet Extended Release 24 Hr 500 mg PO BID 30 Days Qty: 120 RF: 0 Status ED Status: Pending Admission
[2018-03-04 10:10] LABS: Baso % (Auto) 0.7 % (0.0-2.0); Eos # (Auto) 0.2 th/mm3 (0.0-0.4); Eos % (Auto) 4.3 % (0.0-4.0); Hemoglobin 12.8 gm/dL (13.0-17.0); Lymph # (Auto) 1.5 th/mm3 (1.0-4.8); Lymph % (Auto) 33.8 % (9.0-44.0); Mean Corpuscular HGB Conc 32.1 % (32.0-36.0); Mean Corpuscular Hemoglobin 28.4 pg (27.0-34.0); Mean Corpuscular Volume 88.6 fL (80.0-100.0); Mean Platelet Volume 8.9 fL (7.0-11.0); Mono # (Auto) 0.4 th/mm3 (0.0-0.9); Mono % (Auto) 8.2 % (0.0-8.0); Neut # (Auto) 2.3 th/mm3 (1.8-7.7); Platelet Count 103 th/mm3 (150-450); Red Blood Count 4.51 mil/mm3 (4.50-5.90); Red Cell Distribution Width 18.1 % (11.6-17.2); White Blood Count 4.4 th/mm3 (4.0-11.0)
--- NOTE | 2018-03-04 10:13 | XR ---
EXAM DATE: 03/04/2018 9:24 AM EDT AGE/SEX: 62 years / Male INDICATIONS: Short of breath, lower extremity weakness CLINICAL DATA: This is the patient's initial encounter. Patient reports that signs and symptoms have been present for 1 day and indicates a pain score of 0/10. MEDICAL/SURGICAL HISTORY: Seizures. Chronic obstructive pulmonary disease. Diabetes. cardiac disease Pacemaker. cervical fusion COMPARISON: [facility] – [place]ST 1V SINGLE AP, 03/01/2018. . FINDINGS: Cardiomegaly is again noted and stable. The pulmonary vascular pattern is normal. The lungs are clear . Pacemaker device is again noted overlying the left chest wall. Hardware is noted within the cervica l spine status post fusion. Left shoulder replacement is noted. CONCLUSION: 1. Cardiomegaly. 2. No focal infiltrate or pulmonary vascular congestion. Electronically signed by: Bakari Zacarias MD 03/04/2018 10:12 AM EDT
[2018-03-04 10:31] LABS: Albumin 3.7 g/dL (3.4-5.0); Anion Gap 14 meq/L (5-15); Aspartate Aminotransferase 46 U/L (15-37); Blood Urea Nitrogen 10 mg/dL (7-18); Calcium 8.9 mg/dL (8.5-10.1); Carbon Dioxide 23.4 meq/L (21.0-32.0); Chloride 109 meq/L (98-107); Glomerular Filtration Rate 70 mL/min (>89); Glucose,Random 116 mg/dL (74-106); Sodium 146 meq/L (136-145)
[2018-03-04 10:38] LABS: Alanine Aminotransferase 35 U/L (12-78); Alkaline Phosphatase 89 U/L (45-117); Total Protein 8.1 g/dL (6.4-8.2)
[2018-03-04 11:04] LABS: Bacteria,Urine Few /hpf; Bilirubin,Urine Negative (Negative); Clarity,Urine Cloudy (Clear); Color,Urine Yellow (Yellw/Straw); Glucose,Urine (UA) 50 mg/dL (Negative); Hyaline Casts,Urine 4 /lpf (0-3); Leukocyte Esterase,Urine Large (Negative); Mucus,Urine Few /lpf (Occasional); Nitrite,Urine Positive (Negative); Specific Gravity,Urine 1.025 (1.002-1.035)
[2018-03-04] MEDS ORDERED: Sod Chloride 0.9% Inj 1,000 ML IV.SIG SCH (11:30)
[2018-03-04] MEDS ORDERED: Bisacodyl 10 MG Supp RECTAL PRN (12:43)
[2018-03-04] MEDS ORDERED: Acetaminophen 325 MG Tablet PO PRN (12:43)
[2018-03-04] MEDS: Sod Chloride 0.9% Inj 1,000 ML IV.CONT SCH (12:51)
--- NOTE | 2018-03-04 14:11 | P.HP ---
History of Present Illness Primary Care Physician: UNKNOWN Chief Complaint: Weakness, dysuria, seizure History of Present Illness: 62-year-old male with history of lifelong epilepsy, CAD s/p stents x2, DM, COPD , CVA, vagus nerve stimulator, presents to the hospital with weakness and dysuria. Patient was recently admitted for breakthrough seizures. His EEG was abnormal during that admission, he was seen by neurology, and he was started on Depakote in addition to his Keppra and Lyrica. Patient states he felt okay when he went home yesterday, but after a few hours he started to feel very weak and fatigued. at bedside reports patient was unable to ambulate. Patient also reports subjective chills, no fevers. He reports dysuria and frequent urination. He denies having a Haley on prior admission. While in the ER, ER physician reported questionable seizure activity for which she was given IV Ativan. He has not yet filled his Depakote prescription therefore his last dose was yesterday during hospitalization. The patient has no other medical complaints at this time including no chest pain, shortness of breath, abdominal pain, nausea/vomiting, or diarrhea. Review of Systems All other systems reviewed negative except as stated in HPI PMFSH - History History Provided By: Patient, Family Member - Medical History Medical History: Medical History (Last Reviewed 03/04/18 @ 17:33 by Violetta Bae) CAD (coronary artery disease) CVA (cerebral vascular accident) Chronic back pain DDD (degenerative disc disease) Diabetes 1.5, managed as type 1 GERD (gastroesophageal reflux disease) HTN (hypertension) High cholesterol AIDAN (obstructive sleep apnea) Seizure disorder Spinal stenosis Type II diabetes mellitus - Surgical History Surgical History: Surgical History (Last Updated 03/04/18 @ 17:33 by Violetta Bae) Hx of cholecystectomy Status post VNS (vagus nerve stimulator) placement H/O cervical spine surgery History of lumbar surgery History of total left knee replacement Hx of cardiac cath - Family History Family History: Family History (Last Reviewed 03/01/18 @ 19:13 by Terence Stoll MD) Other Patient denies significant medical history - Social History I have reviewed the patient's Social History: Yes - Tobacco History Second Hand Smoke Exposure: No Tobacco Use In Past 30 Days: No - Alcohol History How Often Do You Have a Drink Containing Alcohol: Never - Substance Use History Substance History: Unable to Obtain - Immunization History Tetanus Immunization: Unable to Assess Medications and Allergies Active Medications: Active Medications Acetaminophen (Tylenol) 650 mg PO Q4H PRN PRN Reason: Headache, fever, pain 1-4 Al Hydroxide/Mg Hydroxide (Milk Of Magnesia Liq) 30 ml PO Q12H PRN PRN Reason: Mild Constipation Ascorbic Acid (Vitamin C) 250 mg PO BID@1200,1700 [facility] Aspirin (Aspirin Chew) 81 mg PO DAILY [facility] Atorvastatin Calcium (Lipitor) 20 mg PO DAILY [facility] Bisacodyl (Dulcolax Supp) 10 mg RECTAL DAILY PRN PRN Reason: SEVERE CONSITIPATION Divalproex Sodium (Depakote Er) 500 mg PO BID [facility] Ferrous Sulfate (Ferosul) 325 mg PO BID@1200,1700 [facility] Glimepiride (Amaryl) 2 mg PO QAM [facility] Sodium Chloride (Ns Inj) 1,000 mls @ 0 mls/hr IV.SIG BOLUS [facility] Last Infusion: 03/04/18 12:49 Dose: Infused Sodium Chloride (Ns Inj) 1,000 mls @ 100 mls/hr IV.CONT .Q10H [facility] Stop: 03/05/18 12:44 Last Admin: 03/04/18 12:51 Dose: 100 mls/hr Lactulose (Lactulose Liq) 30 ml PO DAILY PRN PRN Reason: SEVERE CONSITIPATION Levothyroxine Sodium (Synthroid) 50 mcg PO DAILY@0600 [facility] Non-Formulary Medication (Clonazepam [Klonopin]) 2 mg PO TID [facility] Non-Formulary Medication (Levetiracetam [Keppra]) 1,000 mg PO TID [facility] Non-Formulary Medication (Metformin [Metformin]) 1,000 mg PO BID [facility] Non-Formulary Medication (Omeprazole [Omeprazole]) 40 mg PO DAILY [facility] Non-Formulary Medication (Pregabalin [Lyrica]) 200 mg PO TID [facility] Ondansetron HCl (Zofran Inj) 4 mg IV.PUSH Q6H PRN PRN Reason: NAUSEA OR VOMITING Sennosides (Senokot) 17.2 mg PO Q12H PRN PRN Reason: Moderate Constipation Sodium Chloride (Ns Flush) 2 ml IV.FLUSH PRN PRN PRN Reason: FLUSH AFTER USING IV ACCESS Zolpidem Tartrate (Ambien) 10 mg PO HS PRN PRN Reason: INSOMNIA Allergies Allergy/AdvReac Type Severity Reaction Status Date / Time levofloxacin Allergy Severe Anaphylaxis Verified 03/04/18 09:30 tapentadol Allergy Intermediate Nausea/Vomi Verified 03/04/18 09:30 ting blueberry Allergy Mild Rash Verified 03/04/18 09:30 Home Medications Medication Instructions Recorded Confirmed Type aspirin 81 mg PO DAILY 02/20/18 03/04/18 History atorvastatin 20 mg PO DAILY 02/20/18 03/04/18 History glimepiride 2 mg PO QAM 02/20/18 03/04/18 History hydrocodone-acetaminophen 1 tab PO TID PRN 02/20/18 03/04/18 History hydroxyzine HCl 25 mg PO TID PRN 02/20/18 03/04/18 History metformin 1,000 mg PO BID 02/20/18 03/04/18 History nitroglycerin [Nitrostat] 0.4 mg SUBLINGUAL Q5-15M PRN 02/20/18 03/04/18 History omeprazole 40 mg PO DAILY 02/20/18 03/04/18 History tizanidine 2 mg PO TID PRN 02/20/18 03/04/18 History zolpidem [Ambien] 10 mg PO HS 02/20/18 03/04/18 History clonazepam [Klonopin] 2 mg PO TID 03/01/18 03/04/18 History levetiracetam [Keppra] 1,000 mg PO TID 03/01/18 03/04/18 History Exam Vital signs: Vital Signs 03/04/18 09:20 03/04/18 12:06 Temperature 98.4 F Pulse Rate 85 80 Respiratory Rate 18 18 Blood Pressure 138/75 143/80 H Pulse Oximetry 97 98 Intake & Output 03/03/18 03/04/18 03/04/18 18:59 06:59 18:59 Intake Total 1100 / 1100 Balance 1100 / 1100 Weight 79.379 kg Intake: IV 1100 / 1100 NS Inj 1,000 ML @ Wide Open IV. 1000 / 1000 [facility] Rx#:[id number] Rocephin Inj 1,000 MG In NS Inj 100 / 100 100 ML @ 200 mls/hr IV.SIG ONCE ONE Rx#:[id number] Narrative: GENERAL: Well-nourished, well-developed middle-age male patient in [facility]. SKIN: Warm and dry. No rash. HEENT: Normocephalic. Atraumatic. Pupils equal and round. Mucous membranes pink and moist. Bilateral external auditory canals clean and nonerythematous, with visualization of the tympanic membrane, no erythema/injection. NECK: Supple. Trachea midline. CARDIOVASCULAR: Regular rate and rhythm. No murmur appreciated. RESPIRATORY: No accessory muscle use. Clear to auscultation. Breath sounds equal bilaterally. GASTROINTESTINAL: Abdomen soft, non-tender, nondistended. Normoactive bowel sounds x4. MUSCULOSKELETAL: No obvious deformities. Extremities without clubbing, cyanosis , or edema. NEUROLOGICAL: Awake and alert. No obvious cranial nerve deficits. Motor grossly within normal limits. Moving all extremities spontaneously. Normal speech. PSYCHIATRIC: Appropriate mood and affect; insight and judgment normal. Results - Labs CBC & Chem 7: 03/04/18 09:40 03/04/18 09:40 Labs: Laboratory Results - last 24 hr 03/04/18 03/04/18 03/04/18 09:40 09:40 09:40 WBC 4.4 RBC 4.51 Hgb 12.8 L Hct 40.0 MCV 88.6 MCH 28.4 MCHC 32.1 RDW 18.1 H Plt Count 103 L MPV 8.9 Neut % (Auto) 53.0 Lymph % (Auto) 33.8 [place] % (Auto) 8.2 H Eos % (Auto) 4.3 H Baso % (Auto) 0.7 Neut # (Auto) 2.3 Lymph # (Auto) 1.5 [place] # (Auto) 0.4 Eos # (Auto) 0.2 Baso # (Auto) 0.0 WBC Differential . Differential Comment Auto diff final Sodium 146 H Potassium 4.0 Chloride 109 H Carbon Dioxide 23.4 Anion Gap 14 BUN 10 Creatinine 1.08 Estimated GFR 70 L Random Glucose 116 H Calcium 8.9 Total Bilirubin 0.6 AST 46 H ALT 35 Alkaline Phosphatase 89 Troponin I Less than 0.02 L Total Protein 8.1 Albumin 3.7 Urine Color Urine Clarity Urine pH Ur Specific [place] Urine Protein Urine Glucose (UA) Urine Ketones Urine Occult Blood Urine Nitrate Urine Bilirubin Urine Urobilinogen Ur Leukocyte Esterase Urine RBC Urine WBC Urine Bacteria Hyaline Casts Urine Mucus Micro UA Comment Ur Microscopic Review Urine Culture Comments Valproic Acid 53 03/04/18 10:37 WBC RBC Hgb Hct MCV MCH MCHC RDW Plt Count MPV Neut % (Auto) Lymph % (Auto) [place] % (Auto) Eos % (Auto) Baso % (Auto) Neut # (Auto) Lymph # (Auto) [place] # (Auto) Eos # (Auto) Baso # (Auto) WBC Differential Differential Comment Sodium Potassium Chloride Carbon Dioxide Anion Gap BUN Creatinine Estimated GFR Random Glucose Calcium Total Bilirubin AST ALT Alkaline Phosphatase Troponin I Total Protein Albumin Urine Color Yellow Urine Clarity Cloudy H Urine pH 5.0 Ur Specific [place] 1.025 Urine Protein 30 H Urine Glucose (UA) 50 Urine Ketones 20 Urine Occult Blood Small H Urine Nitrate Positive H Urine Bilirubin Negative Urine Urobilinogen 2.0 H Ur Leukocyte Esterase Large H Urine RBC 17 H Urine WBC Urine Bacteria Few H Hyaline Casts 4 Urine Mucus Few H Micro UA Comment Culture indicated Ur Microscopic Review Not Reportable Urine Culture Comments Culture indicated Valproic Acid - Imaging Impressions Chest X-Ray 03/04/18 09:24 CONCLUSION: 1. Cardiomegaly. 2. No focal infiltrate or pulmonary vascular congestion. Caprini VTE Risk Assessment Caprini VTE Risk Assessment: Moderate/High Risk (score >= 2) Caprini Risk Assessment Model: Point Value = 1 Point Value = 2 Point Value = 3 Point Value = 5 Age 41-60 Minor surgery BMI > 25 kg/m2 Swollen legs Varicose veins or History of unexplained or recurrent spontaneous Oral contraceptives or hormone replacement Sepsis (< 1 month) Serious lung disease, including pneumonia (< 1 month) Abnormal pulmonary function Acute myocardial infarction Congestive heart failure (< 1 month) History of inflammatory bowel disease Medical patient at bed rest Age 61-74 Arthroscopic surgery Major open surgery (> 45 min) Laparoscopic surgery (> 45 min) Malignancy Confined to bed (> 72 hours) Immobilizing plaster cast Central venous access Age >= 75 History of VTE Family history of VTE Factor V Leiden Prothrombin [id number] Lupus anticoagulant Anticardiolipin antibodies Elevated serum homocysteine Heparin-induced thrombocytopenia Other congenital or acquired thrombophilia Stroke (< 1 month) Elective arthroplasty Hip, pelvis, or leg fracture Acute spinal cord injury (< 1 month) Prophylaxis Regimen: Total Risk Factor Score Risk Level Prophylaxis Regimen 0-1 Low Early ambulation 2 Moderate Order ONE of the following: *Sequential Compression Device (SCD) *Heparin 5000 units SQ BID 3-4 Higher Order ONE of the following medications: *Heparin 5000 units SQ TID *Enoxaparin/Lovenox 40 mg SQ daily (WT < 150 kg, CrCl > 30 mL/min) *Enoxaparin/Lovenox 30 mg SQ daily (WT < 150 kg, CrCl > 10-29 mL/min) *Enoxaparin/Lovenox 30 mg SQ BID (WT < 150 kg, CrCl > 30 mL/min) AND/OR *Sequential Compression Device (SCD) 5 or more Highest Order ONE of the following medications: *Heparin 5000 units SQ TID (Preferred with Epidurals) *Enoxaparin/Lovenox 40 mg SQ daily (WT < 150 kg, CrCl > 30 mL/min) *Enoxaparin/Lovenox 30 mg SQ daily (WT < 150 kg, CrCl > 10-29 mL/min) *Enoxaparin/Lovenox 30 mg SQ BID (WT < 150 kg, CrCl > 30 mL/min) AND *Sequential Compression Device (SCD) Assessment and Plan - Plan 62-year-old male with history of lifelong epilepsy, CAD s/p stents x2, DM, COPD , CVA, vagus nerve stimulator, presents to the hospital with weakness and dysuria. Patient was recently admitted for breakthrough seizures. His EEG was abnormal during that admission, he was seen by neurology, and he was started on Depakote in addition to his Keppra and Lyrica. Generalized weakness: Suspect multifactorial with UTI and recurrent seizures -Continue antibiotics for UTI as below -Consult PT UTI: UA with positive nitrates, large leuks, WBCs -continue antibiotics with IV Rocephin -Monitor urine culture, adjust antibiotics as needed Breakthrough seizures with hx of seizure disorder: S/p recent admission this week for the same, recently started on Depakote in addition to his Keppra and Lyrica. Questionable seizure activity while in the ER. -Continue patient's Keppra, Lyrica, and Depakote -Seizure precautions -Check repeat EEG as this was abnormal on previous admission -Neurology consulted, appreciate recommendations -Patient instructed to follow-up with outpatient neurologist to check vagus nerve stimulator DM: Chronic, stable -Continue patient's metformin and glimepiride Hx of CVA/CAD/HLD: chronic -continue patient's aspirin, statin Acute Hypothyroidism: TSH high at 18.4, with a low free T4 on previous admission. Not on thyroid replacement at home. -Started on levothyroxine 50mcg daily (lower initial dose recommended by [employer] with hx of CAD) -Repeat TSH/T4 as outpatient in 4-6 weeks Other chronic medical conditions stable, continue home medications as appropriate DVT Prophylaxis: SCDs. Patient is ambulatory
[2018-03-04] MEDS ORDERED: Divalproex 500 MG ER Tablet PO SCH ×2 (15:00→21:00)
[2018-03-04] MEDS ORDERED: Valproate Inj 500 MG in Sodium Chlor 0.9% Inj 100 ML IV.SIG ONE (16:00)
[2018-03-04] MEDS: Ascorbic Acid 500 MG Tablet PO SCH (16:03)
[2018-03-04] MEDS: Glimepiride 2 MG Tablet PO SCH (16:04)
[2018-03-04] MEDS: Ferrous Sulfate 325 MG Tablet PO SCH (16:04)
[2018-03-04] MEDS: levETIRAcetam 500 MG Tablet PO SCH (17:22)
[2018-03-04] MEDS: clonazePAM 1 MG Tablet PO SCH (17:22)
--- NOTE | 2018-03-04 20:57 | MB ---
cc: Abebe Benson MD DATE: 03/04/2018 HISTORY OF PRESENT ILLNESS: A 62-year-old right-handed man who has been seen by Dr. Velasquez and Dr. Shelton here before. He is not a great historian at this time and I put in a call to both phone numbers in the chart. No one answered. He has had a history of stroke with left-sided hemiparesis, history of seizures evidently since he was 16. According to the notes, he was seen by Dr. Velasquez in September of this year. He was on Keppra 1000 mg t.i.d., Lyrica 200 mg b.i.d., Ativan p.r.n., metformin. Dr. Velasquez recommended that he get his vagus nerve stimulator, which he had done sometime back in [facility], interrogated to see if it was working. I am not sure if that was ever done or not. Nevertheless, he was seen by Dr. Shelton on 03/02/2018. He noted he had been on various seizure medications currently Keppra. He is noted to have [facility] model vagus nerve stimulator #103 and 2014. He noted he was followed by an outpatient neurologist that he had breakthrough seizures every several months. He was on Depakote and evidently doing well, but changed over to Keppra at some point and he added Keppra on this past admission. His EEG on 07/11/2017 showed frequent spike wave discharges consistent with primary generalized seizure disorder. The VNS rep was supposed to see the patient later this week. Depakote was added. After a few hours being home, he felt weak and fatigued. He was unable to ambulate. Frequent urination. ER doctor thought maybe some seizure activity and he was given some Ativan. He was readmitted. He has noted some shortness of breath in the ER, given some fluids, and he started having some jerking movements that appeared voluntary and he was unsure if it was seizures or not, so he was given Ativan. PAST MEDICAL HISTORY: Hypertension, insulin-dependent diabetes, [place], stent x2, stroke in 2006 with left-sided weakness. REVIEW OF SYSTEMS: He denied any hypercholesterolemia, A-Fib, Coumadin, CABG, renal, hepatic, pulmonary disease, thyroid disease, lupus, ulcer, cancer. SOCIAL HISTORY: Nonsmoker, nondrinker, lives with his . FAMILY HISTORY: Negative for cancer, seizure, stroke. MEDICATIONS AT HOME: He was on, 1. 81 mg of aspirin. 2. Atorvastatin. 3. Glyburide 4. Hydrocodone. 5. Hydroxyzine. 6. Metformin. 7. Nitrostat. 8. Omeprazole. 9. Tizanidine. 10. Ambien. 11. Klonopin. 12. Keppra. 13. I do not see where he was on Depakote, although previous Rx has been for Depakote 500 mg b.i.d. 14. Lyrica 200 mg t.i.d. 15. Ativan 1 mg p.r.n. 16. Thyroid medicine. CURRENT MEDICATIONS: He is on, 1. Tylenol. 2. Vitamin C. 3. 81 mg of aspirin. 4. Lipitor. 5. Klonopin 2 mg t.i.d. 6. Depakote 500 mg b.i.d. extended release. 7. Glyburide. 8. Lactulose. 9. Keppra 1000 mg t.i.d. 10. Synthroid. 11. Ativan every p.r.n. seizure. 12. Protonix. 13. Lyrica 200 mg t.i.d. 14. He got some ceftriaxone. 15. He got some IV Depakote. PHYSICAL EXAMINATION: VITAL SIGNS: Afebrile 94, 21, 156/79. NECK: There were no carotid bruits. HEART: Regular rate and rhythm. I did not detect a murmur. GENERAL: He is awake and alert. HEENT: He has got a very thick lens in his glasses in the left eye he says from cataract. His visual sheehan are full. Extraocular movements intact without nystagmus. Face is symmetric. Tongue was midline. EXTREMITIES: He has got about 4-/5 weakness in the left upper extremity and about 4+ in the left lower extremity. Normal strength in the right upper and lower extremity. Toes downgoing bilaterally. Slightly hyper reflexes bilaterally in the lower extremities, but a bit more on the left than the right. He is slightly ataxic on [id number] on the left, not on the right. Pinprick was diminished on the left compared to the right. Speech is fluent. He is not aphasic. Slightly slurred. Not a great historian today. Gets his medications mixed in talking to me. LABORATORY DATA: CBC is normal. Depakote level today was 53. His UA showed a large amount of leukocyte esterase, too numerous to count white cells. BMP, sodium is 146, otherwise normal. LFTs are essentially normal. Troponins negative. He had a CAT scan of his brain done 02/20/2018, which was read as normal, and it does, in fact, appear to be normal. He had an EEG done in 05/2016 that showed negative for any seizures. IMPRESSION: History of primary generalized seizure disorder. He does have a therapeutic Depakote level. We will increase him to 750 mg b.i.d., get his level a little bit higher, continue him on the Keppra and Lyrica. I have physical therapy ambulate him, treat his urinary tract infection, and in fact he was given some ceftriaxone here. I note at one time he thinks maybe his vagus nerve stimulator helped him somewhat, and from his last labs at one time, he was on Dilantin. He does need to have vagus nerve stimulator interrogated. Reviewing his labs, it was history in 2018 in June of some slightly elevated LFTs. His thyroid study was normal a year ago. We can recheck a CAT scan on him and have his call us, so I can get a little bit of history. MD LYUBOV Tai/sv/hemant , 06:46 PM , 06:58 PM
[2018-03-04] MEDS: Divalproex 250 MG ER Tablet PO SCH (21:50)
[2018-03-05] MEDS: Sod Chloride 0.9% Inj 1,000 ML IV.CONT SCH ×2 (00:03→12:57)
[2018-03-05] MEDS: Levothyroxine 50 MCG Tablet PO SCH (06:24)
[2018-03-05] MEDS: Glimepiride 2 MG Tablet PO SCH (06:24)
--- NOTE | 2018-03-05 07:05 | P.PNNEU ---
Subjective Subjective Comments: sr no sz overnoc Active Medications: Active Medications Acetaminophen (Tylenol) 650 mg PO Q4H PRN PRN Reason: Headache, fever, pain 1-4 Al Hydroxide/Mg Hydroxide (Milk Of Magnesia Liq) 30 ml PO Q12H PRN PRN Reason: Mild Constipation Ascorbic Acid (Vitamin C) 250 mg PO BID@1200,1700 [facility] Last Admin: 03/04/18 16:03 Dose: 250 mg Aspirin (Aspirin Chew) 81 mg PO DAILY [facility] Atorvastatin Calcium (Lipitor) 20 mg PO DAILY [facility] Bisacodyl (Dulcolax Supp) 10 mg RECTAL DAILY PRN PRN Reason: SEVERE CONSITIPATION Clonazepam (Klonopin) 2 mg PO TID [facility] Last Admin: 03/04/18 17:22 Dose: 2 mg Divalproex Sodium (Depakote Er) 750 mg PO BID [facility] Last Admin: 03/04/18 21:50 Dose: 750 mg Ferrous Sulfate (Ferosul) 325 mg PO BID@1200,1700 [facility] Last Admin: 03/04/18 16:04 Dose: 325 mg Glimepiride (Amaryl) 2 mg PO DAILYAC [facility] Last Admin: 03/05/18 06:24 Dose: 2 mg Sodium Chloride (Ns Inj) 1,000 mls @ 0 mls/hr IV.SIG BOLUS [facility] Last Infusion: 03/04/18 12:49 Dose: Infused Sodium Chloride (Ns Inj) 1,000 mls @ 100 mls/hr IV.CONT .Q10H [facility] Stop: 03/05/18 12:44 Last Admin: 03/05/18 00:03 Dose: 100 mls/hr Lactulose (Lactulose Liq) 30 ml PO DAILY PRN PRN Reason: SEVERE CONSITIPATION Levetiracetam (Keppra) 1,000 mg PO TID [facility] Last Admin: 03/04/18 17:22 Dose: 1,000 mg Levothyroxine Sodium (Synthroid) 50 mcg PO DAILY@0600 [facility] Last Admin: 03/05/18 06:24 Dose: 50 mcg Lorazepam (Ativan Inj) 1 mg IV.PUSH Q2H PRN PRN Reason: SEIZURES [facility] Last Admin: 03/04/18 17:22 Dose: 1,000 mg Miscellaneous (Pill Splitter) 1 each OTHER UNSCH PRN PRN Reason: SEE LABEL COMMENTS Ondansetron HCl (Zofran Inj) 4 mg IV.PUSH Q6H PRN PRN Reason: NAUSEA OR VOMITING Pantoprazole Sodium (Protonix) 40 mg PO DAILY [facility] Pregabalin (Lyrica) 200 mg PO TID [facility] Last Admin: 03/04/18 17:22 Dose: 200 mg Sennosides (Senokot) 17.2 mg PO Q12H PRN PRN Reason: Moderate Constipation Sodium Chloride (Ns Flush) 2 ml IV.FLUSH PRN PRN PRN Reason: FLUSH AFTER USING IV ACCESS Zolpidem Tartrate (Ambien) 10 mg PO HS PRN PRN Reason: INSOMNIA Allergies/Adverse Reactions: Allergies Allergy/AdvReac Type Severity Reaction Status Date / Time levofloxacin Allergy Severe Anaphylaxis Verified 03/04/18 09:30 tapentadol Allergy Intermediate Nausea/Vomi Verified 03/04/18 09:30 ting blueberry Allergy Mild Rash Verified 03/04/18 09:30 Physical Exam Vital signs: Vital Signs 03/04/18 09:20 03/04/18 12:06 03/04/18 15:14 Temperature 98.4 F 98.3 F Pulse Rate 85 80 94 H Respiratory Rate 18 18 20 Blood Pressure 138/75 143/80 H 156/79 H Pulse Oximetry 97 98 95 03/04/18 20:00 03/05/18 00:00 03/05/18 03:46 Temperature 98.8 F 98.0 F 98.6 F Pulse Rate 83 82 78 Respiratory Rate 16 16 16 Blood Pressure 154/76 H 122/73 136/77 Pulse Oximetry 98 98 98 Intake & Output 03/04/18 03/05/18 03/05/18 18:59 06:59 18:59 Intake Total 1555 / 1555 1000 / 1000 Balance 1555 / 1555 1000 / 1000 Weight 79.379 kg Intake: IV 1305 / 1305 1000 / 1000 NS Inj 1,000 ML @ 100 mls/hr IV 1000 / 1000 .CONT .Q10H [facility] Rx#:[id number] NS Inj 1,000 ML @ Wide Open IV. 1000 / 1000 SIG BOLUS [facility] Rx#:[id number] Depacon Inj 500 MG In NS Inj 205 / 205 100 ML @ 105 mls/hr IV.SIG ONCE ONE Rx#:[id number] Rocephin Inj 1,000 MG In NS Inj 100 / 100 100 ML @ 200 mls/hr IV.SIG ONCE ONE Rx#:[id number] Oral 250 / 250 Narrative: awakens alert mod left hp stable Objective Laboratory Results - last 24 hr 03/04/18 03/04/18 03/04/18 09:40 09:40 09:40 WBC 4.4 RBC 4.51 Hgb 12.8 L Hct 40.0 MCV 88.6 MCH 28.4 MCHC 32.1 RDW 18.1 H Plt Count 103 L MPV 8.9 Neut % (Auto) 53.0 Lymph % (Auto) 33.8 [place] % (Auto) 8.2 H Eos % (Auto) 4.3 H Baso % (Auto) 0.7 Neut # (Auto) 2.3 Lymph # (Auto) 1.5 [place] # (Auto) 0.4 Eos # (Auto) 0.2 Baso # (Auto) 0.0 WBC Differential . Differential Comment Auto diff final Sodium 146 H Potassium 4.0 Chloride 109 H Carbon Dioxide 23.4 Anion Gap 14 BUN 10 Creatinine 1.08 Estimated GFR 70 L Random Glucose 116 H Calcium 8.9 Total Bilirubin 0.6 AST 46 H ALT 35 Alkaline Phosphatase 89 Troponin I Less than 0.02 L Total Protein 8.1 Albumin 3.7 Urine Color Urine Clarity Urine pH Ur Specific [place] Urine Protein Urine Glucose (UA) Urine Ketones Urine Occult Blood Urine Nitrate Urine Bilirubin Urine Urobilinogen Ur Leukocyte Esterase Urine RBC Urine WBC Urine Bacteria Hyaline Casts Urine Mucus Micro UA Comment Ur Microscopic Review Urine Culture Comments Valproic Acid 53 03/04/18 10:37 WBC RBC Hgb Hct MCV MCH MCHC RDW Plt Count MPV Neut % (Auto) Lymph % (Auto) [place] % (Auto) Eos % (Auto) Baso % (Auto) Neut # (Auto) Lymph # (Auto) [place] # (Auto) Eos # (Auto) Baso # (Auto) WBC Differential Differential Comment Sodium Potassium Chloride Carbon Dioxide Anion Gap BUN Creatinine Estimated GFR Random Glucose Calcium Total Bilirubin AST ALT Alkaline Phosphatase Troponin I Total Protein Albumin Urine Color Yellow Urine Clarity Cloudy H Urine pH 5.0 Ur Specific [place] 1.025 Urine Protein 30 H Urine Glucose (UA) 50 Urine Ketones 20 Urine Occult Blood Small H Urine Nitrate Positive H Urine Bilirubin Negative Urine Urobilinogen 2.0 H Ur Leukocyte Esterase Large H Urine RBC 17 H Urine WBC Urine Bacteria Few H Hyaline Casts 4 Urine Mucus Few H Micro UA Comment Culture indicated Ur Microscopic Review Not Reportable Urine Culture Comments Culture indicated Valproic Acid Review/Management - Review/Management Plan: imp on vpa 750 bid check level today eeg one 1 sec burst of slight sharp slow wave ow no sz activity plan is dc today have call me fu today vpa level nneeds o/p vns interrogated
--- NOTE | 2018-03-05 07:17 | MG ---
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 DESCRIPTION: There is some spike wave activity that started right out at epoch 7 with a background of diffuse 8 Hz, 60 microvolt rhythm and some slower rhythms down to 6 and 7 Hz bilaterally. No prolonged seizure activity is seen. Most of the recording does not show any seizure activity. He appears to fall asleep and reach stage II sleep. Photic stimulation is performed without significant posterior driving. IMPRESSION: Only 1 burst right at the beginning of the recording that looked epileptiform at epoch 7 with small sharp slowing. Otherwise, a normal electroencephalogram. MD LYUBOV Tai/cachorro , 07:50 PM , 07:54 PM
--- NOTE | 2018-03-05 08:11 | P.PN ---
Subjective Interval history: Follow-up for UTI, breakthrough seizures, weakness. Patient reports overall feeling slightly better today, however still weak with difficulty ambulating. He is also reporting continued dysuria with occasional suprapubic pains. Denies fevers or chills. He is able to urinate. He is tolerating oral intake. Denies nausea/vomiting or diarrhea. No further seizure activity reported by the nurse overnight. RN today reports an episode of head twitching today, however patient was responsive throughout the episode. Vagus nerve stimulator rep visited today. Physical Exam Vital signs: Vital Signs 03/04/18 09:20 03/04/18 12:06 03/04/18 15:14 Temperature 98.4 F 98.3 F Pulse Rate 85 80 94 H Respiratory Rate 18 18 20 Blood Pressure 138/75 143/80 H 156/79 H Pulse Oximetry 97 98 95 03/04/18 20:00 03/05/18 00:00 03/05/18 03:46 Temperature 98.8 F 98.0 F 98.6 F Pulse Rate 83 82 78 Respiratory Rate 16 16 16 Blood Pressure 154/76 H 122/73 136/77 Pulse Oximetry 98 98 98 Intake & Output 03/04/18 03/05/18 03/05/18 18:59 06:59 18:59 Intake Total 1555 / 1555 1000 / 1000 Balance 1555 / 1555 1000 / 1000 Weight 79.379 kg Intake: IV 1305 / 1305 1000 / 1000 NS Inj 1,000 ML @ 100 mls/hr IV 1000 / 1000 .CONT .Q10H [facility] Rx#:[id number] NS Inj 1,000 ML @ Wide Open IV. 1000 / 1000 SIG BOLUS [facility] Rx#:[id number] Depacon Inj 500 MG In NS Inj 205 / 205 100 ML @ 105 mls/hr IV.SIG ONCE ONE Rx#:[id number] Rocephin Inj 1,000 MG In NS Inj 100 / 100 100 ML @ 200 mls/hr IV.SIG ONCE ONE Rx#:[id number] Oral 250 / 250 Narrative: GENERAL: Well-nourished, well-developed middle-age male patient in [facility]. SKIN: Warm and dry. No rash. HEENT: Normocephalic. Atraumatic. Pupils equal and round. Mucous membranes pink and moist. CARDIOVASCULAR: Regular rate and rhythm. No murmur appreciated. RESPIRATORY: No accessory muscle use. Clear to auscultation. Breath sounds equal bilaterally. GASTROINTESTINAL: Abdomen soft, non-tender, nondistended. Normoactive bowel sounds x4. MUSCULOSKELETAL: No obvious deformities. Extremities without clubbing, cyanosis , or edema. NEUROLOGICAL: Awake and alert. No obvious cranial nerve deficits. Motor grossly within normal limits. Moving all extremities spontaneously. Normal speech. PSYCHIATRIC: Odd affect; insight and judgment normal. Results - Labs CBC & Chem 7: 03/04/18 09:40 03/04/18 09:40 Laboratory Results - last 24 hr 03/04/18 03/04/18 03/04/18 09:40 09:40 09:40 WBC 4.4 RBC 4.51 Hgb 12.8 L Hct 40.0 MCV 88.6 MCH 28.4 MCHC 32.1 RDW 18.1 H Plt Count 103 L MPV 8.9 Neut % (Auto) 53.0 Lymph % (Auto) 33.8 [place] % (Auto) 8.2 H Eos % (Auto) 4.3 H Baso % (Auto) 0.7 Neut # (Auto) 2.3 Lymph # (Auto) 1.5 [place] # (Auto) 0.4 Eos # (Auto) 0.2 Baso # (Auto) 0.0 WBC Differential . Differential Comment Auto diff final Sodium 146 H Potassium 4.0 Chloride 109 H Carbon Dioxide 23.4 Anion Gap 14 BUN 10 Creatinine 1.08 Estimated GFR 70 L Random Glucose 116 H Calcium 8.9 Total Bilirubin 0.6 AST 46 H ALT 35 Alkaline Phosphatase 89 Troponin I Less than 0.02 L Total Protein 8.1 Albumin 3.7 Urine Color Urine Clarity Urine pH Ur Specific [place] Urine Protein Urine Glucose (UA) Urine Ketones Urine Occult Blood Urine Nitrate Urine Bilirubin Urine Urobilinogen Ur Leukocyte Esterase Urine RBC Urine WBC Urine Bacteria Hyaline Casts Urine Mucus Micro UA Comment Ur Microscopic Review Urine Culture Comments Valproic Acid 53 03/04/18 03/05/18 10:37 06:40 WBC RBC Hgb Hct MCV MCH MCHC RDW Plt Count MPV Neut % (Auto) Lymph % (Auto) [place] % (Auto) Eos % (Auto) Baso % (Auto) Neut # (Auto) Lymph # (Auto) [place] # (Auto) Eos # (Auto) Baso # (Auto) WBC Differential Differential Comment Sodium Potassium Chloride Carbon Dioxide Anion Gap BUN Creatinine Estimated GFR Random Glucose Calcium Total Bilirubin AST ALT Alkaline Phosphatase Troponin I Total Protein Albumin Urine Color Yellow Urine Clarity Cloudy H Urine pH 5.0 Ur Specific [place] 1.025 Urine Protein 30 H Urine Glucose (UA) 50 Urine Ketones 20 Urine Occult Blood Small H Urine Nitrate Positive H Urine Bilirubin Negative Urine Urobilinogen 2.0 H Ur Leukocyte Esterase Large H Urine RBC 17 H Urine WBC Urine Bacteria Few H Hyaline Casts 4 Urine Mucus Few H Micro UA Comment Culture indicated Ur Microscopic Review Not Reportable Urine Culture Comments Culture indicated Valproic Acid 68 - Imaging Impressions Chest X-Ray 03/04/18 09:24 CONCLUSION: 1. Cardiomegaly. 2. No focal infiltrate or pulmonary vascular congestion. Assessment and Plan - Plan 62-year-old male with history of lifelong epilepsy, CAD s/p stents x2, DM, COPD , CVA, vagus nerve stimulator, presents to the hospital with weakness and dysuria. Patient was recently admitted for breakthrough seizures. His EEG was abnormal during that admission, he was seen by neurology, and he was started on Depakote in addition to his Keppra and Lyrica. Generalized weakness: Suspect multifactorial with UTI and recurrent seizures -Continue antibiotics for UTI as below -Consult PT UTI: UA with positive nitrates, large leuks, WBCs -continue antibiotics with IV Rocephin -Urine culture with staph coag negative, add Bactrim po for now -Will repeat UA and urine culture -Monitor urine culture, adjust antibiotics as needed Breakthrough seizures with hx of seizure disorder: S/p recent admission this week for the same, recently started on Depakote in addition to his Keppra and Lyrica. Questionable seizure activity while in the ER. -Continue patient's Keppra, Lyrica, and Depakote -Seizure precautions -Repeat EEG improved compared to previous, showed 1 burst, otherwise mostly normal -Neurology consulted, appreciate Dr. Benson's recommendations, increased Depakote dosing to 750mg bid, depakote level 68 -Vagus nerve stimulator interrogated here, rep discussed with Dr. Benson DM: Chronic, stable -Continue patient's metformin and glimepiride -Monitor Accu-Cheks and cover with SSI Hx of CVA/CAD/HLD: chronic -continue patient's aspirin, statin Acute Hypothyroidism: TSH high at 18.4, with a low free T4 on previous admission. Not on thyroid replacement at home. -Started on levothyroxine 50mcg daily (lower initial dose recommended by [employer] with hx of CAD) -Repeat TSH/T4 as outpatient in 4-6 weeks Seborrheic Dermatitis: acute, facial -start on topical antifungal/steroid therapy Other chronic medical conditions stable, continue home medications as appropriate DVT Prophylaxis: SCDs. Patient is ambulatory
[2018-03-05] MEDS: levETIRAcetam 500 MG Tablet PO SCH ×3 (09:16→17:15)
[2018-03-05] MEDS: clonazePAM 1 MG Tablet PO SCH ×2 (09:16→16:28)
--- NOTE | 2018-03-05 11:58 | ECG ---
Date Performed: 03/04/2018 Time Performed: 09:38:52 PTAGE: 62 years EKG: Sinus rhythm NONSPECIFIC T-WAVE ABNORMALITY BORDERLINE ECG INTERPRETATION BASED ON A DEFAULT AGE OF 40 YEARS PREVIOUS TRACING 03/01/18 Since the previous tracing, no significant change noted DOCTOR: Abebe Gonzalez Interpretating Date/Time 03/05/2018 11:57:27
[2018-03-05] MEDS: Divalproex 250 MG ER Tablet PO SCH ×2 (12:57→20:48)
[2018-03-05] MEDS ORDERED: Dextrose 50% in Water 50 ML Vial IV.PUSH PRN (15:18)
[2018-03-05] MEDS: Ferrous Sulfate 325 MG Tablet PO SCH ×2 (15:59→17:09)
[2018-03-05] MEDS: Ascorbic Acid 500 MG Tablet PO SCH ×2 (16:00→17:09)
[2018-03-05] MEDS: Insulin NovoLOG Aspart Correctional Sugar Inj SQ SCH ×2 (16:56→20:48)
[2018-03-05] MEDS: FLUOCINOLONE ACETONIDE 0.01% TOPICAL SCH ×2 (17:26→20:48)
[2018-03-05 22:24] LABS: Bilirubin,Urine Negative (Negative); Clarity,Urine Clear (Clear); Color,Urine Yellow (Yellw/Straw); Glucose,Urine (UA) 50 mg/dL (Negative); Leukocyte Esterase,Urine Large (Negative); Nitrite,Urine Negative (Negative); Specific Gravity,Urine 1.023 (1.002-1.035); Urobilinogen,Urine 4 or Greater mg/dL (Less than 2)
[2018-03-06] MEDS: Levothyroxine 50 MCG Tablet PO SCH (05:21)
[2018-03-06] MEDS: Insulin NovoLOG Aspart Correctional Sugar Inj SQ SCH ×4 (07:56→22:04)
[2018-03-06] MEDS: Divalproex 250 MG ER Tablet PO SCH ×2 (08:26→22:04)
[2018-03-06] MEDS: levETIRAcetam 500 MG Tablet PO SCH ×3 (08:26→17:11)
[2018-03-06] MEDS: FLUOCINOLONE ACETONIDE 0.01% TOPICAL SCH ×2 (08:27→22:06)
[2018-03-06] MEDS: Glimepiride 2 MG Tablet PO SCH (08:27)
[2018-03-06] MEDS: Ferrous Sulfate 325 MG Tablet PO SCH ×2 (12:01→17:11)
[2018-03-06] MEDS: Ascorbic Acid 500 MG Tablet PO SCH ×2 (12:01→17:11)
--- NOTE | 2018-03-06 13:59 | P.DS ---
Date of admission: 03/04/18 12:57 Primary care physician: UNKNOWN Anticipated date of discharge: 03/06/18 Brief History from admission: 62-year-old male with history of lifelong epilepsy, CAD s/p stents x2, DM, COPD , CVA, vagus nerve stimulator, presents to the hospital with weakness and dysuria. Patient was recently admitted for breakthrough seizures. His EEG was abnormal during that admission, he was seen by neurology, and he was started on Depakote in addition to his Keppra and Lyrica. Patient states he felt okay when he went home yesterday, but after a few hours he started to feel very weak and fatigued. at bedside reports patient was unable to ambulate. Patient also reports subjective chills, no fevers. He reports dysuria and frequent urination. He denies having a Haley on prior admission. While in the ER, ER physician reported questionable seizure activity for which she was given IV Ativan. He has not yet filled his Depakote prescription therefore his last dose was yesterday during hospitalization. The patient has no other medical complaints at this time including no chest pain, shortness of breath, abdominal pain, nausea/vomiting, or diarrhea. Patient update on day of discharge: Follow-up for UTI, breakthrough seizures. Patient reports overall feeling slightly better since his arrival, however still weak and fatigued. He states his dysuria has improved. Denies any fever/chills. Tolerating oral intake. Denies any abdominal pain. No further seizure activity reported overnight. He is agreeable to go to [facility] today. DS: Diagnosis - Discharge Diagnosis (1) Generalized epilepsy Status: Acute (2) Hypothyroidism Status: Acute (3) Weakness Status: Acute (4) Acute UTI Status: Acute DS: Medications - Discharge Medications Prescriptions: divalproex [Depakote ER] 750 mg PO BID 30 Days #180 tab fluocinolone 1 applicatio TOPICAL BID 7 Days #1 g ketoconazole 1 applicatio TOPICAL BID 10 Days #1 g sulfamethoxazole-trimethoprim 1 tab PO Q12HR 6 Days #12 tab DS: Summary Hospital Course: 62-year-old male with history of lifelong epilepsy, CAD s/p stents x2, DM, COPD , CVA, vagus nerve stimulator, presents to the hospital with weakness and dysuria. Patient was recently admitted 10/210/3 for breakthrough seizures. His EEG was abnormal during that admission, he was seen by neurology, and he was started on Depakote in addition to his Keppra and Lyrica. Generalized weakness: Suspect multifactorial with UTI and recurrent seizures. Given antibiotics for UTI as below. Consult PT, recommending rehab. Case management arranged for patient to go to [facility]. UTI: UA with positive nitrates, large leuks, WBCs. Initially given antibiotics with IV Rocephin. Urine culture with staphylococcus epidermidis. Changed antibiotics to Bactrim DS 1 tab po bid x7days. Breakthrough seizures with hx of seizure disorder: S/p recent admission this week for the same, recently started on Depakote in addition to his Keppra and Lyrica. Questionable seizure activity while in the ER. Continue patient's Keppra, Lyrica, and Depakote. Seizure precautions. Repeat EEG improved compared to previous, showed 1 burst, otherwise mostly normal. Neurology consulted, appreciate Dr. Benson's recommendations, increased Depakote dosing to 750mg bid, repeat depakote level 68. Vagus nerve stimulator interrogated here, rep discussed with Dr. Benson. No further seizure activity. Stable for d/c to [facility]. DM: Chronic, stable. Continued patient's metformin and glimepiride. Monitor Accu -Cheks and cover with SSI Hx of CVA/CAD/HLD: chronic. Continue patient's aspirin, statin. Acute Hypothyroidism: TSH high at 18.4, with a low free T4 on previous admission. Not on thyroid replacement at home. Started on levothyroxine 50mcg daily (lower initial dose recommended by [employer] with hx of CAD). Repeat TSH/ T4 as outpatient in 4-6 weeks Seborrheic Dermatitis: acute, facial. Started on topical antifungal/steroid therapy. Rash improving. - Time Spent with Patient Total time spent providing and/or coordinating discharge services: Greater than 30 minutes - Quality: VTE Deep Vein Thrombosis/Pulmonary Embolism Present on Admission: No Exam Vital signs: Vital Signs 03/05/18 16:00 03/05/18 17:35 03/05/18 20:00 Temperature 98.5 F 98.3 F Pulse Rate 80 86 67 Respiratory Rate 22 16 Blood Pressure 140/67 144/74 H 125/67 Pulse Oximetry 97 99 96 03/05/18 20:14 03/05/18 20:16 03/06/18 03:58 Temperature 97.9 F Pulse Rate 74 83 71 Respiratory Rate 18 18 16 Blood Pressure 142/75 H 143/80 H 130/72 Pulse Oximetry 98 97 98 03/06/18 08:00 03/06/18 12:00 Temperature 98.7 F 97.5 F L Pulse Rate 73 71 Respiratory Rate 16 16 Blood Pressure 142/81 H 143/82 H Pulse Oximetry 95 96 Intake & Output 03/05/18 03/06/18 03/06/18 18:59 06:59 18:59 Intake Total 1000 / 1000 1240 / 1240 Output Total 400 / 400 300 / 300 Balance 1000 / 1000 840 / 840 -300 / -300 Intake: IV 1000 / 1000 1000 / 1000 NS Inj 1,000 ML @ 100 mls/hr IV 1000 / 1000 .CONT .Q10H [facility] Rx#:[id number] Oral 240 / 240 Output: Urine 400 / 400 300 / 300 Narrative: GENERAL: Well-nourished, well-developed middle-age male patient in [facility]. SKIN: Warm and dry. Perinasal and perioral erythematous scaly rash consistent with seborrheic dermatitis. HEENT: Normocephalic. Atraumatic. Pupils equal and round. Mucous membranes pink and moist. CARDIOVASCULAR: Regular rate and rhythm. No murmur appreciated. RESPIRATORY: No accessory muscle use. Clear to auscultation. Breath sounds equal bilaterally. GASTROINTESTINAL: Abdomen soft, non-tender, nondistended. Normoactive bowel sounds x4. MUSCULOSKELETAL: No obvious deformities. Extremities without clubbing, cyanosis , or edema. NEUROLOGICAL: Awake and alert. No obvious cranial nerve deficits. Motor grossly within normal limits. Moving all extremities spontaneously. Normal speech. PSYCHIATRIC: Odd affect; insight and judgment normal. Results Procedures completed during hospitalization: None. Labs on day of discharge: Labs from last 24 hours 03/06/18 03/06/18 03/05/18 12:22 07:54 21:25 POC Glucose 140 H 135 H Urine Color Yellow Urine Clarity Clear Urine pH 5.0 Ur Specific [place] 1.023 Urine Protein Negative Urine Glucose (UA) 50 Urine Ketones 20 Urine Occult Blood Negative Urine Nitrate Negative Urine Bilirubin Negative Urine Urobilinogen 4 or greater Ur Leukocyte Esterase Large H Urine WBC 26 H Micro UA Comment Culture indicated Ur Microscopic Review Not Reportable Urine Culture Comments Culture indicated 03/05/18 03/05/18 20:41 16:55 POC Glucose 138 H 137 H Urine Color Urine Clarity Urine pH Ur Specific [place] Urine Protein Urine Glucose (UA) Urine Ketones Urine Occult Blood Urine Nitrate Urine Bilirubin Urine Urobilinogen Ur Leukocyte Esterase Urine WBC Micro UA Comment Ur Microscopic Review Urine Culture Comments Preliminary micro results at discharge 03/04/18 10:37 Urine Culture - Preliminary Catheterized Urine Staphylococcus coag negative - Impressions ITS Impressions Chest X-Ray 03/04/18 09:24 CONCLUSION: 1. Cardiomegaly. 2. No focal infiltrate or pulmonary vascular congestion. Discharge Plan - Discharge Disposition Patient Disposition: 64 Rehab Inpatient - Discharge Condition Condition: Stable - Discharge Order Discharge Orders: Discharge Order (Routine); Ordered 03/06/18 Ordered By: Violetta Bae - Discharge Details Anticipated Discharge Date: 03/06/18 Discharge Comment: Ok to discharge to [facility]. - Physicians Team Primary Care Provider: UNKNOWN, Attending Provider: Marty Jama Other Providers: Abebe Benson MD
[2018-03-07] MEDS: Levothyroxine 50 MCG Tablet PO SCH (06:32)
[2018-03-07] MEDS: Glimepiride 2 MG Tablet PO SCH (06:32)
[2018-03-07 07:23] VITALS: BP 139/60; PULSE 81; RESP 16; TEMP 98.2; O2SAT 96
[2018-03-07] MEDS: Divalproex 250 MG ER Tablet PO SCH (08:55)
[2018-03-07] MEDS: levETIRAcetam 500 MG Tablet PO SCH (08:55)
[2018-03-07] MEDS: Insulin NovoLOG Aspart Correctional Sugar Inj SQ SCH (08:56)
[2018-03-07] MEDS: FLUOCINOLONE ACETONIDE 0.01% TOPICAL SCH (08:56)
--- NOTE | 2018-03-07 09:18 | P.PN ---
Subjective Interval history: Follow-up for UTI, breakthrough seizures. The patient is seen just prior to transfer to [facility]. Reports feeling better again today, however still weak and fatigued. States his dysuria has improved. Denies fevers or chills. No further seizure activity reported overnight. He agrees to going to rehab prior to discharge home. He has no other medical complaints at this time. Physical Exam Vital signs: Vital Signs 03/06/18 12:00 03/06/18 16:00 03/06/18 19:18 Temperature 97.5 F L 98.4 F 98.4 F Pulse Rate 71 70 72 Respiratory Rate 16 16 18 Blood Pressure 143/82 H 123/74 120/71 Pulse Oximetry 96 97 95 03/06/18 23:03 03/07/18 04:00 03/07/18 07:21 Temperature 97.6 F 98.3 F 98.2 F Pulse Rate 70 76 81 Respiratory Rate 18 18 16 Blood Pressure 140/75 130/77 139/60 Pulse Oximetry 99 98 96 Intake & Output 03/06/18 03/07/18 03/07/18 18:59 06:59 18:59 Output Total 300 / 300 Balance -300 / -300 Output: Urine 300 / 300 Narrative: GENERAL: Well-nourished, well-developed middle-age male patient in [facility]. SKIN: Warm and dry. Perinasal and perioral erythematous scaly rash consistent with seborrheic dermatitis. HEENT: Normocephalic. Atraumatic. Pupils equal and round. Mucous membranes pink and moist. CARDIOVASCULAR: Regular rate and rhythm. No murmur appreciated. RESPIRATORY: No accessory muscle use. Clear to auscultation. Breath sounds equal bilaterally. GASTROINTESTINAL: Abdomen soft, non-tender, nondistended. Normoactive bowel sounds x4. MUSCULOSKELETAL: No obvious deformities. Extremities without clubbing, cyanosis , or edema. NEUROLOGICAL: Awake and alert. No obvious cranial nerve deficits. Motor grossly within normal limits. Moving all extremities spontaneously. Normal speech. PSYCHIATRIC: Odd affect; insight and judgment normal. Results - Labs CBC & Chem 7: 03/04/18 09:40 03/04/18 09:40 Laboratory Results - last 24 hr 03/06/18 03/06/18 03/06/18 12:22 17:05 20:04 POC Glucose 140 H 113 H 58 L 03/06/18 03/06/18 03/07/18 20:45 22:12 07:39 POC Glucose 85 113 H 164 H Microbiology 03/04/18 10:37 Catheterized Urine Urine Culture - Final Staphylococcus epidermidis 03/05/18 21:25 Clean Catch Urine Urine Culture - Preliminary No growth in 24 hours - Imaging Chest X-Ray 03/04/18 09:24 CONCLUSION: 1. Cardiomegaly. 2. No focal infiltrate or pulmonary vascular congestion. - Procedures None. Assessment and Plan - Assessment (1) Generalized epilepsy Code(s): G40.309 - Generalized idiopathic epilepsy and epileptic syndromes, not intractable, without status epilepticus Status: Acute (2) Hypothyroidism Code(s): E03.9 - Hypothyroidism, unspecified Status: Acute (3) Weakness Code(s): R53.1 - Weakness Status: Acute (4) Acute UTI Code(s): N39.0 - Urinary tract infection, site not specified Status: Acute - Plan 62-year-old male with history of lifelong epilepsy, CAD s/p stents x2, DM, COPD , CVA, vagus nerve stimulator, presents to the hospital with weakness and dysuria. Patient was recently admitted for breakthrough seizures. His EEG was abnormal during that admission, he was seen by neurology, and he was started on Depakote in addition to his Keppra and Lyrica. Generalized weakness: Suspect multifactorial with UTI and recurrent seizures. Given antibiotics for UTI as below. Consult PT, recommending rehab. Case management arranged for patient to go to [facility]. UTI: UA with positive nitrates, large leuks, WBCs. Initially given antibiotics with IV Rocephin. Urine culture with staphylococcus epidermidis. Changed antibiotics to Bactrim DS 1 tab po bid x7days. Breakthrough seizures with hx of seizure disorder: S/p recent admission this week for the same, recently started on Depakote in addition to his Keppra and Lyrica. Questionable seizure activity while in the ER. Continue patient's Keppra, Lyrica, and Depakote. Seizure precautions. Repeat EEG improved compared to previous, showed 1 burst, otherwise mostly normal. Neurology consulted, appreciate Dr. Benson's recommendations, increased Depakote dosing to 750mg bid, repeat depakote level 68. Vagus nerve stimulator interrogated here, rep discussed with Dr. Benson. No further seizure activity. Stable for d/c to [facility]. DM: Chronic, stable. Continued patient's metformin and glimepiride. Monitor Accu -Cheks and cover with SSI Hx of CVA/CAD/HLD: chronic. Continue patient's aspirin, statin. Acute Hypothyroidism: TSH high at 18.4, with a low free T4 on previous admission. Not on thyroid replacement at home. Started on levothyroxine 50mcg daily (lower initial dose recommended by [employer] with hx of CAD). Repeat TSH/ T4 as outpatient in 4-6 weeks Seborrheic Dermatitis: acute, facial. Started on topical antifungal/steroid therapy. Rash improving. Other chronic medical conditions stable, continue home medications as appropriate DVT Prophylaxis: SCDs. Patient is ambulatory Discharge Planning: Discharge to [facility] today. See discharge summary from 03/06/18.
== END 2018-03-07 10:59 ==
LOC: NEPD 09:10 → NEDA 09:10 → NEPHCDU 14:20
PROVIDERS: ADMIT Internal Medicine; ATTEND Internal Medicine

== ENCOUNTER 2018-04-02 12:12 | Inpatient (IN) ==
[2018-04-02] MEDS ORDERED: Sod Chloride 0.9% Inj 1,000 ML IV.SIG SCH (13:00)
--- NOTE | 2018-04-02 13:05 | ED ---
HPI General Chief complaint: Weakness Stated complaint: Urinary/Diharrea Complaint Time Seen by Provider: 04/02/18 12:50 History of Present Illness HPI Narrative: Patient is 62 years old, with history of MA, left side stroke in 2005 with mild residual weakness, chronic neck and back pain, tonic-clonic seizures on Depakote and Keppra, presented to emergency room for chronic generalized weakness, worsening for the last 2 weeks. Patient also complaining about soft stool up to 4 times a day. Patient is able to ambulate with cane. Related Data Home Medications Medication Instructions Recorded Confirmed zolpidem [Ambien] 10 mg PO HS 02/20/18 04/03/18 pregabalin [Lyrica] 200 mg PO TID 04/04/18 04/04/18 Previous Rx's Medication Instructions Recorded ascorbic acid (vitamin C) [Vitamin 250 mg PO BID@1200,1700 #32 tab 03/12/18 C] aspirin 81 mg PO DAILY #30 tab 03/12/18 atorvastatin 20 mg PO DAILY #30 tab 03/12/18 cyanocobalamin (vitamin B-12) 1,000 mcg PO DAILY #30 tab 03/12/18 [Vitamin B-12] ferrous sulfate [FeroSul] 325 mg PO BID@1200,1700 #60 tab 03/12/18 glimepiride 2 mg PO QAM #30 tab 03/12/18 levetiracetam [Keppra] 1,000 mg PO TID #90 tab 03/12/18 metformin 1,000 mg PO BID #60 tab 03/12/18 omeprazole 40 mg PO DAILY #30 tab 03/12/18 sennosides-docusate sodium [Senna 1 tab PO BID #60 tab 03/12/18 Plus] oxycodone-acetaminophen 1 tab PO Q6H PRN tab 03/14/18 levothyroxine [Unithroid] 100 mcg PO DAILY 30 Days #30 tab 04/04/18 Allergies Allergy/AdvReac Type Severity Reaction Status Date / Time levofloxacin Allergy Severe Anaphylaxis Verified 03/07/18 13:35 tapentadol Allergy Intermediate Nausea/Vomi Verified 03/07/18 13:35 ting blueberry Allergy Mild Rash Verified 03/07/18 13:35 Review of Systems ROS: all other systems reviewed are negative Constitutional Comments: Generalized weakness PMFSH Family History Family History Mother Alcohol abuse Other Patient denies significant medical history Social History Social History Substance History: No History of Abuse Second Hand Smoke Exposure: No Smoking Status: Never smoker Tobacco Type: Cigarettes Packs Per Day: 1 Cigarettes Per Day: 20.0 How Often Do You Have a Drink Containing Alcohol: Never Recent Travel in [facility] within the Last 8 Weeks: No Recent Out of Country Travel within the Last 8 Weeks: No Immunization History Tetanus Immunization: Unsure Exam Narrative Exam Narrative: GENERAL: 62 years old male, looks weak. SKIN: Focused skin assessment warm/dry. HEAD: Atraumatic. Normocephalic. EYES: Pupils equal and round. No scleral icterus. No injection or drainage. ENT: No nasal bleeding or discharge. Mucous membranes pink and moist. NECK: Trachea midline. No JVD. CARDIOVASCULAR: Regular rate and rhythm. No murmur appreciated. RESPIRATORY: No accessory muscle use. Clear to auscultation. Breath sounds equal bilaterally. GASTROINTESTINAL: Abdomen soft, non-tender, nondistended. Hepatic and splenic margins not palpable. MUSCULOSKELETAL: No obvious deformities. No clubbing. No cyanosis. No edema. NEUROLOGICAL: Awake and alert. No obvious cranial nerve deficits. Minimal left side arm and leg weakness compared to right side, chronic. PSYCHIATRIC: Appropriate mood and affect; insight and judgment normal. Course Initial Documented Vital Signs Temperature 98.9 F 04/02/18 12:25 Pulse Rate 70 04/02/18 12:25 Respiratory Rate 22 04/02/18 12:25 Blood Pressure 121/74 04/02/18 12:25 Pulse Oximetry 97 04/02/18 12:25 Last Documented Vital Signs Temperature 98.3 F 04/05/18 12:00 Pulse Rate 56 L 04/05/18 12:00 Respiratory Rate 16 04/05/18 12:00 Blood Pressure 108/62 04/05/18 12:00 Pulse Oximetry 98 04/05/18 12:00 Medical Decision Making [facility] Narrative Medical decision making narrative: Patient has chronic problems, blood work, urine analysis, CHEST X-RAY Ordered to rule out acute pathology. IV fluids given. Reevaluation is pending. Medical Screen Exam Complete: Yes Emergency Medical Condition: Yes Lab Data Result diagrams: 04/05/18 05:10 04/02/18 13:11 Lab Results 04/02/18 04/02/18 04/02/18 Range/Units 13:11 13:11 13:11 WBC 3.8 L (4.0-11.0) th/mm3 RBC 4.35 L (4.50-5.90) mil/mm3 Hgb 13.1 (13.0-17.0) gm/dL Hct 40.1 (39.0-51.0) % MCV 92.1 (80.0-100.0) fL MCH 30.1 (27.0-34.0) pg MCHC 32.7 (32.0-36.0) % RDW 19.5 H (11.6-17.2) % Plt Count 64 L D (150-450) th/mm3 MPV 8.7 (7.0-11.0) fL Prelim Diff (Auto) Slide review pending Neut % (Auto) 44.8 (16.0-70.0) % Lymph % (Auto) 41.6 (9.0-44.0) % [place] % (Auto) 7.2 (0.0-8.0) % Eos % (Auto) 6.0 H (0.0-4.0) % Baso % (Auto) 0.4 (0.0-2.0) % Neut # (Auto) 1.7 L (1.8-7.7) th/mm3 Lymph # (Auto) 1.6 (1.0-4.8) th/mm3 [place] # (Auto) 0.3 (0.0-0.9) th/mm3 Eos # (Auto) 0.2 (0.0-0.4) th/mm3 Baso # (Auto) 0.0 (0.0-0.2) th/mm3 WBC Differential . Diff Scan Auto diff confirmed Differential Comment . Platelet Estimate (Normal) Platelet Morphology (Normal) Ovalocytes (None) Sodium 145 (136-145) meq/L Potassium 3.4 L (3.5-5.1) meq/L Chloride 107 (98-107) meq/L Carbon Dioxide 29.1 (21.0-32.0) meq/L Anion Gap 9 (5-15) meq/L BUN 7 (7-18) mg/dL Creatinine 0.91 (0.60-1.30) mg/dL Estimated GFR 85 L (>89) mL/min POC Glucose (68-110) mg/dl Random Glucose 153 H (74-106) mg/dL Calcium 8.6 (8.5-10.1) mg/dL Magnesium 1.6 (1.5-2.5) mg/dL Total Bilirubin 0.7 (0.2-1.0) mg/dL AST 43 H (15-37) U/L ALT 29 (12-78) U/L Alkaline Phosphatase 67 (45-117) U/L Ammonia (11-32) mcmol/L Total Creatine Kinase (39-308) U/L Troponin I Less than 0.02 L (0.02-0.05) ng/mL Total Protein 7.5 (6.4-8.2) g/dL Albumin 3.5 (3.4-5.0) g/dL TSH 26.900 H (0.358-3.740) uIU/mL Urine Color Yellow (Yellw/Straw) Urine Clarity Clear (Clear) Urine pH 5.0 (5.0-8.5) Ur Specific [place] 1.023 (1.002-1.035) Urine Protein Negative (Neg-Trace) mg/dL Urine Glucose (UA) 500 or greater (Negative) mg/dL Urine Ketones Trace H (Negative) mg/dL Urine Occult Blood Negative (Negative) Urine Nitrate Negative (Negative) Urine Bilirubin Negative (Negative) Urine Urobilinogen Less than 2 (Less than 2) mg/dL Ur Leukocyte Esterase Negative (Negative) Urine RBC Less than 1 (0-3) /hpf Urine WBC 4 (0-5) /hpf Ur Squamous Epith Cells <1 (0-5) /hpf Urine Mucus Few H (Occasional) /lpf Micro UA Comment Culture not ind Ur Microscopic Review Not Reportable Urine Culture Comments Culture not ind Valproic Acid (50-100) mcg/mL 04/02/18 04/02/18 04/02/18 Range/Units 13:11 19:05 19:54 WBC (4.0-11.0) th/mm3 RBC (4.50-5.90) mil/mm3 Hgb (13.0-17.0) gm/dL Hct (39.0-51.0) % MCV (80.0-100.0) fL MCH (27.0-34.0) pg MCHC (32.0-36.0) % RDW (11.6-17.2) % Plt Count (150-450) th/mm3 MPV (7.0-11.0) fL Prelim Diff (Auto) Neut % (Auto) (16.0-70.0) % Lymph % (Auto) (9.0-44.0) % [place] % (Auto) (0.0-8.0) % Eos % (Auto) (0.0-4.0) % Baso % (Auto) (0.0-2.0) % Neut # (Auto) (1.8-7.7) th/mm3 Lymph # (Auto) (1.0-4.8) th/mm3 [place] # (Auto) (0.0-0.9) th/mm3 Eos # (Auto) (0.0-0.4) th/mm3 Baso # (Auto) (0.0-0.2) th/mm3 WBC Differential Diff Scan Differential Comment Platelet Estimate (Normal) Platelet Morphology (Normal) Ovalocytes (None) Sodium (136-145) meq/L Potassium (3.5-5.1) meq/L Chloride (98-107) meq/L Carbon Dioxide (21.0-32.0) meq/L Anion Gap (5-15) meq/L BUN (7-18) mg/dL Creatinine (0.60-1.30) mg/dL Estimated GFR (>89) mL/min POC Glucose (68-110) mg/dl Random Glucose (74-106) mg/dL Calcium (8.5-10.1) mg/dL Magnesium (1.5-2.5) mg/dL Total Bilirubin (0.2-1.0) mg/dL AST (15-37) U/L ALT (12-78) U/L Alkaline Phosphatase (45-117) U/L Ammonia 61 H (11-32) mcmol/L Total Creatine Kinase 138 (39-308) U/L Troponin I (0.02-0.05) ng/mL Total Protein (6.4-8.2) g/dL Albumin (3.4-5.0) g/dL TSH (0.358-3.740) uIU/mL Urine Color (Yellw/Straw) Urine Clarity (Clear) Urine pH (5.0-8.5) Ur Specific [place] (1.002-1.035) Urine Protein (Neg-Trace) mg/dL Urine Glucose (UA) (Negative) mg/dL Urine Ketones (Negative) mg/dL Urine Occult Blood (Negative) Urine Nitrate (Negative) Urine Bilirubin (Negative) Urine Urobilinogen (Less than 2) mg/dL Ur Leukocyte Esterase (Negative) Urine RBC (0-3) /hpf Urine WBC (0-5) /hpf Ur Squamous Epith Cells (0-5) /hpf Urine Mucus (Occasional) /lpf Micro UA Comment Ur Microscopic Review Urine Culture Comments Valproic Acid 98 (50-100) mcg/mL 04/02/18 04/03/18 04/03/18 Range/Units 21:07 07:46 11:16 WBC (4.0-11.0) th/mm3 RBC (4.50-5.90) mil/mm3 Hgb (13.0-17.0) gm/dL Hct (39.0-51.0) % MCV (80.0-100.0) fL MCH (27.0-34.0) pg MCHC (32.0-36.0) % RDW (11.6-17.2) % Plt Count (150-450) th/mm3 MPV (7.0-11.0) fL Prelim Diff (Auto) Neut % (Auto) (16.0-70.0) % Lymph % (Auto) (9.0-44.0) % [place] % (Auto) (0.0-8.0) % Eos % (Auto) (0.0-4.0) % Baso % (Auto) (0.0-2.0) % Neut # (Auto) (1.8-7.7) th/mm3 Lymph # (Auto) (1.0-4.8) th/mm3 [place] # (Auto) (0.0-0.9) th/mm3 Eos # (Auto) (0.0-0.4) th/mm3 Baso # (Auto) (0.0-0.2) th/mm3 WBC Differential Diff Scan Differential Comment Platelet Estimate (Normal) Platelet Morphology (Normal) Ovalocytes (None) Sodium (136-145) meq/L Potassium (3.5-5.1) meq/L Chloride (98-107) meq/L Carbon Dioxide (21.0-32.0) meq/L Anion Gap (5-15) meq/L BUN (7-18) mg/dL Creatinine (0.60-1.30) mg/dL Estimated GFR (>89) mL/min POC Glucose 135 H 119 H 105 (68-110) mg/dl Random Glucose (74-106) mg/dL Calcium (8.5-10.1) mg/dL Magnesium (1.5-2.5) mg/dL Total Bilirubin (0.2-1.0) mg/dL AST (15-37) U/L ALT (12-78) U/L Alkaline Phosphatase (45-117) U/L Ammonia (11-32) mcmol/L Total Creatine Kinase (39-308) U/L Troponin I (0.02-0.05) ng/mL Total Protein (6.4-8.2) g/dL Albumin (3.4-5.0) g/dL TSH (0.358-3.740) uIU/mL Urine Color (Yellw/Straw) Urine Clarity (Clear) Urine pH (5.0-8.5) Ur Specific Denn[place] (1.002-1.035) Urine Protein (Neg-Trace) mg/dL Urine Glucose (UA) (Negative) mg/dL Urine Ketones (Negative) mg/dL Urine Occult Blood (Negative) Urine Nitrate (Negative) Urine Bilirubin (Negative) Urine Urobilinogen (Less than 2) mg/dL Ur Leukocyte Esterase (Negative) Urine RBC (0-3) /hpf Urine WBC (0-5) /hpf Ur Squamous Epith Cells (0-5) /hpf Urine Mucus (Occasional) /lpf Micro UA Comment Ur Microscopic Review Urine Culture Comments Valproic Acid (50-100) mcg/mL 04/03/18 04/03/18 04/04/18 Range/Units 16:21 20:29 07:44 WBC (4.0-11.0) th/mm3 RBC (4.50-5.90) mil/mm3 Hgb (13.0-17.0) gm/dL Hct (39.0-51.0) % MCV (80.0-100.0) fL MCH (27.0-34.0) pg MCHC (32.0-36.0) % RDW (11.6-17.2) % Plt Count (150-450) th/mm3 MPV (7.0-11.0) fL Prelim Diff (Auto) Neut % (Auto) (16.0-70.0) % Lymph % (Auto) (9.0-44.0) % [place] % (Auto) (0.0-8.0) % Eos % (Auto) (0.0-4.0) % Baso % (Auto) (0.0-2.0) % Neut # (Auto) (1.8-7.7) th/mm3 Lymph # (Auto) (1.0-4.8) th/mm3 [place] # (Auto) (0.0-0.9) th/mm3 Eos # (Auto) (0.0-0.4) th/mm3 Baso # (Auto) (0.0-0.2) th/mm3 WBC Differential Diff Scan Differential Comment Platelet Estimate (Normal) Platelet Morphology (Normal) Ovalocytes (None) Sodium (136-145) meq/L Potassium (3.5-5.1) meq/L Chloride (98-107) meq/L Carbon Dioxide (21.0-32.0) meq/L Anion Gap (5-15) meq/L BUN (7-18) mg/dL Creatinine (0.60-1.30) mg/dL Estimated GFR (>89) mL/min POC Glucose 175 H 107 104 (68-110) mg/dl Random Glucose (74-106) mg/dL Calcium (8.5-10.1) mg/dL Magnesium (1.5-2.5) mg/dL Total Bilirubin (0.2-1.0) mg/dL AST (15-37) U/L ALT (12-78) U/L Alkaline Phosphatase (45-117) U/L Ammonia (11-32) mcmol/L Total Creatine Kinase (39-308) U/L Troponin I (0.02-0.05) ng/mL Total Protein (6.4-8.2) g/dL Albumin (3.4-5.0) g/dL TSH (0.358-3.740) uIU/mL Urine Color (Yellw/Straw) Urine Clarity (Clear) Urine pH (5.0-8.5) Ur Specific Denn[place] (1.002-1.035) Urine Protein (Neg-Trace) mg/dL Urine Glucose (UA) (Negative) mg/dL Urine Ketones (Negative) mg/dL Urine Occult Blood (Negative) Urine Nitrate (Negative) Urine Bilirubin (Negative) Urine Urobilinogen (Less than 2) mg/dL Ur Leukocyte Esterase (Negative) Urine RBC (0-3) /hpf Urine WBC (0-5) /hpf Ur Squamous Epith Cells (0-5) /hpf Urine Mucus (Occasional) /lpf Micro UA Comment Ur Microscopic Review Urine Culture Comments Valproic Acid (50-100) mcg/mL 04/04/18 04/04/18 04/04/18 Range/Units 08:36 11:25 16:29 WBC 2.8 L (4.0-11.0) th/mm3 RBC 4.18 L (4.50-5.90) mil/mm3 Hgb 12.8 L (13.0-17.0) gm/dL Hct 37.9 L (39.0-51.0) % MCV 90.7 (80.0-100.0) fL MCH 30.5 (27.0-34.0) pg MCHC 33.6 (32.0-36.0) % RDW 19.7 H (11.6-17.2) % Plt Count 59 L (150-450) th/mm3 MPV 8.9 (7.0-11.0) fL Prelim Diff (Auto) Slide review pending Neut % (Auto) 38.3 (16.0-70.0) % Lymph % (Auto) 48.5 H (9.0-44.0) % [place] % (Auto) 7.8 (0.0-8.0) % Eos % (Auto) 5.0 H (0.0-4.0) % Baso % (Auto) 0.4 (0.0-2.0) % Neut # (Auto) 1.1 L (1.8-7.7) th/mm3 Lymph # (Auto) 1.4 (1.0-4.8) th/mm3 [place] # (Auto) 0.2 (0.0-0.9) th/mm3 Eos # (Auto) 0.1 (0.0-0.4) th/mm3 Baso # (Auto) 0.0 (0.0-0.2) th/mm3 WBC Differential . Diff Scan Auto diff confirmed Differential Comment . Platelet Estimate Low L (Normal) Platelet Morphology Normal (Normal) Ovalocytes 1+ H (None) Sodium (136-145) meq/L Potassium (3.5-5.1) meq/L Chloride (98-107) meq/L Carbon Dioxide (21.0-32.0) meq/L Anion Gap (5-15) meq/L BUN (7-18) mg/dL Creatinine (0.60-1.30) mg/dL Estimated GFR (>89) mL/min POC Glucose 168 H 127 H (68-110) mg/dl Random Glucose (74-106) mg/dL Calcium (8.5-10.1) mg/dL Magnesium (1.5-2.5) mg/dL Total Bilirubin (0.2-1.0) mg/dL AST (15-37) U/L ALT (12-78) U/L Alkaline Phosphatase (45-117) U/L Ammonia (11-32) mcmol/L Total Creatine Kinase (39-308) U/L Troponin I (0.02-0.05) ng/mL Total Protein (6.4-8.2) g/dL Albumin (3.4-5.0) g/dL TSH (0.358-3.740) uIU/mL Urine Color (Yellw/Straw) Urine Clarity (Clear) Urine pH (5.0-8.5) Ur Specific [place]enn[place] (1.002-1.035) Urine Protein (Neg-Trace) mg/dL Urine Glucose (UA) (Negative) mg/dL Urine Ketones (Negative) mg/dL Urine Occult Blood (Negative) Urine Nitrate (Negative) Urine Bilirubin (Negative) Urine Urobilinogen (Less than 2) mg/dL Ur Leukocyte Esterase (Negative) Urine RBC (0-3) /hpf Urine WBC (0-5) /hpf Ur Squamous Epith Cells (0-5) /hpf Urine Mucus (Occasional) /lpf Micro UA Comment Ur Microscopic Review Urine Culture Comments Valproic Acid (50-100) mcg/mL 11/04/18 11/05/18 11/05/18 Range/Units 19:15 05:10 08:02 WBC 3.2 L (4.0-11.0) th/mm3 RBC 3.97 L (4.50-5.90) mil/mm3 Hgb 11.9 L (13.0-17.0) gm/dL Hct 36.2 L (39.0-51.0) % MCV 91.2 (80.0-100.0) fL MCH 30.0 (27.0-34.0) pg MCHC 32.9 (32.0-36.0) % RDW 19.6 H (11.6-17.2) % Plt Count 52 L (150-450) th/mm3 MPV 9.1 (7.0-11.0) fL Prelim Diff (Auto) Slide review pending Neut % (Auto) 33.0 (16.0-70.0) % Lymph % (Auto) 52.7 H (9.0-44.0) % [place] % (Auto) 8.3 H (0.0-8.0) % Eos % (Auto) 5.5 H (0.0-4.0) % Baso % (Auto) 0.5 (0.0-2.0) % Neut # (Auto) 1.0 L (1.8-7.7) th/mm3 Lymph # (Auto) 1.7 (1.0-4.8) th/mm3 [place] # (Auto) 0.3 (0.0-0.9) th/mm3 Eos # (Auto) 0.2 (0.0-0.4) th/mm3 Baso # (Auto) 0.0 (0.0-0.2) th/mm3 WBC Differential . Diff Scan Auto diff confirmed Differential Comment . Platelet Estimate (Normal) Platelet Morphology (Normal) Ovalocytes (None) Sodium (136-145) meq/L Potassium (3.5-5.1) meq/L Chloride (98-107) meq/L Carbon Dioxide (21.0-32.0) meq/L Anion Gap (5-15) meq/L BUN (7-18) mg/dL Creatinine (0.60-1.30) mg/dL Estimated GFR (>89) mL/min POC Glucose 146 H 109 (68-110) mg/dl Random Glucose (74-106) mg/dL Calcium (8.5-10.1) mg/dL Magnesium (1.5-2.5) mg/dL Total Bilirubin (0.2-1.0) mg/dL AST (15-37) U/L ALT (12-78) U/L Alkaline Phosphatase (45-117) U/L Ammonia (11-32) mcmol/L Total Creatine Kinase (39-308) U/L Troponin I (0.02-0.05) ng/mL Total Protein (6.4-8.2) g/dL Albumin (3.4-5.0) g/dL TSH (0.358-3.740) uIU/mL Urine Color (Yellw/Straw) Urine Clarity (Clear) Urine pH (5.0-8.5) Ur Specific Denn[place] (1.002-1.035) Urine Protein (Neg-Trace) mg/dL Urine Glucose (UA) (Negative) mg/dL Urine Ketones (Negative) mg/dL Urine Occult Blood (Negative) Urine Nitrate (Negative) Urine Bilirubin (Negative) Urine Urobilinogen (Less than 2) mg/dL Ur Leukocyte Esterase (Negative) Urine RBC (0-3) /hpf Urine WBC (0-5) /hpf Ur Squamous Epith Cells (0-5) /hpf Urine Mucus (Occasional) /lpf Micro UA Comment Ur Microscopic Review Urine Culture Comments Valproic Acid (50-100) mcg/mL 04/05/18 Range/Units 11:40 WBC (4.0-11.0) th/mm3 RBC (4.50-5.90) mil/mm3 Hgb (13.0-17.0) gm/dL Hct (39.0-51.0) % MCV (80.0-100.0) fL MCH (27.0-34.0) pg MCHC (32.0-36.0) % RDW (11.6-17.2) % Plt Count (150-450) th/mm3 MPV (7.0-11.0) fL Prelim Diff (Auto) Neut % (Auto) (16.0-70.0) % Lymph % (Auto) (9.0-44.0) % [place] % (Auto) (0.0-8.0) % Eos % (Auto) (0.0-4.0) % Baso % (Auto) (0.0-2.0) % Neut # (Auto) (1.8-7.7) th/mm3 Lymph # (Auto) (1.0-4.8) th/mm3 [place] # (Auto) (0.0-0.9) th/mm3 Eos # (Auto) (0.0-0.4) th/mm3 Baso # (Auto) (0.0-0.2) th/mm3 WBC Differential Diff Scan Differential Comment Platelet Estimate (Normal) Platelet Morphology (Normal) Ovalocytes (None) Sodium (136-145) meq/L Potassium (3.5-5.1) meq/L Chloride (98-107) meq/L Carbon Dioxide (21.0-32.0) meq/L Anion Gap (5-15) meq/L BUN (7-18) mg/dL Creatinine (0.60-1.30) mg/dL Estimated GFR (>89) mL/min POC Glucose 204 H (68-110) mg/dl Random Glucose (74-106) mg/dL Calcium (8.5-10.1) mg/dL Magnesium (1.5-2.5) mg/dL Total Bilirubin (0.2-1.0) mg/dL AST (15-37) U/L ALT (12-78) U/L Alkaline Phosphatase (45-117) U/L Ammonia (11-32) mcmol/L Total Creatine Kinase (39-308) U/L Troponin I (0.02-0.05) ng/mL Total Protein (6.4-8.2) g/dL Albumin (3.4-5.0) g/dL TSH (0.358-3.740) uIU/mL Urine Color (Yellw/Straw) Urine Clarity (Clear) Urine pH (5.0-8.5) Ur Specific [place]enn[place] (1.002-1.035) Urine Protein (Neg-Trace) mg/dL Urine Glucose (UA) (Negative) mg/dL Urine Ketones (Negative) mg/dL Urine Occult Blood (Negative) Urine Nitrate (Negative) Urine Bilirubin (Negative) Urine Urobilinogen (Less than 2) mg/dL Ur Leukocyte Esterase (Negative) Urine RBC (0-3) /hpf Urine WBC (0-5) /hpf Ur Squamous Epith Cells (0-5) /hpf Urine Mucus (Occasional) /lpf Micro UA Comment Ur Microscopic Review Urine Culture Comments Valproic Acid (50-100) mcg/mL Imaging Data Radiologist's impression: Chest X-Ray 04/02/18 12:56 CONCLUSION: 1. Mild cardiomegaly and positive fluid balance. 2. Mild airspace disease at the lung bases, presumably atelectasis. Head CT 04/02/18 12:56 CONCLUSION: Stable noncontrast head CT. No acute intracranial abnormality is identified. . Lumbar Spine CT 04/03/18 00:00 CONCLUSION: Postsurgical findings at L4-5 and L5-S1. Degenerative findings at these levels and at L3-4. Prominent metallic artifact securing portions of the central canal at the surgical levels. Central canal diameter grossly within normal limits. Bilateral moderate neural foraminal narrowing at L4-5. Discharge Plan Discharge Disposition Patient Disposition: W/Home Health Service Discharge Condition Condition: Fair Discharge Order Discharge Orders: Discharge Order (Routine); Ordered 04/05/18 Ordered By: Marty Jama Discharge Details Diagnosis: Generalized weakness Physicians Team ED Provider: Jose Shore Primary Care Provider: UNKNOWN, Attending Provider: Marty Jama Other Providers: [facility] Discharge Interventions Interventions: ED Discharge Assessment Last Done: 04/02/18 20:27 Vital Signs Last Done: 04/02/18 15:14 Status ED Status: Left Department Discharge Information Discharge Date/Time: 04/02/18 20:27
[2018-04-02 13:30] LABS: Baso % (Auto) 0.4 % (0.0-2.0); Eos # (Auto) 0.2 th/mm3 (0.0-0.4); Hematocrit 40.1 % (39.0-51.0); Hemoglobin 13.1 gm/dL (13.0-17.0); Lymph # (Auto) 1.6 th/mm3 (1.0-4.8); Lymph % (Auto) 41.6 % (9.0-44.0); Mean Corpuscular HGB Conc 32.7 % (32.0-36.0); Mean Corpuscular Hemoglobin 30.1 pg (27.0-34.0); Mean Corpuscular Volume 92.1 fL (80.0-100.0); Mean Platelet Volume 8.7 fL (7.0-11.0); Mono # (Auto) 0.3 th/mm3 (0.0-0.9); Mono % (Auto) 7.2 % (0.0-8.0); Neut # (Auto) 1.7 th/mm3 (1.8-7.7); Neut % (Auto) 44.8 % (16.0-70.0); Platelet Count 64 th/mm3 (150-450); Red Blood Count 4.35 mil/mm3 (4.50-5.90); Red Cell Distribution Width 19.5 % (11.6-17.2); White Blood Count 3.8 th/mm3 (4.0-11.0)
--- NOTE | 2018-04-02 13:38 | XR ---
EXAM DATE: 04/02/2018 1:31 PM EDT AGE/SEX: 62 years / Male INDICATIONS: Congestion. CLINICAL DATA: This is the patient's initial encounter. Patient reports that signs and symptoms have been present for 1 day and indicates a pain score of 2/10. MEDICAL/SURGICAL HISTORY: . Seizures. Chronic obstructive pulmonary disease. Diabetes. cardiac disease. Pacemaker. Fusion, cervical. COMPAR[place]: [facility] [place] 1V SINGLE AP, 03/04/2018. . FINDINGS: Mild interstitial prominence. Minimal airspace disease in the lower lung zones bilaterally. Cardiac s ilhouette is mildly enlarged with indistinct central pulmonary vascularity. Redemonstration of cervic al stimulator and left shoulder arthroplasty. CONCLUSION: 1. Mild cardiomegaly and positive fluid balance. 2. Mild airspace disease at the lung bases, presumably atelectasis. Electronically signed by: Alan Nur MD 04/02/2018 1:36 PM EDT
[2018-04-02 13:44] LABS: Albumin 3.5 g/dL (3.4-5.0); Anion Gap 9 meq/L (5-15); Aspartate Aminotransferase 43 U/L (15-37); Blood Urea Nitrogen 7 mg/dL (7-18); Calcium 8.6 mg/dL (8.5-10.1); Carbon Dioxide 29.1 meq/L (21.0-32.0); Chloride 107 meq/L (98-107); Glomerular Filtration Rate 85 mL/min (>89); Glucose,Random 153 mg/dL (74-106); Magnesium 1.6 mg/dL (1.5-2.5); Potassium 3.4 meq/L (3.5-5.1); Sodium 145 meq/L (136-145)
[2018-04-02 13:56] LABS: Alanine Aminotransferase 29 U/L (12-78); Alkaline Phosphatase 67 U/L (45-117); Total Protein 7.5 g/dL (6.4-8.2)
[2018-04-02 14:10] LABS: Bilirubin,Urine Negative (Negative); Clarity,Urine Clear (Clear); Color,Urine Yellow (Yellw/Straw); Glucose,Urine (UA) 500 or Greater mg/dL (Negative); Leukocyte Esterase,Urine Negative (Negative); Mucus,Urine Few /lpf (Occasional); Nitrite,Urine Negative (Negative); Specific Gravity,Urine 1.023 (1.002-1.035); Squamous Epithelial Cell,Urine <1 /hpf (0-5)
--- NOTE | 2018-04-02 14:15 | CT ---
EXAM DATE: 04/02/2018 2:11 PM EDT AGE/SEX: 62 years / Male INDICATIONS: Weakness for two weeks. CLINICAL DATA: This is the patient's initial encounter. Patient reports that signs and symptoms have been present for 2 weeks and indicates a pain score of 0/10. MEDICAL/SURGICAL HISTORY: Cerebrovascular disease. Seizures. AR . FUSION NECK RADIATION DOSE: 40.64 CTDI (mGy) COMPARISON: [facility] [place], 02/20/2018. [facility] [place] BRAIN [place]/O CONTRAST, 02/11/2017. . TECHNIQUE: CT of the head without contrast. Using automated exposure control and adjustment of the mA and/or kV according to patient size, radiation dose was kept as low as reasonably achievable to ob tain optimal diagnostic quality images. DICOM format image data is available electronically for revi ew and comparison. FINDINGS: Cerebrum: There is mild generalized atrophy and ventricles are normal given the degree of atrophy. M ild periventricular white matter change is present. No midline shift, mass lesion, hemorrhage or acu te infarction. No extraaxial fluid collections are seen. Posterior Fossa: The cerebellum and brainstem demonstrate no acute abnormality. The 4th ventricle is midline. The cerebellopontine angle is within normal limits. Extracranial: The visualized sinuses are clear. Skull: The calvaria is intact. No skull fracture. CONCLUSION: Stable noncontrast head CT. No acute intracranial abnormality is identified. . Electronically signed by: Thomas Lyons MD 04/02/2018 2:14 PM EDT
[2018-04-02] MEDS ORDERED: Acetaminophen 325 MG Tablet PO PRN (16:36)
[2018-04-02] MEDS ORDERED: Levothyroxine 100 MCG Tablet PO ONE (16:40)
[2018-04-02] MEDS ORDERED: Enoxaparin Inj 40 MG/0.4 ML Syringe SQ SCH (16:45)
[2018-04-02] MEDS ORDERED: Dextrose 50% in Water 50 ML Vial IV.PUSH PRN (17:33)
--- NOTE | 2018-04-02 17:33 | P.HP ---
History of Present Illness Primary Care Physician: UNKNOWN History of Present Illness: 62-year-old male with a history of CVA, lumbar fusion, hypothyroidism presents to the hospital following 2 months of increasing weakness that has affected his walking to the point that he is barely able to walk with a walker. Initially he suspected that his thyroid was not balanced, and the ER lab work did confirm that his TSH is 26.00, however his medical history is more complex. 3 months ago he underwent a spinal fusion for a 5 level disc herniation and protrusion causing stenosis and lower extremity dysfunction, weakness. Since that time he has been using his walker for ambulation. He is also been on statins and was unaware that high-dose statins can cause muscle breakdown and generalized weakness of the lower extremities as well. He states his legs have been feeling weak and there is a combination of pain and tingling that affects both lower extremities. He denies any nausea vomiting or diarrhea. He denies any chest pain, shortness of breath, diaphoresis. He denies cough or fever. Inpatient Certification: I certify that the inpatient services were ordered in accordance with Medicare regulations governing the order. This includes certification that hospital inpatient services are reasonable and necessary and in the case of services not specified as inpatient-only under 42 CFR 419.22(n), that they are appropriately provided as inpatient services in accordance to with the 2-midnight benchmark under 43 CFR 412.3(e) Estimated Total Length of Stay (Days): 3 Plans for Post Hospital Care: SNF Review of Systems All other systems reviewed negative except as stated in HPI PMFSH - History History Provided By: Patient - Medical History Medical History: Medical History (Last Reviewed 03/09/18 @ 10:46 by Yasmine Ramos) CAD (coronary artery disease) CVA (cerebral vascular accident) Chronic back pain DDD (degenerative disc disease) Diabetes 1.5, managed as type 1 GERD (gastroesophageal reflux disease) HTN (hypertension) High cholesterol AIDAN (obstructive sleep apnea) Seizure disorder Spinal stenosis Type II diabetes mellitus - Surgical History Surgical History: Surgical History (Last Reviewed 03/09/18 @ 10:47 by Yasmine Ramos) H/O cervical spine surgery History of lumbar surgery History of total left knee replacement Hx of cardiac cath Hx of cholecystectomy Status post VNS (vagus nerve stimulator) placement - Family History Family History: Family History (Last Updated 03/09/18 @ 10:47 by Yasmine Ramos) Mother Alcohol abuse Other Patient denies significant medical history - Tobacco History Second Hand Smoke Exposure: No Tobacco Use In Past 30 Days: No Smoking Status: Never smoker Tobacco Type: Cigarettes Packs Per Day: 1 - Alcohol History How Often Do You Have a Drink Containing Alcohol: Never - Substance Use History Substance History: No History of Abuse - Travel History Recent Travel in the [place] Within the Last 8 Weeks: No Recent Travel Out of the Country Within the Last 8 Weeks: No - Immunization History Tetanus Immunization: Unsure Medications and Allergies Active Medications: Active Medications Acetaminophen (Tylenol) 650 mg PO Q4H PRN PRN Reason: Temp > 100.4 Enoxaparin Sodium (Lovenox Inj) 40 mg SQ Q24H KIM Sodium Chloride (Ns Inj) 1,000 mls @ 60 mls/hr IV.CONT .[id number] KIM Levetiracetam (Keppra) 1,000 mg PO TID KIM Ondansetron HCl (Zofran Inj) 4 mg IV.PUSH Q6H PRN PRN Reason: NAUSEA OR VOMITING Oxycodone/Acetaminophen (Percocet 7.5/325 Mg) 1 tab PO Q6H PRN PRN Reason: Pain 5-10 Pantoprazole Sodium (Protonix) 40 mg PO DAILY [facility] Sennosides (Senokot) 17.2 mg PO Q12H PRN PRN Reason: Moderate Constipation Sodium Chloride (Ns Flush) 2 ml IV.FLUSH PRN PRN PRN Reason: FLUSH AFTER USING IV ACCESS Zolpidem Tartrate (Ambien) 10 mg PO [facility] Allergies Allergy/AdvReac Type Severity Reaction Status Date / Time levofloxacin Allergy Severe Anaphylaxis Verified 03/07/18 13:35 tapentadol Allergy Intermediate Nausea/Vomi Verified 03/07/18 13:35 ting blueberry Allergy Mild Rash Verified 03/07/18 13:35 Home Medications Medication Instructions Recorded Confirmed Type zolpidem [Ambien] 10 mg PO HS 02/20/18 03/07/18 History Exam Vital signs: Vital Signs 04/02/18 12:25 04/02/18 12:27 04/02/18 13:00 Temperature 98.9 F Pulse Rate 70 71 Respiratory Rate 22 18 Blood Pressure 121/74 129/69 Pulse Oximetry 97 96 95 04/02/18 15:14 04/02/18 16:42 Temperature Pulse Rate 67 65 Respiratory Rate 18 18 Blood Pressure 139/81 147/86 H Pulse Oximetry 98 97 Intake & Output 04/01/18 04/02/18 04/02/18 18:59 06:59 18:59 Intake Total 1000 / 1000 Balance 1000 / 1000 Weight 85.275 kg Intake: IV 1000 / 1000 NS Inj 1,000 ML @ 1000 mls/hr 1000 / 1000 IV.SIG BOLUS KIM Rx#:[id number] Narrative: GENERAL: AAOx3, no acute distress, adequate nutrition, generally weak SKIN: Warm and dry, no rashes. HEAD: Atraumatic. Normocephalic. EYES: Pupils equal, round, reactive to light. No scleral icterus. No injection or drainage. ENT: No nasal bleeding or discharge. Moist mucous membranes. Nonerythematous oropharynx. NECK: Trachea midline. No JVD. Thyroid size within normal limits. CARDIOVASCULAR: Regular rate and rhythm. No murmur, no gallops, no rubs. RESPIRATORY: Clear and equal to auscultation bilaterally. No crackles, no wheezes. No accessory muscle use. GASTROINTESTINAL: Abdomen soft, non-tender, nondistended, normal active bowel sounds. Hepatic and splenic margins not palpable. MUSCULOSKELETAL: Extremities without clubbing or cyanosis. No obvious deformities. No edema. NEUROLOGICAL: Awake and alert. No obvious cranial nerve deficits. Motor grossly within normal limits. No focal deficits. 4 out of 5 muscle strength in the arms and legs. Normal speech. No lid lag. PSYCHIATRIC: Appropriate mood and affect; insight and judgment normal. Results - Labs CBC & Chem 7: 04/02/18 13:11 04/02/18 13:11 Labs: Laboratory Results - last 24 hr 04/02/18 04/02/18 04/02/18 13:11 13:11 13:11 WBC 3.8 L RBC 4.35 L Hgb 13.1 Hct 40.1 MCV 92.1 MCH 30.1 MCHC 32.7 RDW 19.5 H Plt Count 64 L D MPV 8.7 Prelim Diff (Auto) Slide review pending Neut % (Auto) 44.8 Lymph % (Auto) 41.6 [place] % (Auto) 7.2 Eos % (Auto) 6.0 H Baso % (Auto) 0.4 Neut # (Auto) 1.7 L Lymph # (Auto) 1.6 [place] # (Auto) 0.3 Eos # (Auto) 0.2 Baso # (Auto) 0.0 WBC Differential . Diff Scan Auto diff confirmed Differential Comment . Sodium 145 Potassium 3.4 L Chloride 107 Carbon Dioxide 29.1 Anion Gap 9 BUN 7 Creatinine 0.91 Estimated GFR 85 L Random Glucose 153 H Calcium 8.6 Magnesium 1.6 Total Bilirubin 0.7 AST 43 H ALT 29 Alkaline Phosphatase 67 Troponin I Less than 0.02 L Total Protein 7.5 Albumin 3.5 TSH 26.900 H Urine Color Yellow Urine Clarity Clear Urine pH 5.0 Ur Specific Allison 1.023 Urine Protein Negative Urine Glucose (UA) 500 or greater Urine Ketones Trace H Urine Occult Blood Negative Urine Nitrate Negative Urine Bilirubin Negative Urine Urobilinogen Less than 2 Ur Leukocyte Esterase Negative Urine RBC Less than 1 Urine WBC 4 Ur Squamous Epith Cells <1 Urine Mucus Few H Micro UA Comment Culture not ind Ur Microscopic Review Not Reportable Urine Culture Comments Culture not ind Valproic Acid 04/02/18 13:11 WBC RBC Hgb Hct MCV MCH MCHC RDW Plt Count MPV Prelim Diff (Auto) Neut % (Auto) Lymph % (Auto) [place] % (Auto) Eos % (Auto) Baso % (Auto) Neut # (Auto) Lymph # (Auto) [place] # (Auto) Eos # (Auto) Baso # (Auto) WBC Differential Diff Scan Differential Comment Sodium Potassium Chloride Carbon Dioxide Anion Gap BUN Creatinine Estimated GFR Random Glucose Calcium Magnesium Total Bilirubin AST ALT Alkaline Phosphatase Troponin I Total Protein Albumin TSH Urine Color Urine Clarity Urine pH Ur Specific Allison Urine Protein Urine Glucose (UA) Urine Ketones Urine Occult Blood Urine Nitrate Urine Bilirubin Urine Urobilinogen Ur Leukocyte Esterase Urine RBC Urine WBC Ur Squamous Epith Cells Urine Mucus Micro UA Comment Ur Microscopic Review Urine Culture Comments Valproic Acid 98 - Imaging Impressions Chest X-Ray 04/02/18 12:56 CONCLUSION: 1. Mild cardiomegaly and positive fluid balance. 2. Mild airspace disease at the lung bases, presumably atelectasis. Head CT 04/02/18 12:56 CONCLUSION: Stable noncontrast head CT. No acute intracranial abnormality is identified. . Caprini VTE Risk Assessment Caprini VTE Risk Assessment: Moderate/High Risk (score >= 2) Caprini Risk Assessment Model: Point Value = 1 Point Value = 2 Point Value = 3 Point Value = 5 Age 41-60 Minor surgery BMI > 25 kg/m2 Swollen legs Varicose veins or History of unexplained or recurrent spontaneous Oral contraceptives or hormone replacement Sepsis (< 1 month) Serious lung disease, including pneumonia (< 1 month) Abnormal pulmonary function Acute myocardial infarction Congestive heart failure (< 1 month) History of inflammatory bowel disease Medical patient at bed rest Age 61-74 Arthroscopic surgery Major open surgery (> 45 min) Laparoscopic surgery (> 45 min) Malignancy Confined to bed (> 72 hours) Immobilizing plaster cast Central venous access Age >= 75 History of VTE Family history of VTE Factor V Leiden Prothrombin [id number] Lupus anticoagulant Anticardiolipin antibodies Elevated serum homocysteine Heparin-induced thrombocytopenia Other congenital or acquired thrombophilia Stroke (< 1 month) Elective arthroplasty Hip, pelvis, or leg fracture Acute spinal cord injury (< 1 month) Prophylaxis Regimen: Total Risk Factor Score Risk Level Prophylaxis Regimen 0-1 Low Early ambulation 2 Moderate Order ONE of the following: *Sequential Compression Device (SCD) *Heparin 5000 units SQ BID 3-4 Higher Order ONE of the following medications: *Heparin 5000 units SQ TID *Enoxaparin/Lovenox 40 mg SQ daily (WT < 150 kg, CrCl > 30 mL/min) *Enoxaparin/Lovenox 30 mg SQ daily (WT < 150 kg, CrCl > 10-29 mL/min) *Enoxaparin/Lovenox 30 mg SQ BID (WT < 150 kg, CrCl > 30 mL/min) AND/OR *Sequential Compression Device (SCD) 5 or more Highest Order ONE of the following medications: *Heparin 5000 units SQ TID (Preferred with Epidurals) *Enoxaparin/Lovenox 40 mg SQ daily (WT < 150 kg, CrCl > 30 mL/min) *Enoxaparin/Lovenox 30 mg SQ daily (WT < 150 kg, CrCl > 10-29 mL/min) *Enoxaparin/Lovenox 30 mg SQ BID (WT < 150 kg, CrCl > 30 mL/min) AND *Sequential Compression Device (SCD) Assessment and Plan - Plan Failure to thrive Patient has had declining function at home over the last month, acutely worsening over the last 2 weeks He has been a high fall risk despite using his walker He has been unable to care for himself, his has reached a point where she cannot care for him We will plan for discharge to rehab Inability to ambulate Check CK level, check CT of L-spine, treat for severe hypothyroidism Physical therapy for evaluation and treatment Severe hypothyroidism TSH was 46.00 on admission, previously on levothyroxine 50 mcg daily Levothyroxine increased to 100 mcg daily, recommend following a future TSH level h/o recent lumbar fusion Underwent lumbar fusion L5 level disc disease 3 months ago Patient complains of tingling and weakness of his bilateral lower extremities CT of L-spine ordered to investigate for stenosis or postsurgical issues Type 2 diabetes Accu-Cheks with sliding scale insulin coverage Diabetic diet h/o CVA Chronic issues with right-sided deficits, supportive care, PT No acute findings on CT brain DVT Prophylaxis Lovenox
[2018-04-02] MEDS: levETIRAcetam 500 MG Tablet PO SCH (18:25)
[2018-04-02] MEDS: Sod Chloride 0.9% Inj 1,000 ML IV.CONT SCH (18:25)
[2018-04-02] MEDS: Insulin NovoLOG Aspart Correctional Sugar Inj SQ SCH (21:09)
[2018-04-03] MEDS: Insulin NovoLOG Aspart Correctional Sugar Inj SQ SCH ×4 (07:54→20:30)
[2018-04-03] MEDS: levETIRAcetam 500 MG Tablet PO SCH ×3 (08:18→17:07)
--- NOTE | 2018-04-03 10:03 | CT ---
EXAM DATE: 04/03/2018 9:52 AM EDT AGE/SEX: 62 years / Male INDICATIONS: Inability to ambulate CLINICAL DATA: This is the patient's initial encounter. Patient reports that signs and symptoms have been present for 1 day and indicates a pain score of 0/10. MEDICAL/SURGICAL HISTORY: Gastroesophageal reflux disease. Hypertension. Seizures. Hypothyroid, Diabetic Cholecystectomy. Cervical and lumbar surgery, heart catheterization RADIATION DOSE: 42.77 CTDI (mGy) COMPARISON: No prior exams available for comparison. TECHNIQUE: Contiguous axial images were acquired with a multirow detector CT scanner without contras t. Multiplanar reconstructions in the sagittal and coronal plane were also performed. Using automate d exposure control and adjustment of the mA and/or kV according to patient size, radiation dose was k ept as low as reasonably achievable to obtain optimal diagnostic quality images. DICOM format image data is available electronically for review and comparison. FINDINGS: Vertebrae: Posterior fusion hardware extending from the L4 vertebral body to the S1 vertebral body. Hardware is intact. Interbody bone graft or prosthetic material seen at L4-5 and L5-S1. Bone alignmen t is within normal limits. No evidence of fracture. T12-L1: The thecal sac has a normal diameter. No evidence of disc bulge or protrusion. The neural foramina are patent bilaterally. L1-L2: The thecal sac has a normal diameter. No evidence of disc bulge or protrusion. The neural f oramina are patent bilaterally. L2-L3: The thecal sac has a normal diameter. No evidence of disc bulge or protrusion. The neural f oramina are patent bilaterally. L3-L4: Minimal broad-based disc bulge. Central canal diameter within normal limits. Neural foraminal diameters within normal limits. L4-L5: Postsurgical findings. Right-sided posterior laminectomy defect. Artifact is seen at this lev el related to surgical hardware. There is a broad-based disc osteophyte complex and bilateral facet a rthrosis resulting in moderate bilateral neural foraminal narrowing. Central canal diameter is within normal limits. L5-S1: Postsurgical level. Posterior laminectomy defects. Broad-based osseous ridge. Prominent artif act from adjacent hardware. Central canal diameter within normal limits. Neural foraminal diameters w ithin normal limits. CONCLUSION: Postsurgical findings at L4-5 and L5-S1. Degenerative findings at these levels and at L3-4. Prominent metallic artifact securing portions of the central canal at the surgical levels. Central canal diame ter grossly within normal limits. Bilateral moderate neural foraminal narrowing at L4-5. Electronically signed by: Renan Mccarty MD 04/03/2018 10:02 AM EDT
[2018-04-03] MEDS: Sod Chloride 0.9% Inj 1,000 ML IV.CONT SCH (11:23)
--- NOTE | 2018-04-03 11:47 | P.PNIM ---
Subjective Interval history: f/u; generalized weakness in no acute distress. denies pain. but feels weak. reports some diarrhea but with no abdominal pain, nausea or fever. Physical Exam Vital signs: Vital Signs 04/02/18 12:25 04/02/18 12:27 04/02/18 13:00 Temperature 98.9 F Pulse Rate 70 71 Respiratory Rate 22 18 Blood Pressure 121/74 129/69 Pulse Oximetry 97 96 95 04/02/18 15:14 04/02/18 16:42 04/02/18 20:00 Temperature 97.1 F L Pulse Rate 67 65 58 L Respiratory Rate 18 18 17 Blood Pressure 139/81 147/86 H 136/77 Pulse Oximetry 98 97 96 04/03/18 00:00 04/03/18 08:00 Temperature 98.6 F 98.4 F Pulse Rate 62 65 Respiratory Rate 18 17 Blood Pressure 140/69 142/75 H Pulse Oximetry 97 97 Intake & Output 04/02/18 04/03/18 04/03/18 18:59 06:59 18:59 Intake Total 1000 / 1000 580 / 580 900 / 900 Output Total 400 / 400 Balance 1000 / 1000 180 / 180 900 / 900 Weight 85.275 kg 85 kg Intake: IV 1000 / 1000 900 / 900 NS Inj 1,000 ML @ 60 mls/hr IV. 900 / 900 CONT .[id number] KIM Rx#:[id number] NS Inj 1,000 ML @ 1000 mls/hr 1000 / 1000 IV.SIG BOLUS KIM Rx#:[id number] Oral 580 / 580 Output: Urine 400 / 400 Other: # Voids 2 Date of Last Bowel Movement 04/03/18 # Bowel Movements 2 - Constitutional no acute distress - Routine Respiratory Exam Present: CTA bilaterally - Routine Cardiovascular Exam Present: RRR - Routine Abdominal Exam Present: soft - Routine Extremities Exam Comments: no pedal edema. - Routine Neurological Exam Present: alert, oriented X3 Results - Labs CBC & Chem 7: 04/02/18 13:11 04/02/18 13:11 Laboratory Results - last 24 hr 04/02/18 04/02/18 04/02/18 13:11 13:11 13:11 WBC 3.8 L RBC 4.35 L Hgb 13.1 Hct 40.1 MCV 92.1 MCH 30.1 MCHC 32.7 RDW 19.5 H Plt Count 64 L D MPV 8.7 Prelim Diff (Auto) Slide review pending Neut % (Auto) 44.8 Lymph % (Auto) 41.6 [place] % (Auto) 7.2 Eos % (Auto) 6.0 H Baso % (Auto) 0.4 Neut # (Auto) 1.7 L Lymph # (Auto) 1.6 [place] # (Auto) 0.3 Eos # (Auto) 0.2 Baso # (Auto) 0.0 WBC Differential . Diff Scan Auto diff confirmed Differential Comment . Sodium 145 Potassium 3.4 L Chloride 107 Carbon Dioxide 29.1 Anion Gap 9 BUN 7 Creatinine 0.91 Estimated GFR 85 L POC Glucose Random Glucose 153 H Calcium 8.6 Magnesium 1.6 Total Bilirubin 0.7 AST 43 H ALT 29 Alkaline Phosphatase 67 Ammonia Total Creatine Kinase Troponin I Less than 0.02 L Total Protein 7.5 Albumin 3.5 TSH 26.900 H Urine Color Yellow Urine Clarity Clear Urine pH 5.0 Ur Specific [place] 1.023 Urine Protein Negative Urine Glucose (UA) 500 or greater Urine Ketones Trace H Urine Occult Blood Negative Urine Nitrate Negative Urine Bilirubin Negative Urine Urobilinogen Less than 2 Ur Leukocyte Esterase Negative Urine RBC Less than 1 Urine WBC 4 Ur Squamous Epith Cells <1 Urine Mucus Few H Micro UA Comment Culture not ind Ur Microscopic Review Not Reportable Urine Culture Comments Culture not ind Valproic Acid 04/02/18 04/02/18 04/02/18 13:11 19:05 19:54 WBC RBC Hgb Hct MCV MCH MCHC RDW Plt Count MPV Prelim Diff (Auto) Neut % (Auto) Lymph % (Auto) [place] % (Auto) Eos % (Auto) Baso % (Auto) Neut # (Auto) Lymph # (Auto) [place] # (Auto) Eos # (Auto) Baso # (Auto) WBC Differential Diff Scan Differential Comment Sodium Potassium Chloride Carbon Dioxide Anion Gap BUN Creatinine Estimated GFR POC Glucose Random Glucose Calcium Magnesium Total Bilirubin AST ALT Alkaline Phosphatase Ammonia 61 H Total Creatine Kinase 138 Troponin I Total Protein Albumin TSH Urine Color Urine Clarity Urine pH Ur Specific [place] Urine Protein Urine Glucose (UA) Urine Ketones Urine Occult Blood Urine Nitrate Urine Bilirubin Urine Urobilinogen Ur Leukocyte Esterase Urine RBC Urine WBC Ur Squamous Epith Cells Urine Mucus Micro UA Comment Ur Microscopic Review Urine Culture Comments Valproic Acid 98 04/02/18 04/03/18 04/03/18 21:07 07:46 11:16 WBC RBC Hgb Hct MCV MCH MCHC RDW Plt Count MPV Prelim Diff (Auto) Neut % (Auto) Lymph % (Auto) [place] % (Auto) Eos % (Auto) Baso % (Auto) Neut # (Auto) Lymph # (Auto) [place] # (Auto) Eos # (Auto) Baso # (Auto) WBC Differential Diff Scan Differential Comment Sodium Potassium Chloride Carbon Dioxide Anion Gap BUN Creatinine Estimated GFR POC Glucose 135 H 119 H 105 Random Glucose Calcium Magnesium Total Bilirubin AST ALT Alkaline Phosphatase Ammonia Total Creatine Kinase Troponin I Total Protein Albumin TSH Urine Color Urine Clarity Urine pH Ur Specific [place] Urine Protein Urine Glucose (UA) Urine Ketones Urine Occult Blood Urine Nitrate Urine Bilirubin Urine Urobilinogen Ur Leukocyte Esterase Urine RBC Urine WBC Ur Squamous Epith Cells Urine Mucus Micro UA Comment Ur Microscopic Review Urine Culture Comments Valproic Acid - Imaging Impressions Chest X-Ray 04/02/18 12:56 CONCLUSION: 1. Mild cardiomegaly and positive fluid balance. 2. Mild airspace disease at the lung bases, presumably atelectasis. Head CT 04/02/18 12:56 CONCLUSION: Stable noncontrast head CT. No acute intracranial abnormality is identified. . Lumbar Spine CT 04/03/18 00:00 CONCLUSION: Postsurgical findings at L4-5 and L5-S1. Degenerative findings at these levels and at L3-4. Prominent metallic artifact securing portions of the central canal at the surgical levels. Central canal diameter grossly within normal limits. Bilateral moderate neural foraminal narrowing at L4-5. Assessment and Plan - Plan Failure to thrive Patient has had declining function at home over the last month, acutely worsening over the last 2 weeks He has been a high fall risk despite using his walker He has been unable to care for himself, his has reached a point where she cannot care for him We will plan for discharge to rehab consulted PT Inability to ambulate Physical therapy for evaluation and treatment Severe hypothyroidism TSH was 46.00 on admission, previously on levothyroxine 50 mcg daily Levothyroxine increased to 100 mcg daily, recommend following a future TSH level h/o recent lumbar fusion Underwent lumbar fusion L5 level disc disease 3 months ago Patient complains of tingling and weakness of his bilateral lower extremities CT of L-spine as noted above diarrhea check the stool studies Type 2 diabetes Accu-Cheks with sliding scale insulin coverage Diabetic diet h/o CVA Chronic issues with right-sided deficits, supportive care, PT No acute findings on CT brain thrombocytopenia chronic- will monitor. DVT Prophylaxis; SCD's- n o chemical prophylaxis to thrombocytopenia Discharge Planning: possible rehab within the next 24 hrs if stable- pending PT evaluation.
[2018-04-03] MEDS: Divalproex 250 MG ER Tablet PO SCH (20:23)
[2018-04-04] MEDS: Levothyroxine 100 MCG Tablet PO SCH (05:56)
[2018-04-04] MEDS: Sod Chloride 0.9% Inj 1,000 ML IV.CONT SCH ×2 (05:57→20:18)
[2018-04-04] MEDS: Insulin NovoLOG Aspart Correctional Sugar Inj SQ SCH ×4 (07:51→20:17)
[2018-04-04] MEDS: Divalproex 250 MG ER Tablet PO SCH ×2 (09:05→20:16)
[2018-04-04] MEDS: levETIRAcetam 500 MG Tablet PO SCH ×3 (09:05→17:31)
--- NOTE | 2018-04-04 09:23 | P.PNIM ---
Subjective Interval history: f/u; ambulatory dysfunction in no acute distress. looks and feels better today. says that had a good sleep last night. back pain is much better and diarrhea has improved. Physical Exam Vital signs: Vital Signs 04/03/18 12:00 04/03/18 16:00 04/03/18 20:00 Temperature 98.5 F 98.2 F 98.2 F Pulse Rate 59 L 61 58 L Respiratory Rate 18 17 16 Blood Pressure 152/80 H 117/77 117/68 Pulse Oximetry 98 99 96 04/04/18 00:00 04/04/18 04:00 04/04/18 08:00 Temperature 98.1 F 98.6 F Pulse Rate 68 58 L 70 Respiratory Rate 17 16 18 Blood Pressure 108/63 123/70 127/64 Pulse Oximetry 95 96 95 Intake & Output 04/03/18 04/04/18 04/04/18 19:59 06:59 18:59 Intake Total Output Total Balance Weight Intake: IV NS Inj 1,000 ML @ 60 mls/hr IV. CONT .[id number] [facility] Rx#:[id number] Oral Output: Urine Other: Date of Last Bowel Movement - Constitutional no acute distress - Routine Respiratory Exam Present: CTA bilaterally - Routine Cardiovascular Exam Present: RRR - Routine Abdominal Exam Present: soft - Routine Extremities Exam Comments: no pedal edema. - Routine Neurological Exam Present: alert, oriented X3 Results - Labs CBC & Chem 7: 04/02/18 13:11 04/02/18 13:11 Laboratory Results - last 24 hr 04/03/18 04/03/18 04/03/18 11:16 16:21 20:29 POC Glucose 105 175 H 107 04/04/18 07:44 POC Glucose 104 Assessment and Plan - Plan Failure to thrive Inability to ambulate PT evaluation appreciated and recommended home PT. Severe hypothyroidism TSH was 46.00 on admission, previously on levothyroxine 50 mcg daily Levothyroxine increased to 100 mcg daily, recommend following a future TSH level h/o recent lumbar fusion Underwent lumbar fusion L5 level disc disease 3 months ago Patient complains of tingling and weakness of his bilateral lower extremities CT of L-spine as noted above diarrhea better. Type 2 diabetes Accu-Cheks with sliding scale insulin coverage Diabetic diet h/o CVA Chronic issues with right-sided deficits, supportive care, PT No acute findings on CT brain thrombocytopenia chronic- will monitor. DVT Prophylaxis; SCD's- n o chemical prophylaxis to thrombocytopenia Discharge Planning: possible dc home with [facility] today-pending CBC.
--- NOTE | 2018-04-04 09:28 | P.DCO ---
- Physical Therapy Order: Evaluate and treat - Case Management Consult Yes - Certification I have seen patient [facility] on 04/04/18. My clinical findings support the need for the requested home health care services because: Limited mobility due to disease progression I certify that my clinical findings support that this patient is homebound because: Unsteady gait/balance
--- NOTE | 2018-04-04 09:29 | P.DS ---
Date of admission: 04/02/18 16:42 Primary care physician: UNKNOWN Brief History from admission: 62-year-old male with a history of CVA, lumbar fusion, hypothyroidism presents to the hospital following 2 months of increasing weakness that has affected his walking to the point that he is barely able to walk with a walker. Initially he suspected that his thyroid was not balanced, and the ER lab work did confirm that his TSH is 26.00, however his medical history is more complex. 3 months ago he underwent a spinal fusion for a 5 level disc herniation and protrusion causing stenosis and lower extremity dysfunction, weakness. Since that time he has been using his walker for ambulation. He is also been on statins and was unaware that high-dose statins can cause muscle breakdown and generalized weakness of the lower extremities as well. He states his legs have been feeling weak and there is a combination of pain and tingling that affects both lower extremities. He denies any nausea vomiting or diarrhea. He denies any chest pain, shortness of breath, diaphoresis. He denies cough or fever. DS: Medications - Discharge Medications Prescriptions: levothyroxine [Unithroid] 100 mcg PO DAILY 30 Days #30 tab DS: Summary Hospital Course: Failure to thrive Inability to ambulate PT evaluation appreciated and recommended home PT. Severe hypothyroidism TSH was 46.00 on admission, previously on levothyroxine 50 mcg daily Levothyroxine increased to 100 mcg daily, recommend following a future TSH level h/o recent lumbar fusion Underwent lumbar fusion L5 level disc disease 3 months ago Patient complains of tingling and weakness of his bilateral lower extremities CT of L-spine as noted above diarrhea better. Type 2 diabetes Accu-Cheks with sliding scale insulin coverage Diabetic diet h/o CVA Chronic issues with right-sided deficits, supportive care, PT No acute findings on CT brain thrombocytopenia chronic- will monitor. - Time Spent with Patient Total time spent providing and/or coordinating discharge services: Less than 30 minutes - Quality: VTE Deep Vein Thrombosis/Pulmonary Embolism Present on Admission: No Exam Vital signs: Vital Signs 04/03/18 12:00 04/03/18 16:00 04/03/18 20:00 Temperature 98.5 F 98.2 F 98.2 F Pulse Rate 59 L 61 58 L Respiratory Rate 18 17 16 Blood Pressure 152/80 H 117/77 117/68 Pulse Oximetry 98 99 96 04/04/18 00:00 04/04/18 04:00 04/04/18 08:00 Temperature 98.1 F 98.6 F Pulse Rate 68 58 L 70 Respiratory Rate 17 16 18 Blood Pressure 108/63 123/70 127/64 Pulse Oximetry 95 96 95 Intake & Output 04/03/18 04/04/18 04/04/18 19:59 06:59 18:59 Intake Total Output Total Balance Weight Intake: IV NS Inj 1,000 ML @ 60 mls/hr IV. CONT .[id number] [facility] Rx#:[id number] Oral Output: Urine Other: Date of Last Bowel Movement - Constitutional no acute distress - Routine Respiratory Exam Present: CTA bilaterally - Routine Cardiovascular Exam Present: RRR - Routine Abdominal Exam Present: soft - Routine Extremities Exam Comments: no pedal edema. - Routine Neurological Exam Present: alert, oriented X3 Results Procedures completed during hospitalization: none. Labs on day of discharge: Labs from last 24 hours 04/04/18 04/03/18 04/03/18 07:44 20:29 16:21 POC Glucose 104 107 175 H 04/03/18 11:16 POC Glucose 105 - Impressions ITS Impressions Chest X-Ray 04/02/18 12:56 CONCLUSION: 1. Mild cardiomegaly and positive fluid balance. 2. Mild airspace disease at the lung bases, presumably atelectasis. Head CT 04/02/18 12:56 CONCLUSION: Stable noncontrast head CT. No acute intracranial abnormality is identified. . Lumbar Spine CT 04/03/18 00:00 CONCLUSION: Postsurgical findings at L4-5 and L5-S1. Degenerative findings at these levels and at L3-4. Prominent metallic artifact securing portions of the central canal at the surgical levels. Central canal diameter grossly within normal limits. Bilateral moderate neural foraminal narrowing at L4-5. Discharge Plan - Discharge Disposition Patient Disposition: W/Home Health Service - Discharge Condition Condition: Fair - Physicians Team Primary Care Provider: UNKNOWN, Attending Provider: Marty Jama
[2018-04-04 09:51] LABS: Baso % (Auto) 0.4 % (0.0-2.0); Eos # (Auto) 0.1 th/mm3 (0.0-0.4); Hematocrit 37.9 % (39.0-51.0); Hemoglobin 12.8 gm/dL (13.0-17.0); Lymph # (Auto) 1.4 th/mm3 (1.0-4.8); Lymph % (Auto) 48.5 % (9.0-44.0); Mean Corpuscular HGB Conc 33.6 % (32.0-36.0); Mean Corpuscular Hemoglobin 30.5 pg (27.0-34.0); Mean Corpuscular Volume 90.7 fL (80.0-100.0); Mean Platelet Volume 8.9 fL (7.0-11.0); Mono # (Auto) 0.2 th/mm3 (0.0-0.9); Mono % (Auto) 7.8 % (0.0-8.0); Neut # (Auto) 1.1 th/mm3 (1.8-7.7); Neut % (Auto) 38.3 % (16.0-70.0); Platelet Count 59 th/mm3 (150-450); Red Blood Count 4.18 mil/mm3 (4.50-5.90); Red Cell Distribution Width 19.7 % (11.6-17.2); White Blood Count 2.8 th/mm3 (4.0-11.0)
[2018-04-04 11:44] LABS: Ovalocytes 1+; Platelet Morphology Normal (Normal)
--- NOTE | 2018-04-05 00:47 | ECG ---
Date Performed: 04/02/2018 Time Performed: 13:08:53 PTAGE: 62 years EKG: Sinus rhythm POSSIBLE ANTERIOR MYOCARDIAL INFARCTION BORDERLINE ECG PREVIOUS TRACING : 03/04/2018 09.38 Since the previous tracing, no significant change noted DOCTOR: Mike Espinal Interpretating Date/Time 04/05/2018 00:47:02
[2018-04-05 06:09] LABS: Baso % (Auto) 0.5 % (0.0-2.0); Eos # (Auto) 0.2 th/mm3 (0.0-0.4); Eos % (Auto) 5.5 % (0.0-4.0); Hematocrit 36.2 % (39.0-51.0); Hemoglobin 11.9 gm/dL (13.0-17.0); Lymph # (Auto) 1.7 th/mm3 (1.0-4.8); Lymph % (Auto) 52.7 % (9.0-44.0); Mean Corpuscular HGB Conc 32.9 % (32.0-36.0); Mean Corpuscular Volume 91.2 fL (80.0-100.0); Mean Platelet Volume 9.1 fL (7.0-11.0); Mono # (Auto) 0.3 th/mm3 (0.0-0.9); Mono % (Auto) 8.3 % (0.0-8.0); Platelet Count 52 th/mm3 (150-450); Red Blood Count 3.97 mil/mm3 (4.50-5.90); Red Cell Distribution Width 19.6 % (11.6-17.2); White Blood Count 3.2 th/mm3 (4.0-11.0)
[2018-04-05] MEDS: Levothyroxine 100 MCG Tablet PO SCH (06:48)
[2018-04-05] MEDS: Insulin NovoLOG Aspart Correctional Sugar Inj SQ SCH ×2 (08:11→12:30)
--- NOTE | 2018-04-05 08:18 | P.PNIM ---
Subjective Interval history: in no acute distress. looks comfortable. denies pain. no new complaints and wants to go home. Physical Exam Vital signs: Vital Signs 04/04/18 12:00 04/04/18 16:00 04/04/18 20:00 Temperature 98.6 F 98.6 F 98.5 F Pulse Rate 59 L 62 60 Respiratory Rate 16 17 18 Blood Pressure 131/69 139/69 137/75 Pulse Oximetry 96 95 96 04/05/18 00:00 04/05/18 04:00 Temperature 97.8 F 97.8 F Pulse Rate 69 67 Respiratory Rate 18 16 Blood Pressure 127/69 133/76 Pulse Oximetry 96 96 Intake & Output 04/04/18 04/05/18 04/05/18 18:59 06:59 18:59 Intake Total 480 / 480 1480 / 1480 Output Total 800 / 800 300 / 300 Balance -320 / -320 1180 / 1180 Weight 85.8 kg Intake: IV 1000 / 1000 NS Inj 1,000 ML @ 60 mls/hr IV. 1000 / 1000 CONT .[id number] [facility] Rx#:[id number] Oral 480 / 480 480 / 480 Output: Urine 800 / 800 300 / 300 Other: # Voids 3 Date of Last Bowel Movement 04/03/18 # Bowel Movements 3 - Constitutional no acute distress - Routine Respiratory Exam Present: CTA bilaterally - Routine Cardiovascular Exam Present: RRR - Routine Abdominal Exam Present: soft - Routine Extremities Exam Comments: no pedal edema. - Routine Neurological Exam Present: alert, oriented X3 Results - Labs CBC & Chem 7: 04/05/18 05:10 04/02/18 13:11 Laboratory Results - last 24 hr 04/04/18 04/04/18 04/04/18 08:36 11:25 16:29 WBC 2.8 L RBC 4.18 L Hgb 12.8 L Hct 37.9 L MCV 90.7 MCH 30.5 MCHC 33.6 RDW 19.7 H Plt Count 59 L MPV 8.9 Prelim Diff (Auto) Slide review pending Neut % (Auto) 38.3 Lymph % (Auto) 48.5 H Hyde % (Auto) 7.8 Eos % (Auto) 5.0 H Baso % (Auto) 0.4 Neut # (Auto) 1.1 L Lymph # (Auto) 1.4 Hyde # (Auto) 0.2 Eos # (Auto) 0.1 Baso # (Auto) 0.0 WBC Differential . Diff Scan Auto diff confirmed Differential Comment . Platelet Estimate Low L Platelet Morphology Normal Ovalocytes 1+ H POC Glucose 168 H 127 H 04/04/18 04/05/18 04/05/18 19:15 05:10 08:02 WBC 3.2 L RBC 3.97 L Hgb 11.9 L Hct 36.2 L MCV 91.2 MCH 30.0 MCHC 32.9 RDW 19.6 H Plt Count 52 L MPV 9.1 Prelim Diff (Auto) Slide review pending Neut % (Auto) 33.0 Lymph % (Auto) 52.7 H Hyde % (Auto) 8.3 H Eos % (Auto) 5.5 H Baso % (Auto) 0.5 Neut # (Auto) 1.0 L Lymph # (Auto) 1.7 Hyde # (Auto) 0.3 Eos # (Auto) 0.2 Baso # (Auto) 0.0 WBC Differential Diff Scan Differential Comment . Platelet Estimate Platelet Morphology Ovalocytes POC Glucose 146 H 109 - Procedures none. Assessment and Plan - Plan Failure to thrive Inability to ambulate PT evaluation appreciated and recommended home PT. Severe hypothyroidism TSH was 46.00 on admission, previously on levothyroxine 50 mcg daily Levothyroxine increased to 100 mcg daily, recommend following a future TSH level h/o recent lumbar fusion Underwent lumbar fusion L5 level disc disease 3 months ago Patient complains of tingling and weakness of his bilateral lower extremities CT of L-spine as noted above diarrhea better. Type 2 diabetes Accu-Cheks with sliding scale insulin coverage Diabetic diet h/o CVA Chronic issues with right-sided deficits, supportive care, PT No acute findings on CT brain thrombocytopenia chronic and fairly stable- will monitor. DVT Prophylaxis; SCD's- n o chemical prophylaxis to thrombocytopenia Discharge Planning: dc home with [facility] today. see med list. f/u; pcp. d/w the patient.
--- NOTE | 2018-04-05 08:18 | P.DS ---
Date of admission: 04/02/18 16:42 Primary care physician: UNKNOWN Brief History from admission: 62-year-old male with a history of CVA, lumbar fusion, hypothyroidism presents to the hospital following 2 months of increasing weakness that has affected his walking to the point that he is barely able to walk with a walker. Initially he suspected that his thyroid was not balanced, and the ER lab work did confirm that his TSH is 26.00, however his medical history is more complex. 3 months ago he underwent a spinal fusion for a 5 level disc herniation and protrusion causing stenosis and lower extremity dysfunction, weakness. Since that time he has been using his walker for ambulation. He is also been on statins and was unaware that high-dose statins can cause muscle breakdown and generalized weakness of the lower extremities as well. He states his legs have been feeling weak and there is a combination of pain and tingling that affects both lower extremities. He denies any nausea vomiting or diarrhea. He denies any chest pain, shortness of breath, diaphoresis. He denies cough or fever. DS: Medications - Discharge Medications Prescriptions: levothyroxine [Unithroid] 100 mcg PO DAILY 30 Days #30 tab DS: Summary Hospital Course: Failure to thrive Inability to ambulate PT evaluation appreciated and recommended home PT. Severe hypothyroidism TSH was 46.00 on admission, previously on levothyroxine 50 mcg daily Levothyroxine increased to 100 mcg daily, recommend following a future TSH level h/o recent lumbar fusion Underwent lumbar fusion L5 level disc disease 3 months ago Patient complains of tingling and weakness of his bilateral lower extremities CT of L-spine as noted above diarrhea better. Type 2 diabetes Accu-Cheks with sliding scale insulin coverage Diabetic diet h/o CVA Chronic issues with right-sided deficits, supportive care, PT No acute findings on CT brain thrombocytopenia chronic and fairly stable- will monitor. - Time Spent with Patient Total time spent providing and/or coordinating discharge services: Less than 30 minutes - Quality: VTE Deep Vein Thrombosis/Pulmonary Embolism Present on Admission: No Exam Vital signs: Vital Signs 04/04/18 12:00 04/04/18 16:00 04/04/18 20:00 Temperature 98.6 F 98.6 F 98.5 F Pulse Rate 59 L 62 60 Respiratory Rate 16 17 18 Blood Pressure 131/69 139/69 137/75 Pulse Oximetry 96 95 96 04/05/18 00:00 04/05/18 04:00 Temperature 97.8 F 97.8 F Pulse Rate 69 67 Respiratory Rate 18 16 Blood Pressure 127/69 133/76 Pulse Oximetry 96 96 Intake & Output 04/04/18 04/05/18 04/05/18 18:59 06:59 18:59 Intake Total 480 / 480 1480 / 1480 Output Total 800 / 800 300 / 300 Balance -320 / -320 1180 / 1180 Weight 85.8 kg Intake: IV 1000 / 1000 NS Inj 1,000 ML @ 60 mls/hr IV. 1000 / 1000 CONT .[id number] Rx#:[id number] Oral 480 / 480 480 / 480 Output: Urine 800 / 800 300 / 300 Other: # Voids 3 Date of Last Bowel Movement 04/03/18 # Bowel Movements 3 - Constitutional no acute distress - Routine Respiratory Exam Present: CTA bilaterally - Routine Cardiovascular Exam Present: RRR - Routine Abdominal Exam Present: soft - Routine Extremities Exam Comments: no pedal edema. - Routine Neurological Exam Present: alert, oriented X3 Results Procedures completed during hospitalization: none. Labs on day of discharge: Labs from last 24 hours 04/05/18 04/05/18 04/04/18 08:02 05:10 19:15 WBC 3.2 L RBC 3.97 L Hgb 11.9 L Hct 36.2 L MCV 91.2 MCH 30.0 MCHC 32.9 RDW 19.6 H Plt Count 52 L MPV 9.1 Prelim Diff (Auto) Slide review pending Neut % (Auto) 33.0 Lymph % (Auto) 52.7 H Emanuel % (Auto) 8.3 H Eos % (Auto) 5.5 H Baso % (Auto) 0.5 Neut # (Auto) 1.0 L Lymph # (Auto) 1.7 Emanuel # (Auto) 0.3 Eos # (Auto) 0.2 Baso # (Auto) 0.0 WBC Differential Pending Diff Scan Differential Comment . Platelet Estimate Platelet Morphology Ovalocytes POC Glucose 109 146 H 04/04/18 04/04/18 04/04/18 16:29 11:25 08:36 WBC 2.8 L RBC 4.18 L Hgb 12.8 L Hct 37.9 L MCV 90.7 MCH 30.5 MCHC 33.6 RDW 19.7 H Plt Count 59 L MPV 8.9 Prelim Diff (Auto) Slide review pending Neut % (Auto) 38.3 Lymph % (Auto) 48.5 H Emanuel % (Auto) 7.8 Eos % (Auto) 5.0 H Baso % (Auto) 0.4 Neut # (Auto) 1.1 L Lymph # (Auto) 1.4 Emanuel # (Auto) 0.2 Eos # (Auto) 0.1 Baso # (Auto) 0.0 WBC Differential . Diff Scan Auto diff confirmed Differential Comment . Platelet Estimate Low L Platelet Morphology Normal Ovalocytes 1+ H POC Glucose 127 H 168 H - Impressions ITS Impressions Chest X-Ray 04/02/18 12:56 CONCLUSION: 1. Mild cardiomegaly and positive fluid balance. 2. Mild airspace disease at the lung bases, presumably atelectasis. Head CT 04/02/18 12:56 CONCLUSION: Stable noncontrast head CT. No acute intracranial abnormality is identified. . Lumbar Spine CT 04/03/18 00:00 CONCLUSION: Postsurgical findings at L4-5 and L5-S1. Degenerative findings at these levels and at L3-4. Prominent metallic artifact securing portions of the central canal at the surgical levels. Central canal diameter grossly within normal limits. Bilateral moderate neural foraminal narrowing at L4-5. Discharge Plan - Discharge Disposition Patient Disposition: W/Home Health Service - Discharge Condition Condition: Fair - Physicians Team Primary Care Provider: UNKNOWN, Attending Provider: Marty Jama
[2018-04-05] MEDS: levETIRAcetam 500 MG Tablet PO SCH ×2 (09:13→12:30)
[2018-04-05] MEDS: Divalproex 250 MG ER Tablet PO SCH (09:14)
[2018-04-05] MEDS: Sod Chloride 0.9% Inj 1,000 ML IV.CONT SCH (12:31)
== END 2018-04-05 14:47 | disposition home health service (06) ==
LOC: NEPC 12:12 → NEDA 16:42 → N07 18:03
PROVIDERS: ADMIT Internal Medicine; ATTEND Internal Medicine